=== PATIENT | female | born 1945 | race Caucasian/White ===

== ENCOUNTER 2018-01-25 07:54 | Outpatient (CLI) | payer MEDICARE, BC, SELFPAY ==
[2018-01-25 08:20] LABS: HCT 42.7 % (36.0-46.0); HGB 14.3 g/dL (12.0-15.5); Mean Corp. HGB Concentration 33.5 g/dL (32.0-36.0); Mean Corpuscular Hemoglobin 29.7 pg (27.0-33.0); Mean Corpuscular Volume 88.6 fL (80-95); Mean Platelet Volume 9.3 fL (8.0-11.0); Platelet Count 355 x1000/uL (130-400); RBC 4.82 m/cumm (4.00-5.20); RBC Distribution Width 13.9 % (11.7-14.6); White Blood Cell Count 4.87 k/cumm (4.4-10.8)
[2018-01-25 09:18] LABS: ALT 19 U/L (12-78); AST 18 U/L (15-37); Albumin 3.7 g/dL (3.4-5.0); Alkaline Phosphatase 89 U/L (46-116); Anion Gap 8.3 mmol/L (3-11); BUN 16 mg/dL (7-18); Bilirubin, Total 0.9 mg/dL (0.2-1.0); CO2 25.7 mmol/L (21.0-32.0); CREATININE 0.97 mg/dL (0.55-1.02); Calcium 8.6 mg/dL (8.5-10.1); Chloride 107 mmol/L (98-107); Estimated GFR 56.45 (mL/min/1.73m2); Glucose 120 mg/dL (70-100); Potassium 4.3 mmol/L (3.5-5.1); Sodium 141 mmol/L (136-145); Total Protein 6.9 g/dL (6.4-8.2)
[2018-01-27 07:27] LABS: Vitamin D 25 Total 12.8 ng/ml (30-100)
== END 2018-01-25 08:14 ==
PROVIDERS: PCP Family Medicine; Visit Provider Family Medicine
DX: E55.9 Vitamin D deficiency, unspecified (principal); R73.01 Impaired fasting glucose; K21.9 Gastro-esophageal reflux disease without esophagitis
CPT/HCPCS: 36415; 80053; 82306; 85027

== ENCOUNTER 2018-03-07 12:54 | Outpatient (CLI) | payer MEDICARE, BC, SELFPAY ==
--- NOTE | 2018-03-07 11:14 | DI.RAD_ITS ---
SYMPTOM/DIAGNOSIS: KNEE PAIN RIGHT KNEE: Comparison is made with 04/16/17. Two weight bearing views were performed. There has been no significant change in the right total knee prosthesis given differences in projection.
== END 2018-03-07 13:14 ==
PROVIDERS: PCP Family Medicine; Referring Provider Family Medicine; Visit Provider Student in an Organized Health Care Education/Training Program
DX: M25.561 Pain in right knee (principal); Z96.651 Presence of right artificial knee joint; Z47.1 Aftercare following joint replacement surgery
CPT/HCPCS: 99213; 99214; 73560

== ENCOUNTER 2018-04-04 14:13 | Outpatient (CLI) | payer MEDICARE, BC, SELFPAY ==
[2018-04-04 14:29] LABS: Bilirubin Negative (Negative); Blood Trace-lysed (Negative); Clarity Clear; Glucose Negative (Negative); Ketones Trace mg/dL (Negative); Leukocyte Esterase Small (Negative); Nitrite Negative (Negative); Specific Gravity >= 1.030 (1.005-1.025); Urobilinogen 0.2 EU/dL (Up TO 0.2)
[2018-04-04 14:52] LABS: Bacteria Moderate HPF (Negative); C & S Indicated? Yes; Casts Negative LPF (Negative); Crystals Negative HPF (Negative); Epithelial Cells Few HPF (Negative); Mucus Heavy (Negative); Other Cells Few Renal (Negative); WBC >50 HPF (0-5)
== END 2018-04-04 14:33 ==
PROVIDERS: PCP Family Medicine; Visit Provider Nurse Practitioner Women's Health
DX: R39.9 Unspecified symptoms and signs involving the genitourinary system (principal)
CPT/HCPCS: 87077; 81003; 81015; 87086; 87186

== ENCOUNTER → 2018-04-11 08:49 | Outpatient (BNVA) | payer MEDICARE, BC, SELFPAY | PROVIDERS: PCP Family Medicine; Referring Provider Family Medicine; Visit Provider Student in an Organized Health Care Education/Training Program | DX: Z47.1 Aftercare following joint replacement surgery (principal); Z96.651 Presence of right artificial knee joint; M17.11 Unilateral primary osteoarthritis, right knee | CPT/HCPCS: 99212; 99213 ==

== ENCOUNTER 2018-04-19 08:54 | Outpatient (CLI) | payer MEDICARE, BC, SELFPAY ==
--- NOTE | 2018-04-19 13:03 | DI.MAMMO_ITS ---
SYMPTOM/DIAGNOSIS: SCREENING, Z12.31 MAMMOGRAMS: Mammograms were interpreted according to the usual protocol including computer analysis with CAD system, tomosynthesis and C view imaging. Comparison is made with the prior examinations. No suspicious masses or microcalcifications are seen. There has been no significant change compared to the prior examinations. IMPRESSION: No evidence for malignancy. Yearly mammography is recommended. Category 1, breast density A. MQSA ASSESSMENT OF FINDINGS: Negative. Category 1. Patient will receive a letter notifying them of these results. BI-RAD category A. The breasts are almost entirely fatty.
== END 2018-04-19 09:14 ==
PROVIDERS: PCP Family Medicine; Visit Provider Family Medicine
DX: Z12.31 Encounter for screening mammogram for malignant neoplasm of breast (principal)
CPT/HCPCS: 77063; 77067

== ENCOUNTER 2018-04-21 08:16 | Outpatient (CLI) | payer MEDICARE, BC, SELFPAY ==
[2018-04-21 09:37] LABS: Glucose 109 mg/dL (70-100)
[2018-04-21 10:03] LABS: Vitamin D 25 Total 14.4 ng/ml (30-100)
== END 2018-04-21 08:36 ==
PROVIDERS: PCP Family Medicine; Visit Provider Family Medicine
DX: R73.03 Prediabetes (principal); E22.9 Hyperfunction of pituitary gland, unspecified
CPT/HCPCS: 82306; 82947; 83036

== ENCOUNTER 2018-08-29 11:45 | Outpatient (CLI) | payer MEDICARE, BC, SELFPAY ==
[2018-08-29 12:17] LABS: Abs Immature Grans 0.01 k/cumm (0.0-0.09); Absolute Basophil Count 0.01 k/cumm (0.0-0.2); Absolute Eosinophil Count 0.04 k/cumm (0.0-0.7); Absolute Lymphocyte Count 2.13 k/cumm (1.2-3.4); Absolute Monocyte Count 0.41 k/cumm (0.11-0.7); Absolute Neutrophil Count 3.71 k/cumm (1.2-6.7); Basophils % 0.2; Eosinophils % 0.6; HCT 43.3 % (36.0-46.0); Immature Grans % 0.2; Lymphocytes % 33.8; Mean Corp. HGB Concentration 32.3 g/dL (32.0-36.0); Mean Corpuscular Hemoglobin 28.9 pg (27.0-33.0); Mean Corpuscular Volume 89.5 fL (80-95); Mean Platelet Volume 9.3 fL (8.0-11.0); Monocytes % 6.5; Neutrophils % 58.7; Platelet Count 359 x1000/uL (130-400); RBC 4.84 m/cumm (4.00-5.20); White Blood Cell Count 6.31 k/cumm (4.4-10.8)
[2018-08-29 13:00] LABS: ALT 21 U/L (12-78); AST 16 U/L (15-37); Albumin 3.8 g/dL (3.4-5.0); Alkaline Phosphatase 101 U/L (46-116); Anion Gap 7.4 mmol/L (3-11); BUN 18 mg/dL (7-18); Bilirubin, Total 0.5 mg/dL (0.2-1.0); CO2 29.6 mmol/L (21.0-32.0); CREATININE 0.95 mg/dL (0.55-1.02); Calcium 9.2 mg/dL (8.5-10.1); Chloride 102 mmol/L (98-107); Estimated GFR 57.66 (mL/min/1.73m2); Glucose 97 mg/dL (70-100); Potassium 4.1 mmol/L (3.5-5.1); Sodium 139 mmol/L (136-145); Total Protein 7.2 g/dL (6.4-8.2)
--- NOTE | 2018-08-29 13:00 | DI.RAD_ITS ---
SYMPTOM/DIAGNOSIS: NECK PAIN, PRESSURE BOTH ARMS, CERVICALGIA, M54.2 CERVICAL SPINE: Five views were obtained. There is narrowing of the intervertebral disc spaces at C 4-5 and C 5-6 and to a lesser degree at C 3-4. There are moderate changes of hypertrophic spurring of the vertebral endplates and facet joints in the mid cervical region as well. The neural foramina appear well maintained except for probable narrowing of left neural foramen at C 4-5 level. No erosive or destructive process is seen. CONCLUSION: Degenerative changes as described above.
[2018-08-29 13:15] LABS: ESR 11 MM/HR (0-30)
[2018-08-29 14:09] LABS: Vitamin D 25 Total 17.7 ng/ml (30-100)
== END 2018-08-29 12:05 ==
PROVIDERS: PCP Family Medicine; Visit Provider Family Medicine
DX: R53.1 Weakness (principal); E55.9 Vitamin D deficiency, unspecified; R53.83 Other fatigue; M54.2 Cervicalgia; M47.22 Other spondylosis with radiculopathy, cervical region
CPT/HCPCS: 36415; 80053; 82306; 85652; 72050; 85025

== ENCOUNTER 2018-12-26 07:15 | Outpatient (CLI) | payer MEDICARE, BC, SELFPAY ==
[2018-12-26 08:48] LABS: Vitamin D 25 Total 24.1 ng/ml (30-100)
[2018-12-26 08:52] LABS: ALT 23 U/L (12-78); AST 17 U/L (15-37); Albumin 3.5 g/dL (3.4-5.0); Alkaline Phosphatase 97 U/L (46-116); Anion Gap 11.2 mmol/L (3-11); BUN 21 mg/dL (7-18); Bilirubin, Total 0.8 mg/dL (0.2-1.0); CO2 26.8 mmol/L (21.0-32.0); CREATININE 0.93 mg/dL (0.55-1.02); Calcium 8.8 mg/dL (8.5-10.1); Chloride 104 mmol/L (98-107); Glucose 105 mg/dL (70-100); Magnesium 2.1 mg/dL (1.8-2.4); Potassium 4.6 mmol/L (3.5-5.1); Sodium 142 mmol/L (136-145); Total Protein 6.9 g/dL (6.4-8.2); Vitamin B12 421 pg/mL (193-986)
== END 2018-12-26 07:35 ==
PROVIDERS: PCP Family Medicine; Visit Provider Family Medicine
DX: R73.03 Prediabetes (principal); Z79.899 Other long term (current) drug therapy; E55.9 Vitamin D deficiency, unspecified
CPT/HCPCS: 36415; 80053; 82306; 82607; 83735

== ENCOUNTER 2019-03-02 01:09 | Outpatient (CLI) | payer MEDICARE, BC, SELFPAY ==
[2019-03-02 13:22] LABS: Vitamin D 25 Total 26.2 ng/ml (30-100)
== END 2019-03-02 01:29 ==
PROVIDERS: PCP Family Medicine; Visit Provider Family Medicine
DX: E55.9 Vitamin D deficiency, unspecified (principal)
CPT/HCPCS: 36415; 82306

== ENCOUNTER 2019-06-13 13:26 | Outpatient (CLI) | payer MEDICARE, BC, SELFPAY ==
--- NOTE | 2019-06-13 14:41 | DI.MAMMO_ITS ---
EXAM: MG MAMMO SCREENING CLINICAL HISTORY: screening,Z12.31. TECHNIQUE: Full field digital CC and MLO mammographic images were obtained with 3D tomosynthesis and utilizing computer aided detection (CAD). COMPARISON: . 2009 through 2017 FINDINGS: Breast Density - Category A - Almost entirely fatty Masses/Architectural Distortion: None seen. Microcalcifications: No suspicious pleomorphic-type calcifications are seen. Skin Thickening/Nipple Retraction: None. Axilla: Unremarkable. IMPRESSION: 1. BI-RADS category 1, negative. No significant interval change with no specific features of maligna ncy noted. 2. Unless there is more urgent need, screening mammography is recommended, as per [place] [employer] guidelines. A negative radiographic report should not delay biopsy if a dominant or clinically suspicious mass is present. Up to ten percent of cancers are not identified on mammography. A negative report may reinforce clinical impression. Adenosis and dense breasts may obscure an underlying neoplasm. False positive reports average 6 to 10%. Patient will receive a letter notifying them of these results.
== END 2019-06-13 13:46 ==
PROVIDERS: PCP Family Medicine; Visit Provider Family Medicine
DX: Z12.31 Encounter for screening mammogram for malignant neoplasm of breast (principal)
CPT/HCPCS: 77063; 77067

== ENCOUNTER 2019-06-21 02:35 | Outpatient (CLI) | payer MEDICARE, BC, SELFPAY ==
[2019-06-22 06:50] LABS: Vitamin D 25 Total 28.3 ng/ml (30-100)
== END 2019-06-21 02:55 ==
PROVIDERS: PCP Family Medicine; Visit Provider Family Medicine
DX: E55.9 Vitamin D deficiency, unspecified (principal)
CPT/HCPCS: 36415; 82306

== ENCOUNTER 2019-08-15 18:46 | Inpatient (IN) | payer MEDICARE, BC, SELFPAY ==
[2019-08-15 18:51] VITALS: BP 175/81; PULSE 83; RESP 16; TEMP 36.6; O2SAT 98
[2019-08-15] MEDS: Lactated Ringers 1,000 ML 125 ML IV (19:14)
[2019-08-15 19:16] LABS: Absolute Basophil Count 0.01 k/cumm (0.0-0.2); Absolute Eosinophil Count 0.09 k/cumm (0.0-0.7); Absolute Monocyte Count 0.52 k/cumm (0.11-0.7); Basophils % 0.2; Eosinophils % 1.8; HCT 44.3 % (36.0-46.0); Lymphocytes % 49.8; Mean Corp. HGB Concentration 33.9 g/dL (32.0-36.0); Mean Corpuscular Hemoglobin 29.6 pg (27.0-33.0); Mean Corpuscular Volume 87.4 fL (80-95); Mean Platelet Volume 9.1 fL (8.0-11.0); Monocytes % 10.4; Neutrophils % 37.8; Platelet Count 399 x1000/uL (130-400); RBC 5.07 m/cumm (4.00-5.20); RBC Distribution Width 14.6 % (11.7-14.6); White Blood Cell Count 5.02 k/cumm (4.4-10.8)
[2019-08-15 19:38] LABS: ALT 28 U/L (14-59); AST 19 U/L (15-37); Albumin 3.7 g/dL (3.4-5.0); Alkaline Phosphatase 103 U/L (46-116); Anion Gap 9.4 mmol/L (3-11); BUN 20 mg/dL (7-18); Bilirubin, Total 0.6 mg/dL (0.2-1.0); CO2 26.6 mmol/L (21.0-32.0); CREATININE 1.02 mg/dL (0.55-1.02); Calcium 9.5 mg/dL (8.5-10.1); Chloride 108 mmol/L (98-107); Estimated GFR 52.97 (mL/min/1.73m2); Glucose 127 mg/dL (74-106); Potassium 4.1 mmol/L (3.5-5.1); Sodium 144 mmol/L (136-145); Total Protein 7.5 g/dL (6.4-8.2)
--- NOTE | 2019-08-15 19:40 | W.ED.GENAD ---
Discharge Plan Disposition Patient Disposition: [facility]IENT Condition: Stable Discharge Details Chief Complaint: Abd Prob Clinical Impression: Partial small bowel obstruction Admit Date/Time: 08/15/19 23:21 Admit Provider: Kelly Lewis Attending Provider: Kelly Lewis Primary Care Provider: Nathaly March ED Provider: Prosper Caballero Hospital Course Hospital Course: The patient was admitting for symptom control and IVF. Her pain resolved quickly. On the day of discharge she was tolerating a soft diet with nausea, vomiting or increased pain. She was having loose stool. She was advised to call for any return of symptoms, follow up as needed. Discharge Instructions Instructions: Bowel Obstruction (DC) Forms: Nursing Discharge Form Discharge Data Discharge Date/Time-TO BE ENTERED AT DEPARTURE: 08/16/19 00:30 Medical Decision Making <César Berumen MD - Last Filed: 08/26/19 09:20> 19:50 -- 74yo f with history of prior bowel resection and bowel obstruction in 0 that was treated nonoperatively, here tonight with mid abdominal pain that started postprandially. Tender in her left upper abdomen with no rigidity or rebound tenderness. Consider bowel obstruction. Will obtain abdominal x-ray. If x-ray is inconclusive, plan to proceed to CT the abdomen pelvis to assess for other acute intra-abdominal surgical processes. I will give morphine 4 mg IV for pain. Patient remained n.p.o. and receiving IV fluid maintenance. Labs reviewed and no leukocytosis, lactate is mildly elevated at 2.0. LFTs and lipase normal. <Prosper Caballero MD - Last Filed: 08/16/19 01:50> Received signout from Dr. Berumen. Please see his note regarding details of the initial presentation, exam, plan of care. She is a 74-year-old female with a history of previous partial colectomy as well as previous bowel obstructions. Patient's x-ray was read as unremarkable but she had persistent symptoms of distention and discomfort. She was referred for CT scan which does show mild dilation of the mid to distal small bowel loops consistent with an early or partial mechanical small bowel obstruction. HPI <César Berumen MD - Last Filed: 08/26/19 09:20> General Mode of arrival: ambulatory. Date/Time Provider Initiated Documentation: 08/15/19 18:56. Limitations to Documentation: no limitations. Information obtained by: patient. HPI Narrative: 74-year-old female with history of remote bowel resection and subsequent bowel obstruction that was treated nonoperatively in 2013, here tonight with chief complaint of abdominal pain. Patient notes pain started just prior to arrival postprandially. Pain localized to central abdomen. No radiation. No associated nausea or vomiting. She did have a small bowel movement after onset of pain. Pain feels like prior episode of bowel obstruction in 2013. Pain is described as dull and moderate to severe in intensity. Certain positions seem to improve pain. Related Data Home Medications Medication Instructions Recorded Confirmed sumatriptan succinate 50 mg tablet 50 mg PO ONCE PRN 01/24/18 08/15/19 omeprazole 20 mg capsule,delayed 20 mg PO DAILY PRN cap 08/29/18 08/15/19 release cholecalciferol (vitamin D3) 50 4,000 unit PO DAILY #90 cap 03/27/19 08/15/19 mcg (2,000 unit) capsule Previous Rx's Medication Instructions Recorded cholecalciferol (vitamin D3) 50 4,000 unit PO DAILY #90 cap 03/27/19 mcg (2,000 unit) capsule Allergies Allergy/AdvReac Type Severity Reaction Status Date / Time Metronidazole HCl AdvReac Severe NAUSEA,DIAR Verified 08/15/19 18:53 [From Flagyl] LAKEISHA atorvastatin calcium AdvReac Intermediate MUSCLE, Verified 08/15/19 18:53 [From Lipitor] JOINT PAIN meperidine HCl [From Demerol] AdvReac Intermediate Nausea Verified 08/15/19 18:53 Frzmffc-Tag-Gty Reductase AdvReac Intermediate myalgia Verified 08/15/19 18:53 Inhibitor General Stated Complaint: Abd Prob ANABELA: 3 Review of Systems <César Berumen MD - Last Filed: 08/26/19 09:20> All systems reviewed & are unremarkable except as noted in HPI and below Constitutional Constitutional: Denies fever(s) Gastrointestinal Gastrointestinal: Reports as per HPI, Denies melena, Denies hematochezia, Denies nausea and Denies vomiting PFSH <César Berumen MD - Last Filed: 08/26/19 09:20> Medical History Hyperlipidemia (Chronic 03/28/13) Hypertension (Chronic) Small bowel obstruction (Resolved) Surgical History Back Surgery (~1988) [facility] [place] Bowel Resection (~2002) RE DIVERTICULITIS;DR. Mervat SHAFFER Cholecystectomy (~1969) Extraction of cataract DR. 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 Calzada Family History Mother Essential hypertension CHF (congestive heart failure) Stroke Father CHF (congestive heart failure) Brother Neoplasm multiple mylenoma; acute renal failure Brother No problems noted. 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 [employer] Duration: 15-30 minutes/day Frequency: daily Maribel/Mu-Ism: Zoroastrianism Special maribel needs: No Do you feel safe in your relationship?: Yes Exam <César Berumen MD - Last Filed: 08/26/19 09:20> Const General: cooperative and no acute distress HENMT Mouth: moist mucous membranes Eyes Conjunctivae: normal conjunctivae Sclera: normal sclerae Neck Neck: trachea midline and supple Resp Auscultation: clear to auscultation bilaterally, no rales, no rhonchi and no wheezes Cardio Rate: regular rate and not tachycardic Rhythm: regular rhythm GI Palpation: soft, not firm, no guarding, no masses, not rigid and tender in the LUQ, periumbilically and Rovsing's sign positive (LUQ pain on palpation right abd); with no rebound tenderness Auscultation: normal bowel sounds Neuro General: patient alert, patient awake and tone normal Extrem General: no edema Psych Appearance: grossly normal Mental Status: mental status grossly normal Course <César Berumen MD - Last Filed: 08/26/19 09:20> Vital Signs Vital signs: Vital Signs Temperature 36.6 C 08/15/19 18:51 Pulse 83 08/15/19 18:51 Respiratory Rate 16 03/31/20 18:51 Blood Pressure 175/81 H 08/15/19 18:51 Pulse Oximetry 98 08/15/19 18:51 Temperature 36.6 C 08/15/19 18:51 Temperature Source Temporal Artery Scan 08/15/19 18:51 Pulse 83 08/15/19 18:51 Respiratory Rate 16 08/15/19 18:51 Blood Pressure 175/81 H 08/15/19 18:51 Blood Pressure Position Sitting 08/15/19 18:51 Pulse Oximetry 98 08/15/19 18:51 Oxygen Delivery Method Room Air 08/15/19 18:51 Oxygen Flow Rate 0 08/15/19 18:51 Pain Level 9 08/15/19 18:51 Lab/Test Results Lab/Test Results: Laboratory Tests Range/Units 08/15/19 19:03 WBC (4.4-10.8) k/cumm 5.02 RBC (4.00-5.20) m/cumm 5.07 Hgb (12.0-15.5) g/dL 15.0 Hct (36.0-46.0) % 44.3 MCV (80-95) fL 87.4 MCH (27.0-33.0) pg 29.6 MCHC (32.0-36.0) g/dL 33.9 RDW (11.7-14.6) % 14.6 Plt Count (130-400) x1000/uL 399 MPV (8.0-11.0) fL 9.1 Immature Gran % % 0.0 Neutrophils % 37.8 Lymphocytes % 49.8 Monocytes % 10.4 Eosinophils % 1.8 Basophils % 0.2 Absolute Neutrophils (1.2-6.7) k/cumm 1.90 Absolute Lymphocytes (1.2-3.4) k/cumm 2.50 Absolute Monocytes (0.11-0.7) k/cumm 0.52 Absolute Eosinophils (0.0-0.7) k/cumm 0.09 Absolute Basophils (0.0-0.2) k/cumm 0.01 Sign Out <César Berumen MD - Last Filed: 08/26/19 09:20> Sign Out Data: Sign Out Comment: Follow-up on abdominal x-ray. Reassess patient. Consider additional diagnostic testing if pain persists and x-ray inconclusive. Last updated by César Berumen MD at 08/15/19 19:55
[2019-08-15 19:54] LABS: Lipase 56 U/L (73-393)
--- NOTE | 2019-08-15 20:07 | DI.RAD_ITS ---
EXAM: XR ABD FLAT UPRIGHT PA CHEST CLINICAL HISTORY: abdominal pain periumbilical TECHNIQUE: 2D digital imaging was performed. COMPARISON: CHEST 2 VIEWS PA,LAT from 05/24/2016 FINDINGS: The heart size is mildly enlarged, unchanged. The aorta is slightly tortuous. The lungs appear pramod r with the exception of minimal linear areas scarring or atelectasis. Multiple surgical clips are se en on the left side of the abdomen. There are no abnormal bowel loops of dilated bowel. No free air is seen. No urinary tract calculi are visible. Degenerative changes are seen in the spine. IMPRESSION: No acute abnormality.
--- NOTE | 2019-08-15 20:14 | DI.VRAD_ITS ---
PROCEDURE INFORMATION: Exam: XR Complete Acute Abdomen Series Exam date and time: 08/15/2019 7:58 PM Age: 74 years old Clinical indication: Other: Abdominal pain periumbilical TECHNIQUE: Imaging protocol: XR complete acute abdomen series, including 2 or more views of the abdomen and a single view chest. COMPARISON: CR CHEST 2 VIEWS PA,LAT 05/24/2016 9:05 PM FINDINGS: Lungs: Pulmonary vascular markings upper normal. No consolidation. Pleural space: Normal. No pneumothorax. Heart/Mediastinum: Normal. No cardiomegaly. Gastrointestinal tract: Normal. No bowel dilation. Intraperitoneal space: Surgical clips left abdomen. Bones/joints: Normal. No acute fracture. Soft tissues: Normal. IMPRESSION: No acute abnormality identified. Dictated and Authenticated by: Nick Gilliam MD. Ordering:IRIS Lindsey MD
[2019-08-15 21:25] VITALS: BP 126/53; PULSE 63; RESP 18; O2SAT 96
--- NOTE | 2019-08-15 22:30 | DI.CT_ITS ---
EXAM: CT ABDOMEN PELVIS W CLINICAL HISTORY: pain, bloating, hx SBO. TECHNIQUE: Imaging Protocol: Axial computed tomography images with coronal and sagittal reformatted images were created and reviewed CONTRAST MATERIAL: Intravenous: Omnipaque 350 Contrast volume:100 ml Oral: yes. The patient had difficulty tolerating the oral contrast due to nausea. COMPARISON: ABD PELVIS WITH CONTRAST from 03/04/2014 XR ABD FLAT UPRIGHT PA CHEST from 08/15/2019 FINDINGS: ABDOMEN: Lung Bases: The heart is mildly enlarged. The lungs show increased interstitial changes in bilateral nonspecific areas of increased airspace opacities, non-specific. Liver: Mild fatty infiltration. Stable small cyst in the left lobe.. No suspicious mass. Gallbladder and biliary tract: The gallbladder is not seen, presumed surgically absent. No radiodens e calculus or dilation. Pancreas: Atrophic and fatty replaced. No abnormal calcifications or inflammatory process. Spleen: Normal. Kidneys: Normal size, contour and axis. No radiodense stones or obstructive uropathy. No masses seen. Adrenal glands: No masses seen. Abdominal Aorta: Abdominal portion non-dilated and shows calcification.. PELVIS: Bladder: Symmetric distention, no gross wall thickening. Bowel: There is a sigmoid anastomosis. Diverticulosis is noted throughout the colon. There is no ev idence of diverticulitis. Stomach the stomach is somewhat distended with food and fluid. There is m ild dilatation of loops of small bowel which could indicate an early obstruction.. Peritoneal cavity: No ascites, collection or mesenteric inflammatory response. No free air Bones: Degenerative changes. Reproductive organs: Status post hysterectomy. Lymph nodes: No enlarged nodes are seen. Impression: Findings consistent with a mild partial small bowel obstruction. There is diverticulosis but no evid ence of diverticulitis. Nonspecific opacities are seen at the lung bases. Clinical correlation is r ecommended.. DATA REPOSITORY: All CT scans at this facility are submitted to the National Radiology Data Registry (NRDR) Dose Index Registry (DIR) with the [employer] (ACR). RADIATION OPTIMIZATION: All CT scans at this facility use at least one of these dose optimization te chniques: automated exposure control; mA and/or kV adjustment per patient size (includes targeted exa ms where dose is matched to clinical indication); or iterative reconstruction.
[2019-08-15] MEDS: Omnipaque 350 MG/ML 100 ML BTL IJ (22:32)
[2019-08-15] MEDS: Omnipaque 350 MG/ML 50 ML BTL PO (22:32)
[2019-08-15] MEDS: Normal Saline - Diluent 50 ML VIAL IV (22:33)
[2019-08-15 23:06] VITALS: BP 150/73; PULSE 72; RESP 16; O2SAT 97
--- NOTE | 2019-08-15 23:12 | DI.VRAD_ITS ---
PROCEDURE INFORMATION: Exam: CT Abdomen And Pelvis With Contrast Exam date and time: 08/15/2019 9:02 PM Age: 74 years old Clinical indication: Bloating and other: Pain, bloating, HX sbo; Patient HX: HX bowel recection in 2002. TECHNIQUE: Imaging protocol: Computed tomography of the abdomen and pelvis with intravenous contrast. Contrast material: OMNIPAQUE 350; Contrast volume: 100 ml; Contrast route: IV; Other contrast: Oral, omnipaque 350, 50; COMPARISON: CT ABD PELVIS WITH CONTRAST 03/04/2014 5:22 PM FINDINGS: Lungs: Interstitial prominence and peribronchiolar airspace disease both lower lobes. Liver: Diffuse decrease in hepatic parenchymal density, consistent with fatty infiltration. 1.6 cm cyst left lobe liver. Gallbladder and bile ducts: Normal. No calcified stones. No ductal dilation. Pancreas: Normal. No ductal dilation. Spleen: Normal. No splenomegaly. Adrenals: Normal. No mass. Kidneys and ureters: Normal. No hydronephrosis. Stomach and bowel: Mild dilation of mid to distal small bowel loops, consistent with an early or partial mechanical small bowel obstruction. Previous sigmoid resection. Colonic diverticula present. Appendix: No evidence of appendicitis. Intraperitoneal space: Unremarkable. No free air. No significant fluid collection. Vasculature: Aorta demonstrates mild atherosclerotic calcification. Lymph nodes: Unremarkable. No enlarged lymph nodes. Bladder: Unremarkable as visualized. Reproductive: Unremarkable as visualized. Bones/joints: Unremarkable. No acute fracture. Soft tissues: Unremarkable. IMPRESSION: 1. Mild dilation of mid to distal small bowel loops, consistent with an early or partial mechanical small bowel obstruction. Correlate clinically. 2. Interstitial prominence and peribronchiolar airspace disease both lower lobes. Dictated and Authenticated by: Nick Gilliam MD. Ordering:MAMI Cheng MD
[2019-08-16] MEDS: Pantoprazole 40 MG VIAL IVP (00:11)
[2019-08-16 00:16] VITALS: BP 154/70; PULSE 72; RESP 18; TEMP 36.6; O2SAT 96
[2019-08-16 00:29] VITALS: BP 147/73; PULSE 64; RESP 20; TEMP 36.6; O2SAT 94
[2019-08-16] MEDS: Normal Saline Flush 10 ML SYR IVP ×3 (01:31→06:41)
[2019-08-16] MEDS: Ondansetron 4 MG/2 ML VIAL IVP ×2 (02:57→06:40)
[2019-08-16] MEDS: MORPHine 2 MG/ML SYR IVP ×2 (03:15→06:44)
[2019-08-16 03:56] VITALS: BP 125/72; PULSE 73; RESP 19; TEMP 36.4; O2SAT 95
[2019-08-16 06:43] VITALS: BP 163/82; PULSE 85; RESP 18; TEMP 35.8; O2SAT 98
[2019-08-16 07:25] VITALS: BP 135/79; PULSE 70; RESP 18; TEMP 36.6; O2SAT 91
[2019-08-16] MEDS: Normal Saline 1,000 ML 125 ML IV ×4 (07:48→23:57)
--- NOTE | 2019-08-16 09:53 | DI.RAD_ITS ---
EXAM: XR ABDOMEN FLAT PLATE CLINICAL HISTORY: Bowel obstruction TECHNIQUE: 2D digital imaging was performed. COMPARISON: XR ABD FLAT UPRIGHT PA CHEST from 08/15/2019 CT ABDOMEN PELVIS W from 08/15/2019 FINDINGS: A loop of mildly dilated small bowel in the mid abdomen. The stomach and colon are not abnormally d istended. Anastomotic sutures and surgical clips are again noted. IMPRESSION: Mild central small-bowel dilatation.
--- NOTE | 2019-08-16 10:38 | PDOC.CMIN ---
- If Service Date Differs Date of service: 08/16/19 Time of Service: 10:38 Care Management Initial Assess REASON FOR HOSPITALIZATION:: Small bowel obstruction PAST MEDICAL HISTORY/PAST SURGICAL HISTORY:: Medical History. Hyperlipidemia (Chronic 03/28/13). Hypertension (Chronic). Small bowel obstruction (Resolved). Surgical History. Back Surgery (~1988). [facility] [place]. Bowel Resection (~2002). RE DIVERTICULITIS;DR. Mervat SHAFFER. Cholecystectomy (~1969). Extraction of cataract. DR. LEGER left 12/2014;rt 02/2012. Ligation of fallopian tube (~1985). . Replacement of total knee joint (04/01/17). Right Knee Replacement- Dr. Calzada PREVIOUS FUNCTIONAL STATUS/SOCIAL/FAMILY SUPPORTS:: Sherlyn lives in [facility]. Her son, Zaki, is listed as a support. She has two sons who live nearby and three who live out of the state. She is currently working for [employer], at [employer]. She is very independent at baseline. CURRENT FUNCTIONAL STATUS:: Sherlyn was sitting up in her chair when CM met with her. She reported that she was feeling better than when she arrived. She stated that she has experienced this before, so she knows what to expect. Previously, she did not need surgical intervention to resolve her SBO, and she is hopeful that the current process will be similar. CM will continue to follow. ADVANCE DIRECTIVES:: None on file. Has patient been provided with information about the portal?: Yes Did the patient sign up for the portal?: Yes (previously) CODE STATUS:: Full Code INSURANCE COVERAGE / FINANCIAL ISSUES:: [facility]/ [employer]BS CURRENT HOME/COMMUNITY SERVICES/EQUIPMENT:: Sherlyn does not currently have equipment or services in the community. PRIMARY CARE PHYSICIAN:: Nathaly March POTENTIAL DISCHARGE NEEDS:: Evaluations for further needs, follow up appointments PATIENT/FAMILY EDUCATION NEEDS:: Review discharge instructions regarding activity levels and medications, discussion of self care needs including ask me three ANTICIPATED BARRIERS TO DISCHARGE:: None identified at this time. TRANSPORTATION:: Anticipate she will be driven home via private vehicle by [employer]. PLAN:: Anticipate Sherlyn will return home once medically cleared. She will follow up with her PCP and discharge plan of care. She will be driven home via private vehicle once ready. CM will continue to follow.
[2019-08-16 11:36] LABS: Abs Immature Grans 0.01 k/cumm (0.0-0.09); Absolute Basophil Count 0.01 k/cumm (0.0-0.2); Absolute Lymphocyte Count 1.01 k/cumm (1.2-3.4); Absolute Monocyte Count 0.46 k/cumm (0.11-0.7); Absolute Neutrophil Count 4.82 k/cumm (1.2-6.7); Basophils % 0.2; HCT 40.9 % (36.0-46.0); HGB 13.4 g/dL (12.0-15.5); Immature Grans % 0.2 %; Mean Corp. HGB Concentration 32.8 g/dL (32.0-36.0); Mean Corpuscular Hemoglobin 28.9 pg (27.0-33.0); Mean Corpuscular Volume 88.3 fL (80-95); Mean Platelet Volume 9.2 fL (8.0-11.0); Monocytes % 7.3; Neutrophils % 76.3; Platelet Count 307 x1000/uL (130-400); RBC 4.63 m/cumm (4.00-5.20); RBC Distribution Width 14.5 % (11.7-14.6); White Blood Cell Count 6.31 k/cumm (4.4-10.8)
[2019-08-16 11:39] LABS: Anion Gap 8.3 mmol/L (3-11); BUN 17 mg/dL (7-18); CO2 25.7 mmol/L (21.0-32.0); CREATININE 0.86 mg/dL (0.55-1.02); Calcium 8.8 mg/dL (8.5-10.1); Chloride 110 mmol/L (98-107); Glucose 128 mg/dL (74-106); Sodium 144 mmol/L (136-145)
--- NOTE | 2019-08-16 11:41 | HPE_ITS ---
Date of service: 08/16/19 Time of Service: 09:00 Assessment and Plan Assessment and plan (1) Partial small bowel obstruction: Status: Acute Assessment and plan: A// ABD flat plate showed Mild central small-bowel dilatation. Abdominal exam was unremarkable. Diet: Currently NPO. Will start clear liquid diet once passing gas. Encouraged ambulation within the room with staff. Continue IV fluids for hydration. Denies N/V pt seen and examined. agree w/ above. no signs of peritonitis or infection/ischemia History of Present Illness History of Present Illness Chief Complaint: Small Bowel Obstruction Narrative: 74 y/o female presented to the ER with post-prandial abdominal pain which had started a few hours prior to her coming into the ER. She reports that she ate dinner a small dinner and then noted progressively worsening abdominal pain. She reports she lives alone and was concerned that her symptoms would continue to worsen into the night. She reports her pain is well controlled currently. Her last BM was last evening following her dinner. She denies any fevers, chills or night sweats. She reports she had a SBO in 2012 which resolved with medical management. She denies any nausea or vomiting. She was given jello and gingerale which she reported she tolerated well. Will return to NPO pending ABD flat plate. [facility] Medical History Hyperlipidemia (Chronic 03/28/13) Hypertension (Chronic) Small bowel obstruction (Resolved) Surgical History [place] (~1988[place] [facility] [place] (~2002) RE DIVERTICULITIS;DR. Mervat SHAFFER Cholecystectomy (~1969) Extraction of cataract DR. 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 Calzada Family History Mother Essential hypertension CHF (congestive heart failure) Stroke Father CHF (congestive heart failure) Brother Neoplasm multiple mylenoma; acute renal failure Brother No problems noted. 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: 15-30 minutes/day Frequency: daily Maribel/Anabaptist: Confucianism Special maribel needs: No Do you feel safe in your relationship?: Yes Meds Home Medications and Allergies Home Medications Medication Instructions Recorded Confirmed Type sumatriptan succinate 50 mg tablet 50 mg PO ONCE PRN 01/24/18 08/15/19 History omeprazole 20 mg capsule,delayed 20 mg PO DAILY PRN cap 08/29/18 08/15/19 History release cholecalciferol (vitamin D3) 50 4,000 unit PO DAILY #90 cap 03/27/19 08/15/19 Rx mcg (2,000 unit) capsule Allergies Allergy/AdvReac Type Severity Reaction Status Date / Time Metronidazole HCl AdvReac Severe NAUSEA,DIAR Verified 08/15/19 18:53 [From Flagyl] LAKEISHA atorvastatin calcium AdvReac Intermediate MUSCLE, Verified 08/15/19 18:53 [From Lipitor] JOINT PAIN meperidine HCl [From Demerol] AdvReac Intermediate Nausea Verified 08/15/19 18:53 Uzhrmht-Bal-Oqg Reductase AdvReac Intermediate myalgia Verified 08/15/19 18:53 Inhibitor Exam Const General: cooperative, healthy appearing and comfortable Orientation: alert and oriented x3 Resp Effort & Inspection: normal respiratory effort, no audible wheezes and no cough Auscultation: clear to auscultation bilaterally GI Inspection: normal to inspection and non-distended Palpation: soft, no guarding and nontender Auscultation: normal bowel sounds Results Labs Result diagrams: 08/16/19 11:15 08/16/19 11:15 Labs: Laboratory Results - last 24 hr 08/15/19 08/15/19 08/15/19 19:03 19:03 19:03 WBC 5.02 RBC 5.07 Hgb 15.0 Hct 44.3 MCV 87.4 MCH 29.6 MCHC 33.9 RDW 14.6 Plt Count 399 MPV 9.1 Immature Gran % 0.0 Neutrophils % 37.8 Lymphocytes % 49.8 Monocytes % 10.4 Eosinophils % 1.8 Basophils % 0.2 Absolute Neutrophils 1.90 Absolute Lymphocytes 2.50 Absolute Monocytes 0.52 Absolute Eosinophils 0.09 Absolute Basophils 0.01 Sodium 144 Potassium 4.1 Chloride 108 H Carbon Dioxide 26.6 Anion Gap 9.4 BUN 20 H Creatinine 1.02 Estimated GFR/1.73 m2 52.97 Glucose 127 H Lactate Calcium 9.5 Total Bilirubin 0.6 AST 19 ALT 28 Alkaline Phosphatase 103 Total Protein 7.5 Albumin 3.7 Lipase 56 08/15/19 08/16/19 08/16/19 19:33 11:15 11:15 WBC 6.31 RBC 4.63 Hgb 13.4 Hct 40.9 MCV 88.3 MCH 28.9 MCHC 32.8 RDW 14.5 Plt Count 307 MPV 9.2 Immature Gran % 0.2 Neutrophils % 76.3 Lymphocytes % 16.0 Monocytes % 7.3 Eosinophils % 0.0 Basophils % 0.2 Absolute Neutrophils 4.82 Absolute Lymphocytes 1.01 L Absolute Monocytes 0.46 Absolute Eosinophils 0.00 Absolute Basophils 0.01 Sodium 144 Potassium 4.0 Chloride 110 H Carbon Dioxide 25.7 Anion Gap 8.3 BUN 17 Creatinine 0.86 Estimated GFR/1.73 m2 >= 60.00 Glucose 128 H Lactate 2.0 H Calcium 8.8 Total Bilirubin AST ALT Alkaline Phosphatase Total Protein Albumin Lipase Last Vital Signs Temp 36.6 C 08/16/19 07:25 Pulse 70 08/16/19 07:25 Resp 18 08/16/19 07:25 BP 135/79 08/16/19 07:25 Pulse Ox 91 L 08/16/19 07:25 COVID-19 Screening Traveled to [place] from one of the affected countries or regions?: N Recent travel in the [place] within the last 8 weeks?: No Recent out of the country travel within the last 8 weeks?: No Exposure or possible exposure to illness during travel?: No Had IN PERSON contact w/suspected or confirmed C-19 person: No Have you had the following symptoms in the past few days?: No Symptoms noted since travel?: No Symptoms
--- NOTE | 2019-08-16 11:52 | PHA.ADMREV ---
Pharmacy Clinical Review - Admission Clinical Review (Last Updated 08/15/19 @ 19:47 by César Berumen MD) Partial small bowel obstruction (Acute) Metronidazole HCl [From Flagyl] Adverse Reaction (Severe, Verified 08/15/19 18:53) NAUSEA,DIARRHEA atorvastatin calcium [From Lipitor] Adverse Reaction (Intermediate, Verified 08/15/19 18:53) MUSCLE, JOINT PAIN meperidine HCl [From Demerol] Adverse Reaction (Intermediate, Verified 08/15/19 18:53) Nausea Xlarwvd-Hwe-Jjl Reductase Inhibitor Adverse Reaction (Intermediate, Verified 08/15/19 18:53) myalgia Weight 93 kg - Renal Dosing Renal Dosing: BUN 17 mg/dL (7-18) 08/16/19 11:15 Creatinine 0.86 mg/dL (0.55-1.02) 08/16/19 11:15 Medications needing adjustments: Reviewed (current meds okay) - Anticoagulation Anticoagulation: Hgb 13.4 g/dL (12.0-15.5) 08/16/19 11:15 Hct 40.9 % (36.0-46.0) 08/16/19 11:15 Plt Count 307 x1000/uL (130-400) 08/16/19 11:15 Creatinine 0.86 mg/dL (0.55-1.02) 08/16/19 11:15 DVT Prohphylaxis: N/A Therapeutic Anticoagulation: N/A - Opiate Usage Evaluate Pain Scale/Pains Meds: Reviewed Scheduled Bowel Reg ordered if on Opiates?: No (has obstruction) - Relevant Labs Sodium 144 mmol/L (136-145) 08/16/19 11:15 Potassium 4.0 mmol/L (3.5-5.1) 08/16/19 11:15 Chloride 110 mmol/L (98-107) H 08/16/19 11:15 Electrolytes, C-Reactive P, ESR: Reviewed - Antimicrobial Stewardship Antibiotic appropriateness: N/A Surgical Abx d/c within 24 hr: N/A Culture review/Resistance: N/A - DM Control DM Control: Glucose 128 mg/dL (74-106) H 08/16/19 11:15 Insulin Dosing: N/A - Heart Failure/AL EF%, VY's, B-Blockers, Diuretics: N/A - BP Control BP Control: Blood Pressure 135/79 Blood Pressure 163/82 Blood Pressure 125/72 Blood Pressure 147/73 If elevated: Reviewed - QTc Review If Elevated: N/A - IV to PO Switch IV Medications: N/A - Home Meds Home Med List reviewed: Reviewed Relevent Home Meds Not ordered & why?: cholecalciferol, omeprazole, sumatriptan (pt currently NPO) - Current meds Current Medication Order Review: Reviewed - Comments Comments/Follow Ups: watch for restart of home meds once pt. no longer NPO
--- NOTE | 2019-08-16 14:06 | CHAPLAIN ---
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 She has been hospitalized before for something similar before and said she expects to be discharged later today. She has been in touch with her niece, and also called her two sons who live locally. Because no visitors are allowed in the hospital at this time, she is keeping in touch with family by phone.
[2019-08-16 15:32] VITALS: BP 108/70; PULSE 64; RESP 17; TEMP 36.6; O2SAT 95
--- NOTE | 2019-08-16 16:38 | W.PM.PROGNOT ---
Date of Service Date of service: 08/16/19 Time of Service: 16:38 Assessment and Plan Assessment and plan (1) Partial small bowel obstruction: Status: Acute Assessment and plan: s/p sigmoid resection for SBO. hx of prior SBO trial of clears and encourage walking hopefully advance diet in am/ +BM and than d/c (2) H/O surgical procedure: Status: Chronic Subjective Subjective Interval history since last seen: pt is occ passing gas. no BM yet. pain is signif improved since this am. No bleeding. Pt is doing well. no headaches. No CP or SOB. no productive cough. no dysuria. no leg pain or swelling. she does want to try some liquids. She does have a feel BS. and no pain. the pain was on the lower/left side of her incision. THis is where the adhesions are on the Ct scan. She has had a prior SBO in the past- her sx was in 2002. Her SBO was 2012. She denies any unsual activity or food. Exam GI Other: soft, min pain. + BS. no flatus yet Objective Objective Clinical Data: Abnormal lab results 08/15/19 08/15/19 08/16/19 Range/Units 19:03 19:33 11:15 Absolute Lymphocytes (1.2-3.4) k/cumm Chloride 108 H 110 H (98-107) mmol/L BUN 20 H (7-18) mg/dL Glucose 127 H 128 H (74-106) mg/dL Lactate 2.0 H (0.6-1.4) mmol/L 08/16/19 Range/Units 11:15 Absolute Lymphocytes 1.01 L (1.2-3.4) k/cumm Chloride (98-107) mmol/L BUN (7-18) mg/dL Glucose (74-106) mg/dL Lactate (0.6-1.4) mmol/L Vital Signs Temperature 36.6 C 08/16/19 15:32 Temperature Source Tympanic 08/16/19 15:32 Pulse 64 08/16/19 15:32 Pulse Rhythm Regular 08/16/19 07:50 Respiratory Rate 17 08/16/19 15:32 Respiratory Effort Non-Labored 08/16/19 07:50 Respiratory Depth Normal 08/16/19 07:50 Respiratory Pattern Normal 08/16/19 07:50 Blood Pressure 108/70 08/16/19 15:32 Blood Pressure Position Sitting 08/15/19 18:51 Pulse Oximetry 95 08/16/19 15:32 Oxygen Delivery Method Room Air 08/16/19 15:32 Oxygen Flow Rate 0 08/16/19 15:32 Pain Level 0 08/16/19 15:32 Intake & Output 08/15/19 08/16/19 08/16/19 23:59 11:59 23:59 Intake Total 1000 / 1000 1974 Output Total 1200 / 1500 300 / 1500 Balance 1000 / 1000 -225 / 475 700 / 475 Weight 90.718 kg 93 kg Intake: IV 1000 / 1000 1974 Output: Urine 600 / 900 300 / 900 Emesis 600 / 600 Other: Urine Color Yellow Straw Urine Appearance Clear Clear Urine Odor Normal Normal Emesis Description Undigested Food Bile Mucous Voiding Methods Toilet Toilet Laboratory Results WBC 6.31 k/cumm (4.4-10.8) 08/16/19 11:15 RBC 4.63 m/cumm (4.00-5.20) 08/16/19 11:15 Hgb 13.4 g/dL (12.0-15.5) 08/16/19 11:15 Hct 40.9 % (36.0-46.0) 08/16/19 11:15 MCV 88.3 fL (80-95) 08/16/19 11:15 MCH 28.9 pg (27.0-33.0) 08/16/19 11:15 MCHC 32.8 g/dL (32.0-36.0) 08/16/19 11:15 RDW 14.5 % (11.7-14.6) 08/16/19 11:15 Plt Count 307 x1000/uL (130-400) 08/16/19 11:15 MPV 9.2 fL (8.0-11.0) 08/16/19 11:15 Immature Gran % 0.2 % 08/16/19 11:15 Neutrophils % 76.3 08/16/19 11:15 Lymphocytes % 16.0 08/16/19 11:15 Monocytes % 7.3 08/16/19 11:15 Eosinophils % 0.0 08/16/19 11:15 Basophils % 0.2 08/16/19 11:15 Absolute Neutrophils 4.82 k/cumm (1.2-6.7) 08/16/19 11:15 Absolute Lymphocytes 1.01 k/cumm (1.2-3.4) L 08/16/19 11:15 Absolute Monocytes 0.46 k/cumm (0.11-0.7) 08/16/19 11:15 Absolute Eosinophils 0.00 k/cumm (0.0-0.7) 08/16/19 11:15 Absolute Basophils 0.01 k/cumm (0.0-0.2) 08/16/19 11:15 Sodium 144 mmol/L (136-145) 08/16/19 11:15 Potassium 4.0 mmol/L (3.5-5.1) 08/16/19 11:15 Chloride 110 mmol/L (98-107) H 08/16/19 11:15 Carbon Dioxide 25.7 mmol/L (21.0-32.0) 08/16/19 11:15 Anion Gap 8.3 mmol/L (3-11) 08/16/19 11:15 BUN 17 mg/dL (7-18) 08/16/19 11:15 Creatinine 0.86 mg/dL (0.55-1.02) 08/16/19 11:15 Estimated GFR/1.73 m2 >= 60.00 (mL/min/1.73m2) 08/16/19 11:15 Glucose 128 mg/dL (74-106) H 08/16/19 11:15 Lactate 2.0 mmol/L (0.6-1.4) H 08/15/19 19:33 Calcium 8.8 mg/dL (8.5-10.1) 08/16/19 11:15 Total Bilirubin 0.6 mg/dL (0.2-1.0) 08/15/19 19:03 AST 19 U/L (15-37) 08/15/19 19:03 ALT 28 U/L (14-59) 08/15/19 19:03 Alkaline Phosphatase 103 U/L (46-116) 08/15/19 19:03 Total Protein 7.5 g/dL (6.4-8.2) 08/15/19 19:03 Albumin 3.7 g/dL (3.4-5.0) 08/15/19 19:03 Lipase 56 U/L (73-393) 08/15/19 19:03
[2019-08-17 00:08] VITALS: BP 124/62; PULSE 64; RESP 16; TEMP 36.7; O2SAT 91
[2019-08-17 04:20] VITALS: BP 117/67; PULSE 60; RESP 16; TEMP 36; O2SAT 92
[2019-08-17 07:32] VITALS: BP 148/70; PULSE 67; RESP 18; TEMP 36.8; O2SAT 94
[2019-08-17] MEDS: Normal Saline 1,000 ML 125 ML IV (07:44)
--- NOTE | 2019-08-17 08:30 | PDOC.CMPRO ---
- If Service Date Differs Date of service: 08/17/19 Time of Service: 08:31 Care Management Progress Note S/O: A: Sherlyn is a 74 year old woman admitted on 08/15/19 with a SBO P:Anticipate Sherlyn will return home once medically cleared. She will follow up with her PCP and discharge plan of care. She will be driven home via private vehicle once ready. CM will continue to follow.
--- NOTE | 2019-08-17 09:58 | W.PM.PROGNOT ---
Date of Service Date of service: 08/17/19 Time of Service: 09:58 Assessment and Plan Assessment and plan (1) Partial small bowel obstruction: Status: Acute Assessment and plan: resolved. pt doing well IV infiltrated if doing well at noon- d/c home Subjective Subjective Interval history since last seen: pt had x2 BM last PM. no blood. no n/v. no pain. tolerating cl liq. Pt is doing well. no headaches. No CP or SOB. no productive cough. no dysuria. no leg pain or swelling. She is up walking. Exam Chest Chest: normal inspection of the chest Resp Effort & Inspection: normal respiratory effort and able to speak in complete sentences GI Inspection: normal to inspection and non-distended Palpation: soft Auscultation: normal bowel sounds Other: no hernias good BS Objective Objective Clinical Data: Abnormal lab results 08/16/19 08/16/19 Range/Units 11:15 11:15 Absolute Lymphocytes 1.01 L (1.2-3.4) k/cumm Chloride 110 H (98-107) mmol/L Glucose 128 H (74-106) mg/dL Vital Signs Temperature 36.8 C 08/17/19 07:32 Temperature Source Temporal Artery Scan 08/17/19 07:32 Pulse 67 08/17/19 07:32 Pulse Rhythm Regular 08/17/19 07:30 Respiratory Rate 18 08/17/19 07:32 Respiratory Effort Non-Labored 08/17/19 07:30 Respiratory Depth Normal 08/17/19 07:30 Respiratory Pattern Normal 08/17/19 07:30 Blood Pressure 148/70 H 08/17/19 07:32 Blood Pressure Position Sitting 08/15/19 18:51 Pulse Oximetry 94 L 08/17/19 07:32 Oxygen Delivery Method Room Air 08/17/19 07:32 Oxygen Flow Rate 0 08/17/19 07:32 Pain Level 0 08/17/19 07:32 Intake & Output 08/16/19 08/16/19 08/17/19 11:59 23:59 11:59 Intake Total 975 / 3512.5 2537.5 / 3512.5 1910.417 / 1909.417 Output Total 1200 / 1700 500 / 1700 Balance -225 / 1812.5 2037.5 / 1812.5 1910.417 / 1909.417 Weight 93 kg Intake: IV 975 / 2912.5 1937.5 / 2912.5 1909.417 / 417 Oral 600 / 600 Output: Urine 600 / 1100 500 / 1100 Emesis 600 / 600 Other: Urine Color Yellow Yellow Yellow Urine Appearance Clear Clear Clear Urine Odor Normal Normal Stool Size Moderate Stool Characteristics Liquid Brown Emesis Description Undigested Food Bile Mucous Voiding Methods Toilet Toilet Toilet Laboratory Results WBC 6.31 k/cumm (4.4-10.8) 08/16/19 11:15 RBC 4.63 m/cumm (4.00-5.20) 08/16/19 11:15 Hgb 13.4 g/dL (12.0-15.5) 08/16/19 11:15 Hct 40.9 % (36.0-46.0) 08/16/19 11:15 MCV 88.3 fL (80-95) 08/16/19 11:15 MCH 28.9 pg (27.0-33.0) 08/16/19 11:15 MCHC 32.8 g/dL (32.0-36.0) 08/16/19 11:15 RDW 14.5 % (11.7-14.6) 08/16/19 11:15 Plt Count 307 x1000/uL (130-400) 08/16/19 11:15 MPV 9.2 fL (8.0-11.0) 08/16/19 11:15 Immature Gran % 0.2 % 08/16/19 11:15 Neutrophils % 76.3 08/16/19 11:15 Lymphocytes % 16.0 08/16/19 11:15 Monocytes % 7.3 08/16/19 11:15 Eosinophils % 0.0 08/16/19 11:15 Basophils % 0.2 08/16/19 11:15 Absolute Neutrophils 4.82 k/cumm (1.2-6.7) 08/16/19 11:15 Absolute Lymphocytes 1.01 k/cumm (1.2-3.4) L 08/16/19 11:15 Absolute Monocytes 0.46 k/cumm (0.11-0.7) 08/16/19 11:15 Absolute Eosinophils 0.00 k/cumm (0.0-0.7) 08/16/19 11:15 Absolute Basophils 0.01 k/cumm (0.0-0.2) 08/16/19 11:15 Sodium 144 mmol/L (136-145) 08/16/19 11:15 Potassium 4.0 mmol/L (3.5-5.1) 08/16/19 11:15 Chloride 110 mmol/L (98-107) H 08/16/19 11:15 Carbon Dioxide 25.7 mmol/L (21.0-32.0) 08/16/19 11:15 Anion Gap 8.3 mmol/L (3-11) 08/16/19 11:15 BUN 17 mg/dL (7-18) 08/16/19 11:15 Creatinine 0.86 mg/dL (0.55-1.02) 08/16/19 11:15 Estimated GFR/1.73 m2 >= 60.00 (mL/min/1.73m2) 08/16/19 11:15 Glucose 128 mg/dL (74-106) H 08/16/19 11:15 Lactate 2.0 mmol/L (0.6-1.4) H 08/15/19 19:33 Calcium 8.8 mg/dL (8.5-10.1) 08/16/19 11:15 Total Bilirubin 0.6 mg/dL (0.2-1.0) 08/15/19 19:03 AST 19 U/L (15-37) 08/15/19 19:03 ALT 28 U/L (14-59) 08/15/19 19:03 Alkaline Phosphatase 103 U/L (46-116) 08/15/19 19:03 Total Protein 7.5 g/dL (6.4-8.2) 08/15/19 19:03 Albumin 3.7 g/dL (3.4-5.0) 08/15/19 19:03 Lipase 56 U/L (73-393) 08/15/19 19:03
--- NOTE | 2019-08-17 10:24 | DSE_ITS ---
Date of service: 08/17/19 Time of Service: 10:24 DS: Diagnosis Discharge Diagnosis (1) Partial small bowel obstruction: Status: Acute Discharge Plan Disposition Patient Disposition: HOME Condition: Stable Discharge Details Chief Complaint: Abd Prob Clinical Impression: Partial small bowel obstruction Reason For Visit: SMALL BOWEL OBSTRUCTION Admit Date/Time: 08/15/19 23:21 Admit Provider: Kelly Lewis Attending Provider: Kelly Lewis Primary Care Provider: Nathaly March ED Provider: Prosper Caballero Hospital Course Hospital Course: The patient was admitting for symptom control and IVF. Her pain resolved quickly. On the day of discharge she was tolerating a soft diet with nausea, vomiting or increased pain. She was having loose stool. She was advised to call for any return of symptoms, follow up as needed. Home Meds and New Rx's Prescriptions: Continued sumatriptan succinate [Imitrex] 50 mg tablet 50 mg PO ONCE PRNRF: 0 omeprazole 20 mg capsule,delayed release(DR/EC) 20 mg PO DAILY PRNRF: 0 cholecalciferol (vitamin D3) 2,000 unit capsule 4,000 unit PO DAILY Qty: 90 RF: 4 Hold Instructions: Home Medication placed on hold at Doctor's office Discharge Instructions Activity:: Activity as Tolerated Equipment/Supplies:: No Equipment Needed Diet:: Soft for 2-3 days Discharge Orders Discharge Orders: Discharge Order (Routine); Ordered 08/17/19 Ordered By: Kelly Lewis DS: Summary Status at Discharge Functional status at discharge: independent ambulation Overall status at discharge: patient is back to baseline Mental Status: mental status grossly normal Speech and Movement: speech and movement normal Mood: congruent mood Affect: normal affect Exam Psych Mental Status: mental status grossly normal Speech and Movement: speech and movement normal Mood: congruent mood Affect: normal affect DS: Data Vitals/I&O Vitals and I&O: Vital Signs Temperature 98.2 F 08/17/19 07:32 Temperature Source Temporal Artery Scan 08/17/19 07:32 Pulse 67 08/17/19 07:32 Pulse Rhythm Regular 08/17/19 07:30 Respiratory Rate 18 08/17/19 07:32 Respiratory Effort Non-Labored 08/17/19 07:30 Respiratory Depth Normal 08/17/19 07:30 Respiratory Pattern Normal 08/17/19 07:30 Blood Pressure 148/70 H 08/17/19 07:32 Blood Pressure Position Sitting 08/15/19 18:51 Pulse Oximetry 94 L 08/17/19 07:32 Oxygen Delivery Method Room Air 08/17/19 07:32 Oxygen Flow Rate 0 08/17/19 07:32 Pain Level 0 08/17/19 07:32 Intake & Output 08/16/19 08/16/19 08/17/19 11:59 23:59 11:59 Intake Total 975 / 3512.5 2537.5 / 3512.5 2490.417 / 2490.417 Output Total 1200 / 1700 500 / 1700 Balance -225 / 1812.5 2037.5 / 1812.5 2490.417 / 2490.417 Weight 205 lb 0.478 oz Intake: IV 975 / 2912.5 1937.5 / 2912.5 1910.417 / 1910.417 Oral 600 / 600 580 / 580 Output: Urine 600 / 1100 500 / 1100 Emesis 600 / 600 Other: Urine Color Yellow Yellow Yellow Urine Appearance Clear Clear Clear Urine Odor Normal Normal Stool Size Moderate Stool Characteristics Liquid Brown Emesis Description Undigested Food Bile Mucous Voiding Methods Toilet Toilet Toilet Data Completed and Pending Labs on day of discharge: Labs from last 24 hours 08/16/19 08/16/19 11:15 11:15 WBC 6.31 RBC 4.63 Hgb 13.4 Hct 40.9 MCV 88.3 MCH 28.9 MCHC 32.8 RDW 14.5 Plt Count 307 MPV 9.2 Immature Gran % 0.2 Neutrophils % 76.3 Lymphocytes % 16.0 Monocytes % 7.3 Eosinophils % 0.0 Basophils % 0.2 Absolute Neutrophils 4.82 Absolute Lymphocytes 1.01 L Absolute Monocytes 0.46 Absolute Eosinophils 0.00 Absolute Basophils 0.01 Sodium 144 Potassium 4.0 Chloride 110 H Carbon Dioxide 25.7 Anion Gap 8.3 BUN 17 Creatinine 0.86 Estimated GFR/1.73 m2 >= 60.00 Glucose 128 H Calcium 8.8 PFSH Medical History Hyperlipidemia (Chronic 03/28/13) Hypertension (Chronic) Small bowel obstruction (Resolved) Surgical History Back Surgery (~1988) [facility] [place] Bowel Resection (~2002) RE DIVERTICULITIS;DR. Mervat SHAFFER Cholecystectomy (~1969) Extraction of cataract DR. 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 Calzada Family History Mother Essential hypertension CHF (congestive heart failure) Stroke Father CHF (congestive heart failure) Brother Neoplasm multiple mylenoma; acute renal failure Brother No problems noted. 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
--- NOTE | 2019-08-17 12:26 | PDOC.CMDIS ---
- If Service Date Differs Date of service: 08/17/19 Time of Service: 12:26 LACE Index Scoring Tool - Questions: Length of Stay (in days): 2 Acuity (Admit via E.D.?): Yes E.D. Visits: 1 - Answers: Total Score: 6 Risk of Readmission: Low Risk Care Management Discharge Reason for Hospitalization: Small bowel obstruction Discharge Plan: Sherlyn will be discharged home with no new services. She will transport via private vehicle with family and follow up with her providers and discharge plan of care. Patient/Family Education Needs: Discharge plan, limitations, follow up plan, Ask me Three.
== END 2019-08-17 11:36 | disposition home or self-care (01) | DRG 390 ==
LOC: ER 23:26 → MS 08-16 00:30
PROVIDERS: Physical Therapy Assistant; Student in an Organized Health Care Education/Training Program; Admitting Provider Surgery; Emergency Provider Emergency Medicine; PCP Family Medicine; Visit Provider Surgery
DX: K56.600 Partial intestinal obstruction, unspecified as to cause (principal); E78.5 Hyperlipidemia, unspecified; I10 Essential (primary) hypertension; Z98.890 Other specified postprocedural states
CPT/HCPCS: 80048; 80053; 83690; 96361; 96374; 96376; 99223; 99231; 99232; 99238; 99285; 74018; 74022; 74177; 83605; 85025; 99284; J2270; J2405; J3490; Q9967

== ENCOUNTER 2020-05-24 10:10 | Outpatient (CLI) | payer MEDICARE, BC, SELFPAY ==
--- NOTE | 2020-05-24 10:00 | DI.RAD_ITS ---
EXAM: XR KNEE LT 3V AP,LAT,DEEPAK CLINICAL HISTORY: left knee pain. TECHNIQUE: 2D digital imaging was performed. COMPARISON: CR XR ABDOMEN FLAT PLATE from 08/16/2019 FINDINGS: Moderate degenerative changes are seen in the left knee with joint space narrowing and periarticular spurring present. The findings are most marked at the patellofemoral and medial femoral tibial joint . No acute fracture or dislocation is seen. There is a small suprapatellar joint effusion. The sof t tissues are otherwise unremarkable. IMPRESSION: Moderate degenerative changes of the left knee. DATA REPOSITORY: RADIATION DOSE DELIVERED:
== END 2020-05-24 10:30 ==
PROVIDERS: PCP Family Medicine; Referring Provider Family Medicine; Visit Provider Physician Assistant
DX: M17.12 Unilateral primary osteoarthritis, left knee (principal); M25.562 Pain in left knee; Z96.651 Presence of right artificial knee joint
CPT/HCPCS: 73562; 99214

== ENCOUNTER 2020-05-31 09:13 | Emergency (ER) | payer MEDICARE, BC, SELFPAY ==
[2020-05-31 09:16] VITALS: BP 181/101; PULSE 83; RESP 20; TEMP 36.4; O2SAT 97
[2020-05-31 09:22] VITALS: BP 170/84
--- NOTE | 2020-05-31 09:30 | DI.CT_ITS ---
EXAM: CT LUMBAR SPINE WO CLINICAL HISTORY: Fall, R/O acute fracture. TECHNIQUE: Imaging Protocol: Axial computed tomography images with coronal and sagittal reformatted images were created and reviewed COMPARISON: CT CT ABDOMEN PELVIS W from 08/15/2019 FINDINGS: Bones: There are no fractures of the lumbar vertebrae,, listhesis, nor pars defects. However, there appears to be subtle fracture at the inferior endplate level of T11 and correlation with site of ten derness is recommended. There is no retropulsed fragment nor central canal stenosis at this level. There are no lytic osseous lesions evident.Multilevel chronic degenerative disc disease with most pro minent disc space narrowing at L4-5 and L5-S1 levels as well as L2-3.. Multilevel degenerative rodriguez es in the facet joints noted no acute lumbar spine fractures identified nor sacral fracture evident. Coccyx appears intact. The visualized sacroiliac joints and sacrum appear unremarkable. PARASPINAL SOFT TISSUES: Visualized paraspinal tissues appear unremarkable. IMPRESSION: 1. There is mild fracture of T11 vertebral body inferior aspect of the body. There is no extension o f fractures into the posterior osseous elements. There is no acute compromise of the spinal canal at this level. 2. Chronic multilevel degenerative disc disease in the lumbosacral spinal column. No fractures evide nt the lumbar vertebrae nor in the sacrum. 3. RADIATION DOSE DELIVERED: Total DLP DATA REPOSITORY: All CT scans at this facility are submitted to the National Radiology Data Registry (NRDR) Dose Index Registry (DIR) with the [employer] (ACR). RADIATION OPTIMIZATION: All CT scans at this facility use at least one of these dose optimization te chniques: automated exposure control; mA and/or kV adjustment per patient size (includes targeted exa ms where dose is matched to clinical indication); or iterative reconstruction.
--- NOTE | 2020-05-31 09:32 | ED.GENADUL_ITS ---
Discharge Plan Disposition Patient Disposition: HOME Condition: Stable Discharge Details Clinical Impression: Traumatic compression fracture of eleventh thoracic vertebra Primary Care Provider: Nathaly March ED Provider: Taylor Alex Home Meds and New Rx's Prescriptions: Continued lorazepam 0.5 mg tablet 0.5 mg PO BID PRN (Reason: anxiety) Qty: 25 RF: 0 Shingrix (PF) 50 mcg/0.5 mL suspension for reconstitution 0.5 ml IM ONCE Qty: 1 RF: 1 omeprazole 20 mg capsule,delayed release(DR/EC) 20 mg PO DAILY PRN (Reason: gerd) Qty: 30 RF: 6 sumatriptan succinate [Imitrex] 50 mg tablet 50 mg PO ONCE PRNRF: 0 acetaminophen 500 mg tablet 500 mg PO Q6H PRN (Reason: fever) Qty: 90 RF: 3 celecoxib 200 mg capsule 200 mg PO DAILY Qty: 30 RF: 0 cholecalciferol (vitamin D3) 2,000 unit capsule 4,000 unit PO DAILY Qty: 90 RF: 4 Hold Instructions: Home Medication placed on hold at Doctor's office Discharge Instructions Instructions: Vertebral Compression Fracture (ED) Additional Instructions: Alternate ice and heat. Please take Tylenol or Ibuprofen with food every 4-6 hours as needed for pain and swelling. Return to the ED for any worsening pain, pain radiating down your legs, numbness tingling, loss of bowel or bladder control, or any numbness tingling around your groin or rectal area. Follow up with primary care provider in 3-5 days. Return to ED sooner if any worsening or concerns. Increase oral fluids. Referrals: Nathaly March MD [Primary Care Provider] - Medical Decision Making 74-year-old female presents to the ED after a slip and fall landing on the edge of a step onto her back. This occurred just prior to arrival. Patient states that she slipped on some ice when her feet came out from under her. She denies any neck pain or head injuries. She is complaining of lower lumbar pain and right flank pain. She is alert and oriented x4 upon arrival. She did not take any medications prior to arrival. She does have a past medical history of anxiety, chronic back pain, hypertension, left degenerative joint disease and small bowel obstruction. Patient offered pain medication which she declined at this time. 1045: Patient is now requesting some Tylenol 325 mg p.o. ordered. IMPRESSION: 1. T11 compression fracture. Involves inferior endplate. No compromise of the central spinal canal at this level. 2. Other incidental nontraumatic related findings in the abdomen as described above. 3. Nonspecific increased markings in the lung bases appears unchanged from prior study of July 2019. FINDINGS: Bones: There are no fractures of the lumbar vertebrae,, listhesis, nor pars defects. However, there appears to be subtle fracture at the inferior endplate level of T11 and correlation with site of tenderness is recommended. There is no retropulsed fragment nor central canal stenosis at this level. There are no lytic osseous lesions evident.Multilevel chronic degenerative disc disease with most prominent disc space narrowing at L4-5 and L5-S1 levels as well as L2-3.. Multilevel degenerative changes in the facet joints noted no acute lumbar spine fractures identified nor sacral fracture evident. Coccyx appears intact. The visualized sacroiliac joints and sacrum appear unremarkable. PARASPINAL SOFT TISSUES: Visualized paraspinal tissues appear unremarkable. IMPRESSION: 1. There is mild fracture of T11 vertebral body inferior aspect of the body. There is no extension of fractures into the posterior osseous elements. There is no acute compromise of the spinal canal at this level. 2. Chronic multilevel degenerative disc disease in the lumbosacral spinal column. No fractures evident the lumbar vertebrae nor in the sacrum. Patient's physical exam revisited, no tenderness noted with palpation over T11. Discussed findings with patient who verbalized understanding. Patient is due for knee surgery in approximately 3 weeks with our orthopedics here. Discussed home care including ice and heat taking Tylenol and/or ibuprofen as needed for pain. Discussed red flags and strict return instructions including loss of bowel or bladder control, worsening pain, numbness tingling or saddle anesthesia. Patient verbalized understanding. HPI General Mode of arrival: ambulatory . Date/Time Provider Initiated Documentation: 05/31/20 09:13 . Limitations to Documentation: no limitations . Information obtained by: patient . HPI Narrative: 74-year-old female presents to the ED after a slip and fall landing on the edge of a step onto her back. This occurred just prior to arrival. Patient states that she slipped on some ice when her feet came out from under her. She denies any neck pain or head injuries. She is complaining of lower lumbar pain and right flank pain. She is alert and oriented x4 upon arrival. She did not take any medications prior to arrival. She does have a past medical history of anxiety, chronic back pain, hypertension, left degenerative joint disease and small bowel obstruction. Related Data Home Medications Medication Instructions Recorded Confirmed sumatriptan succinate 50 mg tablet 50 mg PO ONCE PRN 01/24/18 05/31/20 cholecalciferol (vitamin D3) 50 4,000 unit PO DAILY #90 cap 03/27/19 05/31/20 mcg (2,000 unit) capsule lorazepam 0.5 mg tablet 0.5 mg PO BID PRN #25 tab 01/10/20 05/31/20 varicella-zoster glycoE [id number] 0.5 ml IM ONCE #1 each 01/12/20 05/29/20 adj(PF) 50 mcg/0.5 mL IM susp, kit acetaminophen 500 mg tablet 500 mg PO Q6H PRN #90 tab 05/24/20 05/31/20 celecoxib 200 mg capsule 200 mg PO DAILY #30 cap 05/24/20 05/31/20 omeprazole 20 mg capsule,delayed 20 mg PO DAILY PRN #30 cap 05/29/20 05/31/20 release Previous Rx's Medication Instructions Recorded cholecalciferol (vitamin D3) 50 4,000 unit PO DAILY #90 cap 03/27/19 mcg (2,000 unit) capsule lorazepam 0.5 mg tablet 0.5 mg PO BID PRN #25 tab 01/10/20 varicella-zoster glycoE [id number] 0.5 ml IM ONCE #1 each 01/12/20 adj(PF) 50 mcg/0.5 mL IM susp, kit acetaminophen 500 mg tablet 500 mg PO Q6H PRN #90 tab 05/24/20 celecoxib 200 mg capsule 200 mg PO DAILY #30 cap 05/24/20 omeprazole 20 mg capsule,delayed 20 mg PO DAILY PRN #30 cap 05/29/20 release Allergies Allergy/AdvReac Type Severity Reaction Status Date / Time Metronidazole HCl AdvReac Severe NAUSEA,DIAR Verified 05/31/20 09:21 [From Flagyl] LAKEISHA atorvastatin calcium AdvReac Intermediate MUSCLE, Verified 05/31/20 09:21 [From Lipitor] JOINT PAIN meperidine HCl [From Demerol] AdvReac Intermediate Nausea Verified 05/31/20 09:21 Ssjwlmd-Elw-Mds Reductase AdvReac Intermediate myalgia Verified 05/31/20 09:21 Inhibitor General Stated Complaint: Nk/Back Pain ANABELA: 3 Review of Systems All systems reviewed & are unremarkable except as noted in HPI and below ENT Ears, Nose, Mouth, and Throat: Denies neck pain Musculoskeletal Musculoskeletal: Denies abnormal gait, Reports back pain, Denies deformity, Denies muscle weakness, Denies neck pain, Denies numbness and Denies radiating pain into limb Neurologic Neurologic: Denies abnormal gait and Denies numbness PENDING SALE TO [facility] Medical History Anxiety Chronic back pain Diverticular disease A. Sigmoid resection Hypertension Left knee DJD Migraines Pre-diabetes Small bowel obstruction Surgical History Back Surgery (~1988) [facility] [place] Bowel Resection (~2002) RE DIVERTICULITIS;DR. Mervat SHAFFER Cholecystectomy (~1969) Extraction of cataract DR. 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 Calzada Family History Mother , 88 Essential hypertension CHF (congestive heart failure) Stroke Father , 70 CHF (congestive heart failure) Brother , 60 Neoplasm multiple mylenoma; acute renal failure Brother No problems noted. 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;1ST COUSIN-COLON; Grandmother Stroke Son No problems noted. Son No problems noted. Son No problems noted. Son No problems noted. Son No problems noted. Social History Smoking/Tobacco Use Status: Never Smoking risk assessment performed?: Yes Alcohol Intake: current Alcohol Intake frequency: a few times a month Alcohol type: beer, wine and hard liquor Drug use: Never Caregiver/Support person: No Housing: apartment Communication Needs: None Do you need help understanding health information?: Never current occupation: [employer] Pets and animals: No Do you think of yourself as: straight/heterosexual Current gender identity: female What is your relationship status?: Do you belong to any clubs or organized social groups?: yes Panel score (0-1 are the most socially isolated patients): 1 What type of physical activity do you participate in: walking Duration: 30-45 minutes/day Frequency: 3-4 times per week Maribel/Rastafari: Pentecostal Special maribel needs: Yes Seatbelt use: always Drive intox or ride w/intox 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 Appears stated age. Normal body habitus. Head: Normocephalic, no trauma. Eyes: Pupils PERRLA, Red reflex noted, EOM's intact. Eyelids symmetrical without lesions, discharge, or swelling. ENT: Bilateral TM's WNL, External ear normal to inspection, no mastoid TTP, swelling, or erythema, Nasal turbinates WNL, no nasal discharge. Normal dentition, Posterior pharynx WNL, no exudate. Chest: RRR, Normal S1, S2, distal pulses intact. Resp: Lungs clear to auscultation bilaterally, no wheezes, rales, or rhonchi. Musculoskeletal: Normal gait, 5/5 strength to all four extremities. Tenderness to right lumbar paraspinous area. No midline tenderness no crepitus no step- off. He does have an area of erythema, dry abrasion to the lower lumbar. Skin: No suspicious rashes or lesions. Capillary refill less than 2 sec. Neurologic: Cranial nerves II-XII intact. Alert and oriented x 3. DTR's intact. Hematologic/Lymphatic: No ecchymosis, no lymphadenopathy. Course Vital Signs Vital signs: Vital Signs Temperature 36.4 C L 05/31/20 09:16 Pulse 83 05/31/20 09:16 Respiratory Rate 20 05/31/20 09:16 Blood Pressure 181/101 H 05/31/20 09:16 Pulse Oximetry 97 05/31/20 09:16 Temperature 36.4 C L 05/31/20 09:16 Temperature Source Skin 05/31/20 09:16 Pulse 83 05/31/20 09:16 Respiratory Rate 20 05/31/20 09:16 Respiratory Effort Non-Labored 05/31/20 09:22 Blood Pressure 170/84 H 05/31/20 09:22 Blood Pressure Position Sitting 05/31/20 09:16 Pulse Oximetry 97 05/31/20 09:16 Oxygen Delivery Method Room Air 05/31/20 09:16 Oxygen Flow Rate 0 05/31/20 09:16 Pain Level 6 05/31/20 09:16 Comment 05/31/20 09:22
[2020-05-31 09:57] LABS: Bilirubin Negative (Negative); Blood Negative (Negative); Clarity Sl Cloudy (Clear); Glucose Negative (Negative); Ketones Trace mg/dL (Negative); Leukocyte Esterase Negative (Negative); Nitrite Negative (Negative); Specific Gravity >= 1.030 (1.005-1.025); Urobilinogen 0.2 EU/dL (Up TO 0.2); pH 5.5 (5-8)
--- NOTE | 2020-05-31 10:07 | DI.CT_ITS ---
EXAM: CT ABDOMEN PELVIS WO CLINICAL HISTORY: Fall, Right flank pain. TECHNIQUE: Imaging Protocol: Axial computed tomography images with coronal and sagittal reformatted images were created and reviewed CONTRAST MATERIAL: Intravenous: none Oral: None COMPARISON: CT CT ABDOMEN PELVIS W from 08/15/2019 FINDINGS: VISUALIZED LUNG BASES: Increased markings in both lung bases unchanged from 08/15/2019. No pleural e ffusions.. ABDOMEN: There is no ascites. LIVER: There is a single hypodensity in the liver which is in the medial aspect of the left lobe and appears unchanged, probably a benign cyst measuring 1.5 by 1.6 centimetres. No evidence of a patent laceration nor subcapsular hematoma, given the trauma history here. GALLBLADDER/BILIARY: Surgically absent. CBD is not dilated. PANCREAS: No evidence of pancreatic mass nor dilatation of the pancreatic duct. SPLEEN: Spleen size is normal. No evidence of splenic trauma. No perisplenic fluid. ADRENALS: There are no significant adrenal masses. KIDNEYS:No evidence of significant renal trauma. No renal laceration. Small exophytic cyst off the lateral cortex of the left kidney is again noted. No other significant focal renal findings. No kiki culi nor hydronephrosis. This no solid renal masses.. ABDOMINAL AORTA: Abdominal aorta is calcified but not enlarged. No evidence of the significant ab ab dominal aortic trauma. ABDOMINAL WALL/GI: No evidence of significant anterior abdominal wall hernia. No evidence of bowel w all nor mesenteric hematoma. No prominent subcutaneous bruising. PELVIS: LYMPH NODES: There is no intrapelvic nor inguinal adenopathy. GI: No evidence of appendicitis.No evidence of sigmoid diverticulitis. URINARY BLADDER: No calculi nor obvious masses evident REPRODUCTIVE: Uterus is atrophic or surgically absent. No abnormal adnexal masses. OSSEOUS: T11 fracture evident. No compromise of the canal. IMPRESSION: 1. T11 compression fracture. Involves inferior endplate. No compromise of the central spinal canal at this level. 2. Other incidental nontraumatic related findings in the abdomen as described above. 3. Nonspecific increased markings in the lung bases appears unchanged from prior study of July 2019. RADIATION DOSE DELIVERED: Total DLP DATA REPOSITORY: All CT scans at this facility are submitted to the National Radiology Data Registry (NRDR) Dose Index Registry (DIR) with the [employer] (ACR). RADIATION OPTIMIZATION: All CT scans at this facility use at least one of these dose optimization te chniques: automated exposure control; mA and/or kV adjustment per patient size (includes targeted exa ms where dose is matched to clinical indication); or iterative reconstruction.
[2020-05-31] MEDS: Acetaminophen 325 MG TAB PO (10:43)
[2020-05-31 11:08] VITALS: BP 157/62; PULSE 71; RESP 20; TEMP 36.4; O2SAT 98
== END 2020-05-31 11:23 | disposition home or self-care (01) ==
PROVIDERS: Emergency Provider Registered Nurse Emergency; PCP Family Medicine
DX: S22.080A Wedge compression fracture of T11-T12 vertebra, initial encounter for closed fracture (principal); W00.1XXA Fall from stairs and steps due to ice and snow, initial encounter; I10 Essential (primary) hypertension
CPT/HCPCS: 99284; 72131; 74176; 81003

== ENCOUNTER 2020-06-19 14:25 | Outpatient (CLI) | payer MEDICARE, BC, SELFPAY ==
--- NOTE | 2020-06-19 13:00 | DI.RAD_ITS ---
EXAM: XR STANDING ALIGNMENT CLINICAL HISTORY: preoperative planning. TECHNIQUE: 2D digital imaging was performed. COMPARISON: CR XR KNEE LT 3V AP,LAT,DEEPAK from 05/24/2020 FINDINGS: Mild joint space narrowing of the hips is seen bilaterally. The patient has a right total knee repla cement. Degenerative changes are again seen in the left knee, particularly in the lateral femoral ti bial joint. The ankles are well maintained. The right lower extremity measures 80.6 cm. The left l ower extremity measures 79.8 cm. IMPRESSION: DATA REPOSITORY: RADIATION DOSE DELIVERED:
== END 2020-06-19 14:26 | disposition home or self-care (01) ==
LOC: DIORS 14:28
PROVIDERS: PCP Family Medicine; Visit Provider Physician Assistant
DX: M17.12 Unilateral primary osteoarthritis, left knee (principal)
CPT/HCPCS: 77073

== ENCOUNTER 2020-06-20 03:58 | Outpatient (CLI) | payer MEDICARE, BC, SELFPAY ==
[2020-06-20 07:54] LABS: HCT 43.8 % (36.0-46.0); HGB 14.5 g/dL (11.2-15.7); MCH 29.3 pg (27.0-33.0); MCHC 33.1 % (32.0-36.0); MCV 88.5 fL (80-95); MPV 9.1 fL (8.0-11.0); Platelet Count 375 10^3/uL (130-400); RBC 4.95 10^6/uL (3.93-5.22); RDW 13.6 % (11.7-14.6); RDW-SD 44.4 fL; WBC 5.03 10^3/uL (4.4-10.8)
[2020-06-20 08:42] LABS: Anion Gap 10.5 mmol/L (3-11); BUN 23 mg/dL (7-18); CO2 25.5 mmol/L (21.0-32.0); CREATININE 0.9 mg/dL (0.55-1.02); Chloride 105 mmol/L (98-107); Glucose 113 mg/dL (74-106); Potassium 4.3 mmol/L (3.5-5.1); Sodium 141 mmol/L (136-145)
[2020-06-20 09:13] LABS: Vitamin D 25 Total 29.5 ng/ml (30-100)
== END 2020-06-20 03:59 | disposition home or self-care (01) ==
LOC: LBO 03:58
PROVIDERS: PCP Family Medicine; Visit Provider Student in an Organized Health Care Education/Training Program
DX: M25.562 Pain in left knee (principal); R73.9 Hyperglycemia, unspecified; E55.9 Vitamin D deficiency, unspecified; M17.12 Unilateral primary osteoarthritis, left knee; Z01.812 Encounter for preprocedural laboratory examination
CPT/HCPCS: 36415; 80048; 82306; 85027; 83036

== ENCOUNTER 2020-06-21 01:03 | Outpatient (CLI) | payer MEDICARE, BC, SELFPAY ==
[2020-06-22 11:32] LABS: COVID-19 RT-PCR UVMMC Result Negative (Negative)
== END 2020-06-21 01:04 | disposition home or self-care (01) ==
LOC: LBO 01:04
PROVIDERS: PCP Family Medicine; Visit Provider Student in an Organized Health Care Education/Training Program
DX: Z20.822 Contact with and (suspected) exposure to COVID-19 (principal); Z01.818 Encounter for other preprocedural examination
CPT/HCPCS: U0003; U0005

== ENCOUNTER 2020-06-25 06:30 | Inpatient (IN) | payer MEDICARE, BC, SELFPAY ==
[2020-06-25] VITALS (10 sets, daily range): BP systolic 102–163; BP diastolic 56–82; PULSE 56–69; RESP 12–19; TEMP 36–36.5; O2SAT 93–98
--- NOTE | 2020-06-25 07:47 | W.PM.DS.N ---
Documented by User: Jasmyn Miah 06/25/20 07:58 DS: Diagnosis Discharge Diagnosis (1) Left knee DJD: Status: Chronic Discharge Plan Disposition Patient Disposition: HOME W/HOME HEALTH SERVICE Condition: Good Discharge Details Reason For Visit: Left knee DJD Admit Date/Time: 06/25/20 07:45 Admit Provider: Tin Calzada Attending Provider: Tin Calzada [facility] Hospital Course: Patient was admitted to the medical/surgical floor following the procedure. The surgery was tolerated well without any notable medical, surgical, or anesthetic complications. Mobilization began post-operatively. They were voiding spontaneously. Vitals were stable. Physical therapy worked with the patient and was cleared for discharge home. No acute medical issues. Pain was controlled on oral regimen. Home Meds and New Rx's Prescriptions: New acetaminophen 500 mg tablet 500 mg PO Q6H PRN (Reason: pain) Qty: 60 RF: 2 aspirin 81 mg tablet,delayed release (DR/EC) 81 mg PO BID 30 Days Qty: 60 RF: 0 celecoxib [Celebrex] 200 mg capsule 200 mg PO BID Qty: 30 RF: 0 docusate sodium [Colace] 100 mg capsule 100 mg PO BID Qty: 30 RF: 0 pantoprazole 40 mg tablet,delayed release (DR/EC) 40 mg PO DAILY 30 Days Qty: 30 RF: 0 gabapentin 300 mg capsule 300 mg PO QHS Qty: 14 RF: 0 hydromorphone 2 mg tablet 2 mg PO Q4H PRN (Reason: pain) Qty: 12 RF: 0 Continued lorazepam 0.5 mg tablet 0.5 mg PO BID PRN (Reason: anxiety) Qty: 25 RF: 0 Shingrix (PF) 50 mcg/0.5 mL suspension for reconstitution 0.5 ml IM ONCE Qty: 1 RF: 1 omeprazole 20 mg capsule,delayed release(DR/EC) 20 mg PO DAILY PRN (Reason: gerd) Qty: 30 RF: 6 sumatriptan succinate [Imitrex] 50 mg tablet 50 mg PO ONCE PRNRF: 0 lisinopril 2.5 mg tablet 2.5 mg PO DAILY Qty: 90 RF: 0 cholecalciferol (vitamin D3) 2,000 unit capsule 4,000 unit PO DAILY Qty: 90 RF: 4 Hold Instructions: Home Medication placed on hold at Doctor's office Discontinued acetaminophen 500 mg tablet 500 mg PO Q6H PRN (Reason: fever) Qty: 90 RF: 3 celecoxib 200 mg capsule 200 mg PO DAILY Qty: 30 RF: 0 Discharge Instructions Additional Instructions: Total Knee Discharge Instructions Activity: The most important activity is to walk. You should try to take short walks a few times a day. It is important that when resting you work on keeping the knee straight. Avoid putting a pillow behind the knee as this will encourage flexion. Work on range of motion exercises as provided by Physical Therapy. - Start outpatient physical therapy within 2 weeks. - You should wear the MARCOS hose on both legs for 2 weeks. Dressing: You may remove the Ghulam wrap on your leg 2 days after your surgery and put on the MARCOS stocking given to you from the hospital. Keep the surgical dressing (underneath the GHULAM wrap) in place for at least one week. After the first week it may be removed and replaced with light gauze and tape or nothing. The wound and dressing may get wet after 3 days but avoid soaking the dressing or otherwise it will need to be changed. Many people prefer covering the dressing with cling wrap (saran wrap) to minimize it from getting soaked. If it gets wet, just pat dry. If it starts to peel off then it will need to be changed. Medications: - You should take Tylenol and anti-inflammatory Celebrex as your primary pain control medications. If the Celebrex is too expensive or not covered, please call the office for another alternative (Advil/Ibuprofen or Naproxen/Aleve) - You have been prescribed a stronger pain medication Oxycodone for breakthrough pain, take as needed as prescribed. - You have also been prescribed gabapentin to take at night. - You have also been prescribed a stomach acid reduction agent Pantoprozole to help reduce stomach acid and reflux. - You will be taking Aspirin 81mg twice a day for DVT prevention unless instructed otherwise. - If you have constipation you should take Colace (which was prescribed) or Miralax (which is for purchase [id number]). It takes most people 3-4 days to have a bowel movement. Follow-up: 2 weeks If you have any acute concerns or questions, please do not hesitate to contact the office at [phone]. You may contact Dr. Calzada with any questions after hours through the hospital at [phone] or on his cell phone at [phone]. 1. Encounter Date and Reason I certify that SHERLYN OZUNA was seen by Tin Calzada MD on 06/26/20 and that I had a [id number] encounter with this patient that meets the physician face to face encounter requirements. 2. Clinical Findings Supporting Skilled Need and Homebound Status I certify that home health services are medically necessary, include either intermittent penitentiary and/or physical/speech therapy, and that this patient is homebound in that absences from the home require considerable and taxing effort and are infrequent or of short duration, or are attributable to the need to receive medical care. [X] (a) Attached documentation from encounter provides clinical findings supporting skilled need and homebound status (including what assistance patient requires to leave the home). The encounter with the patient was in whole, or in part, for the following medical condition, which is the primary reason for home health care: Left knee DJD Detention: Physical Therapy: Sherlyn is recovering from a total knee replacement on the left side. She has notable restrictions in range of motion and strength with gait abnormalities. PT would be beneficial to return her to an indepedent and normal level of function. Please focus first on ambulatory independence and knee extension followed by more aggressive work of knee flexion. Speech Therapy: Homebound: Sherlyn is unable to leave her home unassisted due to weakness and gait abnormalities from recent knee replacement surgery. 3. Certification and Authentication I certify that I composed the above information based on my clinical judgement relating to this patient's medical condition and, if applicable, clinical findings communicated to me by the NPP or inpatient physician who performed the Home Health Referral. All further orders will be obtained through Dr. Calzada. Stand Alone Forms: Nursing Discharge Form Referrals: Nathaly March MD [Primary Care Provider] - 07/08/20 11:00 am Tin Calzada MD [ [facility] STAFF PHYSICIAN] - 07/08/20 1:45 pm Activity:: Activity as Tolerated Equipment/Supplies:: Walker Diet:: As Tolerated Discharge Orders Discharge Orders: Discharge Order (Routine); Ordered 06/26/20 Ordered By: Tin Calzada DS: Data Vitals/I&O Vitals and I&O: Intake & Output 06/24/20 06/24/20 06/25/20 11:59 23:59 11:59 Weight 88.904 kg [facility] Medical History Anxiety Chronic back pain Diverticular disease A. Sigmoid resection Hypertension Left knee DJD Migraines Pre-diabetes Small bowel obstruction Surgical History Back Surgery (~1988) [facility] Bowel Resection (~2002) RE DIVERTICULITIS;DR. Mervat SHAFFER Cholecystectomy (~1969) Extraction of cataract DR. 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 Calzada Family History Mother , 88 Essential hypertension CHF (congestive heart failure) Stroke Father , 70 CHF (congestive heart failure) Brother , 60 Neoplasm multiple mylenoma; acute renal failure Brother No problems noted. 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;1ST COUSIN-COLON; Grandmother Stroke Son No problems noted. Son No problems noted. Son No problems noted. Son No problems noted. Son No problems noted. 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 [employer] Pets and animals: No Do you think of yourself as: straight/heterosexual Current gender identity: female What is your relationship status?: Do you belong to any clubs or organized social groups?: yes Panel score (0-1 are the most socially isolated patients): 1 What type of physical activity do you participate in: walking Duration: 30-45 minutes/day Frequency: 3-4 times per week Maribel/Adventism: Mu-Ism Special maribel needs: Yes Seatbelt use: always Drive intox or ride w/intox interstate bus driver: No Do you feel safe at home: Yes (Lives alone) Documented by User: Tin Calzada MD 06/26/20 12:33 Date of service: 06/26/20 Time of Service: 10:33 Discharge Plan Disposition Patient Disposition: HOME W/HOME HEALTH SERVICE Condition: Good Discharge Details Reason For Visit: Left knee DJD Admit Date/Time: 06/25/20 07:45 Admit Provider: Tin Calzada Attending Provider: Tin Calzada Primary Care Provider: [facility] Course Hospital Course: Patient was admitted to the medical/surgical floor following the procedure. The surgery was tolerated well without any notable medical, surgical, or anesthetic complications. Mobilization began post-operatively. They were voiding spontaneously. Vitals were stable. Physical therapy worked with the patient and was cleared for discharge home. No acute medical issues. Pain was controlled on oral regimen. Home Meds and New Rx's Prescriptions: New acetaminophen 500 mg tablet 500 mg PO Q6H PRN (Reason: pain) Qty: 60 RF: 2 aspirin 81 mg tablet,delayed release (DR/EC) 81 mg PO BID 30 Days Qty: 60 RF: 0 celecoxib [Celebrex] 200 mg capsule 200 mg PO BID Qty: 30 RF: 0 docusate sodium [Colace] 100 mg capsule 100 mg PO BID Qty: 30 RF: 0 pantoprazole 40 mg tablet,delayed release (DR/EC) 40 mg PO DAILY 30 Days Qty: 30 RF: 0 gabapentin 300 mg capsule 300 mg PO QHS Qty: 14 RF: 0 hydromorphone 2 mg tablet 2 mg PO Q4H PRN (Reason: pain) Qty: 12 RF: 0 Continued lorazepam 0.5 mg tablet 0.5 mg PO BID PRN (Reason: anxiety) Qty: 25 RF: 0 Shingrix (PF) 50 mcg/0.5 mL suspension for reconstitution 0.5 ml IM ONCE Qty: 1 RF: 1 omeprazole 20 mg capsule,delayed release(DR/EC) 20 mg PO DAILY PRN (Reason: gerd) Qty: 30 RF: 6 sumatriptan succinate [Imitrex] 50 mg tablet 50 mg PO ONCE PRNRF: 0 lisinopril 2.5 mg tablet 2.5 mg PO DAILY Qty: 90 RF: 0 cholecalciferol (vitamin D3) 2,000 unit capsule 4,000 unit PO DAILY Qty: 90 RF: 4 Hold Instructions: Home Medication placed on hold at Doctor's office Discontinued acetaminophen 500 mg tablet 500 mg PO Q6H PRN (Reason: fever) Qty: 90 RF: 3 celecoxib 200 mg capsule 200 mg PO DAILY Qty: 30 RF: 0 Discharge Instructions Additional Instructions: Total Knee Discharge Instructions Activity: The most important activity is to walk. You should try to take short walks a few times a day. It is important that when resting you work on keeping the knee straight. Avoid putting a pillow behind the knee as this will encourage flexion. Work on range of motion exercises as provided by Physical Therapy. - Start outpatient physical therapy within 2 weeks. - You should wear the MARCOS hose on both legs for 2 weeks. Dressing: You may remove the Ghulam wrap on your leg 2 days after your surgery and put on the MARCOS stocking given to you from the hospital. Keep the surgical dressing (underneath the GHULAM wrap) in place for at least one week. After the first week it may be removed and replaced with light gauze and tape or nothing. The wound and dressing may get wet after 3 days but avoid soaking the dressing or otherwise it will need to be changed. Many people prefer covering the dressing with cling wrap (saran wrap) to minimize it from getting soaked. If it gets wet, just pat dry. If it starts to peel off then it will need to be changed. Medications: - You should take Tylenol and anti-inflammatory Celebrex as your primary pain control medications. If the Celebrex is too expensive or not covered, please call the office for another alternative (Advil/Ibuprofen or Naproxen/Aleve) - You have been prescribed a stronger pain medication Oxycodone for breakthrough pain, take as needed as prescribed. - You have also been prescribed gabapentin to take at night. - You have also been prescribed a stomach acid reduction agent Pantoprozole to help reduce stomach acid and reflux. - You will be taking Aspirin 81mg twice a day for DVT prevention unless instructed otherwise. - If you have constipation you should take Colace (which was prescribed) or Miralax (which is for purchase [id number]). It takes most people 3-4 days to have a bowel movement. Follow-up: 2 weeks If you have any acute concerns or questions, please do not hesitate to contact the office at [phone]. You may contact Dr. Calzada with any questions after hours through the hospital at [phone] or on his cell phone at [phone]. 1. Encounter Date and Reason I certify that SHERLYN OZUNA was seen by Tin Calzada MD on 06/26/20 and that I had a [id number] encounter with this patient that meets the physician face to face encounter requirements. 2. Clinical Findings Supporting Skilled Need and Homebound Status I certify that home health services are medically necessary, include either intermittent penitentiary and/or physical/speech therapy, and that this patient is homebound in that absences from the home require considerable and taxing effort and are infrequent or of short duration, or are attributable to the need to receive medical care. [X] (a) Attached documentation from encounter provides clinical findings supporting skilled need and homebound status (including what assistance patient requires to leave the home). The encounter with the patient was in whole, or in part, for the following medical condition, which is the primary reason for home health care: Left knee DJD Detention: Physical Therapy: Sherlyn is recovering from a total knee replacement on the left side. She has notable restrictions in range of motion and strength with gait abnormalities. PT would be beneficial to return her to an indepedent and normal level of function. Please focus first on ambulatory independence and knee extension followed by more aggressive work of knee flexion. Speech Therapy: Homebound: Sherlyn is unable to leave her home unassisted due to weakness and gait abnormalities from recent knee replacement surgery. 3. Certification and Authentication I certify that I composed the above information based on my clinical judgement relating to this patient's medical condition and, if applicable, clinical findings communicated to me by the NPP or inpatient physician who performed the Home Health Referral. All further orders will be obtained through Dr. Calzada. Stand Alone Forms: Nursing Discharge Form Referrals: Nathaly March MD [Primary Care Provider] - 07/08/20 11:00 am Tin Calzada MD [[facility] STAFF PHYSICIAN] - 07/08/20 1:45 pm Activity:: Activity as Tolerated Equipment/Supplies:: Walker Diet:: As Tolerated Discharge Orders Discharge Orders: Discharge Order (Routine); Ordered 06/26/20 Ordered By: Tin Calzada DS: Summary Time Spent with Patient providing and/or coordinating discharge services: Less than 30 minutes Status at Discharge Functional status at discharge: uses cane/walker Overall status at discharge: patient is progressing back to baseline Mental Status: mental status grossly normal Speech and Movement: speech and movement normal Mood: congruent mood Affect: normal affect Exam Psych Mental Status: mental status grossly normal Speech and Movement: speech and movement normal Mood: congruent mood Affect: normal affect [facility] Medical History Anxiety Chronic back pain Diverticular disease A. Sigmoid resection Hypertension Left knee DJD Migraines Pre-diabetes Small bowel obstruction Surgical History Back Surgery (~1988) [facility] Bowel Resection (~2002) RE DIVERTICULITIS;DR. Mervat SHAFFER Cholecystectomy (~1969) Extraction of cataract DR. 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 Calzada Family History Mother , 88 Essential hypertension CHF (congestive heart failure) Stroke Father , 70 CHF (congestive heart failure) Brother , 60 Neoplasm multiple mylenoma; acute renal failure Brother No problems noted. 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;1ST COUSIN-COLON; Grandmother Stroke Son No problems noted. Son No problems noted. Son No problems noted. Son No problems noted. Son No problems noted. 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
[2020-06-25] MEDS: Acetaminophen 500 MG TAB 1000 MG PO ×3 (09:56→20:40)
[2020-06-25] MEDS: Gabapentin 300 MG CAP PO ×2 (09:56→21:54)
[2020-06-25] MEDS: Celecoxib 200 MG CAP 400 MG PO (09:56)
[2020-06-25] MEDS: Lactated Ringers 1,000 ML 80 ML IV ×2 (10:25→15:48)
[2020-06-25] MEDS: ceFAZolin 2 GM/50 ML BAG IVPB (11:42)
[2020-06-25] MEDS: Bupivacaine 0.25% Pres-Free 10 ML VIAL (12:56)
[2020-06-25] MEDS: Normal Saline 20 ML VIAL (12:56)
[2020-06-25] MEDS: Ketorolac 30 MG/ML VIAL (12:56)
--- NOTE | 2020-06-25 15:04 | ROE_ITS ---
Date of service: 06/25/20 Time of Service: 13:44 Operative Note Operative Note DATE OF PROCEDURE: 06/25/20 PRE-OP DIAGNOSIS: Left Knee Osteoarthritis POST-OP DIAGNOSIS: same PROCEDURE: Left Total Knee Replacement SURGEON: Tin Calzada DESIGN VERIFICATION ENGINEER: Jasmyn Dooley ANESTHESIA: regional and spinal ESTIMATED BLOOD LOSS: 200 PATHOLOGY: none sent TOURNIQUET TIME: 31 COMPLICATIONS: None Patient was transported to: PACU Patient's condition: stable Implants: 1. Depuy Attune Posterior Stabilized Femoral Component, Size 6 Narrow 2. Depuy Attune Fixed Platform Tibial Component, Size 4 3. Depuy Attune 6x8mm Fixed, Stabilized Poly 4. Depuy Attune Patellar Component, Size 35mm Indications: I have seen Sherlyn in clinic for symptoms of RIGHT knee arthritis, confirmed with radiographic findings. Sherlyn has exhausted nonoperative methods and was having significant limitations in daily function and desired better function and less pain. I discussed the technical details of a knee replacement. I explained the risks of the procedure to include, but not limited to, bleeding, infection, pain, stiffness, fracture, damage to nerves and vessels, damage to muscles and tendons, loosening, need for repeat procedure, blood clot and cardiopulmonary demise. Despite these risks, she elected to proceed. Findings: There was significant signs of arthritis throughout the knee, mostly involving the medial compartment as well as the patellofemoral compartment. Procedure Description: Sherlyn was greeted in the preoperative holding area where the correct side was identified and marked. The consent was reviewed with the patient and signed. The history and physical was updated. All questions were answered. Preoperative mediacations were administered: Acetaminophen 1000mg, Celebrex 400mg, and Gabapentin 300mg. An adductor canal block was then administered by the anesthesia team in the PACU. Sherlyn was taken back to the operating room. A spinal anesthestic was then administered. The patient was placed into the supine position on the operating room table. A nonsterile tourniquet was placed high onto the leg but only used for cementing. Posts were placed for positioning during the procedure. All bony prominences were well padded. Prophylactic antibiotics in the form of Cefazolin were administered. 1g of Tranxemic Acid was given intravenously within 30 minutes of incision. The left leg was then prepped with Chloraprep and draped in a standard fashion with impervious stockinette. A second prep with Chloraprep was performed prior to application of Iodine impregnated skin protection. A timeout to confirm correct identity, side and site, procedure, allergies, anesthesia, and medical concerns was performed. With the knee in some flexion, a midline incision was made overlying the knee. Full thickness skin flaps were raised once the extensor mechanism was encountered. These were raised medially and laterally. Any bleeding was controlled with electrocautery. Once the extensor mechanism was fully exposed, a medial parapatellar arthrotomy was performed in a flexed position. All bleeding from the arthrotomy and the geniculate arteries was coagulated. A medial subperiosteal peel was performed with electrocautery to the midcoronal plane. Due to the significant varus deformity the entire medial tibial plateau was exposed. The fat pad was removed while keeping the patellar tendon protected. The anterior distal femur synovium was removed for later visualization. The ACL and PCL were resected and the anterior horn of the lateral meniscus was transected. The knee was then flexed with the patella everted. Using a step drill, and based on preoperative templating, the femoral canal was entered. This was done with a step drill without any difficulty. The intramedullary distal femoral cut guide was inserted, set to a 5 degree valgus cut and 9mm cut thickness. The distal femoral cut guide was then held in position and pinned. With the soft tissues protected, the distal cut was performed. This was passed over a few times to ensure a planar cut. I then turned attention to the tibia. The extramedullary guide was placed onto the leg. The distal aspect was slid medial to adjust for position of center of ankle and stay in line with shaft of the tibia. Approximately 3-5 degrees of posterior slope was kept in the proximal cutting guide. The center of the guide was aligned with the PCL. The stylus was used to assess cut thickness. The medial side, most involved side, was set for a 4mm cut which corresponded to 8mm laterally. This was then held in position and pinned into place with 2 additional pins and a cross pin for stability. The medial and lateral collateral ligaments were protected and the cut was performed. With this completed, it was assessed and noted to be of appropriate dimensions. The guide was removed. A spacer block was inserted and the knee was brought into extension. The 7mm spacer block provided full extension, without hyperextension and with stability of both the medial and lateral collateral ligaments was assessed. The pins from the femur and the tibia were then removed. The distal femur was then sized. The anterior stylus was placed onto the lateral ridge of the anterior femur. This indicated a size 6 narrow femur. The external rotation of the guide was adjusted to 3 degrees to match the epicondylar axis, perpendicular to [place]?s line. The 4-in-1 cutting guide was the placed. The posterior medial femur cut was evaluated and appeared of good thickness. The spacer block was inserted underneath the cutting guide and stability was confirmed in 90 degrees of flexion. An felisha wing was used to confirm appropriate position of the anterior cut to avoid notching. This cutting guide was ensured to be flush on the cut surface and then pinned into place with headed pins. While protecting the soft tissues, quad tendon, and collateral ligaments, the anterior and posterior cuts were performed with a saw. The central two pins were removed and the posterior and anterior chamfers were cut next. The notch-cutting guide was placed. This was pinned to lateralize the femoral c omponent as much as possible while keeping it flush on the cut surface. This was then pinned into position. A reciprocating saw was used to make the notch cut. A rasp smoothed the cut surfaces. A trial posterior stabilized femoral component was then inserted, impacted down to the cut surfaces, and the lug holes were drilled. A provisional trial tibial component was placed and the knee was brought through range of motion. The polyethylene was trialed until there was good flexion and extension with excellent stability to the medial and lateral collaterals. The patella was tracking without thumbs. The tibial cut surface was fully exposed. The medial and lateral menisci were removed. The tibia was then sized as a 4. The tibia had been previously marked during trialing to correspond to the center of the tibial component to help with rotation. The trial was aligned to this jimy, approximately rotated to the medial 1/3rd of the tibial tubercle. The trial was pinned into place. The tibia was prepared with a reamer and a keel punch. The knee was then brought into extension and the patella was measured as 23mm. Using the patellar clamp and cut guide, this was resected to a flat surface with at least 13mm of thickness remaining. The size 35 patella fit the best. This was oriented and then clamped into position. The lugs were drilled. The trial components were removed. The final components, except for the polyethylene were opened on the back table. The periosteal and capsular tissues, especially posteriorly, around the knee were then systematically injected with a periarticular cocktail consisting of 50cc 0.25% Marcaine, 30mg Ketorolac, 20cc of Exparal and 50cc of injectable saline. The tourniquet was then inflated to 275mmHg. The knee was thoroughly irrigated with a pulse lavage and dried. On the back table, with the implants opened, the cement was mixed. 2 batches of medium viscosity cement were prepared with vacuum assistance. After the cement was ready a small amount was placed on to the back side of the tibial component at the keel. A small amount was placed onto the posterior flange of the femur. Cement was manual pressurized and impregnated into the cut surface of the tibia. The tibial component was then inserted into the cut surface and impacted into position. Excess cement was removed and the component was reimpacted. Again, excess cement was removed and our attention was then turned to the femur. The femoral cut surface was once again dried and cement was manually impacted into the cut surface. The femoral component was lined with the lug holes and impacted. Excess cement was removed. It was ensured to be down against the cut surface. The trial polyethylene was then inserted and the leg was brought out into full extension for the duration of the cement curing process, approximately 18min. Cement was lastly manually impacted into the cut surface of the patella and the patellar button was clamped into position and held. During this process attention was turned to the gutters of the knee and for all interfaces for any excess cement. While the cement was hardening, the knee was irrigated with Irrisept chlorhexadine solution. This was allowed to sit in the knee for 3 minutes. After the cement had finally cured, approximately 18min, the clamp was removed from the patella and the knee was taken through range of motion. A size 8mm polyethylene component provided the best range of motion and stability with less than 2mm gapping with medial and lateral stress and full extension without significant hyperextension. The patella was tracking with a no-thumbs technique. The trial poly was removed and once again the knee was checked for any loose, excess, or errant cement. The poly component was then inserted and impacted into position after cleaning and drying the tibial tray. The capsule was then reapproximated with a No. 1 Vicryl at multiple locations. The capsule was finally closed with a No. 2 Stratafix, barbed suture. The tourniquet was then released and the arthrotomy appeared watertight without significant bleeding. The second dosing of 1g TXA was started. Deep tissues were then reapproximated with 0 Vicryl and 2-0 Vicryl. The skin was closed with a running 3-0 Monocryl in a subcuticular fashion. This was reinforced with skin glue. A Mepilex silver dressing was applied along with a [id number] VY wrap. A CryoCuff was applied. Sherlyn was transferred to the hospital bed without difficulty an suffering no apparent complication. She has a good prognosis. Physical therapy will start today and without restrictions, weight-bearing as tolerated. Aspirin 81mg BID will be used for DVT prophylaxis.
--- NOTE | 2020-06-25 16:05 | IN_ITS ---
Date of service: 06/25/20 Time of Service: 16:05 PT Notes Visit Reasons: Left knee DJD Physical Therapy Inpatient Initial Evaluation Date: 06/25/2020 Referring Doctor: POONAM Sandoval PT Orders: PT CONSULT: Status post Ortho surgery Precautions: Fall. Standard. WBAT on left LE. Patient Profile/Admitting Diagnosis: Sherlyn is a 75-year-old female with primary unilateral osteoarthritis of the left knee and is status post left total knee arthroplasty on postoperative day 0. PMHX: Medical History Anxiety Chronic back pain Diverticular disease A. Sigmoid resection Hypertension Left knee DJD Migraines Pre-diabetes Small bowel obstruction Surgical [place] [facility] [place] (~2002) RE DIVERTICULITIS;DR. Mervat SHAFFER Cholecystectomy (~1969) Extraction of cataract DR. 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 Calzada Social History/Home Situation: Lives alone in an apartment with one-step to enter without rails. Has worked at [employer] for over 39 years now. Independent with all aspects of ADLs without the use of an assistive ambulatory device nor adaptive equipment prior to surgery. Equipment Owned/DME: [facility] Subjective: Agreeable to PT consult. Denies pain in the left knee but reports stiffness in the left complete shoulder area during ambulation activity. Denies headache, chest pain, and dizziness throughout. Hopeful that she can again have home health PT work with her when she goes home tomorrow. Indicates that she wants to go through exercises according to her pace but hopes to go back to work first week of July 2020. Objective: General Observation: Supine in bed. IV in the right UE. VY wraps to left LE. Cryo/Cuff on left LE. Mental Status: Alert and oriented x4 Pain: 1/10 in the left knee ROM: Right Upper Extremity: Shoulder Flexion WFL. Shoulder abduction WFL. Elbow flexion WFL. Wrist flexion WFL. Opening and closing of hand WFL. Left Upper Extremity: Shoulder Flexion WFL. Shoulder abduction WFL. Elbow flexion WFL. Wrist flexion WFL. Opening and closing of hand WFL. Right Lower Extremity: Hip flexion WFL. Hip abduction WFL. Knee flexion WFL. Ankle dorsiflexion WFL. Ankle plantarflexion WFL. Left Lower Extremity: Hip flexion WFL. Hip abduction WFL. Knee flexion 10 degrees to 95 degrees. Knee extension -10 degrees. Ankle dorsiflexion WFL. Ankle plantarflexion WFL. Strength: Right Upper Extremity: Shoulder flexors 4/5. Shoulder abductors 4/5. Elbow flexors 5/5. Elbow extensors 5/5. Physical Damage Appraiser strong. Left Upper Extremity: Shoulder flexors 4/5. Shoulder abductors 4/5. Elbow flexors 5/5. Elbow extensors 5/5. Physical Damage Appraiser strong. Right Lower Extremity: Hip flexors 4/5. Hip abductors 5/5. Knee flexors 5/5. Knee extensors 5/5. Ankle dorsiflexors 5/5. Ankle plantarflexors 5/5. Left Lower Extremity: Hip flexors 4-/5. Hip abductors 4/5. Knee flexors 3-/5. Knee extensors 3-/5. Ankle dorsiflexors 5/5. Ankle plantarflexors 5/5. Sensation: Intact as to pain and pressure on bilateral lower extremities. Bed Mobility/Transfers: Supine to sit standby assist with HOB at 30 degrees Sit to stand contact guard assist Stand to sit contact-guard assist Bed to chair contact-guard assist Chair to bed contact-guard assist Gait: Guided patient through level surface ambulation of 50 feet using front wheeled walker with WBAT on the left LE requiring only contact-guard assist with heel toe step through gait pattern. Kassandra decreased. Reported of stiff left complete shoulder area that subsided with ambulation activity. Balance: Static Sitting: Normal Dynamic Sitting: Normal Static Standing: Fair Dynamic Standing: Fair Special Tests: Mobility Limitations Standardized Measure [facility] AM-PAC 6 clicks Basic Mobility Inpatient Short Form: Raw Score: 18 CMS Score: 47% deficit Informed Consent/Education: Patient instructed in purpose of PT consult and plan of care. Assessment: Sherlyn demonstrates functional mobility decline requiring the use of front wheeled walker for all mobility ADL performance, impairment in balance, and increased risk for falls due to postoperative status and co-morbidities. She will benefit from home health PT services upon discharge from this hospital tomorrow in order to facilitate return to pre-morbid independent level in anticipation of returning to work in 3 weeks. Patient presents with clinical signs and symptoms consistent with current/admitting diagnoses that have resulted to mobility limitations, gait instability, generalized weakness, and impairment of motor control as demonstrated by the following impairment level findings: 1. Decreased strength to left knee major muscle groups 2. Impaired standing balance 3. Limitation of joint range of motion in left knee Impairments are contributing to the following functional limitations: 1. Inability to safely ambulate without assistive device and physical assistance 2. Increase completion time for mobility ADL performance 3. Increased fall risk 4. Inability to negotiate steps alone safely Patient is assessed as a 56703 moderate complexity based on the following: History: 75-year-old female with impairment level findings, functional limitations, and past medical history as indicated above Examination: Demonstrable impairment in strength, balance, and mobility level with underlying impairments and functional limitations as documented above Presentation:Evolving Decision Makin moderate complexity Goals: Goals X 1-2 more treatment sessions 1. Supine-Sit independent 2. Sit-Supine independent 3. Sit-Stand independent 4. Stand-Sit independent 5. Bed-Chair independent 6. Chair-Bed independent 7. Supervision gait on level surface with use of least restrictive device for at least 300 feet without report of pain nor dyspnea 8. Supervision stair negotiation while holding onto bilateral rails for at least 10 steps without report of pain nor dyspnea Plan of Care/Treatment Plan: 1-2 more treatment sessions. Plan of care has been reviewed with the FISH HATCHERY WORKER providing the service under Physical Therapy direction. Initiate Physical Therapy intervention for strengthening, bed mobility, transfers, gait, stairs, balance training, use of assistive device, and HEP instructions. DISCHARGE RECOMMENDATIONS: Home when medically cleared by orthopedic surgeon. Home health PT services in order to ensure a smooth transition to home and facilitate safe return to work. TREATMENT CODE/TIME: 11641 x 25 minutes, 87494 x 17 minutes beginning at 16:05 PM. Thank you for the opportunity to participate in the care of this patient. Rosi Dixon PT, DPT, CLT [facility] [place], [place]
[2020-06-25] MEDS: ceFAZolin 1 GM/50 ML BAG IVPB (16:20)
[2020-06-25] MEDS: Celecoxib 200 MG CAP PO (20:40)
[2020-06-25] MEDS: Aspirin E.C. 81 MG TABEC PO (20:41)
[2020-06-26] MEDS: ceFAZolin 1 GM/50 ML BAG IVPB ×2 (00:22→07:59)
[2020-06-26 03:24] VITALS: BP 112/56; PULSE 58; RESP 17; TEMP 36.4; O2SAT 92
[2020-06-26] MEDS: HYDROmorphone 2 MG/ML VIAL 0.5 MG IVP (05:47)
[2020-06-26] MEDS: Normal Saline Flush 10 ML SYR IV (05:47)
[2020-06-26 07:33] VITALS: BP 113/62; PULSE 63; RESP 18; TEMP 35.6; O2SAT 93
[2020-06-26] MEDS: Cholecalciferol (Vitamin D3) 1,000 UNIT TAB 4000 UNITS PO (07:55)
[2020-06-26] MEDS: Pantoprazole 40 MG TABCR PO (07:56)
[2020-06-26] MEDS: Aspirin E.C. 81 MG TABEC PO (07:56)
[2020-06-26] MEDS: Lisinopril 5 MG TAB 2.5 MG PO (07:57)
[2020-06-26] MEDS: Celecoxib 200 MG CAP PO (07:57)
[2020-06-26] MEDS: Acetaminophen 500 MG TAB 1000 MG PO ×2 (07:58→13:38)
[2020-06-26] MEDS: Normal Saline Flush 10 ML SYR (08:23)
--- NOTE | 2020-06-26 09:50 | PDOC.CMIN ---
- If Service Date Differs Date of service: 06/26/20 Time of Service: 09:50 Care Management Initial Assess REASON FOR HOSPITALIZATION:: Left knee DJD PAST MEDICAL HISTORY/PAST SURGICAL HISTORY:: Medical History . Anxiety. Chronic back pain. Diverticular disease. A. Sigmoid resection. Hypertension. Left knee DJD. Migraines. Pre-diabetes. Small bowel obstruction. Surgical History . [place] Surgery (~1988). [facility] [place]el Resection (~2002). RE DIVERTICULITIS;DR. Mervat SHAFFER. Cholecystectomy (~1969). Extraction of cataract. DR. LEGER left 12/2014;rt 02/2012. Ligation of fallopian tube (~1985). . Replacement of total knee joint (04/01/17). Right Knee Replacement- Dr. Calzada PREVIOUS FUNCTIONAL STATUS/SOCIAL/FAMILY SUPPORTS:: Sherlyn lives alone in an apartment in [place], [place]. She has worked at [employer] for almost 40 years in a variety of positions. 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 She also has 4 other sons, 5 grandchildren and 2 step grandchildren who live remotely.Sherlyn has had knee surgery before so alreadyu has a walker and a shower chair. She is independent at baseline. CURRENT FUNCTIONAL STATUS:: Sherlyn was sitting up in bed when CM met with her. She was pleasant and engaged readily with CM. Payton requested and was provided with pamphlets re: fall prevention and Life Alert systems. She stated that her children have encouraged her to enroll in such a program and she agreees that it may be time to do so. Sherlyn anticipates being discharged later today. ADVANCE DIRECTIVES:: none on file. provided with forms at her request. Has patient been provided with info about the portal/API?: Yes Did the patient sign up for the portal?: No CODE STATUS:: Full Code INSURANCE COVERAGE / FINANCIAL ISSUES:: Medicare. BC BS CURRENT HOME/COMMUNITY SERVICES/EQUIPMENT:: walker and tub chair PRIMARY CARE PHYSICIAN:: Nathaly March POTENTIAL DISCHARGE NEEDS:: Will likely need PT PATIENT/FAMILY EDUCATION NEEDS:: discharge plan, limitations, follow up, Ask Me Three TRANSPORTATION:: via private vehicle with family PLAN:: Sherlyn will be discharged home with new home health PT. [facility] was notified of the new referral by phone this morning. She will follow up with her community providers and plan of care and transport home with family.
[2020-06-26 10:47] VITALS: BP 111/63; PULSE 65; TEMP 36.1; O2SAT 94
[2020-06-26 11:32] VITALS: BP 125/55; PULSE 62; RESP 20; TEMP 36.9; O2SAT 94
--- NOTE | 2020-06-26 12:15 | PT.INTREAT ---
Date of service: 06/26/20 Time of Service: 07:50 PT Notes Visit Reasons: Left knee DJD Inpatient Physical Therapy Treatment Note [facility] Date: 06/26/2020 PRECAUTIONS: WBAT L LE SUBJECTIVE: Sherlyn is pleasant and agreeable to participating in PT. She reports that she slept well last night and isn't in pain at the moment. She would like Home Health upon discharge. Two of her sons live locally and will help if she needs it. OBJECTIVE: PAIN: No c/o pain BED MOBILITY/TRANSFERS Supine-sit: I with HOB flat Sit-stand: I Stand-sit: I Bed-Chair: S Chair-bed: S GAIT Assistive Device: FWW Weight bearing: WBAT L LE Assist: S Distance: 200' THEREX: Patient was instructed in a LE strengthening and stabilization program, performed in a supine position, as per flow sheet. Cryocuff in place over L knee prior to session. STAIRS: Up/down 3x4 using B rails and a step-to pattern, independently, without cueing. ASSESSMENT: Patient tolerated session well without complaint. She was able to tolerate a progression in gait distance with FWW support, requiring supervision only. PLAN: Continue with LE strengthening and gait training for continued progression towards baseline level of function via Home Health PT. TREATMENT CODE/TIME: 25 minutes; 16163, 53717 (07:50)
--- NOTE | 2020-06-26 16:30 | INDS_ITS ---
Date of service: 06/26/20 PT Notes Visit Reasons: Left knee DJD Physical Therapy Inpatient Discharge Summary Date: 06/26/2020 Service: 06/25/2020 and 06/26/2020 This is a clinical summary of care provided on the duration of dates listed above. No charge was made in the completion of this documentation. Referring Doctor: POONAM Sandoval PT Orders: PT CONSULT: Status post Ortho surgery Precautions: Fall. Standard. WBAT on left LE. Patient Profile/Admitting Diagnosis: Sherlyn is a 75-year-old female with primary unilateral osteoarthritis of the left knee and is status post left total knee arthroplasty on postoperative day 0. PMHX: Medical History Anxiety Chronic back pain Diverticular disease A. Sigmoid resection Hypertension Left knee DJD Migraines Pre-diabetes Small bowel obstruction Surgical History Back Surgery (~1988) [facility] Bowel Resection (~2002) RE DIVERTICULITIS;DR. Mervat SHAFFER Cholecystectomy (~1969) Extraction of cataract DR. 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 Calzada Social History/Home Situation: Lives alone in an apartment with one-step to en ter without rails. Has worked at [employer] for over 39 years now. Independent with all aspects of ADLs without the use of an assistive ambulatory device nor adaptive equipment prior to surgery. Equipment Owned/DME: [employer] Subjective: NT. See most recent REAL ESTATE ECONOMIST notes. Objective: General Observation: NT. See most recent REAL ESTATE ECONOMIST notes. Mental Status: NT. See most recent REAL ESTATE ECONOMIST notes. Pain: NT. See most recent REAL ESTATE ECONOMIST notes. ROM: Right Upper Extremity: Shoulder Flexion WFL. Shoulder abduction WFL. Elbow flexion WFL. Wrist flexion WFL. Opening and closing of hand WFL. Left Upper Extremity: Shoulder Flexion WFL. Shoulder abduction WFL. Elbow flexion WFL. Wrist flexion WFL. Opening and closing of hand WFL. Right Lower Extremity: Hip flexion WFL. Hip abduction WFL. Knee flexion WFL. Ankle dorsiflexion WFL. Ankle plantarflexion WFL. Left Lower Extremity: Hip flexion WFL. Hip abduction WFL. Knee flexion 10 degrees to 95 degrees. Knee extension -10 degrees. Ankle dorsiflexion WFL. Ankle plantarflexion WFL. Strength: Right Upper Extremity: Shoulder flexors 4/5. Shoulder abductors 4/5. Elbow flexors 5/5. Elbow extensors 5/5. Veterans Service Officer strong. Left Upper Extremity: Shoulder flexors 4/5. Shoulder abductors 4/5. Elbow flexors 5/5. Elbow extensors 5/5. Veterans Service Officer strong. Right Lower Extremity: Hip flexors 4/5. Hip abductors 5/5. Knee flexors 5/5. Knee extensors 5/5. Ankle dorsiflexors 5/5. Ankle plantarflexors 5/5. Left Lower Extremity: Hip flexors 4-/5. Hip abductors 4/5. Knee flexors 3-/5. Knee extensors 3-/5. Ankle dorsiflexors 5/5. Ankle plantarflexors 5/5. Sensation: Intact as to pain and pressure on bilateral lower extremities. Bed Mobility/Transfers: Supine to sit independent Sit to stand independent Stand to sit independent Bed to chair supervision Chair to bed supervision Gait: Up to 200 feet on level surface ambulation using front wheeled walker with WBAT on the left LE requiring only supervision assist. Stairs: Able to tolerate up-and-down three 4 inch steps while holding onto bilateral rails with step to gait pattern independently without cueing. Balance: Static Sitting: Normal Dynamic Sitting: Normal Static Standing: Fair Dynamic Standing: Fair Assessment: Sherlyn continues to demonstrate functional mobility decline requiring the use of front wheeled walker for all mobility ADL performance, impairment in balance, and increased risk for falls due to postoperative status and co-mo rbidities. She will benefit from home health PT services upon discharge from this hospital tomorrow in order to facilitate return to pre-morbid independent level in anticipation of returning to work in 3 weeks. Patient continues to present with clinical signs and symptoms consistent with current/admitting diagnoses that have resulted to mobility limitations, gait instability, generalized weakness, and impairment of motor control as demonstrated by the following impairment level findings: 1. Decreased strength to left knee major muscle groups 2. Impaired standing balance 3. Limitation of joint range of motion in left knee Impairments are continuing to contribute to the following functional limitations: 1. Inability to safely ambulate without assistive device and physical assistance 2. Increase completion time for mobility ADL performance 3. Increased fall risk 4. Inability to negotiate steps alone safely Goals: Goals X 1-2 more treatment sessions 1. Supine-Sit independent MET 2. Sit-Supine independent MET 3. Sit-Stand independent MET 4. Stand-Sit independent MET 5. Bed-Chair independent NOT MET 6. Chair-Bed independent NOT MET 7. Supervision gait on level surface with use of least restrictive device for at least 300 feet without report of pain nor dyspnea MET 8. Supervision stair negotiation while holding onto bilateral rails for at least 10 steps without report of pain nor dyspnea MET DISCHARGE RECOMMENDATIONS: Home when medically cleared by orthopedic surgeon. Home health PT services in order to ensure a smooth transition to home and facilitate safe return to work. TREATMENT CODE/TIME: [place] Thank you for the opportunity to participate in the care of this patient. Rosi Dixon PT, DPT, CLT [facility] [place], [place]
--- NOTE | 2020-06-26 18:13 | PDOC.CMDIS ---
- If Service Date Differs Date of service: 06/26/20 Time of Service: 18:13 LACE Index Scoring Tool - Questions: Length of Stay (in days): 1 Acuity (Admit via E.D.?): No E.D. Visits: 2 - Answers: Total Score: 3 Risk of Readmission: Low Risk Care Management Discharge Reason for Hospitalization: Left knee DJD Discharge Plan: Sherlyn will be discharged home with new home health PT. [facility] was notified of the new referral by phone this morning. She will follow up with her community providers and plan of care and transport home with family. Patient/Family Education Needs: discharge plan, limitations, follow up, Ask Me Three
--- NOTE | 2020-06-27 14:39 | CHAPLAIN ---
Sherlyn works for [employer] and her office is in [facility] so she is well know to staff here. This is her second knee replacement and she said it feels different than her first. She lives alone in [place] [facility], but she has a son in [place] who can help her, and other children who live away but keep in close touch.
== END 2020-06-26 14:32 | disposition home health service (06) | DRG 470 ==
LOC: PDS 09:20 → MS 15:15 → PDS 06-28 11:43
PROVIDERS: Admitting Provider Student in an Organized Health Care Education/Training Program; PCP Family Medicine; Visit Provider Student in an Organized Health Care Education/Training Program
PROC: 0SRD0J9 Replacement of Left Knee Joint with Synthetic Substitute, Cemented, Open Approach (ICD-10-PCS; CPT 27447; principal; 2020-06-25 11:00)
DX: M17.12 Unilateral primary osteoarthritis, left knee (principal); E78.5 Hyperlipidemia, unspecified; I10 Essential (primary) hypertension; G43.909 Migraine, unspecified, not intractable, without status migrainosus; G47.00 Insomnia, unspecified; F41.9 Anxiety disorder, unspecified
CPT/HCPCS: 27447; 76942; 97110; 97162; 97530; NC; J0690; J1885; J2001; J2250; J2405

== ENCOUNTER 2020-07-08 13:54 | Outpatient (CLI) | payer MEDICARE, BC, SELFPAY ==
--- NOTE | 2020-07-08 14:10 | DI.RAD_ITS ---
EXAM: XR STANDING ALIGNMENT CLINICAL HISTORY: 1ST POST OP L TKA. TECHNIQUE: 2D digital imaging was performed. COMPARISON: CR XR STANDING ALIGNMENT from 06/19/2020 FINDINGS: There is been interval placement of a left knee prosthesis. There are now bilateral knee prostheses. No loosening. Hips are somewhat difficult to assess because of overlying pannus. There appears to be mild narrowing of the left hip joint. No osseous lesions. IMPRESSION: DATA REPOSITORY: RADIATION DOSE DELIVERED:
--- NOTE | 2020-07-08 14:10 | DI.RAD_ITS ---
EXAM: XR KNEE LT 1V CLINICAL HISTORY: 1ST POST OP L TKA. TECHNIQUE: 2D digital imaging was performed. COMPARISON: CR XR KNEE LT 3V AP,LAT,DEEPAK from 05/24/2020 FINDINGS: There is no evidence of fracture nor loosening of the components of the recently placed prosthesis. IMPRESSION: DATA REPOSITORY: RADIATION DOSE DELIVERED:
== END 2020-07-08 13:55 | disposition home or self-care (01) ==
LOC: DIORS 13:54
PROVIDERS: PCP Family Medicine; Referring Provider Family Medicine; Visit Provider Student in an Organized Health Care Education/Training Program
DX: Z96.652 Presence of left artificial knee joint (principal); Z47.1 Aftercare following joint replacement surgery
CPT/HCPCS: 73560; 77073

== ENCOUNTER → 2020-08-09 10:38 | Outpatient (BNVA) | payer MEDICARE, BC, SELFPAY | PROVIDERS: PCP Family Medicine; Referring Provider Family Medicine; Visit Provider Student in an Organized Health Care Education/Training Program | DX: Z47.1 Aftercare following joint replacement surgery (principal); Z96.652 Presence of left artificial knee joint ==

== ENCOUNTER 2021-01-22 21:11 | Outpatient (CLI) | payer MEDICARE, BC, SELFPAY ==
--- NOTE | 2021-01-22 09:15 | DI.MAMMO_ITS ---
Exam(s) MAMMO SCREENING EXAM: MAMMO SCREENING CLINICAL HISTORY: screening, Z12.39. TECHNIQUE: Bilateral full field digital CC and MLO mammographic images were obtained with 3D tomosyn thesis and utilizing computer aided detection (CAD). COMPARISON: Prior mammograms dating back to 2011, the most recent being May 2019. FINDINGS: Benign lymph nodes upper quadrant of the right breast are unchanged from prior studies. There are no new spiculated masses nor malignant appearing microcalcification groups. There is no significant architectural distortion nor skin thickening-retraction. IMPRESSION: No radiographic evidence of malignancy. BI-RADS Category 1 - Negative Breast Density - Category A - Almost entirely fatty Breast density Category C or D implies that the patient has dense breast tissue. Dense breast tissue can make it harder to find cancer on a mammogram. Dense breast tissue is also associated with an incr eased risk of breast cancer. This information about the result of the mammogram report was provided to the patient to raise their awareness. Use this report when you speak with the patient about their risks for breast cancer, which includes their family history. At that time, you may recommend additional screening tests (Ultrasoun d or MRI) as these tests may add significant information. A negative radiographic report should not delay biopsy if a dominant or clinically suspicious mass is present. Up to ten percent of cancers are not identified on mammography. A negative report may reinforce clinical impression. Adenosis and dense breasts may obscure an underlying neoplasm. False positive reports average 6 to 10%. Patient will receive a letter notifying them of these results.
== END 2021-01-22 21:31 ==
PROVIDERS: PCP Family Medicine; Visit Provider Family Medicine
DX: Z12.31 Encounter for screening mammogram for malignant neoplasm of breast (principal)
CPT/HCPCS: 77063; 77067

== ENCOUNTER 2021-02-22 15:40 | Outpatient (REF) | payer MEDICARE, BC, SELFPAY ==
[2021-02-22 21:59] LABS: Bilirubin Negative (Negative); Blood Trace-lysed (Negative); Clarity Clear (Clear); Glucose Negative (Negative); Ketones Negative (Negative); Leukocyte Esterase Trace (Negative); Nitrite Negative (Negative); Urobilinogen 0.2 EU/dL (Up TO 0.2); pH 5.5 (5-8)
[2021-02-22 22:09] LABS: Bacteria Rare HPF (Negative); C & S Indicated? Yes; Casts Negative LPF (Negative); Crystals Negative HPF (Negative); Epithelial Cells Rare HPF (Negative); Mucus Negative (Negative); RBC 0-2 HPF (0-2); WBC 0-2 HPF (0-5)
== END 2021-02-22 15:41 | disposition home or self-care (01) ==
LOC: LBN 15:40
PROVIDERS: PCP Family Medicine; Visit Provider Physician Assistant
DX: N39.0 Urinary tract infection, site not specified (principal)
CPT/HCPCS: 87077; 81003; 81015; 87086; 87186

== ENCOUNTER 2021-06-27 09:58 | Outpatient (CLI) | payer MEDICARE, BC, SELFPAY ==
--- NOTE | 2021-06-27 09:30 | DI.RAD_ITS ---
Exam(s) XR KNEE LT 2V AP,LAT EXAM: XR KNEE LT 2V AP,LAT CLINICAL HISTORY: annual f/u L TKA. TECHNIQUE: 2D digital imaging was performed of the left knee. Two images were obtained. AP and lat eral views were obtained. COMPARISON: CR XR KNEE LT 3V AP,LAT,DEEPAK from 05/24/2020 CR XR KNEE LT 1V from 07/08/2020 FINDINGS: BONES: No acute fracture is present. No bony destructive lesion is seen. JOINTS: There are postsurgical changes again seen of a left total knee replacement. No evidence of h ardware failure is seen. No joint effusion is seen. SOFT TISSUE: Normal. IMPRESSION: Stable postsurgical changes of a left total knee replacement. DATA REPOSITORY: RADIATION DOSE DELIVERED:
== END 2021-06-27 09:59 | disposition home or self-care (01) ==
LOC: DIORS 09:59
PROVIDERS: PCP Family Medicine; Referring Provider Family Medicine; Visit Provider Student in an Organized Health Care Education/Training Program
DX: Z96.652 Presence of left artificial knee joint (principal); Z01.89 Encounter for other specified special examinations
CPT/HCPCS: 99212; 73560

== ENCOUNTER 2021-07-29 01:43 | Outpatient (CLI) | payer MEDICARE, BC, SELFPAY ==
[2021-07-29 17:19] LABS: CREATININE 0.8 mg/dL (0.55-1.02)
== END 2021-07-29 01:44 | disposition home or self-care (01) ==
LOC: LBO 01:44
PROVIDERS: PCP Nurse Practitioner Family; Visit Provider Nurse Practitioner Family
DX: I10 Essential (primary) hypertension (principal)
CPT/HCPCS: 36415; 82565

== ENCOUNTER 2022-06-04 10:11 | Inpatient (IN) | payer MEDICARE, BC, SELFPAY ==
[2022-06-04] VITALS (63 sets, daily range): BP systolic 101–209; BP diastolic 53–149; PULSE 66–107; RESP 14–33; TEMP 36.1; O2SAT 89–99
--- NOTE | 2022-06-04 10:00 | RT.EKG_ITS ---
APPROVED REPORT Exam: Resting ECG Reason for Exam: stroke Patient Location: E HR:65 bpm ECG Measurements Heart Rate 65 AXIS NJ 158 P 40 QRSd 132 QRS -15 QT 430 T 80 QTc 448 Conclusion Sinus rhythm...normal P axis, V-rate 60- 99 Left bundle branch block...QRSd>120, broad/notched R sinus rhythm, LBBB, non ischemic
--- NOTE | 2022-06-04 10:00 | DI.CT_ITS ---
Exam(s) CT BRAIN NECK CTA EXAM: CT BRAIN NECK CTA CLINICAL HISTORY: AMS. TECHNIQUE: Imaging Protocol: Axial CT angiography was performed with multi-slice acquisition and mu lti-planar and/or 3D reconstructions. CONTRAST MATERIAL: Intravenous: Omnipaque 350 Contrast volume:structured data in ml COMPARISON: No exams were available for comparison FINDINGS: CTA Neck W: Aortic arch anatomy: The aortic arch anatomy is conventional and there is no significant stenosis at the origin of the great vessels off of the aortic arch. No intimal flap evident. Anterior circulation: Both common carotid arteries ascend with normal luminal diameters. At the level the carotid bulbs and proximal internal carotid arteries there is minimal plaque without hemodynamically significant stenosis evident. Both internal carotid arteries are nicely patent in the upper neck. Also patent in the skull base-ca rotid canals. Posterior circulation: Vertebral arteries originated conventional fashion off of the subclavian arteries and there is no obv ious stenosis at the origin of the vertebral arteries. Both vertebral arteries exhibit normal equal luminal diameters within the foramen transversarium. Both vertebral arteries contribute to the formation of the basilar artery at the skull base. CTA Brain W: Anterior circulation: Both internal carotid arteries are patent in the skull base-carotid canals as well as within the cave rnous sinuses. The supraclinoid aspects of the ICAs are patent. Both A1 segments are patent as are the anterior cer ebral arteries and there is no evidence of aneurysm at the level of the anterior communicating artery . Both middle cerebral arteries are patent with no evidence of significant stenosis nor intraluminal th rombus. There also no aneurysms of these vessels. Posterior circulation: Basilar artery is midline but exhibits mid level stenosis is approximately percent. No intraluminal thrombus and no dissection evident vessels. Distally basilar artery gives off superior cerebellar ar teries. Above this level the basilar artery terminates as patent bilateral posterior cerebral arteries.. The re is a posterior communicating artery on the right side of the ynulwy-bd-Dzvhdp contributing to the blood flow in the right posterior cerebral artery. There is no evidence of aneurysm at the tip of the basilar artery nor elsewhere in the capylc-lx-Jakd is. CT BRAIN: There is no evidence of intracranial hemorrhage, mass effect, or shift of midline structures. There are no extra-axial fluid collections. Ventricles are not enlarged or shifted. There are no ring enh ancing lesions in the brain and no abnormal meningeal enhancement. There is some mild bilateral periventricular hypodensity consistent with chronic small vessel disease . No obvious territorial infarction. IMPRESSION: 1. Patent carotid arteries in the neck. No hemodynamically significant stenosis. 2. Patent vertebral arteries. However, there is a 50-60 percent mid level stenosis in the basilar ar kisha demonstrated. 3. Otherwise intracranial arteries appear unremarkable. No aneurysms. No ring enhancing lesions in the brain. No abnormal meningeal enhancement. RADIATION DOSE DELIVERED: 2,031.07mGy.cm Total DLP DATA REPOSITORY: All CT scans at this facility are submitted to the National Radiology Data Registry (NRDR) Dose Index Registry (DIR) with the [employer] (ACR). RADIATION OPTIMIZATION: All CT scans at this facility use at least one of these dose optimization te chniques: automated exposure control; mA and/or kV adjustment per patient size (includes targeted exa ms where dose is matched to clinical indication); or iterative reconstruction.
--- NOTE | 2022-06-04 10:15 | DI.RAD_ITS ---
Exam(s) XR CHEST 2V PA LATERAL EXAM: XR CHEST 2V PA LATERAL CLINICAL HISTORY: AMS. TECHNIQUE: 2D digital imaging was performed. COMPARISON: No exams were available for comparison FINDINGS: 2 views: Cardiomegaly. Mediastinum not widened. Lungs are clear. No infiltrates nor pleural effusions. IMPRESSION: No acute pulmonary findings.Mild cardiomegaly. DATA REPOSITORY: RADIATION DOSE DELIVERED:
--- NOTE | 2022-06-04 10:30 | DI.RAD_ITS ---
Exam(s) XR PELVIS AP EXAM: XR PELVIS AP CLINICAL HISTORY: possible trauma. TECHNIQUE: 2D digital imaging was performed. COMPARISON: No exams were available for comparison FINDINGS: Single AP view. No evidence of pelvic nor hip fractures. Mild degenerative changes in the hips noted. No osseous le sions. Contrast is seen in nondilated ureters and unremarkable appearing urinary bladder in this pat ient recently underwent contrast infused scan. IMPRESSION: No pelvic nor hip fractures evident. DATA REPOSITORY: RADIATION DOSE DELIVERED:
--- NOTE | 2022-06-04 10:36 | W.ED.GENAD ---
Discharge Plan Disposition Patient Disposition: Admit to [facility] Condition: Stable Discharge Details Chief Complaint: CVA/TIA Clinical Impression: AMS (altered mental status), Aphasia Primary Care Provider: Richy Junior ED Provider: Yousuf Shin Home Meds and New Rx's Prescriptions: No Action lisinopril 2.5 mg tablet 2.5 mg PO DAILY Qty: 90 3RF Medical Decision Making 76-year-old female history of migraines, hypertension, presents brought in by EMS for altered mental status, found by friend to be altered at home this morning, possible generalized shaking event, blood sugar normal in the field, hypertense, patient awake however with minimal verbal interaction and minimal responsiveness to verbal commands, no external signs of trauma, no respiratory distress, consider seizure with postictal state versus CVA versus tox versus metabolic process versus infectious process versus ACS versus trauma. Screening labs imaging disposition pending reassessment and results. Likely patient will need MRI and admission for further neurologic assessment. 11: 19 CT CTA head neck large unremarkable patient does have some age-related changes as well as some stenosis of the basilar artery, some improvement of responsiveness however still with marked expressive aphasia no dysarthria, NIH stroke scale approximately 6. Discussed case with radiologist who is recommending MRI/MRA of brain. Will likely touch base with [facility] neurology pending results. Given unknown last known normal as well as some clinical improvement patient is not a candidate for tPA. Discussed findings and plan with family 15: 57 patient was comfortably no acute distress. Persistent expressive aphasia. Discussed case extensively with neurologist at [facility]. We able to review images together and past history. No evidence of acute infarct at this time. No vascular lesion that requires any intervention at this time. Consider hypertensive emergency versus atypical migraine versus less likely recurrent partial seizure. Starting patient on antihypertensive, sumatriptan and low-dose hydralazine. Will admit for observation and assessment of mental status. HPI General Date/Time Provider Initiated Documentation: 06/04/22 10:16. HPI Narrative: 76-year-old female found unresponsive by a friend this morning, there was reports of some generalized shaking, patient was altered, found to be moderately hypertensive however normoglycemic in the field. No seizure-like activity during transport however globally confused not following commands and having minimal verbal interaction. Patient was seated in on a couch when EMS arrived no external signs of trauma. Related Data Home Medications Medication Instructions Recorded Confirmed lisinopril 2.5 mg tablet 2.5 mg PO DAILY #90 tabs 01/30/22 01/30/22 Previous Rx's Medication Instructions Recorded lisinopril 2.5 mg tablet 2.5 mg PO DAILY #90 tabs 01/30/22 Allergies Allergy/AdvReac Type Severity Reaction Status Date / Time Metronidazole HCl AdvReac Severe NAUSEA,DIAR Verified 06/04/22 10:31 [From Flagyl] LAKEISHA atorvastatin calcium AdvReac Intermediate MUSCLE, Verified 06/04/22 10:31 [From Lipitor] JOINT PAIN meperidine HCl [From Demerol] AdvReac Intermediate Nausea Verified 06/04/22 10:31 Vdiyykt-TPA-RiZ Reductase AdvReac Intermediate myalgia Verified 06/04/22 10:31 Inhibitor [Rbhudgx-Kcj-Qni Reductase Inhibitor] General ANABELA: 3 Review of Systems Narrative: Review of Systems Constitutional: negative Eyes: negative ENT: negative Cardiovascular: negative Respiratory: negative Gastrointestinal: negative : negative Musculoskeletal: negative Skin: negative Neurologic: Altered mental status Psych: negative PFSH All Active Problems (Updated 06/04/22 @ 16:22 by Yousuf Shin MD) AMS (altered mental status) (Acute) Aphasia (Acute) Hyperpigmented skin lesion (Acute) History of total left knee replacement (Acute 06/25/20) Follow up (Acute) Chronic back pain (Chronic) Migraines (Chronic) Pre-diabetes (Chronic) Anxiety (Chronic) Diverticular disease (Chronic) A. Sigmoid resection Left knee DJD (Chronic) Hypertension (Chronic) Abnormal EKG (Chronic) Medical History Anxiety Chronic back pain Diverticular disease A. Sigmoid resection Hypertension Left knee DJD Migraines Pre-diabetes Small bowel obstruction Surgical History Back Surgery (~1988) [facility] Bowel Resection (~2002) RE DIVERTICULITIS;DR. Mervat SHAFFER Cholecystectomy (~1969) Extraction of cataract DR. LEGER left 12/2014;rt 02/2012 History of total left knee replacement (06/25/20) Ligation of fallopian tube (~1985) Replacement of total knee joint (04/01/17) Right Knee Replacement- Dr. Calzada Family History Mother , 88 Essential hypertension CHF (congestive heart failure) Stroke Father , 70 CHF (congestive heart failure) Brother , 60 Neoplasm multiple mylenoma; acute renal failure Brother No problems noted. 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;1ST COUSIN-COLON; Grandmother Stroke Son No problems noted. Son No problems noted. Son No problems noted. Son No problems noted. Son No problems noted. 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[employer] Pets and animals: No Do you think of yourself as: straight/heterosexual Current gender identity: female What is your relationship status?: Do you belong to any clubs or organized social groups?: yes Panel score (0-1 are the most socially isolated patients): 1 What type of physical activity do you participate in: walking Duration: 30-45 minutes/day Frequency: 3-4 times per week Maribel/Sabianism: Oriental Orthodox Special maribel needs: Yes Seatbelt use: always Drive intox or ride w/intox school bus driver/custodian: No Do you feel safe at home: Yes (Lives alone) Do you feel safe in your relationship?: Yes Exam Narrative Exam Narrative: Physical Examination General: Awake, altered HEENT: normocephalic, atraumatic; PERRL, EOM intact, conjunctiva normal; no nasal discharge; moist mucous membranes, oral and pharyngeal mucosa normal, tolerating secretions Neck: supple, trachea midline; full ROM Chest: normal to inspection Respiratory: normal respiratory effort, speaking in full sentences, clear to auscultation, no wheezing, rales or rhonchi Cardiac: regular rate, regular rhythm, S1S2 intact, no murmurs rubs or gallops GI: abdomen soft, non-tender, non-distended; no palpable mass or hepatosplenomegaly Skin: no lesions, rashes or trauma appreciated Neuro: Opening eyes spontaneously, able to raise both upper extremities however not following commands to squeeze, not following commands to move lower extremities bilaterally speech confused and slow without definitive dysarthria or aphasia Extremities: No signs of trauma Psych: Calm
--- NOTE | 2022-06-04 10:45 | DI.MRI_ITS ---
Exam(s) MR BRAIN WO EXAM: MR BRAIN WO CLINICAL HISTORY: AMS TECHNIQUE: Multiplanar multisequence MRI of the brain was performed. COMPARISON: MR MR ANGIO BRAIN WO from 06/04/2022 FINDINGS: CEREBRAL PARENCHYMA: There is no evidence of intracranial hemorrhage, mass effect, or shift of midline structures. There are no extra-axial fluid collections. Ventricles are not enlarged or shifted. There is no significant focal signal abnormality in the cerebellar hemispheres. Patchy increased sig nal noted both sides of the brooke. No abnormal signal in the midbrain and thalami. There is abundant bilateral patchy white matter periventricular signal abnormality consistent with chronic small vesse l ischemic changes. No evidence of hemorrhage. No restricted diffusion evident on DWI to suggest acute ischemic event. SWI reveals no microhemorrhages. PITUITARY GLAND: No mass nor parasellar abnormality. No obvious abnormality in the cavernous sinuses. FLOW VOIDS: The expected flow void are noted. No evidence of obvious aneurysm nor obvious vascular ma lformation. PARANASAL SINUSES: There is a post inflammatory retention cyst in the floor of the right maxillary si nus. No fluid levels in the paranasal sinuses and mastoid air cells. ORBITS: No obvious findings. IMPRESSION: No significant acute intracranial findings on this noninfused MRI scan of the brain. There is abundant bilateral periventricular white matter signal abnormality consistent with chronic s mall vessel disease. No evidence of restricted diffusion to suggest acute ischemic event. No eviden ce of intracranial hemorrhage. DATA REPOSITORY:
--- NOTE | 2022-06-04 10:45 | DI.MRI_ITS ---
Exam(s) MR ANGIO BRAIN WO EXAM: MR ANGIO BRAIN WO CLINICAL HISTORY: AMS, basillar artery stenosis on CTA TECHNIQUE: Performed on 1.5 alma unit with [id number] sequence. No IV contrast. COMPARISON: No exams were available for comparison Recent MRI reviewed FINDINGS: ANTERIOR CIRCULATION: The internal carotid arteries are patent in the skull base-carotid canals. The re appears to be a significant stenosis within the right carotid siphon with similar but less promine nt finding in left carotid siphon at same level. The superior aspects of the intracavernous internal carotid arteries are patent bilaterally as are the supraclinoid aspects of both these vessels. Both A1 segments are patent as are both anterior cerebral arteries and there is no aneurysm at the level of the anterior communicating artery. Both middle cerebral arteries are patent without significant stenosis nor intraluminal filling defect s. No aneurysms. POSTERIOR CIRCULATION: 1 both vertebral arteries are patent at the skull base and contribute to the f ormation of the basilar artery. Basilar artery exhibits mid level concentric stenosis of approximate ly 60 percent, similar to finding on the CT angio. Above this level the basilar artery exhibits norm al luminal diameter. Distally basilar artery gives off superior cerebellar arteries bilaterally abov e this level terminates as posterior cerebral arteries which appear patent. The right posterior cere bral artery also receives flow from a posterior communicating artery on the right side of the [place]. There is no aneurysm of the tip of the basilar artery nor elsewhere in the [id number]. IMPRESSION: 1. 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 This findi ng corresponds to finding on the CT angiogram performed earlier today. 2. There appear to be stenosis in the lower intracavernous internal carotid arteries bilaterally, mo re so on the right than left. However, these findings are probably artifact given that CT angiography performed today reveals both internal carotid arteries at this level to be patent without significan t stenosis at these levels.. 3. No aneurysms evident. No evidence of obvious vascular malformation. DATA REPOSITORY:
[2022-06-04 11:21] LABS: Abs Immature Grans 0.01 10^3/uL (0.0-0.06); Absolute Basophil Count 0.02 10^3/uL (0.0-0.2); Absolute Eosinophil Count 0.02 10^3/uL (0.0-0.7); Absolute Lymphocyte Count 1.72 10^3/uL (1.2-3.4); Absolute Monocyte Count 0.42 10^3/uL (0.1-0.8); Basophils % 0.4; Eosinophils % 0.4; HCT 43.4 % (36.0-46.0); HGB 14.9 g/dL (11.2-15.7); Immature Grans % 0.2; Lymphocytes % 36.7; MCH 30.3 pg (27.0-33.0); MCHC 34.3 % (32.0-36.0); MCV 88 fL (80-95); MPV 9.2 fL (8.0-11.0); Neutrophils % 53.3; Platelet Count 339 10^3/uL (130-400); RBC 4.91 10^6/uL (3.93-5.22); RDW 13.3 % (11.7-14.6); RDW-SD 43.1 fL; WBC 4.69 10^3/uL (4.4-10.8)
[2022-06-04 11:47] LABS: ALT 17 U/L (14-59); AST 19 U/L (15-37); Albumin 3.9 g/dL (3.4-5.0); Alkaline Phosphatase 78 U/L (46-116); Anion Gap 7.3 mmol/L (3-11); BUN 13 mg/dL (7-18); Bilirubin, Total 0.8 mg/dL (0.2-1.0); CO2 26.7 mmol/L (21.0-32.0); CREATININE 1.2 mg/dL (0.55-1.02); Calcium 9.4 mg/dL (8.5-10.1); Chloride 102 mmol/L (98-107); ETHANOL BLOOD < 3.0 mg/dL (<10); Estimated GFR 46.91 (mL/min/1.73m2); Glucose 127 mg/dL (74-106); Magnesium 1.9 mg/dL (1.8-2.4); Potassium 3.9 mmol/L (3.5-5.1); Sodium 136 mmol/L (136-145); Total Protein 7.2 g/dL (6.4-8.2); Troponin I < 50 ng/L (<or=60)
[2022-06-04 11:56] LABS: Salicylate < 2.8 mg/dL (<2.8)
[2022-06-04 12:05] LABS: Acetaminophen < 2 ug/mL (10-30)
[2022-06-04 13:20] LABS: Bilirubin Negative (Negative); Blood Trace-intact (Negative); Clarity Sl Cloudy (Clear); Glucose Negative (Negative); Ketones Negative (Negative); Leukocyte Esterase Negative (Negative); Nitrite Negative (Negative); Urobilinogen 0.2 EU/dL (Up TO 0.2)
[2022-06-04 13:58] LABS: Bacteria Negative HPF (Negative); C & S Indicated? No; Casts Negative LPF (Negative); Crystals Negative HPF (Negative); Epithelial Cells Rare HPF (Negative); Mucus Trace (Negative); WBC 0-2 HPF (0-5)
[2022-06-04 14:11] LABS: *AMPHETAMINES SCREEN URINE Negative (Negative); *BARBITURATES SCREEN URINE Negative (Negative); *BENZODIAZEPINES SCREEN URINE Negative (Negative); Cannabinoids THC Negative (Negative); Cocaine Screen,Urine Negative (Negative); METHADONE URINE SCREEN Negative (Negative); OPIATES URINE SCREEN Negative (Negative); Tricyclic Antidepressants Negative (Negative)
[2022-06-04] MEDS: LORazepam 2 MG/ML VIAL 0.5 MG IVP (15:11)
[2022-06-04] MEDS: hydrALAZINE 20 MG/ML VIAL 10 MG IVP (15:13)
[2022-06-04] MEDS: levETIRAcetam 1,000 MG in Normal Saline 100 ML 400 MG IVPB ×2 (15:15→21:40)
[2022-06-04] MEDS: SUMAtriptan 6 MG/0.5 ML VIAL SC (15:29)
[2022-06-04 16:50] LABS: Troponin I 72 ng/L (<or=60)
[2022-06-04] MEDS: Haloperidol 5 MG/ML VIAL 2 MG IM/IV (18:37)
--- NOTE | 2022-06-04 18:44 | W.PM.HP.N ---
Date of service: 06/04/22 Time of Service: 18:27 Assessment and Plan Assessment and plan (1) Hypertensive urgency: Status: Acute Assessment and plan: Admit to the intensive care unit for close blood pressure monitoring. Began on IV enalapril. If blood pressure is unable to be controlled with IV enalapril and as needed dosing of labetalol I would proceed to a nicardipine drip. Goal blood pressure control is systolic blood pressure under 180 but greater than 140. Her CT and MRI showed that she has chronic small vessel white matter disease and will likely to be sensitive to major drops in her blood pressure. Once she is able to take p.o. medications we can resume her lisinopril at a higher dose and add carvedilol. Given that she has cardiomegaly on her chest x-ray I would check an echocardiogram to evaluate for LVH and hypertensive heart disease. This is particular important since she has a slight bump in her troponin which I feel is probably due to type II demand ischemia caused by her hypertensive urgency. Critical care time spent interviewing and examining the patient, reviewing studies, discussing case with patient's nurse and consulting physicians was 60 minutes (2) Hypertensive encephalopathy: Status: Acute Assessment and plan: see below (3) PRES (posterior reversible encephalopathy syndrome): Status: Acute Assessment and plan: I reviewed her MRI scan and discussed w/ [facility] neurologist corporate bond trader. She did not find any vasogenic edema on the MRI but indicated that the patient still may be suffering from hypertensive encephalopathy and suggested to repeat the MRI tomorrow if she is no better. She agrees w/ goal to lower her SBP by no more than 15% over the first 24 hours. Given she presented w/ SBP of 180 mm and was upwards of 209, the goal should be for SBP 150 to 170 mm for tonight. (4) AMS (altered mental status): Status: Acute Assessment and plan: As above (5) Seizure: Status: Suspected Assessment and plan: Possible new onset seizure given her clinical history prehospital according to EMS. We will give additional keppra 1000 mg iv now for total of 2000 mg loading then continue Keppra 1000 mg every 12 hours and get an EEG in the morning. Unfortunately do not have a neurology services available tomorrow. (6) Aphasia: Status: Acute Assessment and plan: As above (7) Left bundle branch block: Status: Acute (8) Elevated troponin I level: Status: Acute Assessment and plan: Type II demand ischemia causing mild troponin leak. We will place the patient on aspirin but no need for anticoagulation at this point. Important we obtain good blood pressure control and check an echocardiogram in the morning for any wall motion abnormalities. History of Present Illness History of Present Illness Chief Complaint: Acute mental status change, hypertensive urgency Narrative: 76-year-old female with history of migraine headaches and essential hypertension was on lisinopril 2.5 mg daily was brought in by EMS to the ED at [facility] for acute altered mental status. Patient been found by a friend earlier in the morning around 10 AM allegedly had generalized shaking of her limbs. Blood glucose in the field was normal. Patient's blood pressure was hypertensive in the field although we do not have documentation as to how 100 blood pressure was. When EMS evaluated her she was awake but minimally verbally interactive and minimal responsiveness to verbal commands. There was no visible external signs of trauma and no respiratory distress. On arrival to the ED Dr. Shaye Arellano considered within the differential seizure with postictal state versus CVA versus toxic metabolic encephalopathy versus infectious process. He ordered screening lab work ordered screening CT of her head and CT of the head neck. Per her sons she has no history of seizures. Lab work includes CBC, CMP, urinalysis, urine toxicology screen, blood alcohol level, salicylate and acetaminophen level. Urine tox screen was negative acetaminophen and salicylate level were below levels of detection and blood alcohol level is below the levels of detection. CBC was unremarkable. Chemistry panel was unremarkable except for blood glucose of 127. Troponin I was less than 50. 4-hour troponin came back mildly elevated at 72 and repeat is pending at this time. Imaging included CT of the head neck which showed patent carotid arteries and neck no hemodynamically significant stenosis. Vertebral arteries but a 50 to 60% mid level stenosis in the basilar artery. Intracranial arteries are otherwise unremarkable no aneurysm and no ring-enhancing lesions in the brain. Brain MRI was performed and showed no significant acute intracranial pathology on a nonfused MRI scan of the brain. Patient has abundant bilateral periventricular white matter signal abnormalities consistent with chronic small vessel disease. No evidence of restricted diffusion defect was seen ruling out an acute ischemic event. No cerebral hemorrhage was seen. MRA of the brain was performed and showed again a 50 to 60% focal stenosis in the mid upper aspect the basilar artery. There appeared to be some stenosis in the lower intracavernous internal carotid arteries bilaterally more so on the right than the left however these are probably motion artifact as no stenosis was seen on CT angiography. Because the patient was found down pelvic x-ray was performed no fracture was seen. Chest x-ray showed no acute pulmonary pathology but she has mild cardiomegaly. ECG demonstrates sinus rhythm at a rate of 65 bpm patient has a left bundle branch block patient has some nonspecific ST depressions in 1 and aVL V6. Treatment in the emergency department included control of her blood pressure she was quite hypertensive on arrival. Blood pressure on admission was 180/75 and she philip to as high as 209/87 for which she was treated with hydralazine 10 mg IV push and because of the potential for seizure activity she was given a loading dose of Keppra [address] Shaye Arellano discussed her case with [facility] neurologist on-call and they reviewed the MRI and CT findings together. The neurologist concurred that there was no evidence of acute infarct at this time. Differential diagnosis include hypertensive emergency versus atypical migraine versus recurrent partial seizure. Patient also was given sumatriptan 6 mg subcutaneously for chance that she was suffering from atypical migraine. Per my interview w/ her sons one of her sons spoke w/ her at 5 pm yesterday and she was speaking coherently. Per her ED, Shreya, the patient has had intermittent right arm drift, and right hemineglect then later had left hemineglect and seemed to at times have complete visual loss. She has had word salad w/ nonsensical words but now her speech is more coherent but still non sequitur in their pattern in which she will say something totally unrelated to questions she is asked or even with in her own sentence pattern the words will not have any relationship to each other. She will move volitionally on her own w/ intention and purpose such as getting herself out of the bed to the bedside commode, however she does not reliably follow commands PFSH All Active Problems (Updated 06/04/22 @ 20:25 by Rob Mojica MD) PRES (posterior reversible encephalopathy syndrome) (Acute) Hypertensive encephalopathy (Acute) Elevated troponin I level (Acute) Left bundle branch block (Acute) Hypertensive urgency (Acute) AMS (altered mental status) (Acute) Aphasia (Acute) Hyperpigmented skin lesion (Acute) History of total left knee replacement (Acute 06/25/20) Follow up (Acute) Chronic back pain (Chronic) Migraines (Chronic) Pre-diabetes (Chronic) Anxiety (Chronic) Diverticular disease (Chronic) A. Sigmoid resection Left knee DJD (Chronic) Hypertension (Chronic) Abnormal EKG (Chronic) Medical History Small bowel obstruction Surgical History Back Surgery (~1988) [facility] Bowel Resection (~2002) RE DIVERTICULITIS;DR. Mervat SHAFFER Cholecystectomy (~1969) Extraction of cataract DR. 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 Calzada Family History Mother , 88 Essential hypertension CHF (congestive heart failure) Stroke Father , 70 CHF (congestive heart failure) Brother , 60 Neoplasm multiple mylenoma; acute renal failure Brother No problems noted. 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;1ST COUSIN-COLON; Grandmother Stroke Son No problems noted. Son No problems noted. Son No problems noted. Son No problems noted. Son No problems noted. 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 Pets and animals: No Do you think of yourself as: straight/heterosexual Current gender identity: female What is your relationship status?: Do you belong to any clubs or organized social groups?: yes Panel score (0-1 are the most socially isolated patients): 1 What type of physical activity do you participate in: walking Duration: 30-45 minutes/day Frequency: 3-4 times per week Maribel/Mormonism: Scientology Special maribel needs: Yes Seatbelt use: always Drive intox or ride w/intox restaurant delivery driver: No Do you feel safe at home: Yes (Lives alone) Do you feel safe in your relationship?: Yes Meds Allergies and Home Medications Allergies Allergy/AdvReac Type Severity Reaction Status Date / Time Metronidazole HCl AdvReac Severe NAUSEA,DIAR Verified 06/04/22 10:31 [From Flagyl] LAKEISHA atorvastatin calcium AdvReac Intermediate MUSCLE, Verified 06/04/22 10:31 [From Lipitor] JOINT PAIN meperidine HCl [From Demerol] AdvReac Intermediate Nausea Verified 06/04/22 10:31 Imhmjhn-ZPM-JbA Reductase AdvReac Intermediate myalgia Verified 06/04/22 10:31 Inhibitor [Mtysgkk-Sty-Ujk Reductase Inhibitor] Home Medications Medication Instructions Recorded Confirmed Type lisinopril 2.5 mg tablet 2.5 mg PO DAILY #90 tabs 01/30/22 01/30/22 Rx Exam Narrative Exam Narrative: Elderly female lying on the [facility] in the emergency department who is awake answers to her name but when asked questions she gives nonsensical answers and in non sequitur fashion. HEENT there is no facial asymmetry no dysarthric speech pupils are midpoint equally round and reactive extraocular motions intact Neck is supple no JVD no meningismus normal range of motion normal carotid pulses no bruits no JVD no thyromegaly Lungs are clear to auscultation Heart is regular rate and rhythm without appreciable murmur rub or gallop Abdomen is obese soft and nontender Franklin catheter is in place draining clear yellow urine Legs no peripheral edema she has venous varicosities on her legs she has scars over her knees from previous bilateral knee operations Neuro exam there is no focal motor deficits no facial focal sensory deficits and no obvious cranial nerve deficits. Visual guan seem to be grossly intact to confrontation, speech is nonsensical and that she will put words together that have no direct meaning and at times some of the words she says are not even actual words. Occasionally she will say something that seems to make sense and indicate her intentions. She is not consistent in following commands. Results Labs Result diagrams: 06/04/22 10:12 06/04/22 11:30 Labs: Laboratory Results - last 24 hr 06/04/22 06/04/22 06/04/22 10:12 10:17 10:17 WBC 4.69 RBC 4.91 Hgb 14.9 Hct 43.4 MCV 88 MCH 30.3 MCHC 34.3 RDW 13.3 Plt Count 339 MPV 9.2 Immature Gran % 0.2 Neutrophils % 53.3 Lymphocytes % 36.7 Monocytes % 9.0 Eosinophils % 0.4 Basophils % 0.4 Nucleated RBC % 0.0 Absolute Neutrophils 2.50 Absolute Lymphocytes 1.72 Absolute Monocytes 0.42 Absolute Eosinophils 0.02 Absolute Basophils 0.02 Sodium Potassium Chloride Carbon Dioxide Anion Gap BUN Creatinine Est GFR (CKD-EPI 2020) Glucose Calcium Magnesium Total Bilirubin AST ALT Alkaline Phosphatase Troponin I Total Protein Albumin Urine Color Cancelled Urine Clarity Cancelled Urine pH Cancelled Ur Specific [place] Cancelled Urine Protein Cancelled Urine Ketones Cancelled Urine Blood Cancelled Urine Nitrite Cancelled Urine Bilirubin Cancelled Urine Urobilinogen Cancelled Ur Leukocyte Esterase Cancelled Urine RBC Urine WBC Ur Epithelial Cells Urine Crystals Urine Bacteria Urine Casts Urine Mucus Ur Culture Indicated? Urine Glucose Cancelled Salicylates Urine Opiates Screen Cancelled Urine Methadone Screen Cancelled Acetaminophen Ur Barbiturates Screen Cancelled Ur Tricyclics Screen Cancelled Ur Amphetamines Screen Cancelled U Benzodiazepines Scrn Cancelled Urine Cocaine Screen Cancelled Ur THC Screen Cancelled Ethyl Alcohol 06/04/22 06/04/22 06/04/22 11:30 11:30 11:30 WBC RBC Hgb Hct MCV MCH MCHC RDW Plt Count MPV Immature Gran % Neutrophils % Lymphocytes % Monocytes % Eosinophils % Basophils % Nucleated RBC % Absolute Neutrophils Absolute Lymphocytes Absolute Monocytes Absolute Eosinophils Absolute Basophils Sodium 136 Potassium 3.9 Chloride 102 Carbon Dioxide 26.7 Anion Gap 7.3 BUN 13 Creatinine 1.2 H Est GFR (CKD-EPI 2020) 46.91 Glucose 127 H Calcium 9.4 Magnesium 1.9 Total Bilirubin 0.8 AST 19 ALT 17 Alkaline Phosphatase 78 Troponin I < 50 Total Protein 7.2 Albumin 3.9 Urine Color Urine Clarity Urine pH Ur Specific [place] Urine Protein Urine Ketones Urine Blood Urine Nitrite Urine Bilirubin Urine Urobilinogen Ur Leukocyte Esterase Urine RBC Urine WBC Ur Epithelial Cells Urine Crystals Urine Bacteria Urine Casts Urine Mucus Ur Culture Indicated? Urine Glucose Salicylates < 2.8 Urine Opiates Screen Urine Methadone Screen Acetaminophen < 2 Ur Barbiturates Screen Ur Tricyclics Screen Ur Amphetamines Screen U Benzodiazepines Scrn Urine Cocaine Screen Ur THC Screen Ethyl Alcohol < 3.0 06/04/22 06/04/22 06/04/22 13:05 13:05 16:15 WBC RBC Hgb Hct MCV MCH MCHC RDW Plt Count MPV Immature Gran % Neutrophils % Lymphocytes % Monocytes % Eosinophils % Basophils % Nucleated RBC % Absolute Neutrophils Absolute Lymphocytes Absolute Monocytes Absolute Eosinophils Absolute Basophils Sodium Potassium Chloride Carbon Dioxide Anion Gap BUN Creatinine Est GFR (CKD-EPI 2020) Glucose Calcium Magnesium Total Bilirubin AST ALT Alkaline Phosphatase Troponin I 72 H* Total Protein Albumin Urine Color Yellow Urine Clarity Sl Cloudy Urine pH 7.0 Ur Specific [place] 1.010 Urine Protein Negative Urine Ketones Negative Urine Blood Trace-intact H Urine Nitrite Negative Urine Bilirubin Negative Urine Urobilinogen 0.2 Ur Leukocyte Esterase Negative Urine RBC 3-5 H Urine WBC 0-2 Ur Epithelial Cells Rare Urine Crystals Negative Urine Bacteria Negative Urine Casts Negative Urine Mucus Trace Ur Culture Indicated? No Urine Glucose Negative Salicylates Urine Opiates Screen Negative Urine Methadone Screen Negative Acetaminophen Ur Barbiturates Screen Negative Ur Tricyclics Screen Negative Ur Amphetamines Screen Negative U Benzodiazepines Scrn Negative Urine Cocaine Screen Negative Ur THC Screen Negative Ethyl Alcohol Last Vital Signs Pulse 87 06/04/22 15:46 Resp 19 06/04/22 15:46 BP 171/73 H 06/04/22 15:46 Pulse Ox 94 06/04/22 15:46 Time Spent Time spent with Patient: 55-74 minutes Time was spent: preparing to see the patient(eg.review tests), obtaining and/or reviewing separately otained hiistory, ordering medications,tests, procedures, referring, communicating with other health child care teacher, indepentently interpreting results and care coordination
[2022-06-04 19:02] LABS: Source Nasal/Nares
[2022-06-04 19:32] LABS: COVID-19 PCR Negative (Negative)
[2022-06-04 19:51] LABS: Troponin I 106 ng/L (<or=60)
[2022-06-05] VITALS (37 sets, daily range): BP systolic 95–140; BP diastolic 45–70; PULSE 62–86; RESP 14–30; TEMP 36.4–37; O2SAT 88–97
[2022-06-05 00:17] LABS: Troponin I 118 ng/L (<or=60)
[2022-06-05 05:42] LABS: Abs Immature Grans 0.01 10^3/uL (0.0-0.06); Absolute Basophil Count 0.02 10^3/uL (0.0-0.2); Absolute Eosinophil Count 0.02 10^3/uL (0.0-0.7); Absolute Monocyte Count 0.64 10^3/uL (0.1-0.8); Basophils % 0.3; Eosinophils % 0.3; HCT 38.5 % (36.0-46.0); HGB 12.8 g/dL (11.2-15.7); Immature Grans % 0.2; MCH 29.7 pg (27.0-33.0); MCHC 33.2 % (32.0-36.0); MCV 89 fL (80-95); MPV 9.3 fL (8.0-11.0); Monocytes % 10.9; Neutrophils % 54.3; Platelet Count 321 10^3/uL (130-400); RBC 4.31 10^6/uL (3.93-5.22); RDW 13.4 % (11.7-14.6); RDW-SD 44.4 fL; WBC 5.89 10^3/uL (4.4-10.8)
[2022-06-05 06:01] LABS: ALT 16 U/L (14-59); AST 21 U/L (15-37); Albumin 3.4 g/dL (3.4-5.0); Alkaline Phosphatase 65 U/L (46-116); Anion Gap 6.2 mmol/L (3-11); BUN 14 mg/dL (7-18); Bilirubin, Total 1.1 mg/dL (0.2-1.0); CO2 26.8 mmol/L (21.0-32.0); CREATININE 1.1 mg/dL (0.55-1.02); Calcium 8.9 mg/dL (8.5-10.1); Chloride 107 mmol/L (98-107); Estimated GFR 52.08 (mL/min/1.73m2); Glucose 111 mg/dL (74-106); Potassium 3.7 mmol/L (3.5-5.1); Sodium 140 mmol/L (136-145); Total Protein 6.5 g/dL (6.4-8.2)
[2022-06-05] MEDS: Normal Saline Flush 10 ML SYR IVP (10:23)
--- NOTE | 2022-06-05 10:36 | W.PM.PROGNOT ---
Date of Service Date of service: 06/05/22 Time of Service: 10:36 Assessment and Plan Assessment and plan (1) Hypertensive urgency: Status: Acute Assessment and plan: Patient was admitted last night to the intensive care unit for treatment and monitoring of hypertensive urgency resulting in hypertensive encephalopathy and/or press syndrome. MRI scan of the brain was negative for CVA. 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 Patient's blood pressure was controlled with hydralazine. I had ordered scheduled dose of enalaprilat but with holding parameters and she never received any doses last night. This morning her blood pressure is running 116/52-125/53 and she has not needed any BP meds. She no longer requires ICU monitoring. We will discontinue telemetry. Per my discussion with her neighbor it does not sound that she had a tonic-clonic seizure however her EEG is abnormal with generalized slowing with some more focal left posterior changes. I cannot exclude possibility that she had a seizure yesterday and that she may have an epileptogenic focus although no specific epileptic activity was seen on her EEG. At this point I will keep her on Keppra 1000 mg twice a day. We will consider restarting her lisinopril prior to discharge however the present time I would like to keep her off blood pressure medicines while her blood pressures are on the lower end of normal. She no longer needs ICU care will be moved to medical/surgical floor. I advised her and her sons that she should have a follow-up with Dr. Gaffney as an outpatient. I also recommend that the patient carefully monitor but pressures twice a day. Patient's work-up and care was discussed with both her sons and additional information was obtained from her neighbor Dalila Yu. Professional time spent interviewing and examining patient, discussion of goals of care with hospital team (care management, nursing and consulting professionals) was 50 minutes. (2) Hypertensive encephalopathy: Status: Acute Assessment and plan: see below (3) PRES (posterior reversible encephalopathy syndrome): Status: Acute Assessment and plan: I reviewed her MRI scan and discussed w/ [facility] [place] [place] neurologist marketing communications coordinator last night. She did not find any vasogenic edema on the MRI but indicated that the patient still may be suffering from hypertensive encephalopathy and suggested to repeat the MRI tomorrow if she is no better. She agrees w/ goal to lower her SBP by no more than 15% over the first 24 hours. Given she presented w/ SBP of 180 mm and was upwards of 209, the goal should be for SBP 150 to 170 mm for tonight. (4) AMS (altered mental status): Status: Acute Assessment and plan: Markedly improved (5) Seizure: Status: Suspected Assessment and plan: No definitive epileptogenic activity on her EEG but generalized slowing consistent with metabolic encephalopathy with some more focalized changes in the left posterior for which I cannot exclude possible source for seizures. For now she will be kept on Keppra 1000 g twice a day and upon discharge she will be referred to Dr. Roopa Gaffney for follow-up. (6) Aphasia: Status: Acute Assessment and plan: Resolving although she still has some slight word finding difficulties. (7) Left bundle branch block: Status: Acute (8) Elevated troponin I level: Status: Acute Assessment and plan: Type II demand ischemia causing mild troponin leak. Continue aspirin, check echocardiogram next week (not available today or over the weekend) Subjective Subjective Interval history since last seen: Patient is back to her normal cognition although family notes that she is still having some occasional word finding difficulties. She will start a sentence and then have trouble completing it because she cannot find the right word to express her self. She is alert and oriented to person place time circumstance. She recognizes her family as well as the staff taking care of her. She denies a headache or dyspnea or chest pain. She states that she takes her lisinopril regularly however nursing staff has found that her last refill of her lisinopril was in January for 90 days therefore she would have run out and April. I called her neighbor Dalila Alcalaes at [phone] and spoke with her about the patient after obtaining permission from Sherlyn to talk about her. Her neighbor Dalila confirmed with the ED reported and that the patient had wandered over the neighbors house. Dalila reports seeing Sherlyn looking into her window she went out and brought Ritika into the house found that she was having nonsensical speech was very anxious seem short of breath and was tremulous but did not have tonic-clonic jerking type motion of her limbs. I informed Dalila that Sherlyn is doing much better today but we are going to watch her overnight and I thank Dalila for providing the additional details. Exam Narrative Exam Narrative: Sherlyn is alert oriented person place time circumstance. HEENT is unremarkable speech is clear not dysarthric no facial asymmetry folic cervical motion intact no gross visual field deficits. Normal range of motion and strength in both upper and lower extremities. She has a slight intention tremor in her right hand. Sensory exam grossly intact. Objective Last Vital Signs Temp 37.0 C 06/05/22 08:05 Pulse 64 06/05/22 10:02 Resp 30 H 06/05/22 10:02 BP 116/52 L 06/05/22 10:02 Pulse Ox 95 06/05/22 08:05 Laboratory Results - last 24 hr 06/04/22 06/04/22 06/04/22 10:12 10:17 10:17 WBC 4.69 RBC 4.91 Hgb 14.9 Hct 43.4 MCV 88 MCH 30.3 MCHC 34.3 RDW 13.3 Plt Count 339 MPV 9.2 Immature Gran % 0.2 Neutrophils % 53.3 Lymphocytes % 36.7 Monocytes % 9.0 Eosinophils % 0.4 Basophils % 0.4 Nucleated RBC % 0.0 Absolute Neutrophils 2.50 Absolute Lymphocytes 1.72 Absolute Monocytes 0.42 Absolute Eosinophils 0.02 Absolute Basophils 0.02 Sodium Potassium Chloride Carbon Dioxide Anion Gap BUN Creatinine Est GFR (CKD-EPI 2020) Glucose Calcium Magnesium Total Bilirubin AST ALT Alkaline Phosphatase Troponin I Total Protein Albumin Urine Color Cancelled Urine Clarity Cancelled Urine pH Cancelled Ur Specific [place] Cancelled Urine Protein Cancelled Urine Ketones Cancelled Urine Blood Cancelled Urine Nitrite Cancelled Urine Bilirubin Cancelled Urine Urobilinogen Cancelled Ur Leukocyte Esterase Cancelled Urine RBC Urine WBC Ur Epithelial Cells Urine Crystals Urine Bacteria Urine Casts Urine Mucus Ur Culture Indicated? Urine Glucose Cancelled Salicylates Urine Opiates Screen Cancelled Urine Methadone Screen Cancelled Acetaminophen Ur Barbiturates Screen Cancelled Ur Tricyclics Screen Cancelled Ur Amphetamines Screen Cancelled U Benzodiazepines Scrn Cancelled Urine Cocaine Screen Cancelled Ur THC Screen Cancelled Ethyl Alcohol COVID-19 Source SARS-CoV-2 (PCR) Influenza Type A (PCR) Influenza Type B (PCR) RSV (PCR) 06/04/22 06/04/22 06/04/22 11:30 11:30 11:30 WBC RBC Hgb Hct MCV MCH MCHC RDW Plt Count MPV Immature Gran % Neutrophils % Lymphocytes % Monocytes % Eosinophils % Basophils % Nucleated RBC % Absolute Neutrophils Absolute Lymphocytes Absolute Monocytes Absolute Eosinophils Absolute Basophils Sodium 136 Potassium 3.9 Chloride 102 Carbon Dioxide 26.7 Anion Gap 7.3 BUN 13 Creatinine 1.2 H Est GFR (CKD-EPI 2020) 46.91 Glucose 127 H Calcium 9.4 Magnesium 1.9 Total Bilirubin 0.8 AST 19 ALT 17 Alkaline Phosphatase 78 Troponin I < 50 Total Protein 7.2 Albumin 3.9 Urine Color Urine Clarity Urine pH Ur Specific [place] Urine Protein Urine Ketones Urine Blood Urine Nitrite Urine Bilirubin Urine Urobilinogen Ur Leukocyte Esterase Urine RBC Urine WBC Ur Epithelial Cells Urine Crystals Urine Bacteria Urine Casts Urine Mucus Ur Culture Indicated? Urine Glucose Salicylates < 2.8 Urine Opiates Screen Urine Methadone Screen Acetaminophen < 2 Ur Barbiturates Screen Ur Tricyclics Screen Ur Amphetamines Screen U Benzodiazepines Scrn Urine Cocaine Screen Ur THC Screen Ethyl Alcohol < 3.0 COVID-19 Source SARS-CoV-2 (PCR) Influenza Type A (PCR) Influenza Type B (PCR) RSV (PCR) 06/04/22 06/04/22 06/04/22 13:05 13:05 16:15 WBC RBC Hgb Hct MCV MCH MCHC RDW Plt Count MPV Immature Gran % Neutrophils % Lymphocytes % Monocytes % Eosinophils % Basophils % Nucleated RBC % Absolute Neutrophils Absolute Lymphocytes Absolute Monocytes Absolute Eosinophils Absolute Basophils Sodium Potassium Chloride Carbon Dioxide Anion Gap BUN Creatinine Est GFR (CKD-EPI 2020) Glucose Calcium Magnesium Total Bilirubin AST ALT Alkaline Phosphatase Troponin I 72 H* Total Protein Albumin Urine Color Yellow Urine Clarity Sl Cloudy Urine pH 7.0 Ur Specific [place] 1.010 Urine Protein Negative Urine Ketones Negative Urine Blood Trace-intact H Urine Nitrite Negative Urine Bilirubin Negative Urine Urobilinogen 0.2 Ur Leukocyte Esterase Negative Urine RBC 3-5 H Urine WBC 0-2 Ur Epithelial Cells Rare Urine Crystals Negative Urine Bacteria Negative Urine Casts Negative Urine Mucus Trace Ur Culture Indicated? No Urine Glucose Negative Salicylates Urine Opiates Screen Negative Urine Methadone Screen Negative Acetaminophen Ur Barbiturates Screen Negative Ur Tricyclics Screen Negative Ur Amphetamines Screen Negative U Benzodiazepines Scrn Negative Urine Cocaine Screen Negative Ur THC Screen Negative Ethyl Alcohol COVID-19 Source SARS-CoV-2 (PCR) Influenza Type A (PCR) Influenza Type B (PCR) RSV (PCR) 06/04/22 06/04/22 06/04/22 18:40 18:40 19:15 WBC RBC Hgb Hct MCV MCH MCHC RDW Plt Count MPV Immature Gran % Neutrophils % Lymphocytes % Monocytes % Eosinophils % Basophils % Nucleated RBC % Absolute Neutrophils Absolute Lymphocytes Absolute Monocytes Absolute Eosinophils Absolute Basophils Sodium Potassium Chloride Carbon Dioxide Anion Gap BUN Creatinine Est GFR (CKD-EPI 2020) Glucose Calcium Magnesium Total Bilirubin AST ALT Alkaline Phosphatase Troponin I 106 H* Total Protein Albumin Urine Color Urine Clarity Urine pH Ur Specific [place] Urine Protein Urine Ketones Urine Blood Urine Nitrite Urine Bilirubin Urine Urobilinogen Ur Leukocyte Esterase Urine RBC Urine WBC Ur Epithelial Cells Urine Crystals Urine Bacteria Urine Casts Urine Mucus Ur Culture Indicated? Urine Glucose Salicylates Urine Opiates Screen Urine Methadone Screen Acetaminophen Ur Barbiturates Screen Ur Tricyclics Screen Ur Amphetamines Screen U Benzodiazepines Scrn Urine Cocaine Screen Ur THC Screen Ethyl Alcohol COVID-19 Source Cancelled Nasal/Nares SARS-CoV-2 (PCR) Cancelled Negative Influenza Type A (PCR) Cancelled Influenza Type B (PCR) Cancelled RSV (PCR) Cancelled 06/04/22 06/05/22 06/05/22 23:50 05:13 05:13 WBC 5.89 RBC 4.31 Hgb 12.8 D Hct 38.5 MCV 89 MCH 29.7 MCHC 33.2 RDW 13.4 Plt Count 321 MPV 9.3 Immature Gran % 0.2 Neutrophils % 54.3 Lymphocytes % 34.0 Monocytes % 10.9 Eosinophils % 0.3 Basophils % 0.3 Nucleated RBC % 0.0 Absolute Neutrophils 3.20 Absolute Lymphocytes 2.00 Absolute Monocytes 0.64 Absolute Eosinophils 0.02 Absolute Basophils 0.02 Sodium 140 Potassium 3.7 Chloride 107 Carbon Dioxide 26.8 Anion Gap 6.2 BUN 14 Creatinine 1.1 H Est GFR (CKD-EPI 2020) 52.08 Glucose 111 H Calcium 8.9 Magnesium Total Bilirubin 1.1 H AST 21 ALT 16 Alkaline Phosphatase 65 Troponin I 118 H* Total Protein 6.5 Albumin 3.4 Urine Color Urine Clarity Urine pH Ur Specific [place] Urine Protein Urine Ketones Urine Blood Urine Nitrite Urine Bilirubin Urine Urobilinogen Ur Leukocyte Esterase Urine RBC Urine WBC Ur Epithelial Cells Urine Crystals Urine Bacteria Urine Casts Urine Mucus Ur Culture Indicated? Urine Glucose Salicylates Urine Opiates Screen Urine Methadone Screen Acetaminophen Ur Barbiturates Screen Ur Tricyclics Screen Ur Amphetamines Screen U Benzodiazepines Scrn Urine Cocaine Screen Ur THC Screen Ethyl Alcohol COVID-19 Source SARS-CoV-2 (PCR) Influenza Type A (PCR) Influenza Type B (PCR) RSV (PCR) Reviewed Pertinent PMH: Yes Objective Narrative Objective Narrative: EEG INTERPRETATION: This EEG is abnormal due to: #1. Generalized slowing with slowing of the posterior dominant rhythm. #2. Focal left hemisphere slowing with lack of a posterior driving response focally on the left as well. PRIOR EEG: none CLINICAL CORRELATION: The background and generalized slowing is suggestive of a mild diffuse cerebral encephalopathy of broad differential including toxic-metabolic etiology.? The focal left hemisphere findings above could represent an area of focal cerebral dysfunction, of which the differential is broad including a structural process, a toxic-metabolic etiology, or a post-ictal focal epilepsy, amongst others.? No definitive epileptiform activity was present.? Roopa Gaffney MD Time Spent with Patient Time Spent with Patient: >50 minutes Time was spent: preparing to see the patient(eg.review tests), obtaining and/or reviewing separately otained hiistory, ordering medications,tests, procedures, referring, communicating with other health career education teacher (Electronic messaging via [employer] with Dr. Gaffney), indepentently interpreting results and counseling the patient
--- NOTE | 2022-06-05 10:43 | PDOC.EEG ---
Neurology EEG EEG: [facility] Department of Neurology INPATIENT EEG REPORT Date of Recordin06/05/22 Interpreting Physician: Dr. Roopa Gaffney Reason for study: Ms. Richardson is admitted after being found down with question of convulsive activity. Subsequently somnolent but then in the ER more awake with ?aphasia vs delirium in the setting of very high blood pressures. An MRI brain showed no acute stroke. Current Medications: Current Medications Acetaminophen (Acetaminophen 650 Mg Supp) 650 mg MA Q4H PRN PRN Dimethicone/Zinc Oxide (Danni Protect Cream 142 Gm Tube) 0 gm TP PRN PRN Enalaprilat (Enalaprilat 2.5 Mg/2 Ml Vial) 1.25 mg IVP Q6H WEI Levetiracetam 1,000 mg/ Sodium (Chloride) 110 mls @ 400 mls/hr IVPB Q12H WEI Last Admin: 06/05/22 10:23 Dose: 400 mls/hr IV Miscellaneous Supplies (Iv Access) 1 each IV DIRECTED WEI Labetalol HCl (Labetalol 100 Mg/20 Ml Vial) 20 mg IVP Q30 MIN PRN PRN PRN Reason: hypertension Sodium Chloride (Normal Saline Flush 10 Ml Syr) 0 ml IVP PRN PRN Last Admin: 06/05/22 10:23 Dose: 10 ml METHODS: A 21 channel digitized electroencephalogram was performed in the [facility] Med/Surg Floor or ICU. The 10/20 international system of electrode placement was used and bipolar and referential electrode montages were recorded. In addition to EEG the patient was monitored for EKG and lateral/vertical eye movements. Activation procedures of photic stimulation and hyperventilation were performed if applicable. Video was used during activation procedures and during events where applicable. The duration of the recording was 30 minutes. DESCRIPTION OF EEG: The patient was noted to be awake, drowsy, asleep during the recording. During maximal wakefulness an 8-Hz posterior background rhythm was present which was well-modulated, symmetrical, reactive to eye opening, and of moderate voltage. With eye opening the background activity changed to a low voltage mixture of alpha, beta, and occasional theta range frequencies. Faster frequencies were present in the bilateral anterior head regions. There was a normal anterior-posterior voltage gradient. During drowsiness, there was attenuation of the posterior dominant background rhythm and vertex waves. Stage II sleep was present with symmetrical sleep spindles, K-complexes, and vertex waves. There was subtle polymorphic generalized theta slowing. There was focal left hemisphere, moderate-amplitude, polymorphic delta slowing throughout the recording. Activating Procedures: Photic stimulation was performed which produced a posterior driving response in the right hemisphere only. Hyperventilation was not performed. EKG: EKG revealed normal sinus rhythm. INTERPRETATION: This EEG is abnormal due to: #1. Generalized slowing with slowing of the posterior dominant rhythm. #2. Focal left hemisphere slowing with lack of a posterior driving response focally on the left as well. PRIOR EEG: none CLINICAL CORRELATION: The background and generalized slowing is suggestive of a mild diffuse cerebral encephalopathy of broad differential including toxic-metabolic etiology. The focal left hemisphere findings above could represent an area of focal cerebral dysfunction, of which the differential is broad including a structural process, a toxic-metabolic etiology, or a post-ictal focal epilepsy, amongst others. No definitive epileptiform activity was present. Roopa Gaffney MD
--- NOTE | 2022-06-05 10:50 | CHAPLAIN ---
Sherlyn was resting bed and two of her sons were with her when I visited. She's doing much better this morning and doesn't remember much about being in the ED or ICU last night. She's speaking full sentences and struggled to find only a couple of words. Dr. Mojica let her know that she's being moved out of the ICU, and possibly discharged home later today. I will continue to visit if she's stay for another night. 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
--- NOTE | 2022-06-05 12:25 | INITIAL_ITS ---
- If Service Date Differs Date of service: 06/05/22 Time of Service: 12:25 Care Management Initial Assess REASON FOR HOSPITALIZATION:: Acute mental status change, possible seizure PAST MEDICAL HISTORY/PAST SURGICAL HISTORY:: All Active Problems. PRES (poste rior reversible encephalopathy syndrome) (Acute). Hypertensive encephalopathy (Acute). Elevated troponin I level (Acute). Left bundle branch block (Acute). Hypertensive urgency (Acute). AMS (altered mental status) (Acute). Aphasia (Acute). Hyperpigmented skin lesion (Acute). History of total left knee replacement (Acute 06/25/20). Follow up (Acute). Chronic back pain (Chronic). Migraines (Chronic). Pre-diabetes (Chronic). Anxiety (Chronic). Diverticular disease (Chronic). A. Sigmoid resection. Left knee DJD (Chronic). Hypertension (Chronic). Abnormal EKG (Chronic). Medical History. Small bowel obstruction. Surgical History. Back Surgery (~1988). [facility]. Bowel Resection (~2002). RE DIVERTICULITIS;DR. Mervat SHAFFER. Cholecystectomy (~1969). Extraction of cataract. DR. LEGER left 12/2014;rt 02/2012. Ligation of fallopian tube (~1985). . Replacement of total knee joint (04/01/17). Right Knee Replacement- Dr. Calzada PREVIOUS FUNCTIONAL STATUS/SOCIAL/FAMILY SUPPORTS:: Sherlyn lives alone in an apartment in [place], [place]. She has worked at [employer] for almost 40 years in a variety of positions. She retired about a year ago. Sherlyn has two sons, Zaki and Rob who live locally and are very supportive. She also has 3 other sons, 5 grandchildren and 2 step grandchildren who live remotely.Sherlyn has had knee surgery before so already has a walker and a shower chair. She is independent at baseline. CURRENT FUNCTIONAL STATUS:: Sherlyn was lying in bed when CM met with her. She stated that she is feeling good today. Her son, Rob was in the room visiting. Sherlyn reported that per MD, she would continue to be monitored overnight, and she would likely return home tomorrow. She is comfortable with this plan. CM discussed services at home, and she feels that she would benefit from nursing to help support her medication management. CM called HH to inform them of her potential discharge over the weekend. CM will continue to follow. ADVANCE DIRECTIVES:: Not on file. Has patient been provided with info about the portal/API?: Yes Did the patient sign up for the portal?: Yes (active) CODE STATUS:: Full Code INSURANCE COVERAGE / FINANCIAL ISSUES:: MCR/ BCBS CURRENT HOME/COMMUNITY SERVICES/EQUIPMENT:: No current services. She owns a walker and a tub chair. PRIMARY CARE PHYSICIAN:: Richy Junior POTENTIAL DISCHARGE NEEDS:: Evaluations for further needs, follow up appointments. PATIENT/FAMILY EDUCATION NEEDS:: Review discharge instructions and limitations, discussion of self care needs including ask me three. ANTICIPATED BARRIERS TO DISCHARGE:: None. TRANSPORTATION:: Via private vehicle by family. PLAN:: Anticipate Sherlyn will return home once medically cleared. She may benefit from HH RN for med management, if indicated. Her son will drive her home via private vehicle. She will follow up with her PCP and discharge plan of care. CM will continue to follow.
[2022-06-05] MEDS: levETIRAcetam 500 MG TAB 1000 MG PO ×2 (12:37→21:29)
[2022-06-05 13:01] LABS: Lab Add On Test DONE
[2022-06-05 13:22] LABS: Troponin I 91 ng/L (<or=60)
[2022-06-05] MEDS: LISINOPRIL 2.5 MG TAB PO (16:43)
[2022-06-05] MEDS: Acetaminophen 325 MG TAB 650 MG PO (18:24)
--- NOTE | 2022-06-06 03:37 | NUR.NOTE ---
Nursing Note: Patient appears to be sleeping comfortably in bed. Vital signs are ordered Q4, will recheck next set of vital signs when patient awakens to void or prior to change of shift. Patient is intermittently repositioning herself while sleeping as observed on camera monitoring. Patient has call marin, and glasses on bedside tray table on the left side of her bed. Seizure pads in place, side rails up x 3.
[2022-06-06 05:40] VITALS: BP 105/54; PULSE 66
[2022-06-06 06:00] VITALS: BP 105/54; PULSE 66; RESP 12; TEMP 36.7; O2SAT 96
[2022-06-06] MEDS: LISINOPRIL 2.5 MG TAB PO (09:15)
[2022-06-06] MEDS: levETIRAcetam 500 MG TAB 1000 MG PO (09:15)
[2022-06-06 09:17] VITALS: BP 111/52; PULSE 65
--- NOTE | 2022-06-06 10:18 | DSE_ITS ---
Date of service: 06/06/22 Time of Service: 10:18 DS: Diagnosis Discharge Diagnosis (1) Hypertensive urgency: Status: Acute (2) Hypertensive encephalopathy: Status: Acute (3) PRES (posterior reversible encephalopathy syndrome): Status: Acute (4) AMS (altered mental status): Status: Acute (5) Seizure: Status: Suspected (6) Aphasia: Status: Acute (7) Left bundle branch block: Status: Acute (8) Elevated troponin I level: Status: Acute Discharge Plan Disposition Patient Disposition: Home Condition: Improving Discharge Details Reason For Visit: Acute Mental Status Change, Possible Seizure, Admit Date/Time: 06/04/22 17:29 Admit Provider: Rob Mojica Attending Provider: Rob Mojica Primary Care Provider: Richy Junior Hospital Course Hospital Course: 76-year-old female with history of migraine headaches and essential hypertension was on lisinopril 2.5 mg daily was brought in by EMS to the ED at [facility] for acute altered mental status.? [facility] standing in the neighbors yard. She appeared confused with word salad speech. Blood glucose in the field was normal.? Patient's blood pressure was hypertensive in the field although we do not have documentation of the presure. ? When EMS evaluated her she was awake but minimally verbally interactive and minimal responsiveness to verbal commands.? There was no visible external signs of trauma and no respiratory distress.? On arrival to the ED Dr. Shaye Arellano considered within the differential seizure with postictal state versus CVA versus toxic metabolic encephalopathy versus infectious process.?Per her sons she has no history of seizures. Lab work includes CBC, CMP, urinalysis, urine toxicology screen, blood alcohol level, salicylate and acetaminophen level.? Urine tox screen was negative acetaminophen and salicylate level were below levels of detection and blood alcohol level is below the levels of detection.? CBC was unremarkable.? Chemistry panel was unremarkable except for blood glucose of 127.? Troponin I was less than 50.? 4-hour troponin came back mildly elevated at 72 and repeat is pending at this time. Imaging included CT of the head neck which showed patent carotid arteries and neck no hemodynamically significant stenosis.? Vertebral arteries but a 50 to 60% mid level stenosis in the basilar artery.? Intracranial arteries are otherwise unremarkable no aneurysm and no ring-enhancing lesions in the brain.? Brain MRI was performed and showed no significant acute intracranial pathology on a nonfused MRI scan of the brain.? Patient has abundant bilateral periventricular white matter signal abnormalities consistent with chronic small vessel disease.? No evidence of restricted diffusion defect was seen ruling out an acute ischemic event.? No cerebral hemorrhage was seen.? MRA of the brain was performed and showed again a 50 to 60% focal stenosis in the mid upper aspect the basilar artery.? There appeared to be some stenosis in the lower in tracavernous internal carotid arteries bilaterally more so on the right than the left however these are probably motion artifact as no stenosis was seen on CT angiography.? Because the patient was found down pelvic x-ray was performed no fracture was seen.? Chest x-ray showed no acute pulmonary pathology but she has mild cardiomegaly.? ECG demonstrates sinus rhythm at a rate of 65 bpm patient has a left bundle branch block patient has some nonspecific ST depressions in 1 and aVL V6. Treatment in the emergency department included control of her blood pressure she was quite hypertensive on arrival.? Blood pressure on admission was 180/75 and she philip to as high as 209/87 for which she was treated with hydralazine 10 mg IV push and because of the potential for seizure activity she was given a loading dose of Keppra [address] Shaye Arellano discussed her case with [facility] neurologist on-call and they reviewed the MRI and CT findings together.? The neurologist concurred that there was no evidence of acute infarct at this time.? Differential diagnosis include hypertensive emergency versus atypical migraine versus recurrent partial seizure.? Patient also was given sumatriptan 6 mg subcutaneously for chance that she was suffering from atypical migraine. Per hospitalists' interview w/ her sons one of her sons spoke w/ her at 5 pm yesterday and she was speaking coherently. Per her ED, Shreya, the patient has had intermittent right arm drift, and right hemineglect then later had left hemineglect and seemed to at times have complete visual loss. She has had word salad w/ nonsensical words but now her speech is more coherent but still non sequitur in their pattern in which she will say something totally unrelated to questions? she is asked or even with in her own sentence pattern the words will not have any relationship to each other. She will move volitionally on her own w/ intention and purpose such as getting herself out of the bed to the bedside commode, however she did not reliably follow commands. EEG performed and showed a background of generalized slowing which is suggestive of a mild diffuse cerebral encephalopathy of broad differential including toxic- metabolic etiology.? The focal left hemisphere findings above could represent an area of focal cerebral dysfunction, of which the differential is broad including a structural process, a toxic-metabolic etiology, or a post-ictal focal epilepsy, amongst others.? No definitive epileptiform activity was present.? The neighbors notice of tremors of one or both upper extremities prompted a concern for a possible seizure. However, she has a baseline RUE tremor. There was not tonic-clonic activity witnessed and no post-ictal appearance. Keppra was given initially but will not be continued. Her BP came under good control after an initial dose of IV enalapril. Her home dose of lisinopril 2.5mg was initiated. There was a question of compliance with her lisinopril. Her last 90 day refill was in january yet she still had pills. Her BP normalized and her mental status returned to her baseline. Her troponin peaked at 118 then declined; NSTEMI w/o chest pain or specific EKG changes concernig for ACS. She will continued on lisinopril 2.5mg daily. It was stressed that she should not miss any dosages. PCP follow up in 1-2 weeks. Home Meds and New Rx's Prescriptions: New acetaminophen 325 mg Tablet 650 mg PO Q4H PRN PRNQty: 0 0RF Continued lisinopril 2.5 mg tablet 2.5 mg PO DAILY Qty: 90 3RF Discharge Instructions Referrals: Richy Junior, [employer] [Primary Care Provider] - (Please call your PCP wednesday to make a follow up appointment for within 1-2 weeks.) Activity:: Activity as Tolerated Equipment/Supplies:: No Equipment Needed Diet:: Resume usual home diet Discharge Orders Discharge Orders: Discharge Order (Routine); Ordered 06/06/22 Ordered By: Yousuf Casey Discharge Data Discharge Date/Time-TO BE ENTERED AT DEPARTURE: 06/06/22 11:20 DS: Summary Time Spent with Patient providing and/or coordinating discharge services: Greater than 30 minutes Status at Discharge Functional status at discharge: independent ambulation Overall status at discharge: patient is back to baseline Mental Status: mental status grossly normal Speech and Movement: speech and movement normal Mood: congruent mood Affect: normal affect Exam Narrative Exam Narrative: Sherlyn is sitting in chair; alert oriented person place time circumstance. HEENT is unremarkable speech is clear not dysarthric no facial asymmetry folic cervical motion intact no gross visual field deficits. CV: RRR, no murmur Resp: clear. Nonlabored breahting. Ext. She has a slight intention tremor in her right hand. Psych Mental Status: mental status grossly normal Speech and Movement: speech and movement normal Mood: congruent mood Affect: normal affect DS: Data Vitals/I&O Vitals and I&O: Vital Signs Temperature 36.7 C 06/06/22 06:00 Temperature Source Temporal Artery Scan 06/06/22 06:00 Pulse 66 06/06/22 06:00 Pulse Rhythm Regular 06/05/22 23:30 Pulse 68 06/05/22 14:00 Respiratory Rate 12 06/06/22 06:00 Respiratory Effort Non-Labored 06/05/22 23:30 Respiratory Depth Normal 06/05/22 23:30 Respiratory Pattern Normal 06/05/22 23:30 Blood Pressure 105/54 L 06/06/22 06:00 Blood Pressure Mean 71 06/05/22 21:31 Blood Pressure Position Supine 06/05/22 13:47 Pulse Oximetry 96 06/06/22 06:00 Oxygen Delivery Method Room Air 06/06/22 06:00 Oxygen Flow Rate 0 06/06/22 06:00 Pain Level 0 06/06/22 06:00 Comment 06/06/22 06:00 Intake & Output 06/05/22 06/05/22 06/06/22 11:59 23:59 11:59 Intake Total 360 / 720 360 / 720 240 / 240 Output Total 530 / 730 200 / 730 300 / 300 Balance -170 / -10 160 / -10 -60 / -60 Weight 86.5 kg Intake: IV 110 / 110 Oral 250 / 610 360 / 610 240 / 240 Output: Urine 530 / 730 200 / 730 300 / 300 Other: Urine Color Yellow Dark Sasha Urine Appearance Clear Clear Clear Urine Odor Strong Normal Comment Approximate about, mixed with stool Patient denies need to void. Patient encouraged to increase oral fluid intake. Stool Size Small Small Stool Characteristics Formed Formed Brown Brown Voiding Methods Bedside Commode Bedside Commode Data Completed and Pending Labs on day of discharge: Labs from last 24 hours 06/05/22 06/05/22 05:12 05:12 Troponin I 91 H* Add-On Test Request DONE [facility] All Active Problems PRES (posterior reversible encephalopathy syndrome) (Acute) Hypertensive encephalopathy (Acute) Elevated troponin I level (Acute) Left bundle branch block (Acute) Hypertensive urgency (Acute) AMS (altered mental status) (Acute) Aphasia (Acute) Hyperpigmented skin lesion (Acute) History of total left knee replacement (Acute 06/25/20) Follow up (Acute) Chronic back pain (Chronic) Migraines (Chronic) Pre-diabetes (Chronic) Anxiety (Chronic) Diverticular disease (Chronic) A. Sigmoid resection Left knee DJD (Chronic) Hypertension (Chronic) Abnormal EKG (Chronic) Medical History Small bowel obstruction Surgical History Back Surgery (~1988) [facility] [place] Bowel Resection (~2002) RE DIVERTICULITIS;DR. Mervat SHAFFER Cholecystectomy (~1969) Extraction of cataract DR. 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 Calzada Family History Mother , 88 Essential hypertension CHF (congestive heart failure) Stroke Father , 70 CHF (congestive heart failure) Brother , 60 Neoplasm multiple mylenoma; acute renal failure Brother No problems noted. 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;1ST COUSIN-COLON; Grandmother Stroke Son No problems noted. Son No problems noted. Son No problems noted. Son No problems noted. Son No problems noted. Social History Smoking/Tobacco Use Status: Never Smoking risk assessment performed?: Yes Alcohol Intake: current Alcohol Intake frequency: a few times a month Alcohol type: beer, wine and hard liquor Drug use: Never Substance use type: does not use Caregiver/Support person: No Housing: apartment Communication Needs: None Do you need help understanding health information?: Never current occupation: [employer] Pets and animals: No Do you think of yourself as: straight/heterosexual Current gender identity: female What is your relationship status?: Do you belong to any clubs or organized social groups?: yes Panel score (0-1 are the most socially isolated patients): 1 What type of physical activity do you participate in: walking Duration: 30-45 minutes/day Frequency: 3-4 times per week Maribel/Mu-Ism: Catholic Special maribel needs: Yes Seatbelt use: always Drive intox or ride w/intox tanker driver: No Do you feel safe at home: Yes (Lives alone) Do you feel safe in your relationship?: Yes Time Spent with Patient Time Spent with Patient: <45 minutes Time was spent: preparing to see the patient(eg.review tests), indepentently interpreting results and counseling the patient
[2022-06-06 11:00] VITALS: TEMP 36.6
[2022-06-06 11:18] VITALS: BP 113/70; PULSE 69; O2SAT 99
--- NOTE | 2022-06-06 11:53 | PDOC.CMDIS ---
- If Service Date Differs Date of service: 06/06/22 Time of Service: 11:53 LACE Index Scoring Tool - Questions: Length of Stay (in days): 2 Acuity (Admit via E.D.?): Yes E.D. Visits: 1 - Answers: Total Score: 6 Risk of Readmission: Low Risk Care Management Discharge Reason for Hospitalization: Acute mental status change, possible seizure Discharge Plan: Sherlyn is discharged home with no services. She will follow up with her PCP and plan of care as prescribed. She is transported home by family via private vehicle. Patient/Family Education Needs: Review of discharge instructions, medications, limitations and follow up plan of care; discuss Ask Me Three.
== END 2022-06-06 11:20 | disposition home or self-care (01) | DRG 71 ==
LOC: ER 17:47 → ICU 20:12
PROVIDERS: Registered Nurse Emergency; Admitting Provider Internal Medicine; Emergency Provider Emergency Medicine; PCP Nurse Practitioner Family; Visit Provider Internal Medicine
DX: I67.83 Posterior reversible encephalopathy syndrome (principal); I24.8 Other forms of acute ischemic heart disease; R47.01 Aphasia; I16.0 Hypertensive urgency; I11.9 Hypertensive heart disease without heart failure; R56.9 Unspecified convulsions; G43.909 Migraine, unspecified, not intractable, without status migrainosus; I44.7 Left bundle-branch block, unspecified; G89.29 Other chronic pain; M54.9 Dorsalgia, unspecified; R73.03 Prediabetes; F41.9 Anxiety disorder, unspecified; Z90.49 Acquired absence of other specified parts of digestive tract
CPT/HCPCS: 36415; 36416; 51702; 70496; 70498; 70544; 80053; 80307; 82962; 87635; 87637; 93005; 95819; 96365; 96366; 96372; 96375; 99285; 70551; 71046; 72170; 80320; 80329; 81003; 81015; 83735; 84484; 85025; 93010; 99233; 99239; 99291; J0360; J1630; J1953; J2060

== ENCOUNTER 2022-06-09 13:04 | Emergency (ER) | payer MEDICARE, BC, SELFPAY ==
[2022-06-09] VITALS (21 sets, daily range): BP systolic 165–180; BP diastolic 60–85; PULSE 56–106; RESP 12–28; TEMP 36.2; O2SAT 95–98
--- NOTE | 2022-06-09 13:15 | RT.EKG_ITS ---
APPROVED REPORT Exam: Resting ECG Reason for Exam: Lightheadedness Patient Location: E HR:66 bpm ECG Measurements Heart Rate 66 AXIS MO 161 P 35 QRSd 133 QRS -4 QT 437 T 53 QTc 459 Conclusion Sinus rhythm Left bundle branch block, old
[2022-06-09 13:47] LABS: Abs Immature Grans 0.01 10^3/uL (0.0-0.06); Absolute Basophil Count 0.02 10^3/uL (0.0-0.2); Absolute Eosinophil Count 0.02 10^3/uL (0.0-0.7); Absolute Lymphocyte Count 1.94 10^3/uL (1.2-3.4); Absolute Monocyte Count 0.56 10^3/uL (0.1-0.8); Absolute Neutrophil Count 2.76 10^3/uL (1.2-6.7); Basophils % 0.4; Eosinophils % 0.4; HCT 41.3 % (36.0-46.0); Immature Grans % 0.2; Lymphocytes % 36.5; MCHC 33.9 % (32.0-36.0); MCV 88 fL (80-95); MPV 9.3 fL (8.0-11.0); Monocytes % 10.5; Platelet Count 347 10^3/uL (130-400); RBC 4.67 10^6/uL (3.93-5.22); RDW 12.9 % (11.7-14.6); RDW-SD 41.3 fL; WBC 5.31 10^3/uL (4.4-10.8)
[2022-06-09 14:03] LABS: ALT 23 U/L (14-59); AST 26 U/L (15-37); Albumin 4.1 g/dL (3.4-5.0); Alkaline Phosphatase 77 U/L (46-116); BUN 23 mg/dL (7-18); Bilirubin, Total 0.8 mg/dL (0.2-1.0); CREATININE 0.9 mg/dL (0.55-1.02); Calcium 9.3 mg/dL (8.5-10.1); Chloride 103 mmol/L (98-107); Estimated GFR 65.84 (mL/min/1.73m2); Glucose 118 mg/dL (74-106); Potassium 3.9 mmol/L (3.5-5.1); Sodium 137 mmol/L (136-145); Total Protein 7.5 g/dL (6.4-8.2)
[2022-06-09 14:06] LABS: Magnesium 2.1 mg/dL (1.8-2.4); Troponin I < 50 ng/L (<or=60)
[2022-06-09 14:32] LABS: COVID-19 PCR Negative (Negative); Influenza A PCR Negative (Negative); Influenza B PCR Negative (Negative); RSV PCR Negative (Negative)
[2022-06-09 14:38] LABS: Source Nasopharynx
--- NOTE | 2022-06-09 14:57 | ED.GENADUL_ITS ---
Discharge Plan Disposition Patient Disposition: Home Condition: Stable Discharge Details Clinical Impression: Light-headed feeling Primary Care Provider: Richy Junior ED Provider: Mary Calhoun Home Meds and New Rx's Prescriptions: Continued lisinopril 2.5 mg tablet 2.5 mg PO DAILY Qty: 90 3RF acetaminophen 325 mg Tablet 650 mg PO Q4H PRN PRNQty: 0 0RF No Action amlodipine 5 mg Tablet 5 mg PO DAILY Qty: 30 0RF aspirin 81 mg Tablet,Delayed Release (Dr/Ec) 81 mg PO DAILY Qty: 30 0RF sertraline 50 mg tablet 50 mg PO HS Qty: 1 0RF rosuvastatin 20 mg tablet 20 mg PO QPM Qty: 30 0RF Discharge Instructions Additional Instructions: please follow-up with your doctor tomorrow Talk to your doctor about the sertraline to see if this might be causing some of your symptoms Return earlier should you have new or worsening Referrals: Richy Junior, [employer] [Primary Care Provider] - Discharge Data Discharge Date/Time-TO BE ENTERED AT DEPARTURE: 06/09/22 18:30 Medical Decision Making Patient presenting to the emergency department for feeling lightheaded and havi ng hot and cold chills. Patient was recently admitted to the hospital for altered mental status and hypertension and discharge. She does state yesterday and today she started was started on Zoloft and did take it this morning but it was approximately 4 hours later that she started having the symptoms. Patient does state essential tremor of her right upper extremity that is persistent. Patient is prediabetic, does have history of migraines and anxiety physical exam shows mild tremor to right upper extremity otherwise cranial nerve exam extremity exam cardiac respiratory exam is all unremarkable. We will plan on checking patient's glucose, EKG, and labs. Differential diagnosis to include infectious etiology likelihood viral, anxiety, medication reaction. Doubt acute neurological event but will continue to monitor. See physician interpretation for full interpretation of EKG but patient is in sinus rhythm, rate of 66, left bundle branch block that does not have significant changes from old EKG. Reviewed patient's labs and CBC is unremarkable, CMP does show slightly increased BUN of 23, glucose of 118, negative initial troponin. Patient is negative for COVID flu and RSV. Positron system delayed documentation of signout. Patient signed out pending repeat troponin and reassessment Lab Data Lab results reviewed: Yes I reviewed the patient's lab results. HPI General Mode of arrival: wheelchair . Date/Time Provider Initiated Documentation: 06/09/22 13:08 . Limitations to Documentation: no limitations . Information obtained by: patient, family and RN notes reviewed . History of Present Illness 77 year old F presents to the emergency department with the chief complaint of Lightheadedness, shaky, hot flashes, described as moderate and similar to prior episodes, Quality is described as other, Patient started experiencing this hour(s) (3) and it has been constant. No relieving factors improve symptom(s), No exacerbating factors reported . Patient notes no other symptoms.. Patient did receive the following treatments prior to arrival, none Related Data Home Medications Medication Instructions Recorded Confirmed lisinopril 2.5 mg tablet 2.5 mg PO DAILY #90 tabs 01/30/22 06/15/22 acetaminophen 325 mg tablet 650 mg PO Q4H PRN PRN #0 tabs 06/06/22 06/15/22 amlodipine 5 mg tablet 5 mg PO DAILY #30 tabs 06/17/22 aspirin 81 mg tablet,delayed 81 mg PO DAILY #30 tabs 06/17/22 release rosuvastatin 20 mg tablet 20 mg PO QPM #30 tabs 06/17/22 sertraline 50 mg tablet 50 mg PO HS #1 tab 06/17/22 Previous Rx's Medication Instructions Recorded lisinopril 2.5 mg tablet 2.5 mg PO DAILY #90 tabs 01/30/22 acetaminophen 325 mg tablet 650 mg PO Q4H PRN PRN #0 tabs 06/06/22 amlodipine 5 mg tablet 5 mg PO DAILY #30 tabs 06/17/22 aspirin 81 mg tablet,delayed 81 mg PO DAILY #30 tabs 06/17/22 release rosuvastatin 20 mg tablet 20 mg PO QPM #30 tabs 06/17/22 sertraline 50 mg tablet 50 mg PO HS #1 tab 06/17/22 Allergies Allergy/AdvReac Type Severity Reaction Status Date / Time Metronidazole HCl AdvReac Severe NAUSEA,DIAR Verified 06/15/22 11:15 [From Flagyl] LAKEISHA atorvastatin calcium AdvReac Intermediate MUSCLE, Verified 06/15/22 11:15 [From Lipitor] JOINT PAIN meperidine HCl [From Demerol] AdvReac Intermediate Nausea Verified 06/15/22 11:15 Jnjxwdw-DFN-XlW Reductase AdvReac Intermediate myalgia Verified 06/15/22 11:15 Inhibitor [Udcgipu-Sak-Uws Reductase Inhibitor] General Stated Complaint: Dizzy/Sync ANABELA: 3 Review of Systems Constitutional Constitutional: Reports chills, Reports fever(s) (subjective), Denies headache(s) and Denies weakness ENT Ears, Nose, Mouth, and Throat: Denies headache(s), Denies nasal congestion, Denies neck pain and Denies sore throat Cardiovascular Cardiovascular: Denies chest pain, Denies rapid heart rate, Denies irregular heart rhythm, Reports lightheadedness, Denies palpitations, Denies dyspnea and Denies dyspnea on exertion Respiratory Respiratory: Denies cough, Denies dyspnea and Denies dyspnea on exertion Gastrointestinal Gastrointestinal: Denies nausea and Denies vomiting Musculoskeletal Musculoskeletal: Denies back pain, Denies neck pain, Denies numbness and Denies tingling Neurologic Neurologic: Reports as per HPI, Denies headache(s), Denies numbness, Denies tingling and Denies weakness Endocrine Endocrine: Denies palpitations PFSH All Active Problems (Updated 06/18/22 @ 00:04 by STANLEY IRBY) Basilar artery stenosis (Acute) Migraine headache with aura (Acute) Transient neurologic deficit (Acute) Light-headed feeling (Acute) Left bundle branch block (Chronic) Hyperpigmented skin lesion (Acute) History of total left knee replacement (Acute 06/25/20) Follow up (Acute) Chronic back pain (Chronic) Migraines (Chronic) Pre-diabetes (Chronic) Anxiety (Chronic) Diverticular disease (Chronic) A. Sigmoid resection Left knee DJD (Chronic) Hypertension (Chronic) Abnormal EKG (Chronic) Medical History Small bowel obstruction Surgical [place]1988[place] [facility] [place] (~[place] RE DIVERTICULITIS;DR. Mervat SHAFFER Cholecystectomy (~1969) Extraction of cataract DR. 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 Calzada Family History Mother , 88 Essential hypertension CHF (congestive heart failure) Stroke Father , 70 CHF (congestive heart failure) Brother , 60 Neoplasm multiple mylenoma; acute renal failure Brother No problems noted. 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;1ST COUSIN-COLON; Grandmother Stroke Son No problems noted. Son No problems noted. Son No problems noted. Son No problems noted. Son No problems noted. 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 Pets and animals: No Do you think of yourself as: straight/heterosexual Current gender identity: female What is your relationship status?: Do you belong to any clubs or organized social groups?: yes Panel score (0-1 are the most socially isolated patients): 1 What type of physical activity do you participate in: walking Duration: 30-45 minutes/day Frequency: 3-4 times per week Maribel/Restorationism: Latter-Day Special maribel needs: Yes Seatbelt use: always Drive intox or ride w/intox mechanic driver: No Do you feel safe at home: Yes (Lives alone) Do you feel safe in your relationship?: Yes Exam Const General: cooperative, healthy appearing, no acute distress and well groomed Orientation: alert, awake and oriented x3 HENMT Head: normal to inspection Ears: hearing grossly normal bilaterally and TM's normal bilaterally Mouth: oral mucosae normal and moist mucous membranes Throat: posterior oropharynx normal Eyes Visual Lei: normal visual lei by confrontation Alignment and Position: alignment normal Periorbital: periorbital findings normal Eyelids: eyelids normal Sclera: sclerae normal Pupils: PERRL EOM: EOM intact bilaterally Neck Neck: normal visual inspection, full ROM and no meningeal signs Resp Effort & Inspection: normal respiratory effort and able to speak in complete sentences Auscultation: clear to auscultation bilaterally Cardio Rate: regular rate Rhythm: regular rhythm Heart Sounds: S1 normal and S2 normal Neuro General: patient alert, patient awake, patient oriented x3, tone normal, moves all extremities, CN's II-XI intact bilaterally and not confused Cognition: normal cognition Speech: speech normal Motor: muscle tone normal throughout, strength 5/5 throughout and no pronator drift Sensory Exam: no sensory deficits noted Coordination: Does not sway with eyes open Course Vital Signs Vital signs: Vital Signs Temperature 36.2 C L 06/09/22 13:08 Pulse 106 H 06/09/22 13:08 Respiratory Rate 20 06/09/22 13:08 Blood Pressure 167/78 H 06/09/22 13:08 Pulse Oximetry 98 06/09/22 13:08 Temperature 36.2 C L 06/09/22 13:08 Temperature Source Tympanic 06/09/22 13:08 Pulse 58 L 06/09/22 14:02 Pulse 68 06/09/22 14:50 Respiratory Rate 20 06/09/22 14:50 Respiratory Effort 06/09/22 13:42 Respiratory Depth Normal 06/09/22 13:42 Respiratory Pattern Normal 06/09/22 13:42 Blood Pressure 174/60 H 06/09/22 14:02 Blood Pressure Mean 82 06/09/22 14:02 Blood Pressure Position Supine 06/09/22 13:08 Pulse Oximetry 95 06/09/22 14:50 Oxygen Delivery Method Room Air 06/09/22 13:08 Oxygen Flow Rate 0 06/09/22 13:08 Lab/Test Results Lab/Test Results: Laboratory Tests Range/Units 06/09/22 06/09/22 06/09/22 13:30 13:30 13:30 WBC (4.4-10.8) 10^3/uL 5.31 RBC (3.93-5.22) 10^6/uL 4.67 Hgb (11.2-15.7) g/dL 14.0 Hct (36.0-46.0) % 41.3 MCV (80-95) fL 88 MCH (27.0-33.0) pg 30.0 MCHC (32.0-36.0) % 33.9 RDW (11.7-14.6) % 12.9 Plt Count (130-400) 10^3/uL 347 MPV (8.0-11.0) fL 9.3 Immature Gran % 0.2 Neutrophils % 52.0 Lymphocytes % 36.5 Monocytes % 10.5 Eosinophils % 0.4 Basophils % 0.4 Nucleated RBC % (0.0-0.3) % 0.0 Absolute Neutrophils (1.2-6.7) 10^3/uL 2.76 Absolute Lymphocytes (1.2-3.4) 10^3/uL 1.94 Absolute Monocytes (0.1-0.8) 10^3/uL 0.56 Absolute Eosinophils (0.0-0.7) 10^3/uL 0.02 Absolute Basophils (0.0-0.2) 10^3/uL 0.02 Sodium (136-145) mmol/L 137 Potassium (3.5-5.1) mmol/L 3.9 Chloride (98-107) mmol/L 103 Carbon Dioxide (21.0-32.0) mmol/L 24.0 Anion Gap (3-11) mmol/L 10.0 BUN (7-18) mg/dL 23 H Creatinine (0.55-1.02) mg/dL 0.9 Est GFR (CKD-EPI 2020) (mL/min/1.73m2) 65.84 Glucose (74-106) mg/dL 118 H Calcium (8.5-10.1) mg/dL 9.3 Magnesium (1.8-2.4) mg/dL 2.1 Total Bilirubin (0.2-1.0) mg/dL 0.8 AST (15-37) U/L 26 ALT (14-59) U/L 23 Alkaline Phosphatase (46-116) U/L 77 Troponin I (<or=60) ng/L < 50 Total Protein (6.4-8.2) g/dL 7.5 Albumin (3.4-5.0) g/dL 4.1 COVID-19 Source SARS-CoV-2 (PCR) (Negative) Influenza Type A (PCR) (Negative) Influenza Type B (PCR) (Negative) RSV (PCR) (Negative) Range/Units 06/09/22 13:38 WBC (4.4-10.8) 10^3/uL RBC (3.93-5.22) 10^6/uL Hgb (11.2-15.7) g/dL Hct (36.0-46.0) % MCV (80-95) fL MCH (27.0-33.0) pg MCHC (32.0-36.0) % RDW (11.7-14.6) % Plt Count (130-400) 10^3/uL MPV (8.0-11.0) fL Immature Gran % Neutrophils % Lymphocytes % Monocytes % Eosinophils % Basophils % Nucleated RBC % (0.0-0.3) % Absolute Neutrophils (1.2-6.7) 10^3/uL Absolute Lymphocytes (1.2-3.4) 10^3/uL Absolute Monocytes (0.1-0.8) 10^3/uL Absolute Eosinophils (0.0-0.7) 10^3/uL Absolute Basophils (0.0-0.2) 10^3/uL Sodium (136-145) mmol/L Potassium (3.5-5.1) mmol/L Chloride (98-107) mmol/L Carbon Dioxide (21.0-32.0) mmol/L Anion Gap (3-11) mmol/L BUN (7-18) mg/dL Creatinine (0.55-1.02) mg/dL Est GFR (CKD-EPI 2020) (mL/min/1.73m2) Glucose (74-106) mg/dL Calcium (8.5-10.1) mg/dL Magnesium (1.8-2.4) mg/dL Total Bilirubin (0.2-1.0) mg/dL AST (15-37) U/L ALT (14-59) U/L Alkaline Phosphatase (46-116) U/L Troponin I (<or=60) ng/L Total Protein (6.4-8.2) g/dL Albumin (3.4-5.0) g/dL COVID-19 Source Nasopharynx SARS-CoV-2 (PCR) (Negative) Negative Influenza Type A (PCR) (Negative) Negative Influenza Type B (PCR) (Negative) Negative RSV (PCR) (Negative) Negative
[2022-06-09 15:43] LABS: Bilirubin Negative (Negative); Blood Negative (Negative); Clarity Clear (Clear); Glucose Negative (Negative); Ketones 15 mg/dL (Negative); Leukocyte Esterase Negative (Negative); Nitrite Negative (Negative); Urobilinogen 0.2 EU/dL (Up TO 0.2); pH 5.5 (5-8)
[2022-06-09 17:15] LABS: Troponin I < 50 ng/L (<or=60)
== END 2022-06-09 18:30 | disposition home or self-care (01) ==
PROVIDERS: Nurse Practitioner Family; Emergency Provider Physician Assistant; PCP Nurse Practitioner Family
DX: R42 Dizziness and giddiness (principal); R25.1 Tremor, unspecified; I44.7 Left bundle-branch block, unspecified; I10 Essential (primary) hypertension; R79.89 Other specified abnormal findings of blood chemistry; Z20.822 Contact with and (suspected) exposure to COVID-19
CPT/HCPCS: 36415; 36416; 80053; 82962; 87637; 93005; 99283; 81003; 83735; 84484; 85025; 93010; 99282

== ENCOUNTER 2022-06-15 11:02 | Inpatient (IN) | payer MEDICARE, BC, SELFPAY ==
[2022-06-15] VITALS (43 sets, daily range): BP systolic 107–190; BP diastolic 55–84; PULSE 56–83; RESP 10–27; TEMP 36.2–36.9; O2SAT 94–100
--- NOTE | 2022-06-15 11:00 | DI.CT_ITS ---
Exam(s) CT HEAD - STROKE PROTOCOL EXAM: CT HEAD - STROKE PROTOCOL CLINICAL HISTORY: slurred speech. TECHNIQUE: Imaging Protocol: Axial computed tomography images with coronal and sagittal reformatted images were created and reviewed COMPARISON: CT HEAD WITHOUT STROKE PROTOCOL from 05/24/2016 FINDINGS: Ventricles and Extra axial spaces: Normal in size and morphology for the patient's age. Hemorrhage: None. Cerebral parenchyma: There is no evidence of an acute territorial infarct there are areas of decrease d attenuation in the white matter low most suggestive of small vessel ischemic disease. Midline shift: None. Brainstem/Cerebellum: Normal. Calvarium: Normal. Visualized Paranasal sinuses/Mastoids: There is a mucous retention cyst or polyp in the right maxilla ry sinus. The remaining visualized paranasal sinuses and mastoid air cells are clear. Soft Tissues: Unremarkable. IMPRESSION: 1. No acute intracranial process. 2. Findings were discussed with the emergency department at 11:50 a.m. on 06/15/2022. RADIATION DOSE DELIVERED: 660.45mGy.cm Total DLP DATA REPOSITORY: All CT scans at this facility are submitted to the National Radiology Data Registry (NRDR) Dose Index Registry (DIR) with the [employer] (ACR). RADIATION OPTIMIZATION: All CT scans at this facility use at least one of these dose optimization te chniques: automated exposure control; mA and/or kV adjustment per patient size (includes targeted exa ms where dose is matched to clinical indication); or iterative reconstruction.
--- NOTE | 2022-06-15 11:00 | RT.EKG_ITS ---
APPROVED REPORT Exam: Resting ECG Reason for Exam: chest pain Patient Location: E HR:69 bpm ECG Measurements Heart Rate 69 AXIS UT 155 P 28 QRSd 126 QRS -6 QT 416 T 74 QTc 445 Conclusion Sinus rhythm...normal P axis, V-rate 60- 99 Left bundle branch block...QRSd>120, broad/notched R
[2022-06-15 11:23] LABS: Abs Immature Grans 0.01 10^3/uL (0.0-0.06); Absolute Basophil Count 0.02 10^3/uL (0.0-0.2); Absolute Eosinophil Count 0.02 10^3/uL (0.0-0.7); Absolute Lymphocyte Count 2.83 10^3/uL (1.2-3.4); Absolute Monocyte Count 0.65 10^3/uL (0.1-0.8); Absolute Neutrophil Count 3.03 10^3/uL (1.2-6.7); Basophils % 0.3; Eosinophils % 0.3; HCT 41.3 % (36.0-46.0); HGB 13.8 g/dL (11.2-15.7); Immature Grans % 0.2; Lymphocytes % 43.1; MCH 29.7 pg (27.0-33.0); MCHC 33.4 % (32.0-36.0); MCV 89 fL (80-95); MPV 9.1 fL (8.0-11.0); Monocytes % 9.9; Neutrophils % 46.2; Platelet Count 388 10^3/uL (130-400); RBC 4.64 10^6/uL (3.93-5.22); RDW 13.1 % (11.7-14.6); RDW-SD 42.9 fL; WBC 6.56 10^3/uL (4.4-10.8)
--- NOTE | 2022-06-15 11:34 | ED.GENADUL_ITS ---
Discharge Plan Disposition Patient Disposition: Admit to [facility] Condition: Stable Discharge Details Chief Complaint: CVA/TIA Clinical Impression: Hypertensive emergency Admit Date/Time: 06/15/22 12:13 Admit Provider: Jeannette Gordon Attending Provider: Jeannette Gordon Primary Care Provider: Richy Junior ED Provider: César Berumen Discharge Instructions Activity:: Activity as Tolerated Equipment/Supplies:: No Equipment Needed Diet:: As Tolerated Discharge Orders Discharge Orders: Discharge Order (Routine); Ordered 06/17/22 Ordered By: Nancy Montiel Discharge Data Discharge Date/Time-TO BE ENTERED AT DEPARTURE: 06/15/22 14:16 Medical Decision Making 1135 --77-year-old female with history of hypertension, left bundle branch block, here with expressive aphasia, broken speech that started this morning with associated headache and chest discomfort. Patient has been taking antihypertensive as prescribed. She was recently hospitalized for hypertensive encephalopathy. She had MRI/MRA of the brain as well as CT and CTA of the brain 11 days ago that did not reveal acute ischemic disease. Son is here and notes that speech deficit is intermittent and improving. Screening EKG was reviewed and interpreted by me: Sinus rhythm 69 bpm, left bundle branch block, nondiagnostic. Left bundle branch block is old. Plan to obtain CT of the head to assess for acute process. -- CT head interpreted by radiology: 1. No acute intracranial process. 2. Findings were discussed with the emergency department at 11:50 a.m. on 06/15/2022. MRI of the brain interpreted by radiology: 1. No evidence to suggest an acute infarct or intracranial hemorrhage. 2. Findings consistent with small vessel ischemic disease. 3. Findings were discussed with the emergency department at 1:40 p.m. on 06/15/2022. Patient was hypertensive on arrival and this has improved spontaneously to now 111/70. Suspect hypertensive emergency and encephalopathy versus TIA. Plan to hospitalize for further workup and treatment. I spoke with the hospitalist and discussed ED presentation and course. They will admit the patient. Lab Data Lab results reviewed: Yes I reviewed the patient's lab results. HPI General Mode of arrival: ambulatory . Date/Time Provider Initiated Documentation: 06/15/22 11:10 . Limitations to Documentation: no limitations . Information obtained by: patient and EMS . HPI Narrative: 77-year-old female presents with chief complaint of speech disturbance that started just prior to arrival. Patient notes she started having a headache around 1010 this morning. She did develop chest discomfort and blurred vision. En route to [facility] she started to have difficulty speaking. Patient apparently was recently admitted for similar and thought to have hypertensive encephalopathy. Patient has been taking antihypertensive as prescribed. She denies chest pain at this time. Related Data Home Medications Medication Instructions Recorded Confirmed lisinopril 2.5 mg tablet 2.5 mg PO DAILY #90 tabs 01/30/22 06/22/22 acetaminophen 325 mg tablet 650 mg PO Q4H PRN PRN #0 tabs 06/06/22 06/22/22 amlodipine 5 mg tablet 5 mg PO DAILY #30 tabs 06/17/22 06/22/22 aspirin 81 mg tablet,delayed 81 mg PO DAILY #30 tabs 06/17/22 06/22/22 release rosuvastatin 20 mg tablet 20 mg PO QPM #30 tabs 06/17/22 sertraline 50 mg tablet 50 mg PO HS #1 tab 06/17/22 06/22/22 Previous Rx's Medication Instructions Recorded lisinopril 2.5 mg tablet 2.5 mg PO DAILY #90 tabs 01/30/22 acetaminophen 325 mg tablet 650 mg PO Q4H PRN PRN #0 tabs 06/06/22 amlodipine 5 mg tablet 5 mg PO DAILY #30 tabs 06/17/22 aspirin 81 mg tablet,delayed 81 mg PO DAILY #30 tabs 06/17/22 release rosuvastatin 20 mg tablet 20 mg PO QPM #30 tabs 06/17/22 sertraline 50 mg tablet 50 mg PO HS #1 tab 06/17/22 Allergies Allergy/AdvReac Type Severity Reaction Status Date / Time Metronidazole HCl AdvReac Severe NAUSEA,DIAR Verified 06/22/22 10:35 [From Flagyl] LAKEISHA atorvastatin calcium AdvReac Intermediate MUSCLE, Verified 06/22/22 10:35 [From Lipitor] JOINT PAIN meperidine HCl [From Demerol] AdvReac Intermediate Nausea Verified 06/22/22 10:35 Ywatrbj-VZK-CuN Reductase AdvReac Intermediate myalgia Verified 06/22/22 10:35 Inhibitor [Xyxnrya-Axj-Any Reductase Inhibitor] General Stated Complaint: CVA/TIA ANABELA: 2 Review of Systems All systems reviewed & are unremarkable except as noted in HPI and below Constitutional Constitutional: Denies fever(s) Cardiovascular Cardiovascular: Reports as per HPI and Denies dyspnea Respiratory Respiratory: Denies dyspnea PFSH All Active Problems (Updated 07/04/22 @ 16:53 by César Berumen MD) Encounter for medical assessment (Acute) Hypertensive emergency (Acute) Basilar artery stenosis (Acute) Migraine headache with aura (Acute) Transient neurologic deficit (Acute) Light-headed feeling (Acute) Left bundle branch block (Chronic) Hyperpigmented skin lesion (Acute) History of total left knee replacement (Acute 06/25/20) Follow up (Acute) Chronic back pain (Chronic) Migraines (Chronic) Pre-diabetes (Chronic) Anxiety (Chronic) Diverticular disease (Chronic) A. Sigmoid resection Left knee DJD (Chronic) Hypertension (Chronic) Abnormal EKG (Chronic) Medical History Small bowel obstruction Surgical History Back Surgery (~1988) [facility] [place] (~[place]) RE DIVERTICULITIS;DR. Mervat SHAFFER Cholecystectomy (~1969) Extraction of cataract DR. 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 Calzada Family History Mother , 88 Essential hypertension CHF (congestive heart failure) Stroke Father , 70 CHF (congestive heart failure) Brother , 60 Neoplasm multiple mylenoma; acute renal failure Brother No problems noted. 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;1ST COUSIN-COLON; Grandmother Stroke Son No problems noted. Son No problems noted. Son No problems noted. Son No problems noted. Son No problems noted. 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 Pets and animals: No Do you think of yourself as: straight/heterosexual Current gender identity: female What is your relationship status?: Do you belong to any clubs or organized social groups?: yes Panel score (0-1 are the most socially isolated patients): 1 What type of physical activity do you participate in: walking Duration: 30-45 minutes/day Frequency: 3-4 times per week Maribel/Scientology: Taoism Special maribel needs: Yes Seatbelt use: always Drive intox or ride w/intox transport driver: No Do you feel safe at home: Yes (Lives alone) Do you feel safe in your relationship?: Yes Exam Const General: cooperative HENMT Mouth: moist mucous membranes Eyes Conjunctivae: normal conjunctivae Sclera: normal sclerae EOM: EOM intact bilaterally Neck Neck: trachea midline and supple Resp Auscultation: clear to auscultation bilaterally, no rales, no rhonchi and no wheezes Cardio Rate: regular rate and not tachycardic Rhythm: regular rhythm GI Palpation: soft, not firm, no guarding, no masses, not rigid and nontender Skin General skin exam: no rashes or lesions noted Neuro General: patient alert, patient awake, patient oriented x3 and tone normal Cranial Nerves: CN's II-XI intact bilaterally Cognition: normal cognition Speech: expressive aphasia Motor: strength 5/5 throughout Sensory Exam: no sensory deficits noted Extrem General: no edema Psych Appearance: grossly normal Affect: anxious affect Course Vital Signs Vital signs: Vital Signs Temperature 36.2 C L 06/15/22 11:05 Pulse 76 06/15/22 11:05 Respiratory Rate 18 06/15/22 11:05 Blood Pressure 179/75 H 06/15/22 11:05 Pulse Oximetry 100 06/15/22 11:05 Temperature 36.2 C L 06/15/22 11:05 Pulse 73 06/15/22 11:16 Pulse 78 06/15/22 11:20 Respiratory Rate 24 06/15/22 11:20 Respiratory Effort Non-Labored 06/15/22 11:20 Blood Pressure 183/79 H 06/15/22 11:16 Blood Pressure Mean 104 06/15/22 11:16 Pulse Oximetry 100 06/15/22 11:20 Oxygen Delivery Method Room Air 06/15/22 11:05 Oxygen Flow Rate 0 06/15/22 11:05 Lab/Test Results Lab/Test Results: Laboratory Tests Range/Units 06/15/22 11:10 WBC (4.4-10.8) 10^3/uL 6.56 RBC (3.93-5.22) 10^6/uL 4.64 Hgb (11.2-15.7) g/dL 13.8 Hct (36.0-46.0) % 41.3 MCV (80-95) fL 89 MCH (27.0-33.0) pg 29.7 MCHC (32.0-36.0) % 33.4 RDW (11.7-14.6) % 13.1 Plt Count (130-400) 10^3/uL 388 MPV (8.0-11.0) fL 9.1 Immature Gran % 0.2 Neutrophils % 46.2 Lymphocytes % 43.1 Monocytes % 9.9 Eosinophils % 0.3 Basophils % 0.3 Nucleated RBC % (0.0-0.3) % 0.0 Absolute Neutrophils (1.2-6.7) 10^3/uL 3.03 Absolute Lymphocytes (1.2-3.4) 10^3/uL 2.83 Absolute Monocytes (0.1-0.8) 10^3/uL 0.65 Absolute Eosinophils (0.0-0.7) 10^3/uL 0.02 Absolute Basophils (0.0-0.2) 10^3/uL 0.02
[2022-06-15 11:36] LABS: PTT Activated 24.8 sec (21.0-27.5); Prothrombin Time 10.1 sec (9.3-11.0)
[2022-06-15 11:44] LABS: ALT 17 U/L (14-59); AST 20 U/L (15-37); Albumin 3.9 g/dL (3.4-5.0); Alkaline Phosphatase 84 U/L (46-116); Anion Gap 10.3 mmol/L (3-11); BUN 18 mg/dL (7-18); Bilirubin, Total 0.7 mg/dL (0.2-1.0); CO2 26.7 mmol/L (21.0-32.0); CREATININE 1.1 mg/dL (0.55-1.02); Calcium 9.5 mg/dL (8.5-10.1); Chloride 100 mmol/L (98-107); Estimated GFR 51.75 (mL/min/1.73m2); Glucose 153 mg/dL (74-106); Magnesium 2.1 mg/dL (1.8-2.4); Potassium 3.6 mmol/L (3.5-5.1); Sodium 137 mmol/L (136-145); Total Protein 7.3 g/dL (6.4-8.2); Troponin I < 50 ng/L (<or=60)
--- NOTE | 2022-06-15 11:45 | DI.MRI_ITS ---
Exam(s) MR BRAIN WO EXAM: MR BRAIN WO CLINICAL HISTORY: broken speech, hypertension TECHNIQUE: Multiplanar multisequence MRI of the brain was performed. COMPARISON: MR MR BRAIN WO from 06/04/[address] HEAD - STROKE PROTOCOL from 06/15/2022 FINDINGS: VENTRICLES AND EXTRA AXIAL SPACES: Normal in size and morphology for the patient's age. MIDLINE SHIFT: None. CEREBRAL PARENCHYMA: No focus of restricted diffusion to suggest acute infarct. No space-occupying le christin identified. There again seen multiple areas of hyperintense signal seen in the T2 and FLAIR imag es in the white matter most consistent with small vessel ischemic disease. HEMORRHAGE: None. BRAINSTEM/CEREBELLUM: Normal. CALVARIUM: Normal. VISUALIZED PARANASAL SINUSES/MASTOIDS:There is a mucous retention cyst or polyp in the right maxillar y sinus. The remaining visualized paranasal sinuses are clear. [place]: Normal flow void. P[place]: Unremarkable. OTHER FINDINGS: None. IMPRESSION: 1. No evidence to suggest an acute infarct or intracranial hemorrhage. 2. Findings consistent with small vessel ischemic disease. 3. Findings were discussed with the emergency department at 1:40 p.m. on 06/15/2022. DATA REPOSITORY:
[2022-06-15] MEDS: Aspirin 325 MG TAB PO (12:12)
[2022-06-15 12:28] LABS: Source Nasal/Nares
[2022-06-15 13:00] LABS: COVID-19 PCR Negative (Negative)
--- NOTE | 2022-06-15 13:42 | NUR.NOTE ---
Called Pharmacy to request Lovenox, is not loaded in ED PATRICK Adamson
[2022-06-15] MEDS: Enoxaparin 40 MG/0.4 ML SYR SC (14:13)
[2022-06-15 16:13] LABS: Troponin I < 50 ng/L (<or=60)
--- NOTE | 2022-06-15 17:00 | RT.EKG_ITS ---
APPROVED REPORT Exam: Resting ECG Reason for Exam: ?QT prolongation Patient Location: I HR:72 bpm ECG Measurements Heart Rate 72 AXIS OK 162 P 20 QRSd 115 QRS -7 QT 385 T 134 QTc 422 Conclusion Sinus rhythm...normal P axis, V-rate 50- 99 left bundle branch block...QRSd>110mS, terminal axis(-90,-1) Consider anterior infarct...Q >30mS in V2-V5
--- NOTE | 2022-06-15 17:15 | W.NEUROCONSU ---
Date of service: 06/15/22 Time of Service: 16:40 Assessment and Plan Assessment and plan (1) Transient neurologic deficit: Status: Acute (2) Migraine headache with aura: Status: Acute (3) Hypertension: Status: Chronic Qualifiers: Hypertension type: essential hypertension Qualified Code(s): I10 - Essential (primary) hypertension (4) Basilar artery stenosis: Status: Acute Assessment and plan: #1. Spells with transient neurological deficits, with normal brain MRI x 2. Two events in the last 2 weeks in the setting of hypertension and headache. Etiology most likely due to migraine +/- hypertensive encephalopathy +/- both. We discussed this diagnosis as well as etiology, prognosis, and treatment options. I suspect her symptoms were of shorter duration today as she treated with APAP at home. We discussed what to do in the event of future events. We otherwise discussed starting a calcium channel juvencio for both treatment of hypertension, but also for migraine prevention. Will defer to primary team on which one. Could also consider magnesium supplement 400mg daily for migraine prevention as another option. #2. Basilar artery stenosis. I would recommend starting aspirin 81mg daily. Consider updated lipid panel and statin as well. She should follow-up in neurology clinic in 4-6 weeks. History of Present Illness History of Present Illness Chief Complaint: spells Narrative: Handedness: right. HPI: Ms. Richardson is a 77 year-old woman with hypertension, left bundle branch block and a history of typical and atypical migraine. Her son Rob is at bedside with her today. Ms. Richardson was recently admitted to [facility] 06/04-06/06/22. She was reportedly found by a neighbor minimally responsive. In the ER, she was noted to have varying symptoms including right arm drift, R hemineglect, L hemineglect, seeming blindness, as well as word salad/non-sensical speech/not following commands. Her presenting SBP was 180-210, which was treated with IV enalapril and prn labetolol. Her symptoms resolved by the next day, lasting ~12 hours as her blood pressure came down. She does not recall much of that time, but does recall having a headache. She underwent the work-up as below. Today, she woke up feeling normal. Just before 10am, she had a feeling of heat come on throughout her chest and arms. This resolved after a short time. She called her son who came to the house to be with her. She soon developed her classic migraine aura of heat coming off the pavement followed by headache. About 30min after the first episode, she had another episode of heat throughout her chest and arms. She did take 650mg APAP prior to leaving for her headache. Upon arriving to the ER, she was noted to have garbled speech with word finding problems. This resolved within 10-20minetes. Her headache has also since resolved with no further chest discomfort. In the ER, her SBP 180-190 - now in the 130-140s, coming down on its own without treatment. She notes a history of migraine headaches with aura described as above, but none in many years; nor any headaches other than the 2 above episodes in many years. She has a history of prior atypical migraine in 2012. She was working here at [facility] at that time when she developed visual aura and SHABAZZ followed by writing the same words/phrase over and over on her paperwork and then garbled speech. She consulted with neurology at [facility] at that time - I have not reviewed those records. She is on lisinopril 2.5mg daily at home for HTN. She tracks her BPs at home but is unsure today what they usually are. She is not on any supplements. Work-up: -CTH (): No acute findings. Chronic vascular changes. I reviewed these images personally and this is my personal interpretation. -CTA head/neck (06/04/22): Mid basilar stenosis. I reviewed these images personally and this is my personal interpretation. -MRI brain (06/04/22): No acute findings. Bilateral sinus disease. Moderate chronic vascular changes. I reviewed these images personally and this is my personal interpretation. -MRA head (06/04/22): Mid-basilar stenosis. I reviewed these images personally and this is my personal interpretation. -EEG (06/05/22): generalized slowing with focal left hemisphere slowing as well. -CTH (06/15/22): no acute findings. I reviewed these images personally and this is my personal interpretation. -MRI brain w/o (06/15/22): no acute findings. Moderate chronic vascular changes. Bilateral sinus disease. I reviewed these images personally and this is my personal interpretation. Review of Systems All systems reviewed & are unremarkable except as noted in HPI and below PFSH All Active Problems (Updated 06/15/22 @ 20:51 by Roopa Gaffney MD) Basilar artery stenosis (Acute) Migraine headache with aura (Acute) Transient neurologic deficit (Acute) Discharge planning issues (Acute) DVT prophylaxis (Acute) Light-headed feeling (Acute) Left bundle branch block (Chronic) Hyperpigmented skin lesion (Acute) History of total left knee replacement (Acute 06/25/20) Follow up (Acute) Chronic back pain (Chronic) Migraines (Chronic) Pre-diabetes (Chronic) Anxiety (Chronic) Diverticular disease (Chronic) A. Sigmoid resection Left knee DJD (Chronic) Hypertension (Chronic) Abnormal EKG (Chronic) Medical History Small bowel obstruction Surgical History Back Surgery (~1988) [facility] Bowel Resection (~2002) RE DIVERTICULITIS;DR. Mervat SHAFFER Cholecystectomy (~1969) Extraction of cataract DR. 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 Calzada Family History Mother , 88 Essential hypertension CHF (congestive heart failure) Stroke Father , 70 CHF (congestive heart failure) Brother , 60 Neoplasm multiple mylenoma; acute renal failure Brother No problems noted. 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;1ST COUSIN-COLON; Grandmother Stroke Son No problems noted. Son No problems noted. Son No problems noted. Son No problems noted. Son No problems noted. 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 Pets and animals: No Do you think of yourself as: straight/heterosexual Current gender identity: female What is your relationship status?: Do you belong to any clubs or organized social groups?: yes Panel score (0-1 are the most socially isolated patients): 1 What type of physical activity do you participate in: walking Duration: 30-45 minutes/day Frequency: 3-4 times per week Maribel/Christian: Sabianism Special maribel needs: Yes Seatbelt use: always Drive intox or ride w/intox 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 Do you feel safe at home: Yes (Lives alone) Do you feel safe in your relationship?: Yes Visit Medication and Allergies Active Medications Generic Name Dose Route Start Last Admin Trade Name Freq PRN Reason Stop Dose Admin Acetaminophen 0 mg 06/15/22 12:13 Acetaminophen 325 Mg Tab PO Q4H PRN PRN Al Hydrox/Mg Hydrox/Simethicone 30 ml 06/15/22 12:13 Mylanta Suspension 30 Ml Cup PO Q2H PRN PRN Dimethicone/Zinc Oxide 0 gm 06/15/22 12:07 Danni Protect Cream 142 Gm Tube TP PRN PRN Docusate Sodium 100 mg 06/15/22 12:13 Docusate Sodium 100 Mg Cap PO TID PRN PRN Enoxaparin Sodium 40 mg 06/15/22 14:00 06/15/22 14:13 Enoxaparin 40 Mg/0.4 Ml Syr SC 40 mg Q24H WEI Administration Sodium Chloride 500 mls @ 0 mls/hr 06/15/22 12:13 Saline 500ml Bag IV PRN PRN As Directed IV Miscellaneous Supplies 1 each 06/15/22 12:15 Iv Access IV DIRECTED WEI Magnesium Hydroxide 30 ml 06/15/22 12:13 Milk Of Magnesia 30 Ml Cup PO DAILY PRN PRN Metoprolol Tartrate 2.5 mg 06/15/22 12:13 Metoprolol 5 Mg/5 Ml Vial IVP Q6H PRN PRN Sodium Chloride 0 ml 06/15/22 12:13 Normal Saline Flush 10 Ml Syr IVP PRN PRN Allergies Metronidazole HCl [From Flagyl] Adverse Reaction (Severe, Verified 06/15/22 11:15) NAUSEA,DIARRHEA atorvastatin calcium [From Lipitor] Adverse Reaction (Intermediate, Verified 06/15/22 11:15) MUSCLE, JOINT PAIN meperidine HCl [From Demerol] Adverse Reaction (Intermediate, Verified 06/15/22 11:15) Nausea Bwhspbk-QML-FnJ Reductase Inhibitor [Tnetudg-Zrb-Dlx Reductase Inhibitor] Adverse Reaction (Intermediate, Verified 06/15/22 11:15) myalgia Exam Narrative Exam Narrative: Physical Exam: Gen: Patient of apparent stated age, NAD Head and face: no facial or cranial abnormalities Neck: Supple, no meningismus, no occipital tenderness CV: + S1, S2, RRR, no murmur Resp: CTA B/L Abd: soft, nontender, nondistended Ext: No edema. No clubbing or cyanosis. No bony deformity. Neuro Exam: Language: fluency, naming, repetition, and comprehension intact; Mental Status: AAOx3, current events intact, fund of knowledge intact; Speech: no dysarthria Cranial nerves: Funduscopy: not performed CN II: visual guan intact CN III, IV, : extraocular movements intact, no nystagmus, pupils symmetric and reactive to light CN V: face sensation intact to LT and temp CN VII: no facial asymmetry noted CN VIII: hearing intact bilaterally CN IX, X: palate rises symmetrically CN XI: trapezius/SCM 5/5 bilaterally CN XII: protrudes tongue symmetrically Sensory: intact to LT, temp, vibration, and joint position in all extremities Motor: bulk and tone intact. Fine motor movements intact bilaterally. No pronator drift. Strength 5/5 throughout including the deltoids, biceps, triceps, wrist extensors, hip flexors, knee flexors, knee extensors, ankle flexors, and ankle extensors. Reflexes: 2+/hyporeflexic at the biceps, triceps, brachioradialis, patella, and achilles tendons bilaterally; toes down going bilaterally; Coordination: FTN and HTS intact bilaterally Gait: not tested Results Last Vital Signs Temp 98.4 F 06/15/22 14:35 Pulse 58 L 06/15/22 15:17 Resp 14 06/15/22 15:17 BP 143/62 H 06/15/22 15:17 Pulse Ox 99 06/15/22 15:17 Labs Result diagrams: 06/15/22 11:10 06/15/22 11:10 Labs: Laboratory Results - last 24 hr 06/15/22 06/15/22 06/15/22 11:10 11:10 11:10 WBC 6.56 RBC 4.64 Hgb 13.8 Hct 41.3 MCV 89 MCH 29.7 MCHC 33.4 RDW 13.1 Plt Count 388 MPV 9.1 Immature Gran % 0.2 Neutrophils % 46.2 Lymphocytes % 43.1 Monocytes % 9.9 Eosinophils % 0.3 Basophils % 0.3 Nucleated RBC % 0.0 Absolute Neutrophils 3.03 Absolute Lymphocytes 2.83 Absolute Monocytes 0.65 Absolute Eosinophils 0.02 Absolute Basophils 0.02 PT 10.1 INR 1.0 APTT 24.8 Sodium 137 Potassium 3.6 Chloride 100 Carbon Dioxide 26.7 Anion Gap 10.3 BUN 18 Creatinine 1.1 H Est GFR (CKD-EPI 2020) 51.75 Glucose 153 H Calcium 9.5 Magnesium 2.1 Total Bilirubin 0.7 AST 20 ALT 17 Alkaline Phosphatase 84 Troponin I < 50 Total Protein 7.3 Albumin 3.9 COVID-19 Source SARS-CoV-2 (PCR) 06/15/22 06/15/22 12:24 15:30 WBC RBC Hgb Hct MCV MCH MCHC RDW Plt Count MPV Immature Gran % Neutrophils % Lymphocytes % Monocytes % Eosinophils % Basophils % Nucleated RBC % Absolute Neutrophils Absolute Lymphocytes Absolute Monocytes Absolute Eosinophils Absolute Basophils PT INR APTT Sodium Potassium Chloride Carbon Dioxide Anion Gap BUN Creatinine Est GFR (CKD-EPI 2020) Glucose Calcium Magnesium Total Bilirubin AST ALT Alkaline Phosphatase Troponin I < 50 Total Protein Albumin COVID-19 Source Nasal/Nares SARS-CoV-2 (PCR) Negative
--- NOTE | 2022-06-15 19:24 | W.PM.HP.N ---
Date of service: 06/15/22 Time of Service: 18:00 Assessment and Plan Assessment and plan (1) Hypertensive urgency: Status: Resolved Assessment and plan: Patient arrived on the floor and was normotensive and had no symptoms. She was here 10 days ago for a similar episode. She had neg MRI then. her hypertension then resolved on it's own as well. There was question of her having a seizure when she was here 10 days ago, her EEG was abnormal with generalized slowing with some more focal left posterior changes, with possible epileptogenic focus although no specific epileptic activity was seen on her EEG. She takes Lisinopril 2.5 mg and that will be continued while hospitalized. We will add Amlodipine 5 mg daily per recommendation of Dr Gaffney Blood pressures on arrival to the floor 110/60s, no headache, no speech issues. (2) Expressive aphasia: Status: Resolved Assessment and plan: Broken speech that started this am with a headache and some chest discomfort. She had a similar episode when she was here 10d ago. It is resolved completely and no evidence of it during exam or interview. MRI/MRA and CTs and EEG 10d ago all negative, she was thought to have hypertensive encephalopathy. She has been taking Lisinopril as prescribed 2.[address] repeated today negative for acute process (3) Hypertensive encephalopathy: Status: Resolved Assessment and plan: see above, this has been ruled out after she was seen by Dr Gaffney and dx with atypical migraine (4) AMS (altered mental status): Status: Resolved Assessment and plan: Markedly improved (5) Left bundle branch block: Status: Chronic Assessment and plan: No change in EKG since admission 10d ago Old LLB block. No chest pain No shortness of breath Telemetry (6) Migraines: Status: Chronic Assessment and plan: Seen by neurology and diagnosed with atypical migraine Plan out patient follow up (7) Anxiety: Status: Chronic Assessment and plan: Currently calm, conversant Monitor (8) DVT prophylaxis: Status: Acute Assessment and plan: Enoxaparin 40 mg daily (9) Discharge planning issues: Status: Acute Assessment and plan: Home with no services when stable with follow up w Neurology Discussed with Dr Gordon History of Present Illness History of Present Illness Chief Complaint: Difficulty speaking; headache Narrative: This is a 77-year-old female patient that presented to the [facility] ED with chief complaint of speech disturbance that started just prior to arrival.? Patient notes she started having a headache around 1010 this morning.? She did develop chest discomfort and blurred vision.? En route to [facility] she started to have difficulty speaking.? Patient was recently admitted for similar and thought to have hypertensive encephalopathy.? Patient has been taking antihypertensive as prescribed.? She denied chest pain in the ED. She is being admitted to the medical floor for observation and consult to neurology. Review of Systems All systems reviewed & are unremarkable except as noted in HPI and below PFSH All Active Problems (Updated 06/15/22 @ 19:56 by Kylee García NP) Discharge planning issues (Acute) DVT prophylaxis (Acute) Light-headed feeling (Acute) Left bundle branch block (Chronic) Hyperpigmented skin lesion (Acute) History of total left knee replacement (Acute 06/25/20) Follow up (Acute) Chronic back pain (Chronic) Migraines (Chronic) Pre-diabetes (Chronic) Anxiety (Chronic) Diverticular disease (Chronic) A. Sigmoid resection Left knee DJD (Chronic) Hypertension (Chronic) Abnormal EKG (Chronic) Medical History Small bowel obstruction Surgical History Back Surgery (~1988) [facility] Bowel Resection (~2002) RE DIVERTICULITIS;DR. Mervat SHAFFER Cholecystectomy (~1969) Extraction of cataract DR. 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 Calzada Family History Mother , 88 Essential hypertension CHF (congestive heart failure) Stroke Father , 70 CHF (congestive heart failure) Brother , 60 Neoplasm multiple mylenoma; acute renal failure Brother No problems noted. 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;1ST COUSIN-COLON; Grandmother Stroke Son No problems noted. Son No problems noted. Son No problems noted. Son No problems noted. Son No problems noted. 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 and animals: No Do you think of yourself as: straight/heterosexual Current gender identity: female What is your relationship status?: Do you belong to any clubs or organized social groups?: yes Panel score (0-1 are the most socially isolated patients): 1 What type of physical activity do you participate in: walking Duration: 30-45 minutes/day Frequency: 3-4 times per week Maribel/Jewish: Confucianist Special maribel needs: Yes Seatbelt use: always Drive intox or ride w/intox 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 Do you feel safe at home: Yes (Lives alone) Do you feel safe in your relationship?: Yes Meds Allergies and Home Medications Allergies Allergy/AdvReac Type Severity Reaction Status Date / Time Metronidazole HCl AdvReac Severe NAUSEA,DIAR Verified 06/15/22 11:15 [From Flagyl] LAKEISHA atorvastatin calcium AdvReac Intermediate MUSCLE, Verified 06/15/22 11:15 [From Lipitor] JOINT PAIN meperidine HCl [From Demerol] AdvReac Intermediate Nausea Verified 06/15/22 11:15 Kcrgyuo-USE-QpT Reductase AdvReac Intermediate myalgia Verified 06/15/22 11:15 Inhibitor [Pnxalnx-Wty-Frt Reductase Inhibitor] Home Medications Medication Instructions Recorded Confirmed Type lisinopril 2.5 mg tablet 2.5 mg PO DAILY #90 tabs 01/30/22 06/15/22 Rx acetaminophen 325 mg tablet 650 mg PO Q4H PRN PRN #0 tabs 06/06/22 06/15/22 Rx Exam Const General: cooperative HENMT Mouth: moist mucous membranes Eyes Conjunctivae: normal conjunctivae Sclera: normal sclerae EOM: EOM intact bilaterally Neck Neck: trachea midline and supple Resp Auscultation: clear to auscultation bilaterally, no rales, no rhonchi and no wheezes Cardio Rate: regular rate and not tachycardic Rhythm: regular rhythm GI Palpation: soft, not firm, no guarding, no masses, not rigid and nontender Skin General skin exam: no rashes or lesions noted Neuro General: patient alert, patient awake, patient oriented x3 and tone normal Cranial Nerves: CN's II-XI intact bilaterally Cognition: normal cognition Speech: expressive aphasia Motor: strength 5/5 throughout Sensory Exam: no sensory deficits noted Extrem General: no edema Psych Appearance: grossly normal Affect: anxious affect Results Labs Result diagrams: 06/15/22 11:10 06/15/22 11:10 Labs: Laboratory Results - last 24 hr 06/15/22 06/15/22 06/15/22 11:10 11:10 11:10 WBC 6.56 RBC 4.64 Hgb 13.8 Hct 41.3 MCV 89 MCH 29.7 MCHC 33.4 RDW 13.1 Plt Count 388 MPV 9.1 Immature Gran % 0.2 Neutrophils % 46.2 Lymphocytes % 43.1 Monocytes % 9.9 Eosinophils % 0.3 Basophils % 0.3 Nucleated RBC % 0.0 Absolute Neutrophils 3.03 Absolute Lymphocytes 2.83 Absolute Monocytes 0.65 Absolute Eosinophils 0.02 Absolute Basophils 0.02 PT 10.1 INR 1.0 APTT 24.8 Sodium 137 Potassium 3.6 Chloride 100 Carbon Dioxide 26.7 Anion Gap 10.3 BUN 18 Creatinine 1.1 H Est GFR (CKD-EPI 2020) 51.75 Glucose 153 H Calcium 9.5 Magnesium 2.1 Total Bilirubin 0.7 AST 20 ALT 17 Alkaline Phosphatase 84 Troponin I < 50 Total Protein 7.3 Albumin 3.9 COVID-19 Source SARS-CoV-2 (PCR) 06/15/22 06/15/22 12:24 15:30 WBC RBC Hgb Hct MCV MCH MCHC RDW Plt Count MPV Immature Gran % Neutrophils % Lymphocytes % Monocytes % Eosinophils % Basophils % Nucleated RBC % Absolute Neutrophils Absolute Lymphocytes Absolute Monocytes Absolute Eosinophils Absolute Basophils PT INR APTT Sodium Potassium Chloride Carbon Dioxide Anion Gap BUN Creatinine Est GFR (CKD-EPI 2020) Glucose Calcium Magnesium Total Bilirubin AST ALT Alkaline Phosphatase Troponin I < 50 Total Protein Albumin COVID-19 Source Nasal/Nares SARS-CoV-2 (PCR) Negative Last Vital Signs Temp 36.5 C 06/15/22 18:29 Pulse 69 06/15/22 18:29 Resp 18 06/15/22 18:29 BP 107/60 06/15/22 18:29 Pulse Ox 100 06/15/22 18:29 Time Spent Time spent with Patient: 40-54 minutes Time was spent: preparing to see the patient(eg.review tests), obtaining and/or reviewing separately otained hiistory, ordering medications,tests, procedures, referring, communicating with other health clinical care coordinator, indepentently interpreting results, counseling the patient and care coordination
--- NOTE | 2022-06-15 19:26 | NUR.NOTE ---
Nursing Note:Transferred patient out of ICU at 1715. Patient arrived with home clothes and shoes. Patient transported via wheelchair.
[2022-06-15] MEDS: amLODIPine 5 MG TAB PO (20:17)
[2022-06-16] VITALS (7 sets, daily range): BP systolic 107–119; BP diastolic 56–65; PULSE 59–72; RESP 14–18; TEMP 36.1–37; O2SAT 95–97
[2022-06-16 06:43] LABS: Absolute Basophil Count 0.03 10^3/uL (0.0-0.2); Absolute Eosinophil Count 0.04 10^3/uL (0.0-0.7); Absolute Lymphocyte Count 2.28 10^3/uL (1.2-3.4); Absolute Monocyte Count 0.52 10^3/uL (0.1-0.8); Basophils % 0.7; Eosinophils % 0.9; HCT 39.9 % (36.0-46.0); HGB 12.9 g/dL (11.2-15.7); MCH 29.3 pg (27.0-33.0); MCHC 32.3 % (32.0-36.0); MCV 91 fL (80-95); MPV 9.2 fL (8.0-11.0); Monocytes % 11.6; Neutrophils % 35.8; Platelet Count 338 10^3/uL (130-400); RDW 13.2 % (11.7-14.6); RDW-SD 44.1 fL; WBC 4.47 10^3/uL (4.4-10.8)
[2022-06-16 07:03] LABS: Hemoglobin A1C 5.9 % (<5.7)
[2022-06-16 07:10] LABS: Anion Gap 7.6 mmol/L (3-11); BUN 19 mg/dL (7-18); CO2 27.4 mmol/L (21.0-32.0); Calcium 8.9 mg/dL (8.5-10.1); Calculated LDL 151 mg/dL (<100); Chloride 105 mmol/L (98-107); Cholesterol 217 mg/dL (<200); Estimated GFR 58.02 (mL/min/1.73m2); Glucose 107 mg/dL (74-106); HDL Cholesterol 53 mg/dL (40-60); Magnesium 2.3 mg/dL (1.8-2.4); Potassium 4.1 mmol/L (3.5-5.1); Sodium 140 mmol/L (136-145); TSH (W/Ref FT4) 4.55 uIU/mL (0.36-3.74); Triglyceride 69 mg/dL (<150)
[2022-06-16 07:32] LABS: FREE T4 1.07 ng/dL (0.76-1.46)
[2022-06-16] MEDS: Lisinopril 5 MG TAB 2.5 MG PO (08:16)
[2022-06-16] MEDS: Aspirin E.C. 81 MG TABEC PO (08:17)
[2022-06-16] MEDS: amLODIPine 5 MG TAB PO (08:18)
--- NOTE | 2022-06-16 11:51 | PDOC.CMIN ---
- If Service Date Differs Date of service: 06/16/22 Time of Service: 11:51 Care Management Initial Assess REASON FOR HOSPITALIZATION:: Acute neurological deficit, [id number] PAST MEDICAL HISTORY/PAST SURGICAL HISTORY:: Medical History . Small bowel obstruction. Surgical History . Back Surgery (~1988). [facility] [place]. Bowel Resection (~2002). RE DIVERTICULITIS;DR. Mervat SHAFFER. Cholecystectomy (~1969). Extraction of cataract. DR. LEGER left 12/2014;rt 02/2012. Ligation of fallopian tube (~1985). . Replacement of total knee joint (04/01/17). Right Knee Replacement- Dr. Calzada PREVIOUS FUNCTIONAL STATUS/SOCIAL/FAMILY SUPPORTS:: Sherlyn lives alone in an apartment in [place], [place]. She has worked at [employer] for almost 40 years in a variety of positions. She retired about a year ago. Sherlyn has two sons, Zaki and Rob who live locally and are very supportive. She also has 3 other sons, 5 grandchildren and 2 step grandchildren who live remotely.Sherlyn has had knee surgery before so already has a walker and a shower chair. She is independent at baseline. CURRENT FUNCTIONAL STATUS:: Sherlyn was pleasant in interaction and visited with her two sons today. Per MD, anticipate discharge tomorrow with new home health PT orders and neuro follow up. CM continues to follow. Has patient been provided with info about the portal/API?: Yes Did the patient sign up for the portal?: Yes CODE STATUS:: Full Code INSURANCE COVERAGE / FINANCIAL ISSUES:: [facility]/[employer] CURRENT HOME/COMMUNITY SERVICES/EQUIPMENT:: No current services. She owns a walker and a tub chair. PRIMARY CARE PHYSICIAN:: Richy Junior POTENTIAL DISCHARGE NEEDS:: Neuro follow up 4-6 weeks. PATIENT/FAMILY EDUCATION NEEDS:: Review discharge instructions, discuss Ask Me Three. ANTICIPATED BARRIERS TO DISCHARGE:: None identified at this time. TRANSPORTATION:: Via private vehicle with family. PLAN:: Sherlyn will return home when ready per MD. She will follow up with her PCP and plan of care as prescribed. Per MD, anticipate discharge tomorrow with new home health PT orders and neuro follow up. She will transport via private vehicle with family. CM continues to follow.
--- NOTE | 2022-06-16 13:11 | PHA.REVIEW2 ---
Pharmacy Admission Review - Admission Clinical Review (Last Reviewed 06/15/22 @ 11:37 by César Berumen MD) Basilar artery stenosis (Acute) Migraine headache with aura (Acute) Transient neurologic deficit (Acute) Discharge planning issues (Acute) DVT prophylaxis (Acute) Metronidazole HCl [From Flagyl] Adverse Reaction (Severe, Verified 06/15/22 11:15) NAUSEA,DIARRHEA atorvastatin calcium [From Lipitor] Adverse Reaction (Intermediate, Verified 06/15/22 11:15) MUSCLE, JOINT PAIN meperidine HCl [From Demerol] Adverse Reaction (Intermediate, Verified 06/15/22 11:15) Nausea Sbojknk-IKF-IdI Reductase Inhibitor [Utwpnhn-Tjz-Eze Reductase Inhibitor] Adverse Reaction (Intermediate, Verified 06/15/22 11:15) myalgia Resuscitation Status Full Code Height 5 ft 1 in Weight 85.8 kg - Renal Dosing Renal Dosing: BUN 19 mg/dL (7-18) H 06/16/22 05:50 Creatinine 1.0 mg/dL (0.55-1.02) 06/16/22 05:50 Medications needing adjustments: Reviewed (Crcl ~46.8 mL/min current meds okay) - Anticoagulation Anticoagulation: Hgb 12.9 g/dL (11.2-15.7) 06/16/22 05:50 Hct 39.9 % (36.0-46.0) 06/16/22 05:50 Plt Count 338 10^3/uL (130-400) 06/16/22 05:50 INR 1.0 (0.9-1.1) 06/15/22 11:10 Creatinine 1.0 mg/dL (0.55-1.02) 06/16/22 05:50 DVT Prophylaxis: Reviewed Medications: Enoxaparin Therapeutic Anticoagulation: N/A - Opiate Usage Evaluate Pain Scale/Pains Meds: N/A - Relevant Labs Sodium 140 mmol/L (136-145) 06/16/22 05:50 Potassium 4.1 mmol/L (3.5-5.1) 06/16/22 05:50 Chloride 105 mmol/L (98-107) 06/16/22 05:50 Magnesium 2.3 mg/dL (1.8-2.4) 06/16/22 05:50 Electrolytes, C-Reactive P, ESR: Reviewed - DM Control DM Control: Glucose 107 mg/dL (74-106) H 06/16/22 05:50 Hemoglobin A1c 5.9 % (<5.7) H 06/16/22 05:50 DM Control: Reviewed (Pre-diabetes noted in Pt's medical history, A1c was 5.9 today) Insulin Dosing, Diabetic Medication: n/a - Cardiac Review Cardiac Review: Troponin I < 50 ng/L (<or=60) 06/15/22 15:30 BP, HR, EF%: Reviewed (BP has improved since admission, HR has been low to normal so far this admission) - Qtc Review QTc: Reviewed (QTc 445) - IV to PO Switch IV Medications: Reviewed - Home Meds Home Med List reviewed: Reviewed Relevent Home Meds Not ordered & why?: both home meds are currently ordered - Current meds Current Medication Order Review: Intervened (Discontinued duplicate med orders) - Comments Comments/Follow Ups: Watch VS, labs and for med changes. Pt is open to trying a statin again per the provider, this is ordered to start tonight.
--- NOTE | 2022-06-16 13:55 | CHAPLAIN ---
This is Sherlyn's third visit to [facility] in a couple of weeks. She as admitted two weeks ago after being found not to be speaking clearly and confused. She was admitted and observed for a day or two. Then she came back to the ED a few days after returning home, and then came in yesterday with a strange, upper body and arm sensation and was admitted for observation. Sherlyn worked for [employer] in the [facility] building for more than 40 years so she is familiar with many here. She retired about a year ago. 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 She has two sons who live locally and are very supportive, and three who live at distance. They are all very supportive of their mom. Her two local sons visited this afternoon.
[2022-06-16] MEDS: Enoxaparin 40 MG/0.4 ML SYR SC (14:32)
--- NOTE | 2022-06-16 16:08 | PT.INIE ---
Date of service: 06/16/22 Time of Service: 16:08 PT Notes Visit Reasons: Acute Neurologic Defict, CVA vs Hypertensive Physical Therapy Inpatient Initial Evaluation Date: 06/16/2022 Referring Doctor: Nancy Montiel NP PT Orders: PT CONSULT: Eval/Treat Precautions: Fall. Standard.? Activity as tolerated Patient Profile/Admitting Diagnosis: Sherlyn is a 77-year-old female who presented to the ED on 06/15/2022 due to difficulty with speech, headache, chest discomfort, and blurry vision. Patient was admitted to the MedSurg unit for management and continued monitoring of transient neurologic deficit, expressive aphasia (resolved), migraine headache with aura, hypertensive urgency (resolved), altered mental status (resolved), basilar artery stenosis, and hypertensive urgency. PMHX: All Active Problems?(Updated 06/15/22 @ 19:56 by Kylee García NP) Discharge planning issues (Acute) DVT prophylaxis (Acute) Light-headed feeling (Acute) Left bundle branch block (Chronic) Hyperpigmented skin lesion (Acute) History of total left knee replacement (Acute 06/25/20) Follow up (Acute) Chronic back pain (Chronic) Migraines (Chronic) Pre-diabetes (Chronic) Anxiety (Chronic) Diverticular disease (Chronic) A.? Sigmoid resectionLeft knee DJD (Chronic) Hypertension (Chronic) Abnormal EKG (Chronic) Medical History? Small bowel obstruction Surgical History? [place] [facility] [place] RE DIVERTICULITIS;DR. Mervat SHAFFER Cholecystectomy (~1969) Extraction of cataract DR. 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 Calzada Social History/Home Situation: Lives alone in an apartment with one-step to enter without rails.? Has worked at [employer] for over 39 years now.? Independent with all aspects of ADLs without the use of an assistive ambulatory device nor adaptive equipment prior to surgery. Equipment Owned/DME: [facility] Subjective: Denies blurry vision, burning/sensation of increased heat in chest and both upper extremties, and headache. States that speech is at baseline. Son and patient want HEP that patient can safely do at home and can help maintain strength while improving balance. Objective: General Observation: Seated at edge of bed. Son present during PT evalaution. IV access through R brachium. Mental Status: Alert and oriented x 4 Pain: Denies ROM: Right Upper Extremity: ? Shoulder Flexion WFL. Shoulder abduction WFL. Elbow flexion WFL. Wrist flexion WFL. Opening and closing of hand WFL. Left Upper Extremity:? Shoulder Flexion WFL. Shoulder abduction WFL. Elbow flexion WFL. Wrist flexion WFL. Opening and closing of hand WFL. Right Lower Extremity: Hip flexion WFL. Hip abduction WFL. Knee flexion WFL. Ankle dorsiflexion WFL. Ankle plantarflexion WFL. Left Lower Extremity: Hip flexion WFL. Hip abduction WFL. Knee flexion 10 degrees to 95 degrees.? Knee extension -10 degrees.? Ankle dorsiflexion WFL. Ankle plantarflexion WFL. Strength: Right Upper Extremity: Shoulder flexors 4/5. Shoulder abductors 4/5. Elbow flexors 5/5. Elbow extensors 5/5. [employer] strong. Left Upper Extremity: Shoulder flexors 4/5. Shoulder abductors 4/5. Elbow flexors 5/5. Elbow extensors 5/5. [employer] strong. Right Lower Extremity: Hip flexors 4/5. Hip abductors 5/5. Knee flexors 5/5. Knee extensors 5/5. Ankle dorsiflexors 5/5. Ankle plantarflexors 5/5. Left Lower Extremity: Hip flexors 4/5. Hip abductors 5/5. Knee flexors 5/5. Knee extensors 5/5. Ankle dorsiflexors 5/5. Ankle plantarflexors 5/5. Sensation: Intact as to pain and pressure on bilateral lower extremities. Denies feeling of increased heat in her arms and chest as she did on admission. Bed Mobility/Transfers: Supine to sit independent Sit to stand independent Stand to sit independent Bed to chair independent Chair to bed independent Gait: No assistive device for 300 feet with supervision. No path deviation. Did need to slow down and hold onto wall around corners. Balance: Static Sitting: Normal Dynamic Sitting: Normal Static Standing: Good Dynamic Standing: Fair Special Tests: Mobility Limitations Standardized Measure [facility] 6 clicks Basic Mobility Inpatient Short Form: Raw Score: 24 ? CMS Score: 0% deficit? ? NEURO: Pronator drift: Negative Facial asymmetry: Negative 30-second chair rise: 12x with arms across chest with mild transient SOB 4-stage Balance test: Able to maintain 10 seconds with feet together and semi-tandem. Did not feel safe doing full tandem and one-legged stance. Informed Consent/Education:? Patient instructed in purpose of PT consult and plan of care. Assessment: UE/LE strength symmetric. No headache, blurrinesss of vision, and sensory changes observed nor reported throughout session. Will benefit from HEP to mainatin/improve strength and balance. Will plan to train and send HEP with patient before discharge from PT. Patient presents with clinical signs and symptoms consistent with current/admitting diagnoses that have resulted to mobility limitations, gait instability, generalized weakness, and impairment of motor control as demonstrated by the following impairment level findings: 1.? Impaired standing balance Impairments are contributing to the following functional limitations:12.? Increase completion time for mobility ADL performance 1.? Increased fall risk Patient is assessed as a [id number] moderate complexity based on the following: History: 77-year-old female with impairment level findings, functional limitations, and past medical history as indicated above Examination: Demonstrable impairment in balance and mobility level with underlying impairments and functional limitations as documented above Presentation:Evolving Decision Makin moderate complexity Goals: Goals X 1-2 more treatment sessions 1.? Independent with gait on level surface with use of no device for at least 600 feet without report of pain nor dyspnea 2.? Independent with stair negotiation while holding onto bilateral rails for at least 3 steps without report of pain nor dyspnea Plan of Care/Treatment Plan: 1-2 more treatment sessions. Plan of care has been reviewed with the [employer] T[employer]ER providing the service under Physical Therapy direction. Initiate Physical Therapy intervention for strengthening, bed mobility, transfers, gait, stairs, balance training, use of assistive device, and HEP instructions. DISCHARGE RECOMMENDATIONS: Home when medically cleared by orthopedic surgeon.? May go to outpatient for balance re-education through family assistance or through RCT. TREATMENT CODE/TIME: 43300 x 25 minutes, 48081 x 18 minutes beginning at 16:08 PM. Thank you for the opportunity to participate in the care of this patient. Rosi Dixon PT, DPT, CLT [facility] [place], [place]
--- NOTE | 2022-06-16 17:35 | PGE_ITS ---
Date of Service Date of service: 06/16/22 Time of Service: 17:35 Assessment and Plan Assessment and plan (1) Basilar artery stenosis: Status: Acute Assessment and plan: asa 81 mg added crestor will be trialled, she was not tolerant of lipitor in the past but agreeable (2) Hypertensive urgency: Status: Resolved Assessment and plan: continue Lisinopril 2.5 mg with addition of Amlodipine 5 mg daily per recommendation of Dr Gaffney Blood pressures controlled with no headache, no speech issues. (3) AMS (altered mental status): Status: Resolved Assessment and plan: Markedly improved (4) Left bundle branch block: Status: Chronic Assessment and plan: No change in EKG since admission 10d ago Old LLB block. No chest pain No shortness of breath Telemetry (5) Migraines: Status: Chronic Assessment and plan: Seen by neurology and diagnosed with atypical migraine Plan out patient follow up (6) Anxiety: Status: Chronic Assessment and plan: Currently calm, conversant Monitor (7) DVT prophylaxis: Status: Acute Assessment and plan: Enoxaparin 40 mg daily (8) Discharge planning issues: Status: Acute Assessment and plan: Home with no services when stable with follow up w Neurology discussed with DR Mojica Subjective Subjective Patient reports: no new complaints, feels better, tolerating liquids well, mikala ating a regular diet, voiding w/o difficulty and afebrile; denies shortness of breath Exam Const General: cooperative, healthy appearing, comfortable and no acute distress Nutritional Appearance: average body habitus Orientation: alert, awake and oriented x3 HENRI Head: normal to inspection, normocephalic and atraumatic Mouth: oral mucosae normal Chest Chest: normal inspection of the chest Resp Effort & Inspection: normal respiratory effort Auscultation: clear to auscultation bilaterally Cardio Rate: regular rate Rhythm: regular rhythm GI Inspection: normal to inspection Palpation: soft and nontender Auscultation: normal bowel sounds Skin General skin exam: no rashes or lesions noted Neuro General: patient alert, patient awake, patient oriented x3 and no focal motor deficits Cranial Nerves: CN's II-XI intact bilaterally Cognition: normal cognition Speech: speech normal Gait: normal gait Motor: muscle tone normal throughout and strength 5/5 throughout Extrem General: normal to inspection, full ROM and edema Objective Last Vital Signs Temp 36.8 C 06/16/22 15:34 Pulse 65 06/16/22 15:34 Resp 16 06/16/22 15:34 BP 107/63 06/16/22 15:34 Pulse Ox 97 06/16/22 15:34 Laboratory Results - last 24 hr 06/16/22 06/16/22 06/16/22 05:50 05:50 05:50 WBC 4.47 RBC 4.40 Hgb 12.9 Hct 39.9 MCV 91 MCH 29.3 MCHC 32.3 RDW 13.2 Plt Count 338 MPV 9.2 Immature Gran % 0.0 Neutrophils % 35.8 Lymphocytes % 51.0 Monocytes % 11.6 Eosinophils % 0.9 Basophils % 0.7 Nucleated RBC % 0.0 Absolute Neutrophils 1.60 Absolute Lymphocytes 2.28 Absolute Monocytes 0.52 Absolute Eosinophils 0.04 Absolute Basophils 0.03 Sodium 140 Potassium 4.1 Chloride 105 Carbon Dioxide 27.4 Anion Gap 7.6 BUN 19 H Creatinine 1.0 Est GFR (CKD-EPI 2020) 58.02 Glucose 107 H Hemoglobin A1c 5.9 H Calcium 8.9 Magnesium 2.3 Triglycerides 69 Total Cholesterol 217 H LDL Cholesterol, Calc 151 H HDL Cholesterol 53 TSH 4.55 H Free T4 1.07 Time Spent with Patient Time Spent with Patient: 25-34 minutes Time was spent: preparing to see the patient(eg.review tests), obtaining and/or reviewing separately otained hiistory, referring, communicating with other health hospice care consultant, indepentently interpreting results and care coordination
[2022-06-16] MEDS: Rosuvastatin 10 MG TAB 20 MG PO (20:00)
[2022-06-16] MEDS: Acetaminophen 325 MG TAB 650 MG PO (20:00)
[2022-06-17 00:03] VITALS: PULSE 58
[2022-06-17 03:13] VITALS: BP 117/65; PULSE 61; RESP 17; TEMP 36.7; O2SAT 98
[2022-06-17 07:32] VITALS: PULSE 58
[2022-06-17 07:37] VITALS: BP 113/68; PULSE 58; RESP 19; TEMP 36.3; O2SAT 99
[2022-06-17] MEDS: amLODIPine 5 MG TAB PO (09:09)
[2022-06-17] MEDS: Aspirin E.C. 81 MG TABEC PO (09:09)
[2022-06-17] MEDS: Lisinopril 5 MG TAB 2.5 MG PO (09:09)
[2022-06-17 11:04] VITALS: BP 111/70; PULSE 65; RESP 19; TEMP 36.6; O2SAT 97
--- NOTE | 2022-06-17 12:27 | W.PM.DS.N ---
Date of service: 06/17/22 Time of Service: 12:27 DS: Diagnosis Discharge Diagnosis (1) Basilar artery stenosis: Status: Acute (2) Hypertensive urgency: Status: Resolved (3) AMS (altered mental status): Status: Resolved (4) Left bundle branch block: Status: Chronic (5) Migraines: Status: Chronic (6) Anxiety: Status: Chronic Discharge Plan Disposition Patient Disposition: Home Condition: Stable Discharge Details Reason For Visit: Acute Neurologic Defict, CVA vs Hypertensive Admit Date/Time: 06/15/22 12:13 Admit Provider: Jeannette Gordon Attending Provider: Jeannette Gordon Primary Care Provider: Richy Junior Hospital Course Hospital Course: This is a 77-year-old female patient with past medical history significant for hypertension who presents to the emergency department with initially reports of migraine which she has had in the past but then developed symptoms described as heat through her chest and arms. Also noted to have garbled speech and possibly some confusion. Her work-up in the emergency department included CT imaging followed by a brain MRI. The MRI did demonstrate small vessel ischemic disease but no evidence of acute infarct or intracranial hemorrhage. She was seen by neurology and recommendations for the addition of aspirin for basilar artery stenosis and amlodipine for better blood pressure control and migraine prophylaxis were suggested. She was also started on Crestor. In the past she had been intolerant of atorvastatin complaining of myalgias but stated that was many years ago and she was willing to trial Crestor. She was evaluated by physical therapy and is independent and safe for discharge to home. She has returned to her baseline. Vital signs have been stable and blood pressure controlled in the 1 teens over 60s. She will follow-up outpatient with her primary care provider. Discharge to home by private vehicle with no services Discharge discussed with Dr. Mojica Home Meds and New Rx's Prescriptions: New amlodipine 5 mg Tablet 5 mg PO DAILY Qty: 30 0RF aspirin 81 mg Tablet,Delayed Release (Dr/Ec) 81 mg PO DAILY Qty: 30 0RF sertraline 50 mg tablet 50 mg PO HS Qty: 1 0RF rosuvastatin 20 mg tablet 20 mg PO QPM Qty: 30 0RF Continued lisinopril 2.5 mg tablet 2.5 mg PO DAILY Qty: 90 3RF acetaminophen 325 mg Tablet 650 mg PO Q4H PRN PRNQty: 0 0RF Discharge Instructions Instructions: Migraine Headache (ED), Hypertension (DC) Additional Instructions: resume your sertraline (zoloft) as previously directed. It is listed as an new medication but you have filled this prescription in May 2022. Stand Alone Forms: Nursing Discharge Form Referrals: Richy Junior, [employer] [Primary Care Provider] - (Please keep your appointment you already have set up.) Activity:: Activity as Tolerated Equipment/Supplies:: No Equipment Needed Diet:: As Tolerated Discharge Orders Discharge Orders: Discharge Order (Routine); Ordered 06/17/22 Ordered By: Nancy Montiel Discharge Data Discharge Date/Time-TO BE ENTERED AT DEPARTURE: 06/17/22 14:20 DS: Summary Time Spent with Patient providing and/or coordinating discharge services: Greater than 30 minutes Status at Discharge Functional status at discharge: independent ambulation Overall status at discharge: patient is back to baseline Mental Status: mental status grossly normal Speech and Movement: speech and movement normal Mood: congruent mood Affect: normal affect Exam Const General: cooperative, healthy appearing, comfortable and no acute distress Nutritional Appearance: average body habitus Orientation: alert, awake and oriented x3 HENMT Head: normal to inspection, normocephalic and atraumatic Mouth: oral mucosae normal Chest Chest: normal inspection of the chest Resp Effort & Inspection: normal respiratory effort Auscultation: clear to auscultation bilaterally Cardio Rate: regular rate Rhythm: regular rhythm GI Inspection: normal to inspection Palpation: soft and nontender Auscultation: normal bowel sounds Skin General skin exam: no rashes or lesions noted Neuro General: patient alert, patient awake, patient oriented x3 and no focal motor deficits Cranial Nerves: CN's II-XI intact bilaterally Cognition: normal cognition Speech: speech normal Gait: normal gait Motor: muscle tone normal throughout and strength 5/5 throughout Extrem General: normal to inspection, full ROM and edema Psych Mental Status: mental status grossly normal Speech and Movement: speech and movement normal Mood: congruent mood Affect: normal affect DS: Data Vitals/I&O Vitals and I&O: Vital Signs Temperature 36.6 C 06/17/22 11:04 Temperature Source Tympanic 06/17/22 11:04 Pulse 65 06/17/22 11:04 Pulse Rhythm Regular 06/16/22 20:09 Pulse 69 06/15/22 17:02 Respiratory Rate 19 06/17/22 11:04 Respiratory Effort Non-Labored 06/16/22 20:09 Respiratory Depth Normal 06/16/22 20:09 Respiratory Pattern Normal 06/16/22 20:09 Blood Pressure 111/70 06/17/22 11:04 Blood Pressure Mean 87 06/15/22 17:02 Pulse Oximetry 97 06/17/22 11:04 Oxygen Delivery Method Room Air 06/17/22 11:04 Oxygen Flow Rate 0 06/17/22 11:04 Pain Level 0 06/17/22 11:04 Intake & Output 06/16/22 06/17/22 06/17/22 23:59 11:59 23:59 Intake Total 360 / 360 360 / 360 Balance 360 / 60 360 / 360 Weight 86.9 kg Intake: Oral 360 / 360 360 / 360 Other: Comment pT toliets independently; stated she voided recently Voiding Methods Toilet PFSH All Active Problems (Updated 06/15/22 @ 20:51 by Roopa Gaffney MD) Basilar artery stenosis (Acute) Migraine headache with aura (Acute) Transient neurologic deficit (Acute) Discharge planning issues (Acute) DVT prophylaxis (Acute) Light-headed feeling (Acute) Left bundle branch block (Chronic) Hyperpigmented skin lesion (Acute) History of total left knee replacement (Acute 06/25/20) Follow up (Acute) Chronic back pain (Chronic) Migraines (Chronic) Pre-diabetes (Chronic) Anxiety (Chronic) Diverticular disease (Chronic) A. Sigmoid resection Left knee DJD (Chronic) Hypertension (Chronic) Abnormal EKG (Chronic) Medical History Small bowel obstruction Surgical History Back Surgery (~1988) [facility] [place] Bowel Resection (~2002) RE DIVERTICULITIS;DR. Mervat SHAFFER Cholecystectomy (~1969) Extraction of cataract DR. 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 Calzada Family History Mother , 88 Essential hypertension CHF (congestive heart failure) Stroke Father , 70 CHF (congestive heart failure) Brother , 60 Neoplasm multiple mylenoma; acute renal failure Brother No problems noted. 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;1ST COUSIN-COLON; Grandmother Stroke Son No problems noted. Son No problems noted. Son No problems noted. Son No problems noted. Son No problems noted. Social History Smoking/Tobacco Use Status: Never Smoking risk assessment performed?: Yes Alcohol Intake: current Alcohol Intake frequency: a few times a month Alcohol type: beer, wine and hard liquor Drug use: Never Substance use type: does not use Caregiver/Support person: No Housing: apartment Communication Needs: None Do you need help understanding health information?: Never current occupation: [employer] Pets and animals: No Do you think of yourself as: straight/heterosexual Current gender identity: female What is your relationship status?: Do you belong to any clubs or organized social groups?: yes Panel score (0-1 are the most socially isolated patients): 1 What type of physical activity do you participate in: walking Duration: 30-45 minutes/day Frequency: 3-4 times per week Maribel/Christianity: Quaker Special maribel needs: Yes Seatbelt use: always Drive intox or ride w/intox 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
--- NOTE | 2022-06-17 12:33 | PT.INTREAT ---
Date of service: 06/17/22 Time of Service: 08:30 PT Notes Visit Reasons: Acute Neurologic Defict, CVA vs Hypertensive Inpatient Physical Therapy Treatment Note [facility] Date: 06/17/2022 PRECAUTIONS: Activity as tolerated, Fall SUBJECTIVE: Sherlyn is pleasant and agreeable to participating in PT. She reports that she is feeling better today. OBJECTIVE: PAIN: No c/o pain BED MOBILITY/TRANSFERS Sit-stand: I Stand-sit: I GAIT Assistive Device: No AD Weight bearing: Full Assist: S Distance: 250' Deviation: Gait unremarkable THEREX: Patient was issued and instructed in a global strengthening and light neuro re-ed program, to include: unsupported heel raises, unsupported functional [id number], unsupported mini lunges, unsupported mini squats, and supine bridging. STAIRS: Up/down 3x4 and 2x6 using B rails and a step-over pattern independently. ASSESSMENT: Patient tolerated session well, without complaint. She demonstrates steady gait and pacing without use of assistive device support. PLAN: Patient to discharge to home later today, per provider. Recommend follow up with OP PT for balance retraining. TREATMENT CODE/TIME: 25 minutes; [id number], [id number] (08:30)
--- NOTE | 2022-06-17 13:10 | PDOC.CMDIS ---
- If Service Date Differs Date of service: 06/17/22 Time of Service: 13:10 LACE Index Scoring Tool - Questions: Length of Stay (in days): 2 Acuity (Admit via E.D.?): Yes E.D. Visits: 3 - Answers: Total Score: 8 Risk of Readmission: Low Risk Care Management Discharge Reason for Hospitalization: Acute neurological deficit, [id number] Discharge Plan: Sherlyn will return home when ready per MD. She will follow up with her PCP and plan of care as prescribed. She will discharge with outpatient PT orders and neuro follow up. She will transport via private vehicle with family. Patient/Family Education Needs: Review discharge instructions, discuss Ask Me Three.
[2022-06-17 13:53] VITALS: PULSE 70
[2022-06-17] MEDS: Enoxaparin 40 MG/0.4 ML SYR SC (14:04)
--- NOTE | 2022-06-17 18:20 | INDS_ITS ---
PT Notes Visit Reasons: Acute Neurologic Defict, CVA vs Hypertensive Physical Therapy Inpatient Discharge Summary Date: 06/17/2022 Service: 06/16/2022 through 06/17/2022 This is a clinical summary of care provided for the duration of dates listed above. No charge was made in the completion of this documentation. Referring Doctor: Nancy Montiel,? SECURITY SYSTEM INSTALLER PT Orders: PT CONSULT: Eval/Treat Precautions: Fall. Standard.? Activity as tolerated Patient Profile/Admitting Diagnosis: Sherlyn is a 77-year-old female who presented to the ED on 06/15/2022 due to difficulty with speech, headache, chest discomfort, and blurry vision.? Patient was admitted to the Medr unit for management and continued monitoring of transient neurologic deficit, expressive aphasia (resolved), migraine headache with aura, hypertensive urgency (resolved), altered mental status (resolved), basilar artery stenosis, and hypertensive urgency.? PMHX: All Active Problems?(Updated 06/15/22 @ 19:56 by Kylee García NP) Discharge planning issues (Acute) DVT prophylaxis (Acute) Light-headed feeling (Acute) Left bundle branch block (Chronic) Hyperpigmented skin lesion (Acute) History of total left knee replacement (Acute 06/25/20) Follow up (Acute) Chronic back pain (Chronic) Migraines (Chronic) Pre-diabetes (Chronic) Anxiety (Chronic) Diverticular disease (Chronic) A.? Sigmoid resectionLeft knee DJD (Chronic) Hypertension (Chronic) Abnormal EKG (Chronic) Medical History? Small bowel obstruction Surgical History? [facility] [place] RE DIVERTICULITIS;DR. Mervat SHAFFER Cholecystectomy (~1969) Extraction of cataract DR. 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 Calzada Social History/Home Situation: Lives alone in an apartment with one-step to enter without rails.? Has worked at [employer] for over 39 years now.? Independent with all aspects of ADLs without the use of an assistive ambulatory device nor adaptive equipment prior to surgery. Equipment Owned/DME: [facility] Subjective: Denies blurry vision,? burning/sensation of increased heat in chest and both upper extremties,? and headache. ? States that speech is at baseline.? Son and patient want HEP that patient can safely do at home and can help maintain strength while improving balance. Objective: General Observation: Seated at edge of bed.? Son present during PT evalaution.? IV access through R brachium. Mental Status: Alert and oriented x 4 Pain: Denies ROM: Right Upper Extremity: ? Shoulder Flexion WFL. Shoulder abduction WFL. Elbow flexion WFL. Wrist flexion WFL. Opening and closing of hand WFL. Left Upper Extremity:? Shoulder Flexion WFL. Shoulder abduction WFL. Elbow flexion WFL. Wrist flexion WFL. Opening and closing of hand WFL. Right Lower Extremity: Hip flexion WFL. Hip abduction WFL. Knee flexion WFL. Ankle dorsiflexion WFL. Ankle plantarflexion WFL. Left Lower Extremity: Hip flexion WFL. Hip abduction WFL. Knee flexion 10 degrees to 95 degrees.? Knee extension -10 degrees.? Ankle dorsiflexion WFL. Ankle plantarflexion WFL. Strength: Right Upper Extremity: Shoulder flexors 4/5. Shoulder abductors 4/5. Elbow flexors 5/5. Elbow extensors 5/5. 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 Left Upper Extremity: Shoulder flexors 4/5. Shoulder abductors 4/5. Elbow flexors 5/5. Elbow extensors 5/5. 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 Right Lower Extremity: Hip flexors 4/5. Hip abductors 5/5. Knee flexors 5/5. Knee extensors 5/5. Ankle dorsiflexors 5/5. Ankle plantarflexors 5/5. Left Lower Extremity: Hip flexors 4/5. Hip abductors 5/5. Knee flexors 5/5. Knee extensors 5/5. Ankle dorsiflexors 5/5. Ankle plantarflexors 5/5. Sensation: Intact as to pain and pressure on bilateral lower extremities.? Denies feeling of increased heat in her arms and chest as she did on admission. BED MOBILITY/TRANSFERS? Sit-stand: I? Stand-sit: I? GAIT? Assistive Device: No AD? Weight bearing: Full Assist: S? Distance:? 250'? Deviation: Gait unremarkable? THEREX: Patient was issued and instructed in a global strengthening and light neuro re- ed program, to include: unsupported heel raises, unsupported functional [id number], unsupported mini lunges, unsupported mini squats, and supine bridging.? ? ? STAIRS: Up/down 3x4 and 2x6 using B rails and a step-over pattern independently.? Balance: Static Sitting: Normal Dynamic Sitting: Normal Static Standing: Good Dynamic Standing: Fair Special Tests: Mobility Limitations Standardized Measure [facility]-PAC 6 clicks Basic Mobility Inpatient Short Form: Raw Score: 24 ? CMS Score: 0% deficit? ? NEURO: Pronator drift: Negative Facial asymmetry: Negative 30-second chair rise: 12x? with arms across chest with mild transient SOB 4-stage Balance test: Able to maintain 10 seconds with feet together and semi- tandem.? Did not feel safe doing full tandem and one-legged stance. Assessment: UE/LE strength symmetric.? No headache,? blurrinesss of vision,? and sensory changes observed nor reported throughout session.? Will benefit from HEP to mainatin/improve strength and balance.? Will plan to train and send HEP with patient before discharge from PT. Patient presents with clinical signs and symptoms consistent with current /admitting diagnoses that have resulted to mobility limitations, gait instability, generalized weakness, and impairment of motor control as demonstrated by the following impairment level findings: 1.? Impaired standing balance Impairments are contributing to the following functional limitations:12.? Increase completion time for mobility ADL performance 1.? Increased fall risk Goals: Goals X 1-2 more treatment sessions 1.? Independent with gait on level surface with use of no device for at least 600 feet without report of pain nor dyspnea NOT MET 2.? Independent with stair negotiation while holding onto bilateral rails for at least 3 steps without report of pain nor dyspnea NOT MET DISCHARGE RECOMMENDATIONS: Home when medically cleared by orthopedic surgeon.? May go to outpatient for zaid zaragoza re-education through family assistance or through RCT. TREATMENT CODE/TIME: HI Thank you for the opportunity to participate in the care of this patient. Rosi Dixon PT, DPT, CLT [facility] [place], [place]
== END 2022-06-17 14:20 | disposition home or self-care (01) | DRG 305 ==
LOC: ER 12:33 → ICU 14:43 → MS 17:19
PROVIDERS: Admitting Provider Internal Medicine; Emergency Provider Student in an Organized Health Care Education/Training Program; PCP Nurse Practitioner Family; Visit Provider Internal Medicine
DX: R47.01 Aphasia; I16.0 Hypertensive urgency; I67.4 Hypertensive encephalopathy; G43.109 Migraine with aura, not intractable, without status migrainosus; I10 Essential (primary) hypertension; I65.1 Occlusion and stenosis of basilar artery; I44.7 Left bundle-branch block, unspecified; F41.9 Anxiety disorder, unspecified; M54.9 Dorsalgia, unspecified; G89.29 Other chronic pain; R73.03 Prediabetes; Z96.652 Presence of left artificial knee joint
CPT/HCPCS: 36415; 36416; 80048; 80053; 80061; 82962; 87635; 93005; 97110; 97162; 97530; 99223; 99285; J1650; 70450; 70551; 83036; 83735; 84439; 84443; 84484; 85025; 85610; 85730; 93010; 99222; 99233; 99239

== ENCOUNTER 2022-06-22 10:16 | Emergency (ER) | payer MEDICARE, BC, SELFPAY ==
[2022-06-22 10:29] VITALS: BP 151/79; PULSE 78; RESP 20; TEMP 36.6; O2SAT 98
--- NOTE | 2022-06-22 10:58 | W.ED.GENAD ---
Discharge Plan Disposition Patient Disposition: Home Condition: Good Discharge Details Clinical Impression: Encounter for medical assessment Primary Care Provider: Richy Junior ED Provider: Hugo Pugh Home Meds and New Rx's Prescriptions: Continued lisinopril 2.5 mg tablet 2.5 mg PO DAILY Qty: 90 3RF acetaminophen 325 mg Tablet 650 mg PO Q4H PRN PRNQty: 0 0RF amlodipine 5 mg Tablet 5 mg PO DAILY Qty: 30 0RF aspirin 81 mg Tablet,Delayed Release (Dr/Ec) 81 mg PO DAILY Qty: 30 0RF sertraline 50 mg tablet 50 mg PO HS Qty: 1 0RF rosuvastatin 20 mg tablet 20 mg PO QPM Qty: 30 0RF Discharge Instructions Additional Instructions: Please follow-up closely with the resources that were provided to you in regards to the contacts and phone numbers for potential placement options. If at any point you have concerns or worry, we are here as a resource to use as needed. If you notice any worsening of your symptoms, or any new symptoms such as vomiting, diarrhea, fever, chills, shortness of breath, chest pain, numbness, weakness, or fainting , please return immediately to the emergency department for reevaluation. Please follow up with your primary care provider as soon as possible for reassessment and reevaluation. As always, it was a pleasure participating in your medical care today. Referrals: Richy Junior, [employer] [Primary Care Provider] - Medical Decision Making 77-year-old female with a past medical history of chronic right side tremor, left bundle branch block, high cholesterol, anxiety, complex migraines, presents today for evaluation. Patient was recently seen admitted and subsequently discharged on 06/17/2022. At that time she had some shaking confusion. She had notably thorough work-up, which included negative CT scan, and MRI that demonstrated some small vessel ischemic disease but no evidence of infarct or hemorrhage, and an EEG that was unremarkable and showed no signs of epileptic activity. He is recently retired and lives alone at home. She states that she has been very nervous at home, she gets very worried about her symptoms, and about 4 or 5 days ago which was shortly after discharge she felt slightly confused then. That was on , all of her symptoms resolved following morning and she has been otherwise at baseline/asymptomatic through today on Wednesday. She denies any other complaints at this time. She states that her goals today are to talk with case management to see if she could get any help for home, or if she would be a candidate for rehab facility as she is concerned that she is causing an undue/unnecessary burden on her family currently. She denies any chest pain, headache, neck pain, fever, shortness of breath, numbness, tingling or weakness. Exam demonstrates a well-appearing female, she has a notable mild continuous tremor on her right for her arm. She states that this is baseline and unchanged. She has a very mild left-sided tremor both with intention and rest, and she states that this has been present for the last 1 to 2 months. No other acute findings on exam, no focal neurologic deficits. No fever. Vital signs are notably stable. We will get a urinalysis to evaluate for any underlying infection which I feel is unlikely. I have reached out to case management and they will discuss the patient's options with the patient. Otherwise the patient appears notably medically stable. I had a long discussion with the patient and family at bedside. They are shared decision-making process we have agreed to hold off on any repeat labs or imaging as there is no current clinical indication. 12:36 PM Patient has been seen and assessed by case management. She has been provided resources for additional outpatient assistance if the patient would like to pursue further. Had a long discussion with the patient regarding her current medical standing. Clinically she looks very well. She does not have any shaking on my most recent assessment here. She shows no signs of tremor, fever, tachycardia, hypoxemia, or neurologic deficit otherwise. I do feel that the patient is stable for discharge. I had a long discussion about this with the patient's son who is at bedside as well. Patient feels comfortable with going home and with plan. Family feels comfortable going home with plan. I do suspect that there is a combination of anxiety, compounded by living alone and having recently retired. I did verbalize this to the patient, but also made clear that there is true medical etiologies that she does have that need continued further maintenance management. She understands this. I have extensively reviewed the treatment plan and discharge instructions with the patient and their family. I have addressed all patient concerns at this time. The patient and family was made aware of what symptoms to monitor for that would warrant a return to the emergency department. Discussed the plan with the patient and family, they demonstrate verbal understanding and agreement with our assessment and plan at this time. The documentation in this chart was dictated using [employer] dictation software. Please excuse any dictation errors. HPI General Date/Time Provider Initiated Documentation: 06/22/22 10:29. HPI Narrative: 77-year-old female with a past medical history of chronic right side tremor, left bundle branch block, high cholesterol, anxiety, complex migraines, presents today for evaluation. Patient was recently seen admitted and subsequently discharged on 06/17/2022. At that time she had some shaking confusion. She had notably thorough work-up, which included negative CT scan, and MRI that demonstrated some small vessel ischemic disease but no evidence of infarct or hemorrhage, and an EEG that was unremarkable and showed no signs of epileptic activity. He is recently retired and lives alone at home. She states that she has been very nervous at home, she gets very worried about her symptoms, and about 4 or 5 days ago which was shortly after discharge she felt slightly confused then. That was on , all of her symptoms resolved following morning and she has been otherwise at baseline/asymptomatic through today on Wednesday. She denies any other complaints at this time. She states that her goals today are to talk with case management to see if she could get any help for home, or if she would be a candidate for rehab facility as she is concerned that she is causing an undue/unnecessary burden on her family currently. She denies any chest pain, headache, neck pain, fever, shortness of breath, numbness, tingling or weakness. Related Data Home Medications Medication Instructions Recorded Confirmed lisinopril 2.5 mg tablet 2.5 mg PO DAILY #90 tabs 01/30/22 06/22/22 acetaminophen 325 mg tablet 650 mg PO Q4H PRN PRN #0 tabs 06/06/22 06/22/22 amlodipine 5 mg tablet 5 mg PO DAILY #30 tabs 06/17/22 06/22/22 aspirin 81 mg tablet,delayed 81 mg PO DAILY #30 tabs 06/17/22 06/22/22 release rosuvastatin 20 mg tablet 20 mg PO QPM #30 tabs 06/17/22 sertraline 50 mg tablet 50 mg PO HS #1 tab 06/17/22 06/22/22 Previous Rx's Medication Instructions Recorded lisinopril 2.5 mg tablet 2.5 mg PO DAILY #90 tabs 01/30/22 acetaminophen 325 mg tablet 650 mg PO Q4H PRN PRN #0 tabs 06/06/22 amlodipine 5 mg tablet 5 mg PO DAILY #30 tabs 06/17/22 aspirin 81 mg tablet,delayed 81 mg PO DAILY #30 tabs 06/17/22 release rosuvastatin 20 mg tablet 20 mg PO QPM #30 tabs 06/17/22 sertraline 50 mg tablet 50 mg PO HS #1 tab 06/17/22 Allergies Allergy/AdvReac Type Severity Reaction Status Date / Time Metronidazole HCl AdvReac Severe NAUSEA,DIAR Verified 06/22/22 10:35 [From Flagyl] LAKEISHA atorvastatin calcium AdvReac Intermediate MUSCLE, Verified 06/22/22 10:35 [From Lipitor] JOINT PAIN meperidine HCl [From Demerol] AdvReac Intermediate Nausea Verified 06/22/22 10:35 Bfxemku-SFD-QzR Reductase AdvReac Intermediate myalgia Verified 06/22/22 10:35 Inhibitor [Zebacnw-Idu-Anw Reductase Inhibitor] General Stated Complaint: Dizzy/Sync ANABELA: 3 Review of Systems All systems reviewed & are unremarkable except as noted in HPI and below PFSH All Active Problems (Updated 06/22/22 @ 12:29 by Hugo Pugh DO) Encounter for medical assessment (Acute) Basilar artery stenosis (Acute) Migraine headache with aura (Acute) Transient neurologic deficit (Acute) Light-headed feeling (Acute) Left bundle branch block (Chronic) Hyperpigmented skin lesion (Acute) History of total left knee replacement (Acute 06/25/20) Follow up (Acute) Chronic back pain (Chronic) Migraines (Chronic) Pre-diabetes (Chronic) Anxiety (Chronic) Diverticular disease (Chronic) A. Sigmoid resection Left knee DJD (Chronic) Hypertension (Chronic) Abnormal EKG (Chronic) Medical History Small bowel obstruction Surgical History Back Surgery (~1988) [facility] Bowel Resection (~2002) RE DIVERTICULITIS;DR. K. EDMUND Cholecystectomy (~1969) Extraction of cataract DR. 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 Calzdaa Family History Mother , 88 Essential hypertension CHF (congestive heart failure) Stroke Father , 70 CHF (congestive heart failure) Brother , 60 Neoplasm multiple mylenoma; acute renal failure Brother No problems noted. 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;1ST COUSIN-COLON; Grandmother Stroke Son No problems noted. Son No problems noted. Son No problems noted. Son No problems noted. Son No problems noted. 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 Pets and animals: No Do you think of yourself as: straight/heterosexual Current gender identity: female What is your relationship status?: Do you belong to any clubs or organized social groups?: yes Panel score (0-1 are the most socially isolated patients): 1 What type of physical activity do you participate in: walking Duration: 30-45 minutes/day Frequency: 3-4 times per week Maribel/Restoration: Druze Special maribel needs: Yes Seatbelt use: always Drive intox or ride w/intox trackless trolley driver: No Do you feel safe at home: Yes (Lives alone) Do you feel safe in your relationship?: Yes Exam Narrative Exam Narrative: 1.Const: Well-nourished, Well-developed, appearing stated age 2.Eyes: PERRL, no conjunctival injection, and symmetrical lids. 3.ENT: Atraumatic external nose and ears. Moist MM. Neck: Symmetric, trachea midline, No thyromegaly. 4.CVS: +S1/S2, No murmurs or gallops. Peripheral pulses 2+ and equal in all extremities. Brisk capillary refill in all extremities. 5.RESP: Unlabored respiratory effort. Clear to auscultation bilaterally. No wheezes rales or rhonchi 6.GI: Soft, Nontender/Nondistended, No hepatosplenomegaly. No guarding or rebound. 7.MSK: Normocephalic/Atraumatic, Extremities w/o deformity or ttp No cyanosis or clubbing, Normal movement of all extremities. Mild constant tremor on the right-hand side both with intention and rest, minimal tremor on the left at rest and with intention. 8.Skin: Warm, Dry. No rashes or lesions. 9.Neuro: medical superintendent II-XII grossly intact. Sensation grossly intact, no focal neurologic deficits. All 6 cardinal planes of vision are fully intact. No evidence of rotatory or vertical nystagmus. The patient demonstrated a normal aaraui-cdxx-tjnvca, good dexterity. There was no evidence of dysdiadochokinesia. Patient was able to ambulate without difficulty. There was no wide-based gait. Romberg testing was normal. Pzws-tp-mqok testing was normal. Sensation was intact bilaterally as well as muscle strength bilaterally for all extremities. Patient was able to verbalize butter cup with no slurring, or miss pronunciation. 10.Psych: (AAO) x3. Appropriate mood and affect Course Vital Signs Vital signs: Vital Signs Temperature 36.6 C 06/22/22 10:29 Pulse 78 06/22/22 10:29 Respiratory Rate 20 06/22/22 10:29 Blood Pressure 151/79 H 06/22/22 10:29 Pulse Oximetry 98 06/22/22 10:29 Temperature 36.6 C 06/22/22 10:29 Temperature Source Tympanic 06/22/22 10:29 Pulse 78 06/22/22 10:29 Respiratory Rate 20 06/22/22 10:29 Blood Pressure 151/79 H 06/22/22 10:29 Blood Pressure Position Sitting 06/22/22 10:29 Pulse Oximetry 98 06/22/22 10:29 Oxygen Delivery Method Room Air 06/22/22 10:29 Oxygen Flow Rate 0 06/22/22 10:29 Pain Level 0 06/22/22 10:29
[2022-06-22 11:01] VITALS: RESP 18
[2022-06-22 11:10] LABS: Bilirubin Negative (Negative); Blood Negative (Negative); Clarity Clear (Clear); Glucose Negative (Negative); Ketones Negative (Negative); Leukocyte Esterase Negative (Negative); Nitrite Negative (Negative); Urobilinogen 0.2 EU/dL (Up TO 0.2)
--- NOTE | 2022-06-22 12:18 | NUR.NOTE ---
Della from Case Management met with patient and gave her phone numbers to call to assist with home care and private nursing resources. She instructed the patient to call her insurance to review coverage. Information communicated with charge nurse to give to Dr. Pugh. KHURRAM
[2022-06-22 12:23] VITALS: BP 150/76; PULSE 59; RESP 18; TEMP 36.4; O2SAT 96
--- NOTE | 2022-06-22 13:21 | PDOC.ERCMPRO ---
- If Service Date Differs Date of service: 06/22/22 Time of Service: 11:20 Care Management Progress Note Sherlyn is interested caregivers at home. Currently her son is helping.CM provided brochures to [employer] [facility]. [facility] referral is also placed from the ED. CM notified CCC/July at [facility] who reports that she also spoke with patient and provided resources earlier in the day. 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
== END 2022-06-22 12:34 | disposition home or self-care (01) ==
PROVIDERS: Emergency Provider Student in an Organized Health Care Education/Training Program; PCP Nurse Practitioner Family
DX: G25.2 Other specified forms of tremor (principal); R41.0 Disorientation, unspecified; F41.9 Anxiety disorder, unspecified
CPT/HCPCS: 99282; 81003; 99283

== ENCOUNTER → 2022-07-27 12:17 | Outpatient (BNVA) | payer MEDICARE, BC, SELFPAY | PROVIDERS: PCP Nurse Practitioner Family; Referring Provider Nurse Practitioner Family; Visit Provider Psychiatry & Neurology Neurology | DX: R29.818 Other symptoms and signs involving the nervous system (principal); G43.109 Migraine with aura, not intractable, without status migrainosus; I65.1 Occlusion and stenosis of basilar artery | CPT/HCPCS: 99214 ==

== ENCOUNTER 2022-09-25 14:54 | Outpatient (REF) | payer MEDICARE, BC, SELFPAY ==
[2022-09-25 21:36] LABS: Bacteria Many HPF (Negative); C & S Indicated? C&S Done As Ordered; Casts 0-2 Hyaline LPF (Negative); Crystals Few Calcium Oxalate HPF (Negative); Epithelial Cells Few HPF (Negative); Mucus Moderate (Negative); WBC >50 HPF (0-5)
== END 2022-09-25 14:55 | disposition home or self-care (01) ==
LOC: LBN 14:54
PROVIDERS: PCP Nurse Practitioner Family; Visit Provider Physician Assistant Medical
DX: R30.0 Dysuria (principal)
CPT/HCPCS: 87077; 81015; 87086; 87186

== ENCOUNTER 2022-12-31 15:19 | Outpatient (REF) | payer MEDICARE, BC, SELFPAY ==
[2022-12-31 15:32] LABS: Bacteria Many HPF (Negative); C & S Indicated? C&S Done As Ordered; Casts Negative LPF (Negative); Crystals Negative HPF (Negative); Epithelial Cells Few HPF (Negative); Mucus Negative (Negative); RBC 0-2 HPF (0-2); WBC 20-50 HPF (0-5)
== END 2022-12-31 15:20 | disposition home or self-care (01) ==
LOC: LBN 15:19
PROVIDERS: PCP Nurse Practitioner Family; Visit Provider Physician Assistant Medical
DX: N39.0 Urinary tract infection, site not specified (principal)
CPT/HCPCS: 81015; 87086

== ENCOUNTER 2023-01-18 11:56 | Outpatient (REF) | payer MEDICARE, BC, SELFPAY ==
[2023-01-19 09:26] LABS: Abs Immature Grans 0.01 10^3/uL (0.0-0.06); Absolute Basophil Count 0.03 10^3/uL (0.0-0.2); Absolute Eosinophil Count 0.04 10^3/uL (0.0-0.7); Absolute Lymphocyte Count 2.25 10^3/uL (1.2-3.4); Absolute Monocyte Count 0.55 10^3/uL (0.1-0.8); Absolute Neutrophil Count 3.12 10^3/uL (1.2-6.7); Basophils % 0.5; Eosinophils % 0.7; HCT 41.7 % (36.0-46.0); HGB 13.5 g/dL (11.2-15.7); Immature Grans % 0.2; Lymphocytes % 37.5; MCH 29.5 pg (27.0-33.0); MCHC 32.4 % (32.0-36.0); MCV 91 fL (80-95); Monocytes % 9.2; Neutrophils % 51.9; Platelet Count 336 10^3/uL (130-400); RBC 4.57 10^6/uL (3.93-5.22); RDW 13.4 % (11.7-14.6); RDW-SD 45.4 fL
[2023-01-19 09:34] LABS: ALT 24 U/L (14-59); AST 21 U/L (15-37); Albumin 3.9 g/dL (3.4-5.0); Alkaline Phosphatase 98 U/L (46-116); Anion Gap 7.3 mmol/L (3-11); BUN 18 mg/dL (7-18); Bilirubin, Total 0.6 mg/dL (0.2-1.0); CO2 28.7 mmol/L (21.0-32.0); Chloride 101 mmol/L (98-107); Estimated GFR 58.02 (mL/min/1.73m2); Glucose 84 mg/dL (74-106); Potassium 4.1 mmol/L (3.5-5.1); Sodium 137 mmol/L (136-145); Total Protein 7.1 g/dL (6.4-8.2)
== END 2023-01-18 11:57 | disposition home or self-care (01) ==
LOC: LBN 11:56
PROVIDERS: PCP Nurse Practitioner Family; Visit Provider Nurse Practitioner Family
DX: R35.0 Frequency of micturition (principal)
CPT/HCPCS: 80053; 85025; 87086

== ENCOUNTER 2023-07-26 08:52 | Outpatient (CLI) | payer MEDICARE, BC, SELFPAY ==
[2023-07-26 16:35] LABS: ALT 22 U/L (14-59); AST 17 U/L (15-37); Albumin 3.9 g/dL (3.4-5.0); Alkaline Phosphatase 105 U/L (46-116); Anion Gap 11.1 mmol/L (3-11); BUN 19 mg/dL (7-18); Bilirubin, Total 0.9 mg/dL (0.2-1.0); CO2 25.9 mmol/L (21.0-32.0); CREATININE 1.1 mg/dL (0.55-1.02); Calcium 9.3 mg/dL (8.5-10.1); Calculated LDL 60 mg/dL (<100); Chloride 106 mmol/L (98-107); Cholesterol 141 mg/dL (<200); Estimated GFR 51.43 (mL/min/1.73m2); Glucose 131 mg/dL (74-106); HDL Cholesterol 65 mg/dL (40-60); Potassium 3.9 mmol/L (3.5-5.1); Sodium 143 mmol/L (136-145); Total Protein 7.4 g/dL (6.4-8.2); Triglyceride 82 mg/dL (<150)
== END 2023-07-26 08:53 | disposition home or self-care (01) ==
LOC: LBO 08:52
PROVIDERS: PCP Nurse Practitioner Family; Visit Provider Nurse Practitioner Family
DX: I10 Essential (primary) hypertension (principal); E78.5 Hyperlipidemia, unspecified
CPT/HCPCS: 36415; 80053; 80061

== ENCOUNTER → 2023-11-04 13:03 | Outpatient (CLI) | payer MEDICARE, BC, SELFPAY ==
--- NOTE | 2023-11-04 12:20 | DI.RAD_ITS ---
Exam(s) XR SHOULDER LT COMPLETE 2+V EXAM: XR SHOULDER LT COMPLETE 2+V CLINICAL HISTORY: PAIN LEFT SHOULDER M25.512. TECHNIQUE: 2D digital imaging was performed of the left shoulder. Five images were obtained. AP, G rashey, Y-view and axillary views were obtained. COMPARISON: No exams were available for comparison FINDINGS: BONES: No acute fracture is present. No bony destructive lesion is seen. There is a small spur at the inferior aspect of the acromion. JOINTS: No dislocation present. The acromioclavicular and glenohumeral joints are well maintained. SOFT TISSUE: Soft tissue calcifications are seen adjacent to the greater tuberosity consistent with c alcific tendinitis. IMPRESSION: Calcific tendinitis. No acute fracture or dislocation. DATA REPOSITORY: RADIATION DOSE DELIVERED:
--- OUTSIDE RECORDS SUMMARY | 2023-11-04 13:06 | XMS_ITS | Continuity of Care Document ---
Author Name Unknown Organization [facility] Ambulatory Clinics Address [address] [place] [address] Care Team Providers Care Bank Vault Attendant Name Role Phone RICHY CLOUD Primary Care Physician [phone] Encounter [facility] NBR [id number] Date(s): 04/29/22 - 04/29/22 [facility] Ambulatory Clinics [address] [place], [place] [address] Encounter Diagnosis Chronic diarrhea(Discharge Diagnosis) - 04/29/22 Fecal incontinence(Discharge Diagnosis) - 04/29/22 Fecal urgency(Discharge Diagnosis) - 04/29/22 Colon cancer screening(Discharge Diagnosis) - 04/29/22 Discharge Disposition: Home or Self Care Attending Physician: Lilliana Pulido APRN Allergies, Adverse Reactions, Alerts Substance Reaction Severity Status Demerol Vomit Moderate Active Flagyl Nausea Moderate Active Lipitor Joint pain Moderate Active Assessment and Plan Future Appointments Functional Status 04/29/22 Other exposure to Infectious Disease Non e Medications colestipol 1 g oral tablet 2 g = 2 tab, Oral, BID, with a full glass of water, # 120 tab, 3 Refill(s), Pharmacy: [facility] #[id number], 155, cm, 04/10/22 16:19:00 EST, Height/Length Dosing, 91, kg, 04/10/22 16:19:00 EST, Weight Dosing Start Date: 04/29/22 Stop Date: 08/27/22 Status: Ordered lisinopril 2.5 mg oral tablet 2.5 mg = 1 tab, Oral, Daily, # 90 tab, 0 Refill(s) Start Date: 03/26/22 Status: Ordered Problem List Condition Confirmation Course Effective Dates Status H ealth Status Informant Chronic diarrhea Confirmed Active Family history of colon cancer Confirmed Active GERD - Gastro-esophageal reflux disease Confirmed Active H/O: migraine Confirmed Active S/P cholecystectomy Confirmed Active Hypertension Confirmed Active Fecal incontinence Confirmed Active Disc disorder Confirmed Active Osteopenia Confirmed Active Colon cancer screening Confirmed Active Sigmoid colectomy Confirmed Active Snoring Confirmed Active Fecal urgency Confirmed Active Procedures Procedure Date Related Diagnosis Body Site Status Colonoscopy Biopsy 1 04/15/22 Comp leted Surgery 2 1988 Completed Cataract surgery Complete d Gallbladder operation Com pleted Knee replacement 3 Comple philippe Resection 4 Completed Tubal ligation Completed 1auto-populated from documented surgical case 2back [id number] 4bowel resection Vital Signs Most recent to oldest [Reference Range]: 1 Temperature Temporal Artery [36-38 Deg C ] 35.6 Deg C *LOW* (04/29/22 10:47 AM) Peripheral Pulse Rate [60-100 bpm] 81 bp m (04/29/22 10:47 AM) Respiratory Rate [12-24 br/min] 20 br/mi n (04/29/22 10:47 AM) Blood Pressure [90-140/60-90 mmHg] 124/8 2mmHg (04/29/22 10:47 AM) Weight 89 kg (04/29/22 10:47 AM) Weight Measured (lbs) 196.211 lb (04/29/22 10:47 AM) [place] Body Weight Calculated 47.8 kg (04/29/22 10:47 AM) Height 154.94 cm (04/29/22 10:47 AM) Height/Length Measured (inches) 61 inch (04/29/22 10:47 AM) BSA Measured 1.96 m2 (04/29/22 10:47 AM) Body Mass Index 37.07 kg/m2 (04/29/22 10:47 AM) Social History Social History Type Response Tobacco Never tobacco user T obacco Use:. Sex Physician Outpatient Note * Lilliana Pulido APRN: PERFORM Event Display: Office Clinic Note Physician Authored Date: [id number] MATT OZUNA :1945 Age:76 years Sex:Female Visit Date:04/29/2022 Primary Care Physician: RICHY CLOUD Chief Complaint follow up colonoscopy History of Present Illness Patient is a 76-year-old female who is referred by Richy Castillo APRN??for diarrhea. ??She is an established patient here today for follow-up of colonoscopy.?? She reports??she began having??infrequent episodes of??diarrhea, urgency and incontinence??approximately 10 years ago after having??several episodes of diverticulitis that resulted in a bowel resection.?? She states??she went for years before having another 1 after the first episode??and then had??4- 5??years until the past??3 to 4 months where she has had 2 episodes per month.?? She denies any abdominal pain. ??Denies any nausea, vomiting,??melena or hematochezia. ??Weight and appetite are stable. ??Denies any pyrosis or dyspepsia.??Denies dysphagia or globus sensation. ??She states she starts out feeling constipated and has a hard bowel movement??and then within an hour she has??large amounts of flatus and passage of soft stool where she is unable to leave the house??as she is unsure??that she will not have an accident.?? These episodes are becoming more frequent??and??preventing her from??being active outside her home.??She has tried Metamucil approximately once a week without relief.?? She has not tried this on a regular basis. ?? She had a cholecystectomy in 1970.?? An approximate 10 years ago had a bowel resection as noted above. ?? 2011 she had a colonoscopy??and advised to follow-up in 10 years.?? This was at [facility].?? No report is available. ?? On 04/15/2022 patient had a colonoscopy showing left-sided??diverticulosis and a??rectosigmoid polyp??that was hyperplastic.?? Random colon biopsies showed no signs of??colitis. ?? She reports she has 1 son had colon cancer the age of 50. ??There??are distant relatives??with colon cancer at the age of 50 as well as pancreatic cancer. Review of Systems Pertinent positives and negatives are discussed in HPI. Physical Exam Vitals & Measurements T:??35.6?C ??(Temporal Artery)?? HR:??81??(Peripheral)?? RR:??20?? BP:??124/82?? SpO2:??97%?? HT:??154.94??cm?? WT:??89??kg?? BMI:??37.07?? BSA:??1.96?? General: Well-nourished well-developed??female??in no acute distress. HEENT: Head is normocephalic, trachea midline, and no cervical lymphadenopathy. Respiratory: Respirations are even and unlabored. ??Lungs are clear to auscultation. Cardiovascular: Regular rate and rhythm with S1 and S2. Abdomen: Positive bowel sounds x4 quadrants, no masses, no guarding, no tenderness. ??No hepatosplenomegaly. ??Abdomen is soft. Skin: Warm, dry, and pink. Neurological: Alert and oriented x3, speech is clear and gait is steady. Psychological: Pleasant, calm and cooperative. Assessment/Plan 1.??Chronic diarrhea??K52.9 Reviewed findings of colonoscopy with patient showing left-sided diverticulosis. ??There was 1 polyp that was hyperplastic.?? Random colon biopsies ruled out??colitis.?? 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 ??Will start colestipol??2 g twice daily. ??We discussed the mechanism of action and side effects. ??I will see patient back in 3 weeks toreassess. ??Advised that i if??she develops constipation to decrease dose.?? Also consider using FiberCon if needed to help??from??her stools.?? She will call in the meantime if she has any problems or concerns. Ordered: colestipol 1 g oral tablet, 2 g = 2 tab, Oral, BID, with a full glass of water, # 120 tab, 3 Refill(s), Pharmacy: [id number], 155, cm, 04/10/22 16:19:00 EST, Height/Length Dosing, 91, kg, 04/10/22 16:19:00 EST, Weight Dosing Follow-up Appointment Request [email or web address], *Est. 05/27/22 +/- 4 days, Future Order, chronic diarrhea, In Approximately, [facility] ?? 2.??Fecal incontinence??R15.9 As above. ??If does not improved she has formed stools will consider??anorectal manometry and/or??pelvic floor PT. Ordered: colestipol 1 g oral tablet, 2 g = 2 tab, Oral, BID, with a full glass of water, # 120 tab, 3 Refill(s), Pharmacy: [facility] #[id number], 155, cm, 04/10/22 16:19:00 EST, Height/Length Dosing, 91, kg, 04/10/22 16:19:00 EST, Weight Dosing Follow-up Appointment Request [email or web address], *Est. 05/27/22 +/- 4 days, Future Order, chronic diarrhea, In Approximately, [facility] ?? 3.??Fecal urgency??R15.2 As above. Ordered: colestipol 1 g oral tablet, 2 g = 2 tab, Oral, BID, with a full glass of water, # 120 tab, 3 Refill(s), Pharmacy: [id number], 155, cm, 04/10/22 16:19:00 EST, Height/Length Dosing, 91, kg, 04/10/22 16:19:00 EST, Weight Dosing Follow-up Appointment Request [email or web address], *Est. 05/27/22 +/- 4 days, Future Order, chronic diarrhea, In Approximately, [facility] ?? 4.??Colon cancer screening??Z12.11 She will be due in 5 years in 2026 for colonoscopy for colon??cancer screening, she will be 81 at that time.?? Advised she should??a discussion??at that point in regards to her??health??status and risk factors in regards to repeating colonoscopy. Ordered: colestipol 1 g oral tablet, 2 g = 2 tab, Oral, BID, with a full glass of water, # 120 tab, 3 Refill(s), Pharmacy: [id number], 155, cm, 04/10/22 16:19:00 EST, Height/Length Dosing, 91, kg, 04/10/22 16:19:00 EST, Weight Dosing Follow-up Appointment Request [email or web address], *Est. 05/27/22 +/- 4 days, Future Order, chronic diarrhea, In Approximately, [facility] ?? Voice recognition software utilized which may result in minor renewable energy division manager error. Problem List/Past Medical History Ongoing Chronic diarrhea Colon cancer screening Disc disorder Family history of colon cancer Fecal incontinence Fecal urgency GERD - Gastro-esophageal reflux disease H/O: migraine Hypertension Osteopenia S/P cholecystectomy Sigmoid colectomy Snoring Historical No qualifying data Procedure/Surgical History ???Colonoscopy Biopsy (04/15/2022)???Surgery (1988)???Cataract surgery???Gallbladder operation???Knee replacement???Resection???Tubal ligation Medications colestipol 1 g oral tablet, 2 g= 2 tab, Oral, BID, 3 refills lisinopril 2.5 mg oral tablet, 2.5 mg= 1 tab, Oral, Daily Allergies Demerol??(Vomit) Flagyl??(Nausea) Lipitor??(Joint pain) Social History Alcohol Current, 1-2 times per month Electronic Cigarette/Vaping Electronic Cigarette Use: Never. Substance Use Never Tobacco Never tobacco user Tobacco Use:. Family History Cancer of ovary: Son. Congestive heart failure: Mother and Father. Prostate cancer: Son. Family Member(s): ?? FATHER, at age: Unknown. Cause of : Family Member(s): ?? MOTHER, at age: Unknown. Cause of : Family Member(s): ?? BROTHER, at age: Unknown. Cause of : Electronically Signed on 04/29/22 11:10 AM Lilliana Pulido APRN Patient Care team information Personnel Name: RICHY CLOUD Address: Address: [address] [place] [id number] [place] [address]
--- OUTSIDE RECORDS SUMMARY | 2023-11-04 13:06 | XMS_ITS | Continuity of Care Document ---
Author Name Unknown Organization [facility] Ambulatory Clinics Address [address] [place] [address] Care Team Providers Care Value Analyst Name Role Phone RICHY CLOUD Primary Care Physician [phone] Encounter [facility] NBR [id number] Date(s): 05/15/22 - 05/15/22 [facility] Ambulatory Clinics [address] [place], [place] [address] Encounter Diagnosis Chronic diarrhea(Discharge Diagnosis) - 05/15/22 Discharge Disposition: Home or Self Care Attending Physician: Lilliana Pulido APRN Allergies, Adverse Reactions, Alerts Substance Reaction Severity Status Demerol Vomit Moderate Active Flagyl Nausea Moderate Active Lipitor Joint pain Moderate Active Functional Status 05/15/22 Other exposure to Infectious Disease Non e Medications lisinopril 2.5 mg oral tablet 2.5 mg [...] Completed 1auto-populated from documented surgical case 2back [id number] 4bowel resection Vital Signs Most recent to oldest [Reference Range]: 1 Temperature Temporal Artery [36-38 Deg C ] 36.0 Deg C (05/15/22 10:28 AM) Peripheral Pulse Rate [60-100 bpm] 67 bp m (05/15/22 10:28 AM) Respiratory Rate [12-24 br/min] 20 br/mi n (05/15/22 10:28 AM) Blood Pressure [90-140/60-90 mmHg] 130/8 4mmHg (05/15/22 10:28 AM) Weight 89.2 kg (05/15/22 10:28 AM) Weight Measured (lbs) 196.652 lb (05/15/22 10:28 AM) [place] Body Weight Calculated 50.1 kg (05/15/22 10:28 AM) Height 157.48 cm (05/15/22 10:28 AM) Height/Length Measured (inches) 62 inch (05/15/22 10:28 AM) BSA Measured 1.98 m2 (05/15/22 10: AM) Body Mass Index 35.97 kg/m2 (05/15/22 10:28 AM) Social History Social History Type Response Tobacco Never tobacco user T obacco Use:. Sex Physician Outpatient Note * Lilliana Pulido APRN: PERFORM Event Display: Office Clinic Note Physician Authored Date: [id number] MATT OZUNA :1945 Age:76 years Sex:Female Visit Date:05/15/2022 Primary Care Physician: RICHY CLOUD Chief Complaint Follow-up diarrhea History of Present Illness Patient is a 76-year-old female who is referred by Richy Castillo APRN??for diarrhea. ??She is an established patient here today for follow-up of chronic diarrhea.?? In the past she reported??she began having??infrequent episodes of??diarrhea, urgency and incontinence??approximately 10 years ago after having??several episodes of diverticulitis that resulted in a bowel resection.?? She states??she went for years before having another 1 after the first episode??and then had??4-5??years until thepast??3 to 4 months where she has had 2 episodes per month.?? She denies any abdominal pain. ??Denies any nausea, vomiting,??melena or hematochezia. ??Weight and appetite are stable. ??Denies any pyrosis or dyspepsia. ??Denies dysphagia or globus sensation. ??She states she starts out feeling constipated and has a hard bowel movement??and then within an hour she has??large amounts of flatus and passage of soft stool where she is unable to leave the house??as she is unsure??that she will not have an accident.?? These episodes are becoming more frequent??and??preventing her from??being active outside her home.?? She has tried Metamucil approximately once a week without relief.?? She has not tried this on a regular basis. ?? At last visit she was started on colestipol??2 g twice daily.?? She states she started to take and after 4 days developed??constipation even with 1 tablet??daily.?? She had abdominal??pain. ??She hashad no further issues with constipation??or diarrhea since stopping the medication. ??She has had no episodes of incontinence.?? Denies any melena or hematochezia. ??Feels well. ?? She had a cholecystectomy in 1970.?? An approximate 10 years ago had a bowel resection as noted above. ?? 2012 she had a colonoscopy??and advised to follow-up in 10 years.?? This was at [facility].?? No report is available. ?? On 04/15/2022 patient had a colonoscopy showing left-sided??diverticulosis and a??rectosigmoid polyp??that was hyperplastic.?? Random colon biopsies showed no signs of??colitis. ?? Celiac testing has??been negative. ?? She reports she has 1 son had colon cancer the age of 50. ??There??are distant relatives??with colon cancer at the age of 50 as well as pancreatic cancer. Review of Systems Pertinent positives and negatives are discussed in HPI. Physical Exam Vitals & Measurements T:??36.0?C ??(Temporal Artery)?? HR:??67??(Peripheral)?? RR:??20?? BP:??130/84?? SpO2:??96%?? HT:??157.48??cm?? WT:??89.2??kg?? BMI:??35.97?? BSA:??1.98?? General: Well-nourished well-developed??female??in no acute distress. HEENT: [...] Pleasant, calm and cooperative. Assessment/Plan 1.??Chronic diarrhea??K52.9 States her diarrhea and incontinence have resolved. ??She gave trial of colestipol??1 g daily for 4days and then developed constipation and abdominal pain.?? Advised to continue to avoid??colestipolat this time.?? Recommend continuation of a high-fiber diet.?? We discussed follow-up which she would prefer to follow-up on an as-needed basis. ??She is advised to call if she has any problems or concerns.?? She is due in 5 years for colonoscopy for colon cancer screening. Voice recognition software utilized which may result in minor brick molder hand error. Problem List/Past Medical History Ongoing Chronic diarrhea Colon cancer screening Disc disorder Family history of colon cancer Fecal incontinence Fecal urgency GERD - Gastro-esophageal reflux disease H/O: migraine Hypertension Osteopenia S/P cholecystectomy Sigmoid colectomy Snoring Historical No qualifying data Procedure/Surgical History ???Colonoscopy Biopsy (04/15/2022)???Surgery (1988)???Cataract surgery???Gallbladder operation???Knee replacement???Resection???Tubal ligation Medications lisinopril 2.5 mg oral tablet, 2.5 mg= [...] Unknown. Cause of : Electronically Signed on 05/15/22 10:53 AM Lilliana Pulido APRN Patient Care team information Personnel Name: RICHY CLOUD Address: Address: [address] [place] [phone]
--- OUTSIDE RECORDS SUMMARY | 2023-11-04 13:06 | XMS_ITS | Continuity of Care Document ---
Author Name Unknown Organization [facility] Address [address] [place] [address] Care Team Providers Care Clinical Information Systems Director Name Role Phone ALIE CLOUD Primary Care Physician [phone] Encounter [facility] FIN NBR [id number] Date(s): 04/15/22 - 04/15/22 [facility] [address] [place], [place] [address] Encounter Diagnosis Chronic diarrhea(Discharge Diagnosis) - 04/15/22 Family history of colon cancer(Discharge Diagnosis) - 04/15/22 Discharge Disposition: Home or Self Care Attending Physician: Darrius Jurado MD Admitting Physician: Darrius Jurado MD Allergies, Adverse Reactions, Alerts Substance Reaction Severity Status Demerol Vomit Moderate Active Flagyl Nausea Moderate Active Lipitor Joint pain Moderate Active Assessment and Plan Future Appointments Diagnostic Tests Pending * Celiac Disease Comprehensive 04/15/22 Functional Status 04/15/22 ADLs Independent Other exposure to Infectious Disease Non e Medications lisinopril 2.5 mg oral tablet 2.5 mg = 1 tab, Oral, Daily, # 90 tab, 0 Refill(s) Start Date: 03/26/22 Status: Ordered Problem List Condition Confirmation Course Effective Dates Status H ealt Status Informant Chronic diarrhea Confirmed Active Family history of colon cancer Confirmed Active GERD - Gastro-esophageal reflux disease Confirmed Active H/O: migraine Confirmed Active S/P cholecystectomy Confirmed Active Hypertension Confirmed Active Fecal incontinence Confirmed Active Disc disorder Confirmed Active Osteopenia Confirmed Active Sigmoid colectomy Confirmed Active Snoring Confirmed Active Fecal urgency Confirmed Active Procedures Procedure Date Related Diagnosis Body Site Status Colonoscopy Biopsy 1 04/15/22 Comp leted Surgery 2 1988 Completed Cataract surgery Complete d Gallbladder operation Com pleted Knee replacement 3 Comple philippe Resection 4 Completed Tubal ligation Completed 1auto-populated from documented surgical case 2back [id number] 4bowel resection Vital Signs Most recent to oldest [Reference Range]: 1 2 3 Temperature Temporal Artery [36-38 Deg C] 36.3 Deg C (04/15/22 12:09 PM) 36.9 Deg C (04/15/22 10:11 AM) Temperature Temporal Artery (DegF) [97.3-100 Deg F] 97.34 Deg F (04/15/22 12:09 PM) Peripheral Pulse Rate [60-100 bpm] 60 bpm (04/15/22 12:50 PM) 61 bpm (04/15/22 12:30 PM) 63 bpm (04/15/22 12:09 PM) Respiratory Rate [12-24 br/min] 18 br/min (04/15/22 12:09 PM) 16 br/min (04/15/22 10:11 AM) Blood Pressure [90-140/60-90 mmHg] 134/70mmHg (04/15/22 12:50 PM) 119/60mmHg (04/15/22 12:30 PM) 75/41mmHg *LOW* (04/15/22 12:09 PM) Mean Arterial Pressure, Cuff [65-140 mmHg] 91 mmHg (04/15/22 12:50 PM) 80 mmHg (04/15/22 12:30 PM) 52 mmHg *<LLOW* (04/15/22 12:09 PM) Mean Arterial Pressure Cuff 89 mmHg (04/15/22 12:50 PM) 78 mmHg (04/15/22 12:30 PM) 52 mmHg (04/15/22 12:09 PM) Weight 91.000 kg (04/10/22 4:11 PM) Weight Dosing 91.000 kg (04/10/22 4:11 PM) Height 155.000 cm (04/10/22 4:11 PM) Height/Length Dosing 155.000 cm (04/10/22 4:11 PM) Social History Social History Type Response Tobacco Never tobacco user T obacco Use:. Sex Hospital Discharge Instructions Patient Education 04/15/2022 11:18:21 Colon Polyps Colon Polyps Colon polyps are tissue growths inside the colon, which is part of the large intestine. They are one of the types of polyps that can grow in the body. A polyp may be a round bump or a mushroom-shapedgrowth. You could have one polyp or more than one. Most colon polyps are noncancerous (benign). However, some colon polyps can become cancerous over time. Finding and removing the polyps early can help prevent this. What are the causes? The exact cause of colon polyps is not known. What increases the risk? The following factors may make you more likely to develop this condition: ??? Having a family history of colorectal cancer or colon polyps. ??? Being older than 45 years of age. ??? Being younger than 45 years of age and having a significant family history of colorectal canceror colon polyps or a genetic condition that puts you at higher risk of getting colon polyps. ??? Having inflammatory bowel disease, such as ulcerative colitis or Crohn's disease. ??? Having certain conditions passed from parent to child (hereditary conditions), such as: ??? Familial adenomatous polyposis (FAP). ??? Bertrand syndrome. ??? Turcot syndrome. ??? Peutz???Jeghers syndrome. ??? MUTYH-associated polyposis (MAP). ??? Being overweight. ??? Certain lifestyle factors. These include smoking cigarettes, drinking too much alcohol, not getting enough exercise, and eating a diet that is high in fat and red meat and low in fiber. ??? Having had childhood cancer that was treated with radiation of the abdomen. What are the signs or symptoms? Many times, there are no symptoms. If you have symptoms, they may include: ??? Blood coming from the rectum during a bowel movement. ??? Blood in the stool (feces). The blood may be bright red or very dark in color. ??? Pain in the abdomen. ??? A change in bowel habits, such as constipation or diarrhea. How is this diagnosed? This condition is diagnosed with a colonoscopy. This is a procedure in which a lighted, flexible scope is inserted into the opening between the buttocks (anus) and then passed into the colon to examine the area. Polyps are sometimes found when a colonoscopy is done as part of routine cancer screening tests. How is this treated? This condition is treated by removing any polyps that are found. Most polyps can be removed during a colonoscopy. Those polyps will then be tested for cancer. Additional treatment may be needed depending on the results of testing. Follow these instructions at home: Eating and drinking ??? Eat foods that are high in fiber, such as fruits, vegetables, and whole grains. ??? Eat foods that are high in calcium and vitamin D, such as milk, cheese, yogurt, eggs, liver, fish, and broccoli. ??? Limit foods that are high in fat, such as fried foods and desserts. ??? Limit the amount of red meat, precooked or cured meat, or other processed meat that you eat, such as hot dogs, sausages, martines, or meat loaves. ??? Limit sugary drinks. Lifestyle ??? Maintain a healthy weight, or lose weight if recommended by your health care provider. ??? Exercise every day or as told by your health care provider. ??? Do not use any products that contain nicotine or tobacco, such as cigarettes, e-cigarettes, andchewing tobacco. If you need help quitting, ask your health care provider. ??? Do not drink alcohol if: ??? Your health care provider tells you not to drink. ??? You are , may be , or are planning to become . ??? If you drink alcohol: ??? Limit how much you use to: ??? 0???1 drink a day for women. ??? 0???2 drinks a day for men. ??? Know how much alcohol is in your drink. In the [place] one drink equals one 12 oz bottle of beer (355 mL), one 5 oz glass of wine (148 mL), or one 1?? oz glass of hard liquor (44 mL). General instructions ??? Take jyuq-qoj-lmpplps and prescription medicines only as told by your health care provider. ??? Keep all follow-up visits. This is important. This includes having regularly scheduled colonoscopies. Talk to your health care provider about when you need a colonoscopy. Contact a health care provider if: ??? You have new or worsening bleeding during a bowel movement. ??? You have new or increased blood in your stool. ??? You have a change in bowel habits. ??? You lose weight for no known reason. Summary ??? Colon polyps are tissue growths inside the colon, which is part of the large intestine. They are one type of polyp that can grow in the body. ??? Most colon polyps are noncancerous (benign), but some can become cancerous over time. ??? This condition is diagnosed with a colonoscopy. ??? This condition is treated by removing any polyps that are found. Most polyps can be removed during a colonoscopy. This information is not intended to replace advice given to you by your health care provider. Make sure you discuss any questions you have with your health care provider. Document Revised: 08/21/2020 Document Reviewed: 08/21/2020 In [employer] Patient Education ?? 2021 [employer]. 04/15/2022 11:18:19 Diverticulosis Diverticulosis Diverticulosis is a condition that develops when small pouches (diverticula) form in the wall of the large intestine (colon). The colon is where water is absorbed and stool (feces) is formed. The pouches form when the inside layer of the colon pushes through weak spots in the outer layers of the colon. You may have a few pouches or many of them. The pouches usually do not cause problems unless they become inflamed or infected. When this happens, the condition is called diverticulitis. What are the causes? The cause of this condition is not known. What increases the risk? The following factors may make you more likely to develop this condition: ??? Being older than age 60. Your risk for this condition increases with age. Diverticulosis is rare among people younger than age 30. By age 80, many people have it. ??? Eating a low-fiber diet. ??? Having frequent constipation. ??? Being overweight. ??? Not getting enough exercise. ??? Smoking. ??? Taking zbwg-ymt-hmwfpwp pain medicines, like aspirin and ibuprofen. ??? Having a family history of diverticulosis. What are the signs or symptoms? In most people, there are no symptoms of this condition. If you do have symptoms, they may include: ??? Bloating. ??? Cramps in the abdomen. ??? Constipation or diarrhea. ??? Pain in the lower left side of the abdomen. How is this diagnosed? Because diverticulosis usually has no symptoms, it is most often diagnosed during an exam for othercolon problems. The condition may be diagnosed by: ??? Using a flexible scope to examine the colon (colonoscopy). ??? Taking an X-ray of the colon after dye has been put into the colon (barium enema). ??? Having a CT scan. How is this treated? You may not need treatment for this condition. Your health care provider may recommend treatment toprevent problems. You may need treatment if you have symptoms or if you previously had diverticulitis. Treatment may include: ??? Eating a high-fiber diet. ??? Taking a fiber supplement. ??? Taking a live bacteria supplement (probiotic). ??? Taking medicine to relax your colon. Follow these instructions at home: Medicines ??? Take qsow-est-wfbabcm and prescription medicines only as told by your health care provider. ??? If told by your health care provider, take a fiber supplement or probiotic. Constipation prevention Your condition may cause constipation. To prevent or treat constipation, you may need to: ??? Drink enough fluid to keep your urine pale yellow. ??? Take mnvw-pso-rfioxuu or prescription medicines. ??? Eat foods that are high in fiber, such as beans, whole grains, and fresh fruits and vegetables. ??? Limit foods that are high in fat and processed sugars, such as fried or sweet foods. General instructions ??? Try not to strain when you have a bowel movement. ??? Keep all follow-up visits as told by your health care provider. This is important. Contact a health care provider if you: ??? Have pain in your abdomen. ??? Have bloating. ??? Have cramps. ??? Have not had a bowel movement in 3 days. Get help right away if: ??? Your pain gets worse. ??? Your bloating becomes very bad. ??? You have a fever or chills, and your symptoms suddenly get worse. ??? You vomit. ??? You have bowel movements that are bloody or black. ??? You have bleeding from your rectum. Summary ??? Diverticulosis is a condition that develops when small pouches (diverticula) form in the wall of the large intestine (colon). ??? You may have a few pouches or many of them. ??? This condition is most often diagnosed during an exam for other colon problems. ??? Treatment may include increasing the fiber in your diet, taking supplements, or taking medicines. This information is not intended to replace advice given to you by your health care provider. Make sure you discuss any questions you have with your health care provider. Document Revised: 11/30/2019 Document Reviewed: 11/30/2019 Elsevier Patient Education ?? 2021 [employer]. 04/15/2022 11:18:18 Colonoscopy, Adult, Care After Colonoscopy, Adult, Care After This sheet gives you information about how to care for yourself after your procedure. Your health care provider may also give you more specific instructions. If you have problems or questions, contact your health care provider. What can I expect after the procedure? After the procedure, it is common to have: ??? A small amount of blood in your stool for 24 hours after the procedure. ??? Some gas. ??? Mild cramping or bloating of your abdomen. Follow these instructions at home: Eating and drinking ??? Drink enough fluid to keep your urine pale yellow. ??? Follow instructions from your health care provider about eating or drinking restrictions. ??? Resume your normal diet as instructed by your health care provider. Avoid heavy or fried foods that are hard to digest. Activity ??? Rest as told by your health care provider. ??? Avoid sitting for a long time without moving. Get up to take short walks every 1???2 hours. This is important to improve blood flow and breathing. Ask for help if you feel weak or unsteady. ??? Return to your normal activities as told by your health care provider. Ask your health care provider what activities are safe for you. Managing cramping and bloating ??? Try walking around when you have cramps or feel bloated. ??? Apply heat to your abdomen as told by your health care provider. Use the heat source that your health care provider recommends, such as a moist heat pack or a heating pad. ??? Place a towel between your skin and the heat source. ??? Leave the heat on for 20???30 minutes. ??? Remove the heat if your skin turns bright red. This is especially important if you are unable to feel pain, heat, or cold. You may have a greater risk of getting burned. General instructions ??? If you were given a sedative during the procedure, it can affect you for several hours. Do not drive or operate machinery until your health care provider says that it is safe. ??? For the first 24 hours after the procedure: ??? Do not sign important documents. ??? Do not drink alcohol. ??? Do your regular daily activities at a slower pace than normal. ??? Eat soft foods that are easy to digest. ??? Take djbh-hwd-pzpnsty and prescription medicines only as told by your health care provider. ??? Keep all follow-up visits as told by your health care provider. This is important. Contact a health care provider if: ??? You have blood in your stool 2???3 days after the procedure. Get help right away if you have: ??? More than a small spotting of blood in your stool. ??? Large blood clots in your stool. ??? Swelling of your abdomen. ??? Nausea or vomiting. ??? A fever. ??? Increasing pain in your abdomen that is not relieved with medicine. Summary ??? After the procedure, it is common to have a small amount of blood in your stool. You may also have mild cramping and bloating of your abdomen. ??? If you were given a sedative during the procedure, it can affect you for several hours. Do not drive or operate machinery until your health care provider says that it is safe. ??? Get help right away if you have a lot of blood in your stool, nausea or vomiting, a fever, or increased pain in your abdomen. This information is not intended to replace advice given to you by your health care provider. Make sure you discuss any questions you have with your health care provider. Document Revised: 04/26/2020 Document Reviewed: 11/27/2019 In [employer] Patient Education ?? 2021 [employer] Discharge instructions * Estrella Harris: PERFORM Event Display: Discharge Instructions Authored Date: [id number] MATT OZUNA :1945 Age:76 years Sex:Female Visit Date:04/15/2022 Primary Care Physician: ALIE CLOUD [facility] Discharge Instructions We would like to thank you for allowing us to assist you with your healthcare needs. The following includes patient education materials and information regarding your injury/illness. After you leave the hospital, you may get your health information including your test results, physician notes and discharge information by accessing your Patient Portal. Your Next Steps Discharge Orders Discharge Patient Instructions, Call with any additional questions or concerns Discharge Patient Instructions, Call or come to emergency department for dizziness Discharge Patient Instructions, Call or come to emergency department chest pain, or shortness of breath Discharge Patient Instructions, Call or come to emergency department for fever greater than 100 ??F Discharge Patient Instructions, You should not be responsible for the care of others Discharge Patient Instructions, Do not sign any contracts, make any major decisions, or drive or operate machinery for 24 hours Discharge Patient Instructions, A light first meal may feel better in your stomach Discharge Patient Instructions, It is important that a responsible adult drive you home today Discharge Patient Instructions, Call or come to emergency department if vomiting blood or having black bowel movements, rectal bleeding or passing blood clots Discharge Patient Instructions, Passing gas rectally and belching is normal Discharge Patient Instructions, Cramping and abdominal bloating should subside in 1 hour or so Discharge Patient Instructions, Call or come to emergency department if having unusual pain or severe abdominal pain Discharge Patient Instructions, You may experience some gas cramps and abdominal bloating Discharge Patient Instructions, Avoid alcohol, tranquilizers, sleeping pills, or cold medicines for24 hours Discharge Patient Instructions, You may resume your normal diet and activity in 24 hours Scheduled Future Appointments Wednesday 11:00 AM EST ?? Medications What How Much When Instructions Next Dose Unchanged lisinopril (lisinopril 2.5 mg oral tablet) 1 tab Oral (given by mouth) Every day Your Summary Your Care Team Admitting Physician - Darrius Jurado MD Attending Physician - Darrius Jurado MD Primary Care Physician - ALIE CLOUD Your Diagnosis Chronic diarrhea Family history of colon cancer Problems Ongoing - Any problem that you are currently receiving treatment for. Chronic diarrhea Disc disorder Family history of colon cancer Fecal incontinence Fecal urgency GERD - Gastro-esophageal reflux disease H/O: migraine Hypertension Osteopenia S/P cholecystectomy Sigmoid colectomy Snoring Procedures Performed ???Colonoscopy Biopsy (04/15/2022) Tests Performed/Pending Celiac Disease Comprehensive LC?-- Results Pending -- You will be contacted within 72 hours with your results. Discharge Vitals Temperature??(Temporal Artery) 98.4 ??F (36.9 ??C) Heart Rate??(Peripheral) 88 Respiratory Rate?? 16 Blood Pressure?? 138/69?? Allergies Demerol??(Vomit) Flagyl??(Nausea) Lipitor??(Joint pain) Education Materials Colon Polyps Colon polyps are tissue growths inside the colon, which is part of the large intestine. They are one of the types of polyps that can grow in the body. A polyp may be a round bump or a mushroom-shapedgrowth. You could have one polyp or more than one. Most colon polyps are noncancerous (benign). However, some colon polyps can become cancerous over time. Finding and removing the polyps early can help prevent this. What are the causes? The exact cause of colon polyps is not known. What increases the risk? The following factors may make you more likely to develop this condition: ? Having a family history of colorectal cancer or colon polyps. ? Being older than 45 years of age. ? Being younger than 45 years of age and having a significant family history of colorectal cancer or colon polyps or a genetic condition that puts you at higher risk of getting colon polyps. ? Having inflammatory bowel disease, such as ulcerative colitis or Crohn's disease. ? Having certain conditions passed from parent to child (hereditary conditions), such as: ? Familial adenomatous polyposis (FAP). ? Bertrand syndrome. ? Turcot syndrome. ? Peutz???Jeghers syndrome. ? MUTYH-associated polyposis (MAP). ? Being overweight. ? Certain lifestyle factors. These include smoking cigarettes, drinking too much alcohol, not gettingenough exercise, and eating a diet that is high in fat and red meat and low in fiber. ? Having had childhood cancer that was treated with radiation of the abdomen. What are the signs or symptoms? Many times, there are no symptoms. If you have symptoms, they may include: ? Blood coming from the rectum during a bowel movement. ? Blood in the stool (feces). The blood may be bright red or very dark in color. ? Pain in the abdomen. ? A change in bowel habits, such as constipation or diarrhea. How is this diagnosed? This condition is diagnosed with a colonoscopy. This is a procedure in which a lighted, flexible scope is inserted into the opening between the buttocks (anus) and then passed into the colon to examine the area. Polyps are sometimes found when a colonoscopy is done as part of routine cancer screening tests. How is this treated? This condition is treated by removing any polyps that are found. Most polyps can be removed during a colonoscopy. Those polyps will then be tested for cancer. Additional treatment may be needed depending on the results of testing. Follow these instructions at home: Eating and drinking ? Eat foods that are high in fiber, such as fruits, vegetables, and whole grains. ? Eat foods that are high in calcium and vitamin D, such as milk, cheese, yogurt, eggs, liver, fish, and broccoli. ? Limit foods that are high in fat, such as fried foods and desserts. ? Limit the amount of red meat, precooked or cured meat, or other processed meat that you eat, such as hot dogs, sausages, martines, or meat loaves. ? Limit sugary drinks. Lifestyle ? Maintain a healthy weight, or lose weight if recommended by your health care provider. ? Exercise every day or as told by your health care provider. ? Do not use any products that contain nicotine or tobacco, such as cigarettes, e- cigarettes, and chewing tobacco. If you need help quitting, ask your health care provider. ? Do not drink alcohol if: ? Your health care provider tells you not to drink. ? You are , may be , or are planning to become . ? If you drink alcohol: ? Limit how much you use to: ? 0???1 drink a day for women. ? 0???2 drinks a day for men. ? Know how much alcohol is in your drink. In the [place] one drink equals one 12 oz bottle of beer (355mL), one 5 oz glass of wine (148 mL), or one 1?? oz glass of hard liquor (44 mL). General instructions ? Take nywv-scu-gpiujjm and prescription medicines only as told by your health care provider. ? Keep all follow-up visits. This is important. This includes having regularly scheduled colonoscopies. Talk to your health care provider about when you need a colonoscopy. Contact a health care provider if: ? You have new or worsening bleeding during a bowel movement. ? You have new or increased blood in your stool. ? You have a change in bowel habits. ? You lose weight for no known reason. Summary ? Colon polyps are tissue growths inside the colon, which is part of the large intestine. They are one type of polyp that can grow in the body. ? Most colon polyps are noncancerous (benign), but some can become cancerous over time. ? This condition is diagnosed with a colonoscopy. ? This condition is treated by removing any polyps that are found. Most polyps can be removed during a colonoscopy. This information is not intended to replace advice given to you by your health care provider. Make sure you discuss any questions you have with your health care provider. Document Revised: 08/21/2020 Document Reviewed: 08/21/2020 [employer] Patient Education ?? 2021 [employer] Diverticulosis Diverticulosis is a condition that develops when small pouches (diverticula) form in the wall of the large intestine (colon). The colon is where water is absorbed and stool (feces) is formed. The pouches form when the inside layer of the colon pushes through weak spots in the outer layers of the colon. You may have a few pouches or many of them. The pouches usually do not cause problems unless they become inflamed or infected. When this happens, the condition is called diverticulitis. What are the causes? The cause of this condition is not known. What increases the risk? The following factors may make you more likely to develop this condition: ? Being older than age 60. Your risk for this condition increases with age. Diverticulosis is rare among people younger than age 30. By age 80, many people have it. ? Eating a low-fiber diet. ? Having frequent constipation. ? Being overweight. ? Not getting enough exercise. ? Smoking. ? Taking ferb-brm-tzlenmm pain medicines, like aspirin and ibuprofen. ? Having a family history of diverticulosis. What are the signs or symptoms? In most people, there are no symptoms of this condition. If you do have symptoms, they may include: ? Bloating. ? Cramps in the abdomen. ? Constipation or diarrhea. ? Pain in the lower left side of the abdomen. How is this diagnosed? Because diverticulosis usually has no symptoms, it is most often diagnosed during an exam for othercolon problems. The condition may be diagnosed by: ? Using a flexible scope to examine the colon (colonoscopy). ? Taking an X-ray of the colon after dye has been put into the colon (barium enema). ? Having a CT scan. How is this treated? You may not need treatment for this condition. Your health care provider may recommend treatment toprevent problems. You may need treatment if you have symptoms or if you previously had diverticulitis. Treatment may include: ? Eating a high-fiber diet. ? Taking a fiber supplement. ? Taking a live bacteria supplement (probiotic). ? Taking medicine to relax your colon. Follow these instructions at home: Medicines ? Take mlfh-zij-wbcutlf and prescription medicines only as told by your health care provider. ? If told by your health care provider, take a fiber supplement or probiotic. Constipation prevention Your condition may cause constipation. To prevent or treat constipation, you may need to: ? Drink enough fluid to keep your urine pale yellow. ? Take ogoa-wcu-ukqhuxv or prescription medicines. ? Eat foods that are high in fiber, such as beans, whole grains, and fresh fruits and vegetables. ? Limit foods that are high in fat and processed sugars, such as fried or sweet foods. General instructions ? Try not to strain when you have a bowel movement. ? Keep all follow-up visits as told by your health care provider. This is important. Contact a health care provider if you: ? Have pain in your abdomen. ? Have bloating. ? Have cramps. ? Have not had a bowel movement in 3 days. Get help right away if: ? Your pain gets worse. ? Your bloating becomes very bad. ? You have a fever or chills, and your symptoms suddenly get worse. ? You vomit. ? You have bowel movements that are bloody or black. ? You have bleeding from your rectum. Summary ? Diverticulosis is a condition that develops when small pouches (diverticula) form in the wall of the large intestine (colon). ? You may have a few pouches or many of them. ? This condition is most often diagnosed during an exam for other colon problems. ? Treatment may include increasing the fiber in your diet, taking supplements, or taking medicines. This information is not intended to replace advice given to you by your health care provider. Make sure you discuss any questions you have with your health care provider. Document Revised: 11/30/2019 Document Reviewed: 11/30/2019 In [employer] Patient Education ?? 2021 [employer]. Colonoscopy, Adult, Care After This sheet gives you information about how to care for yourself after your procedure. Your health care provider may also give you more specific instructions. If you have problems or questions, contact your health care provider. What can I expect after the procedure? After the procedure, it is common to have: ? A small amount of blood in your stool for 24 hours after the procedure. ? Some gas. ? Mild cramping or bloating of your abdomen. Follow these instructions at home: Eating and drinking ? Drink enough fluid to keep your urine pale yellow. ? Follow instructions from your health care provider about eating or drinking restrictions. ? Resume your normal diet as instructed by your health care provider. Avoid heavy or fried foods thatare hard to digest. Activity ? Rest as told by your health care provider. ? Avoid sitting for a long time without moving. Get up to take short walks every 1???2 hours. This isimportant to improve blood flow and breathing. Ask for help if you feel weak or unsteady. ? Return to your normal activities as told by your health care provider. Ask your health care provider what activities are safe for you. Managing cramping and bloating ? Try walking around when you have cramps or feel bloated. ? Apply heat to your abdomen as told by your health care provider. Use the heat source that your health care provider recommends, such as a moist heat pack or a heating pad. ? Place a towel between your skin and the heat source. ? Leave the heat on for 20???30 minutes. ? Remove the heat if your skin turns bright red. This is especially important if you are unable to feel pain, heat, or cold. You may have a greater risk of getting burned. General instructions ? If you were given a sedative during the procedure, it can affect you for several hours. Do not drive or operate machinery until your health care provider says that it is safe. ? For the first 24 hours after the procedure: ? Do not sign important documents. ? Do not drink alcohol. ? Do your regular daily activities at a slower pace than normal. ? Eat soft foods that are easy to digest. ? Take gdad-xof-fdpjehb and prescription medicines only as told by your health care provider. ? Keep all follow-up visits as told by your health care provider. This is important. Contact a health care provider if: ? You have blood in your stool 2???3 days after the procedure. Get help right away if you have: ? More than a small spotting of blood in your stool. ? Large blood clots in your stool. ? Swelling of your abdomen. ? Nausea or vomiting. ? A fever. ? Increasing pain in your abdomen that is not relieved with medicine. Summary ? After the procedure, it is common to have a small amount of blood in your stool. You may also have mild cramping and bloating of your abdomen. ? If you were given a sedative during the procedure, it can affect you for several hours. Do not drive or operate machinery until your health care provider says that it is safe. ? Get help right away if you have a lot of blood in your stool, nausea or vomiting, a fever, or increased pain in your abdomen. This information is not intended to replace advice given to you by your health care provider. Make sure you discuss any questions you have with your health care provider. Document Revised: 04/26/2020 Document Reviewed: 11/27/2019 Else[employer] Patient Education ?? 2021 [employer] Patient Name:MATT OZUNA I have received this information and my questions have been answered. 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 The following includes patient education materials and information regarding your injury/illness. After you leave the hospital, you may get your health information including your test results, physician notes and discharge information by accessing your Patient Portal. Your Next Steps Discharge Orders Discharge Patient Instructions, Call with any additional questions or concerns Discharge Patient Instructions, Call or come to emergency department for dizziness Discharge Patient Instructions, Call or come to emergency department chest pain, or shortness of breath Discharge Patient Instructions, Call or come to emergency department for fever greater than 100 ??F Discharge Patient Instructions, You should not be responsible for the care of others Discharge Patient Instructions, Do not sign any contracts, make any major decisions, or drive or operate machinery for 24 hours Discharge Patient Instructions, A light first meal may feel better in your stomach Discharge Patient Instructions, It is important that a responsible adult drive you home today Discharge Patient Instructions, Call or come to emergency department if vomiting blood or having black bowel movements, rectal bleeding or passing blood clots Discharge Patient Instructions, Passing gas rectally and belching is normal Discharge Patient Instructions, Cramping and abdominal bloating should subside in 1 hour or so Discharge Patient Instructions, Call or come to emergency department if having unusual pain or severe abdominal pain Discharge Patient Instructions, You may experience some gas cramps and abdominal bloating Discharge Patient Instructions, Avoid alcohol, tranquilizers, sleeping pills, or cold medicines for24 hours Discharge Patient Instructions, You may resume your normal diet and activity in 24 hours Scheduled Future Appointments Wednesday 11:00 AM EST ?? Medications What How Much When Instructions Next Dose Unchanged lisinopril (lisinopril 2.5 mg oral tablet) 1 tab Oral (given by mouth) Every day Your Summary Your Care Team Admitting Physician - Darrius Jurado MD Attending Physician - Darrius Jurado MD Primary Care Physician - ALIE CLOUD Your Diagnosis Chronic diarrhea Family history of colon cancer Problems Ongoing - Any problem that you are currently receiving treatment for. Chronic diarrhea Disc disorder Family history of colon cancer Fecal incontinence Fecal urgency GERD - Gastro-esophageal reflux disease H/O: migraine Hypertension Osteopenia S/P cholecystectomy Sigmoid colectomy Snoring Procedures Performed ???Colonoscopy Biopsy (04/15/2022) Tests Performed/Pending Celiac Disease Comprehensive ?-- Results Pending -- You will be contacted within 72 hours with your results. Discharge Vitals Temperature??(Temporal Artery) 98.4 ??F (36.9 ??C) Heart Rate??(Peripheral) 88 Respiratory Rate?? 16 Blood Pressure?? 138/69?? Allergies Demerol??(Vomit) Flagyl??(Nausea) Lipitor??(Joint pain) Education Materials Colon Polyps Colon polyps are tissue growths inside the colon, which is part of the large intestine. They are one of the types of polyps that can grow in the body. A polyp may be a round bump or a mushroom-shapedgrowth. You could have one polyp or more than one. Most colon polyps are noncancerous (benign). However, some colon polyps can become cancerous over time. Finding and removing the polyps early can help prevent this. What are the causes? The exact cause of colon polyps is not known. What increases the risk? The following factors may make you more likely to develop this condition: ? Having a family history of colorectal cancer or colon polyps. ? Being older than 45 years of age. ? Being younger than 45 years of age and having a significant family history of colorectal cancer or colon polyps or a genetic condition that puts you at higher risk of getting colon polyps. ? Having inflammatory bowel disease, such as ulcerative colitis or Crohn's disease. ? Having certain conditions passed from parent to child (hereditary conditions), such as: ? Familial adenomatous polyposis (FAP). ? Bertrand syndrome. ? Turcot syndrome. ? Peutz???Jeghers syndrome. ? MUTYH-associated polyposis (MAP). ? Being overweight. ? Certain lifestyle factors. These include smoking cigarettes, drinking too much alcohol, not gettingenough exercise, and eating a diet that is high in fat and red meat and low in fiber. ? Having had childhood cancer that was treated with radiation of the abdomen. What are the signs or symptoms? Many times, there are no symptoms. If you have symptoms, they may include: ? Blood coming from the rectum during a bowel movement. ? Blood in the stool (feces). The blood may be bright red or very dark in color. ? Pain in the abdomen. ? A change in bowel habits, such as constipation or diarrhea. How is this diagnosed? This condition is diagnosed with a colonoscopy. This is a procedure in which a lighted, flexible scope is inserted into the opening between the buttocks (anus) and then passed into the colon to examine the area. Polyps are sometimes found when a colonoscopy is done as part of routine cancer screening tests. How is this treated? This condition is treated by removing any polyps that are found. Most polyps can be removed during a colonoscopy. Those polyps will then be tested for cancer. Additional treatment may be needed depending on the results of testing. Follow these instructions at home: Eating and drinking ? Eat foods that are high in fiber, such as fruits, vegetables, and whole grains. ? Eat foods that are high in calcium and vitamin D, such as milk, cheese, yogurt, eggs, liver, fish, and broccoli. ? Limit foods that are high in fat, such as fried foods and desserts. ? Limit the amount of red meat, precooked or cured meat, or other processed meat that you eat, such as hot dogs, sausages, martines, or meat loaves. ? Limit sugary drinks. Lifestyle ? Maintain a healthy weight, or lose weight if recommended by your health care provider. ? Exercise every day or as told by your health care provider. ? Do not use any products that contain nicotine or tobacco, such as cigarettes, e- cigarettes, and chewing tobacco. If you need help quitting, ask your health care provider. ? Do not drink alcohol if: ? Your health care provider tells you not to drink. ? You are , may be , or are planning to become . ? If you drink alcohol: ? Limit how much you use to: ? 0???1 drink a day for women. ? 0???2 drinks a day for men. ? Know how much alcohol is in your drink. In the [place] one drink equals one 12 oz bottle of beer (355mL), one 5 oz glass of wine (148 mL), or one 1?? oz glass of hard liquor (44 mL). General instructions ? Take wcew-dxl-nhralyl and prescription medicines only as told by your health care provider. ? Keep all follow-up visits. This is important. This includes having regularly scheduled colonoscopies. Talk to your health care provider about when you need a colonoscopy. Contact a health care provider if: ? You have new or worsening bleeding during a bowel movement. ? You have new or increased blood in your stool. ? You have a change in bowel habits. ? You lose weight for no known reason. Summary ? Colon polyps are tissue growths inside the colon, which is part of the large intestine. They are one type of polyp that can grow in the body. ? Most colon polyps are noncancerous (benign), but some can become cancerous over time. ? This condition is diagnosed with a colonoscopy. ? This condition is treated by removing any polyps that are found. Most polyps can be removed during a colonoscopy. This information is not intended to replace advice given to you by your health care provider. Make sure you discuss any questions you have with your health care provider. Document Revised: 08/21/2020 Document Reviewed: 08/21/2020 In [employer] Patient Education ?? 2021 [employer]. Diverticulosis Diverticulosis is a condition that develops when small pouches (diverticula) form in the wall of the large intestine (colon). The colon is where water is absorbed and stool (feces) is formed. The pouches form when the inside layer of the colon pushes through weak spots in the outer layers of the colon. You may have a few pouches or many of them. The pouches usually do not cause problems unless they become inflamed or infected. When this happens, the condition is called diverticulitis. What are the causes? The cause of this condition is not known. What increases the risk? The following factors may make you more likely to develop this condition: ? Being older than age 60. Your risk for this condition increases with age. Diverticulosis is rare among people younger than age 30. By age 80, many people have it. ? Eating a low-fiber diet. ? Having frequent constipation. ? Being overweight. ? Not getting enough exercise. ? Smoking. ? Taking fwbc-adv-edatzbg pain medicines, like aspirin and ibuprofen. ? Having a family history of diverticulosis. What are the signs or symptoms? In most people, there are no symptoms of this condition. If you do have symptoms, they may include: ? Bloating. ? Cramps in the abdomen. ? Constipation or diarrhea. ? Pain in the lower left side of the abdomen. How is this diagnosed? Because diverticulosis usually has no symptoms, it is most often diagnosed during an exam for othercolon problems. The condition may be diagnosed by: ? Using a flexible scope to examine the colon (colonoscopy). ? Taking an X-ray of the colon after dye has been put into the colon (barium enema). ? Having a CT scan. How is this treated? You may not need treatment for this condition. Your health care provider may recommend treatment toprevent problems. You may need treatment if you have symptoms or if you previously had diverticulitis. Treatment may include: ? Eating a high-fiber diet. ? Taking a fiber supplement. ? Taking a live bacteria supplement (probiotic). ? Taking medicine to relax your colon. Follow these instructions at home: Medicines ? Take hcej-mwg-airlgxs and prescription medicines only as told by your health care provider. ? If told by your health care provider, take a fiber supplement or probiotic. Constipation prevention Your condition may cause constipation. To prevent or treat constipation, you may need to: ? Drink enough fluid to keep your urine pale yellow. ? Take gjnm-iva-gbhgyqy or prescription medicines. ? Eat foods that are high in fiber, such as beans, whole grains, and fresh fruits and vegetables. ? Limit foods that are high in fat and processed sugars, such as fried or sweet foods. General instructions ? Try not to strain when you have a bowel movement. ? Keep all follow-up visits as told by your health care provider. This is important. Contact a health care provider if you: ? Have pain in your abdomen. ? Have bloating. ? Have cramps. ? Have not had a bowel movement in 3 days. Get help right away if: ? Your pain gets worse. ? Your bloating becomes very bad. ? You have a fever or chills, and your symptoms suddenly get worse. ? You vomit. ? You have bowel movements that are bloody or black. ? You have bleeding from your rectum. Summary ? Diverticulosis is a condition that develops when small pouches (diverticula) form in the wall of the large intestine (colon). ? You may have a few pouches or many of them. ? This condition is most often diagnosed during an exam for other colon problems. ? Treatment may include increasing the fiber in your diet, taking supplements, or taking medicines. This information is not intended to replace advice given to you by your health care provider. Make sure you discuss any questions you have with your health care provider. Document Revised: 11/30/2019 Document Reviewed: 11/30/2019 In [employer] Patient Education ?? 2021 [employer] Colonoscopy, Adult, Care After This sheet gives you information about how to care for yourself after your procedure. Your health care provider may also give you more specific instructions. If you have problems or questions, contact your health care provider. What can I expect after the procedure? After the procedure, it is common to have: ? A small amount of blood in your stool for 24 hours after the procedure. ? Some gas. ? Mild cramping or bloating of your abdomen. Follow these instructions at home: Eating and drinking ? Drink enough fluid to keep your urine pale yellow. ? Follow instructions from your health care provider about eating or drinking restrictions. ? Resume your normal diet as instructed by your health care provider. Avoid heavy or fried foods thatare hard to digest. Activity ? Rest as told by your health care provider. ? Avoid sitting for a long time without moving. Get up to take short walks every 1???2 hours. This isimportant to improve blood flow and breathing. Ask for help if you feel weak or unsteady. ? Return to your normal activities as told by your health care provider. Ask your health care provider what activities are safe for you. Managing cramping and bloating ? Try walking around when you have cramps or feel bloated. ? Apply heat to your abdomen as told by your health care provider. Use the heat source that your health care provider recommends, such as a moist heat pack or a heating pad. ? Place a towel between your skin and the heat source. ? Leave the heat on for 20???30 minutes. ? Remove the heat if your skin turns bright red. This is especially important if you are unable to feel pain, heat, or cold. You may have a greater risk of getting burned. General instructions ? If you were given a sedative during the procedure, it can affect you for several hours. Do not drive or operate machinery until your health care provider says that it is safe. ? For the first 24 hours after the procedure: ? Do not sign important documents. ? Do not drink alcohol. ? Do your regular daily activities at a slower pace than normal. ? Eat soft foods that are easy to digest. ? Take wudn-dfk-gzrlokd and prescription medicines only as told by your health care provider. ? Keep all follow-up visits as told by your health care provider. This is important. Contact a health care provider if: ? You have blood in your stool 2???3 days after the procedure. Get help right away if you have: ? More than a small spotting of blood in your stool. ? Large blood clots in your stool. ? Swelling of your abdomen. ? Nausea or vomiting. ? A fever. ? Increasing pain in your abdomen that is not relieved with medicine. Summary ? After the procedure, it is common to have a small amount of blood in your stool. You may also have mild cramping and bloating of your abdomen. ? If you were given a sedative during the procedure, it can affect you for several hours. Do not drive or operate machinery until your health care provider says that it is safe. ? Get help right away if you have a lot of blood in your stool, nausea or vomiting, a fever, or increased pain in your abdomen. This information is not intended to replace advice given to you by your health care provider. Make sure you discuss any questions you have with your health care provider. Document Revised: 04/26/2020 Document Reviewed: 11/27/2019 Else[employer] Patient Education ?? 2021 [employer] Patient Name:MATT OZUNA I have received this information and my questions have been answered. Patient/Power Machine Operator Name: Patient/Power Machine Operator Signature: Relationship to Patient: Witness Name/Signature: Date: Electronically Signed on: 04/15/2022 12:36 ESTSigned by:GAG * Event Display: Discharge Instructions History and physical note * Event Display: History and Physical Update * Darrius Jurado MD: PERFORM Event Display: History and Physical Authored Date: [id number] MATT OZUNA :1945 Age:76 years Sex:Female Visit Date:04/15/2022 Primary Care Physician: ALIE CLOUD History of Present Illness 76-year-old male with 10 years of??loose stools??and urgency for defecation.?? She status postcholecystectomy in 1970s??status post sigmoid resection??in 2002 for complicated diverticulitis.?Her son was diagnosed with colon cancer at 49 years old. Physical Exam Vitals & Measurements T:??36.9?C ??(Temporal Artery)?? HR:??88??(Peripheral)?? RR:??16?? BP:??138/69?? SpO2:??98%?? O2 Therapy:??Room air?? Well-developed well-nourished white female no acute distress Lungs: Clear to auscultation bilaterally Heart: Regular rate and rhythm S1-S2 Abdomen: Soft nontender Assessment/Plan 1.??Chronic diarrhea??K52.9 Colonoscopy to exclude??colitis??and screen for neoplasm. 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 Dose: 04/15/22 10:06:00 EST, Routine Sodium Chloride 0.9% 1,000 mL, Total Volume (mL): 1,000, 1,000 mL, Soln-IV, IV, 50 mL/hr, Start Date: 04/15/22 10:06:00 EST, 91 kg, Populate Charting Weight From Order, 1.98, m2 Blood Glucose Monitoring POC RE, 04/15/22 10:06:00 EST, Stop date 04/15/22 10:06:00 EST NPO, 04/15/22 10:06:00 EST, Constant Indicator Obtain consent, 04/15/22 10:06:00 EST, Constant Order Peripheral IV Insertion, 04/15/22 10:06:00 EST Saline Lock Convert From IV, 04/15/22 10:06:00 EST, Stop date 04/15/22 10:06:00 EST Vital Signs, 04/15/22 10:06:00 EST, Stop date 04/15/22 10:06:00 EST, Routine Problem List/Past Medical History Ongoing Chronic diarrhea Disc disorder Family history of colon cancer Fecal incontinence Fecal urgency GERD - Gastro-esophageal reflux disease H/O: migraine Hypertension Osteopenia S/P cholecystectomy S/P small bowel resection Snoring Historical No qualifying data Procedure/Surgical History ???Surgery (1988)???Cataract surgery???Gallbladder operation???Knee replacement???Resection???Tuballigation Medications Inpatient Normal Saline Flush, 10 mL, IV Flush, As Directed, PRN Sodium Chloride 0.9% 1,000 mL, 1000 mL, IV Home lisinopril 2.5 mg oral tablet, 2.5 mg= [...] Unknown. Cause of : Electronically Signed on 04/15/22 11:10 AM Darrius Jurado MD Patient Care team information Personnel Name: ALIE CLOUD Address: Address: [address] [place] [address]
--- OUTSIDE RECORDS SUMMARY | 2023-11-04 13:06 | XMS_ITS | Continuity of Care Document ---
Author Name Unknown Organization [facility] Ambulatory Clinics Address [address] [place] [address] Care Team Providers Care Facilities Maintenance Assistant Name Role Phone RICHY CLOUD Primary Care Physician Encounter [facility] NBR [id number] Date(s): 03/26/22 - 03/26/22 [facility] Ambulatory Clinics [address], [place] [address] Encounter Diagnosis Chronic diarrhea(Discharge Diagnosis) - 03/26/22 Family history of colon cancer(Discharge Diagnosis) - 03/26/22 Fecal incontinence(Discharge Diagnosis) - 03/26/22 S/P cholecystectomy(Discharge Diagnosis) - 03/26/22 S/P small bowel resection(Discharge Diagnosis) - 03/26/22 Fecal urgency(Discharge Diagnosis) - 03/26/22 Discharge Disposition: Home or Self Care Attending Physician: Lilliana Pulido APRN Allergies, Adverse Reactions, Alerts No Known Medication Allergies Assessment and Plan Future Appointments Functional Status 03/26/22 Other exposure to Infectious Disease Non e Medications lisinopril 2.5 mg oral tablet 2.5 mg = 1 tab, Oral, Daily, # 90 tab, 0 Refill(s) Start Date: 03/26/22 Status: Ordered Problem List Condition Confirmation Course Effective Dates Status H ealth Status Informant Chronic diarrhea Confirmed Active Family history of colon cancer Confirmed Active S/P cholecystectomy Confirmed Active S/P small bowel resection Confirmed Active Hypertension Confirmed Active Fecal incontinence Confirmed Active Disc disorder Confirmed Active Osteopenia Confirmed Active Fecal urgency Confirmed Active Procedures Procedure Date Related Diagnosis Body Site Status Surgery 1988 Completed Cataract surgery Complete d Gallbladder operation Com pleted Knee replacement 2 Comple philippe Resection 3 Completed Tubal ligation Completed 1back [id number] 3bowel resection Vital Signs Most recent to oldest [Reference Range]: 1 Temperature Temporal Artery [36-38 Deg C ] 35.6 Deg C *LOW* (03/26/22 9:48 AM) Peripheral Pulse Rate [60-100 bpm] 78 bp m (03/26/22 9:48 AM) Respiratory Rate [12-24 br/min] 20 br/mi n (03/26/22 9:48 AM) Blood Pressure [90-140/60-90 mmHg] 138/8 0mmHg (03/26/22 9:48 AM) Weight 90.1 kg (03/26/22 9:48 AM) Weight Measured (lbs) 198.636 lb (03/26/22 9:48 AM) [place] Body Weight Calculated 47.8 kg (03/26/22 9:48 AM) Height 154.94 cm (03/26/22 9:48 AM) Height/Length Measured (inches) 61 inch (03/26/22 9:48 AM) BSA Measured 1.97 m2 (03/26/22 9:48 AM) Body Mass Index 37.53 kg/m2 (03/26/22 9:48 AM) Social History Social History Type Response Tobacco Never tobacco user T obacco Use:. Sex Physician Outpatient Note * Lilliana Pulido APRN: PERFORM Event Display: Office Clinic Note Physician Authored Date: [id number] MATT OZUNA :1945 Age:76 years Sex:Female Visit Date:03/26/2022 Primary Care Physician: RICHY CLOUD Chief Complaint Diarrhea History of Present Illness Patient is a 76-year-old female who is referred by Richy Castillo APRN??for diarrhea. ??This is aninitial consult.?? She reports??she began having??infrequent episodes of??diarrhea, urgency and inco ntinence??approximately 10 years ago after having??several episodes of diverticulitis that resultedin a bowel resection.?? She states??she went for years before having another 1 after the first episode??and then had??4-5??years until the past??3 to 4 months where she has had 2 episodes per month.?? She denies any abdominal pain. ??Denies any nausea, vomiting,??melena or hematochezia. ??Weight and appetite are stable. ??Denies any pyrosis or dyspepsia. ??Denies dysphagia or globus sensation. ??She states she starts out feeling constipated and has a hard bowel movement??and then within an hourshe has??large amounts of flatus and passage of soft stool where she is unable to leave the house??as she is unsure??that she will not have an accident.?? These episodes are becoming more frequent??and??preventing her from??being active outside her home.?? She has tried Metamucil approximately oncea week without relief. ?? She had a cholecystectomy in 1970.?? An approximate 10 years ago had a bowel resection as noted above. ?? 2011 she had a colonoscopy??and advised to follow-up in 10 years.?? This was at [facility].?? No report is available. ?? She reports she has 1 son had colon cancer the age of 50. ??There??are distant relatives??with colon cancer at the age of 50 as well as pancreatic cancer. Review of Systems General: Denies malaise or fatigue. HEENT: Denies globus sensation or dysphagia. Respiratory: Denies shortness of breath, cough, or wheeze. Cardiovascular: Denies chest pain, palpitations, lightheadedness, dizziness, syncope or peripheral edema. ?? Abdomen:??Complains of diarrhea, increased frequency, and urgency. ??Denies any abdominal pain, nausea, vomiting,??constipation, melena or hematochezia.?? Weight and appetite are stable. ??Denies pyrosis or dyspepsia.?? Complains of fecal incontinence Skin: Denies rashes or lesions. Neurological: Denies any problems with gait or balance. Physical Exam Vitals & Measurements T:??35.6?C ??(Temporal Artery)?? HR:??78??(Peripheral)?? RR:??20?? BP:??138/80?? SpO2:??98%?? HT:??154.94??cm?? WT:??90.1??kg?? BMI:??37.53?? BSA:??1.97?? General: Well-nourished well-developed??Female??in no acute distress. HEENT: Head is normocephalic, [...] Pleasant, calm and cooperative. Assessment/Plan 1.??Chronic diarrhea??K52.9 Ordered: Follow-up Appointment Request LT_ND, *Est. 04/09/22 +/- 2 days, Future Order, after Colonoscopy, In Approximately, [facility] Gastroenterology Surgical Procedure Booking Request LT, 03/26/22 10:13:00 EST, chronic diarrhea, Chronic diarrhea Family history of colon cancer Fecal incontinence S/P cholecystectomy S/P small bowel resection, Outpatient, Colonoscopy, Primary Procedure, 30, MAC, 38, [place], [id number], 0... ?? 2.??Family history of colon cancer??Z80.0 Colonoscopy to assess for colitis??or neoplasm scheduled.?? She has a family history of friend having colon cancer at age of 50.?? There may be a component of bile acid malabsorption as she is statuspostcholecystectomy though did not develop diarrhea to after bowel resection for diverticulitis.?? May benefit from trial of colestipol. ??Will await colonoscopy results??and discuss??following.?? She will try FiberCon 1 tablet daily??last week. ??She will stop 2 weeks before. Ordered: Follow-up Appointment Request LT_ND, *Est. 04/09/22 +/- 2 days, Future Order, after Colonoscopy, In Approximately, [facility] Gastroenterology Surgical Procedure Booking Request LT, 03/26/22 10:13:00 EST, chronic diarrhea, Chronic diarrhea Family history of colon cancer Fecal incontinence S/P cholecystectomy S/P small bowel resection, Outpatient, Colonoscopy, Primary Procedure, 30, MAC, 38, [place], [id number], 0... ?? 3.??Fecal incontinence??R15.9 As above. Ordered: Follow-up Appointment Request LT_ND, *Est. 04/09/22 +/- 2 days, Future Order, after Colonoscopy, In Approximately, [facility] Gastroenterology Surgical Procedure Booking Request LTTL, 03/26/22 10:13:00 EST, chronic diarrhea, Chronic diarrhea Family history of colon cancer Fecal incontinence S/P cholecystectomy S/P small bowel resection, Outpatient, Colonoscopy, Primary Procedure, 30, MAC, 38, [place], [id number], 0... ?? 4.??S/P cholecystectomy??Z90.49,?? As above. S/P small bowel resection??Z90.49 As above. Ordered: Follow-up Appointment Request LTTL_[facility], *Est. 04/09/22 +/- 2 days, Future Order, after Colonoscopy, In [facility], [facility] Gastroenterology Surgical Procedure Booking Request LTTL, 03/26/22 10:13:00 EST, chronic diarrhea, Chronic diarrhea Family history of colon cancer Fecal incontinence S/P cholecystectomy S/P small bowel resection, Outpatient, Colonoscopy, Primary Procedure, 30, MAC, 38, [place], [id number], 0... ?? 6.??Fecal urgency??R15.2 As above. Ordered: Follow-up Appointment Request [id number]_ND, *Est. 04/09/22 +/- 2 days, Future Order, after Colonoscopy, In [facility] ?? Follow up 2 weeks after colonoscopy. Problem List/Past Medical History Ongoing Chronic diarrhea Disc disorder Family history of colon cancer Fecal incontinence Fecal urgency Hypertension Osteopenia S/P cholecystectomy S/P small bowel resection Historical No qualifying data Procedure/Surgical History ???Surgery (1988)???Cataract surgery???Gallbladder operation???Knee replacement???Resection???Tuballigation Medications lisinopril 2.5 mg oral tablet, 2.5 mg= 1 tab, Oral, Daily Allergies No Known Medication Allergies Social History Alcohol Current Electronic Cigarette/Vaping Electronic Cigarette Use: Never. Tobacco Never tobacco user Tobacco Use:. Family History Cancer of ovary: Son. Congestive heart failure: Mother and Father. Prostate cancer: Son. Family Member(s): ?? FATHER, at age: Unknown. Cause of : Family Member(s): ?? MOTHER, at age: Unknown. Cause of : Family Member(s): ?? BROTHER, at age: Unknown. Cause of : Electronically Signed on 03/26/22 10:18 AM Lilliana Pulido APRN Patient Care team information Care Team Personnel Name: RICHY CLOUD Position: No Access Member Role: Primary Care Physician Address: Address: [address] [place] [id number] [place]
== END ==
PROVIDERS: PCP Nurse Practitioner Family; Visit Provider Physician Assistant Medical
DX: M25.512 Pain in left shoulder (principal)
CPT/HCPCS: 73030

== ENCOUNTER → 2023-11-17 08:42 | Outpatient (BNVA) | payer MEDICARE, BC, SELFPAY | PROVIDERS: PCP Nurse Practitioner Family; Referring Provider Physician Assistant Medical; Visit Provider Student in an Organized Health Care Education/Training Program | DX: M75.52 Bursitis of left shoulder (principal) | CPT/HCPCS: 99213 ==

== ENCOUNTER 2024-03-06 01:48 | Outpatient (CLI) | payer MEDICARE, BC, SELFPAY ==
--- NOTE | 2024-03-06 07:00 | DI.DEXA_ITS ---
Exam(s) XR DEXA BONE DENSITY W/WO NITIN EXAM: XR DEXA BONE DENSITY W/WO NITIN CLINICAL HISTORY: Screening,MENOPAUSAL DISORDER,N95.9 TECHNIQUE: COMPARISON: DX DEXA BONE DENSITY WITH NITIN from 12/27/2012 FINDINGS: Lateral Spine Image: Unremarkable. No compression deformities identified. Left hip: Total T-Score: -1.1. This compares to -0.7 on the prior examination. Total Z-Score: 0.9 T- and Z-scores: Findings are consistent with osteopenia. No evidence of osteoporosis. Lumbar Spine: Total T-Score: -0.3. This compares to 0.0 on the prior examination. Total Z-Score: 2.3 T- and Z-scores: Within normal limits. Left forearm: Note is made of osteoporosis in the mid forearm with a T-score of -2.5. IMPRESSION: No evidence of osteoporosis in the lumbar spine or left hip. Osteoporosis is seen in the mid left fo rearm.
== END 2024-03-06 02:08 ==
LOC: DI 01:48
PROVIDERS: PCP Nurse Practitioner Family; Visit Provider Nurse Practitioner Family
DX: N95.9 Unspecified menopausal and perimenopausal disorder (principal); Z13.820 Encounter for screening for osteoporosis
CPT/HCPCS: 77080

== ENCOUNTER 2024-03-07 01:59 | Outpatient (CLI) | payer MEDICARE, BC, SELFPAY ==
[2024-03-07 11:50] LABS: Hemoglobin A1C 5.8 % (<5.7)
[2024-03-07 11:51] LABS: BUN 22 mg/dL (7-18); Calcium 9.2 mg/dL (8.5-10.1); Calculated LDL 197 mg/dL (<100); Chloride 107 mmol/L (98-107); Cholesterol 279 mg/dL (<200); Estimated GFR 57.66 (mL/min/1.73m2); Glucose 105 mg/dL (74-106); HDL Cholesterol 64 mg/dL (40-60); Potassium 3.9 mmol/L (3.5-5.1); Sodium 143 mmol/L (136-145); Triglyceride 90 mg/dL (<150)
== END 2024-03-07 02:00 ==
LOC: LBO 01:59
PROVIDERS: PCP Nurse Practitioner Family; Visit Provider Nurse Practitioner Family
DX: Z13.6 Encounter for screening for cardiovascular disorders (principal); Z13.1 Encounter for screening for diabetes mellitus; R73.03 Prediabetes
CPT/HCPCS: 36415; 80048; 80061; 83036

== ENCOUNTER 2024-04-28 13:50 | Emergency (ER) | payer MEDICARE, BC, SELFPAY ==
[2024-04-28] VITALS (12 sets, daily range): BP systolic 148–156; BP diastolic 56–69; PULSE 62–83; RESP 11–20; O2SAT 93–99
--- NOTE | 2024-04-28 13:45 | RT.EKG_ITS ---
APPROVED REPORT Exam: Resting ECG Reason for Exam: BP issues Patient Location: E HR:79 bpm ECG Measurements Heart Rate 79 AXIS AZ 158 P 30 QRSd 119 QRS -12 QT 390 T 109 QTc 449 Conclusion Sinus rhythm, rate 79 IVCD T wave inversion I, aVL, unchanged from priors No interval abnormalities No STEMI
--- NOTE | 2024-04-28 14:15 | ED.GENADUL_ITS ---
Discharge Plan Disposition Patient Disposition: Home Condition: Stable Discharge Details Clinical Impression: Shakiness, Hypertension, Anxiety, Hyperlipidemia, Grief Primary Care Provider: Richy Junior ED Provider: Roopa Wilkinson Home Meds and New Rx's Prescriptions: No Action aspirin 81 mg tablet,delayed release (DR/EC) 81 mg PO .QOD amlodipine 5 mg tablet 5 mg PO DAILY Qty: 90 3RF sertraline 50 mg tablet 50 mg PO HS Qty: 90 3RF lisinopril 2.5 mg tablet 2.5 mg PO DAILY Qty: 90 3RF calcium carbonate-vitamin D3 [Caltrate with Vitamin D3] 600 mg-20 mcg (800 unit) tablet 1 tab PO DAILY Qty: 90 3RF acetaminophen 325 mg Tablet 650 mg PO Q4H PRN PRNQty: 0 0RF Discharge Instructions Instructions: Dealing With , Adult, Meditation Additional Instructions: You were seen in the emergency department today for evaluation of shakiness. In our department you have a full physical examination performed, had laboratory studies that were reassuring and an EKG that did not show any abnormalities of your heart rhythm. We had a long discussion regarding your feelings in the setting of your recent family loss. Grief and anxiety can take many forms, and there are many tools to help you deal with it. In addition to continuing to take your medications as prescribed by your provider, I do recommend that you try some of the mindfulness techniques that we discussed, such as circular breathing, reaching out to talk to a friend or family member, or distraction techniques. If this occurs again, you can always return to the emergency department to be r eevaluated. Additionally, you need to call your primary care provider when their office opens on Wednesday to schedule an appointment for reevaluation. Thank you for allowing us to be part of your care. Discharge Data Discharge Date/Time-TO BE ENTERED AT DEPARTURE: 04/28/24 15:43 HPI General Mode of arrival: ambulatory . Date/Time Provider Initiated Documentation: 04/28/24 13:56 . Limitations to Documentation: no limitations . Information obtained by: patient and old records reviewed . HPI Narrative: HPI: This is a 78-year-old female patient with a past medical history significant for hypertension, anxiety, and diverticular disease, who is presenting for evaluation of shakiness and elevated blood pressure. The patient reports that she was in her normal state of health until this afternoon, when she began to feel lightheaded and floaty. She also noted that her blood pressure was higher than is typical for her. The patient reports that she had an episode similar to this several years ago, and after a several day admission during which time she had a full CVA workup, was diagnosed with anxiety and was started on SSRI. The patient reports that the symptoms feel fairly similar, and she endorses that her eldest son in January of this year, and with the holiday season she wonders if she was thinking about this. She did not have any other inciting events, the symptoms began while at rest and sitting. She reports that lying down in the hospital bed she feels resolution of the symptoms, no longer feels shaky or lightheaded. She never had any fevers or chills, chest pain, shortness of breath, abdominal pain, nausea/vomiting or diarrhea. She denies dysuria, has been eating and drinking normally and has not sustained any trauma. She endorses that she has support systems in the area including her 2 other children, who live locally. Exam: Gen: awake and alert, in no apparent distress. Appears well nourished. HEENT: PERRL, EOMs full and without nystagmus. External ears and nose normal, mucous membranes moist. Neck: Supple, full range of motion, no observable masses Lungs: No increased work of breathing, lung sounds clear and equal bilaterally without wheezes, rhonchi, or rales. CV: Heart with regular rate and rhythm, no murmurs auscultated. Strong and symmetrical radial pulses. Abdomen: Soft, nondistended, non-tended to palpation. No rigidity, rebound tenderness, or guarding. MSK: No joint swelling, no redness. Full ROM without limitation, no external traumatic findings. Skin: No rashes or lesions to visualized skin. Normal color, warm, and dry. Neuro: Cranial nerves II-XII intact and symmetrical bilaterally. 5/5 strength in all muscle groups x4 extremities. No sensory deficits. Ambulates with steady gait. The patient has a baseline intention tremor, right greater than left, which she states has been present for several years. Psych: Appropriate for situation. MDM: This is a 78-year-old female patient presenting for evaluation of shakiness and lightheadedness. My differential includes but is not limited to cardiac abnormalities including arrhythmia, ACS, and I certainly considered metabolic and electrolyte derangements, orthostasis, vasovagal syndrome. I considered hyper and hypothyroidism, kidney injury, liver disease. The patient does not utilize any controlled or illicit substances which would increase her risk for toxic exposure, intoxication, or withdrawal syndromes. The patient has no focal neurodeficit to increase my concern for stroke, press, RCVS, or hypertensive emergency. Finally, I did consider typical grief response in the setting of her recent family loss, anxiety and depression. I am reassured by the patient's hemodynamic stability, and we will obtain an EKG, and laboratory studies to include CBC, CMP, magnesium, troponin, and TSH. Therapeutic conversation was provided and the patient endorses significant benefit in getting to express her concerns and feelings. ED Course: I reviewed the patient's EKG, which shows a normal sinus rhythm without evidence of ischemia. I independently interpreted the laboratory studies, which show no significant leukocytosis, anemia, or thrombocytopenia. The chemistry panel is without evidence of electrolyte abnormality, kidney dysfunction, or liver injury. Troponin negative, TSH on the high end of normal with a normal T4. On reassessment, the patient reports that she has had resolution of her symptoms. We did spend some time discussing mindfulness techniques and I recommended that she follow-up with her primary care provider in the next few days to discuss this visit and any symptoms that change, worsen, or persist. The patient was also able to verbalize some support systems, and understands th at she can return to the emergency department for reevaluation anytime. At this time, the patient has had a full medical evaluation and is safe for discharge to home. They are hemodynamically stable, ambulatory, and tolerating PO. They are understanding of the follow-up plan and return precautions. They left our facility without incident. Roopa Wilkinson MD Related Data Home Medications ?Medication ?Instructions ?Recorded ?Confirmed acetaminophen 325 mg tablet 650 mg (2 x 325 mg) PO Q4H PRN PRN 06/06/22 04/28/24 #0 tabs aspirin 81 mg tablet,delayed 81 mg PO .QOD 01/29/23 04/28/24 release amlodipine 5 mg tablet 5 mg PO DAILY #90 tabs 06/02/23 04/28/24 sertraline 50 mg tablet 50 mg PO HS #90 tabs 06/02/23 04/28/24 lisinopril 2.5 mg tablet 2.5 mg PO DAILY #90 tabs 02/24/24 04/28/24 calcium 600 mg (as 1 tab PO DAILY #90 tabs 03/22/24 04/28/24 carbonate)-vitamin D3 20 mcg (800 unit) tablet (Caltrate with Vitamin D3) Previous Rx's ?Medication ?Instructions ?Recorded acetaminophen 325 mg tablet 650 mg (2 x 325 mg) PO Q4H PRN PRN 06/06/22 #0 tabs amlodipine 5 mg tablet 5 mg PO DAILY #90 tabs 06/02/23 sertraline 50 mg tablet 50 mg PO HS #90 tabs 06/02/23 lisinopril 2.5 mg tablet 2.5 mg PO DAILY #90 tabs 02/24/24 calcium 600 mg (as 1 tab PO DAILY #90 tabs 03/22/24 carbonate)-vitamin D3 20 mcg (800 unit) tablet (Caltrate with Vitamin D3) Allergies Allergy/AdvReac Type Severity Reaction Status Date / Time Metronidazole HCl (From AdvReac Severe NAUSEA,DIAR Verified 04/28/24 14:02 Flagyl) LAKEISHA atorvastatin calcium (From AdvReac Intermediate MUSCLE, Verified 04/28/24 14:02 Lipitor) JOINT PAIN meperidine HCl (From Demerol) AdvReac Intermediate Nausea Verified 04/28/24 14:02 [id number]-LiK Reductase AdvReac Intermediate myalgia Verified 04/28/24 14:02 Inhibitor (Irziiic-Rti-Uog Reductase Inhibitor) General Stated Complaint: GenMedical ANABELA: 3 Course Vital Signs Vital signs: Vital Signs Pulse 83 04/28/24 13:54 Respiratory Rate 18 04/28/24 13:54 Blood Pressure 156/56 H 04/28/24 13:54 Pulse Oximetry 97 04/28/24 13:54 Pulse 83 04/28/24 13:54 Respiratory Rate 18 04/28/24 13:54 Blood Pressure 156/56 H 04/28/24 13:54 Blood Pressure Position Supine 04/28/24 13:54 Pulse Oximetry 97 04/28/24 13:54 Oxygen Delivery Method Room Air 04/28/24 13:54 Oxygen Flow Rate 0 04/28/24 13:54 Medical Decision Making Quality:SDOH Health Related Social Needs: No Data to Display PFSH All Active Problems (Updated 04/28/24 @ 15:26 by Roopa Wilkinson MD) Grief (Chronic) Shakiness (Acute) Bursitis of left shoulder (Acute) Hyperlipidemia (Acute) Hypertensive emergency (Acute) Basilar artery stenosis (Acute) Migraine headache with aura (Acute) Transient neurologic deficit (Acute) Left bundle branch block (Chronic) Hyperpigmented skin lesion (Acute) History of total left knee replacement (Acute 06/25/20) Follow up (Acute) Chronic back pain (Chronic) Migraines (Chronic) Pre-diabetes (Chronic) Anxiety (Chronic) Diverticular disease (Chronic) A. Sigmoid resection Left knee DJD (Chronic) Hypertension (Chronic) Abnormal EKG (Chronic) Medical History Small bowel obstruction Surgical History Ligation of fallopian tube (~1985) Replacement of total knee joint (04/01/17) Right Knee Replacement- Dr. Calzada Cholecystectomy (~1969) Extraction of cataract DR. LEGER left 12/2014;rt 02/2012 Bowel Resection (~2002) RE DIVERTICULITIS;DR. Mervat SHAFFER Back Surgery (~1988) [facility] Family History (Updated 03/02/24 @ 16:54 by Kenisha Quezada) Mother , 88 Essential hypertension CHF (congestive heart failure) Stroke Father , 70 CHF (congestive heart failure) Brother , 60 Neoplasm multiple mylenoma; acute renal failure Brother No problems noted. 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;1ST COUSIN-COLON; Grandmother Stroke Son Cancer Heart disease Son No problems noted. Son No problems noted. Son No problems noted. Son No problems noted. 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 Pets and animals: No Do you think of yourself as: straight/heterosexual Current gender identity: female What is your relationship status?: Do you belong to any clubs or organized social groups?: yes Panel score (0-1 are the most socially isolated patients): 1 What type of physical activity do you participate in: walking Duration: 30-45 minutes/day Frequency: 3-4 times per week Maribel/Zoroastrian: Mandaen Special maribel needs: Yes Seatbelt use: always Helmet use: No Drive intox or ride w/intox haul driver: No Do you feel safe at home: Yes (Lives alone) Do you feel safe in your relationship?: Yes
[2024-04-28 14:38] LABS: Abs Immature Grans 0.01 10^3/uL (0.0-0.06); Absolute Basophil Count 0.02 10^3/uL (0.0-0.2); Absolute Eosinophil Count 0.02 10^3/uL (0.0-0.7); Absolute Monocyte Count 0.32 10^3/uL (0.1-0.8); Absolute Neutrophil Count 2.04 10^3/uL (1.2-6.7); Basophils % 0.5 %; Eosinophils % 0.5 %; HCT 41.2 % (36.0-46.0); HGB 13.8 g/dL (11.2-15.7); Immature Grans % 0.2 %; Lymphocytes % 45.4 %; MCH 29.8 pg (27.0-33.0); MCHC 33.5 % (32.0-36.0); MCV 89 fL (80-95); MPV 9.4 fL (8.0-11.0); Monocytes % 7.3 %; Neutrophils % 46.1 %; Platelet Count 309 10^3/uL (130-400); RBC 4.63 10^6/uL (3.93-5.22); RDW 13.3 % (11.7-14.6); RDW-SD 43.8 fL; WBC 4.41 10^3/uL (4.4-10.8)
[2024-04-28 15:04] LABS: ALT 18 U/L (14-59); AST 15 U/L (15-37); Albumin 3.8 g/dL (3.4-5.0); Alkaline Phosphatase 111 U/L (46-116); Anion Gap 9.3 mmol/L (3-11); BUN 25 mg/dL (7-18); Bilirubin, Total 0.56 mg/dL (0.2-1.0); CO2 25.7 mmol/L (21.0-32.0); CREATININE 1.2 mg/dL (0.55-1.02); Chloride 107 mmol/L (98-107); Estimated GFR 46.33 (mL/min/1.73m2); Glucose 147 mg/dL (74-106); Potassium 3.6 mmol/L (3.5-5.1); Sodium 142 mmol/L (136-145); TSH (W/Ref FT4) 4.63 uIU/mL (0.36-3.74); Total Protein 7.1 g/dL (6.4-8.2); Troponin I 5 ng/L (<or=51)
[2024-04-28 15:29] LABS: FREE T4 0.78 ng/dL (0.76-1.46)
== END 2024-04-28 15:43 | disposition home or self-care (01) ==
PROVIDERS: Emergency Provider Emergency Medicine; PCP Nurse Practitioner Family
DX: F41.9 Anxiety disorder, unspecified; E78.5 Hyperlipidemia, unspecified; F43.81 Prolonged grief disorder; I10 Essential (primary) hypertension
CPT/HCPCS: 80053; 93005; 99284; 83735; 84439; 84443; 84484; 85025; 93010

== ENCOUNTER 2024-05-28 08:59 | Emergency (ER) | payer MEDICARE, BC, SELFPAY ==
[2024-05-28 09:04] VITALS: BP 156/74; PULSE 83; RESP 15; TEMP 35.7; O2SAT 96
[2024-05-28 09:06] VITALS: BP 156/74; PULSE 83; RESP 15; TEMP 35.7; O2SAT 96
--- NOTE | 2024-05-28 09:15 | ED.GENADUL_ITS ---
Discharge Plan Disposition Patient Disposition: Home Condition: Good Discharge Details Clinical Impression: Acute UTI Primary Care Provider: Richy Junior ED Provider: Shreya Chavarria Home Meds and New Rx's Prescriptions: New cephalexin 500 mg tablet 500 mg PO BID 5 Days Qty: 10 0RF Continued aspirin 81 mg tablet,delayed release (DR/EC) 81 mg PO .QOD amlodipine 5 mg tablet 5 mg PO DAILY Qty: 90 3RF sertraline 50 mg tablet 50 mg PO HS Qty: 90 3RF lisinopril 2.5 mg tablet 2.5 mg PO DAILY Qty: 90 3RF calcium carbonate-vitamin D3 [Caltrate with Vitamin D3] 600 mg-20 mcg (800 unit) tablet 1 tab PO DAILY Qty: 90 3RF acetaminophen 325 mg Tablet 650 mg PO Q4H PRN PRNQty: 0 0RF Discharge Instructions Instructions: Urinary Tract Infection, Adult ED Additional Instructions: As we discussed, your urine has gone up for culture. I have prescribed you antibiotics that should cover for urinary tract infection. Please encourage hydration. Please take probiotic while taking these antibiotics. This can help prevent worsening diarrhea. Please follow-up with your primary care in 2 weeks for reevaluation. If you develop fever/chills, back pain, other new/worsening symptoms please seek care urgently once again. Referrals: Richy Junior, SEARCH ENGINEER [Primary Care Provider] - Discharge Data Discharge Date/Time-TO BE ENTERED AT DEPARTURE: 05/28/24 10:24 HPI General Date/Time Provider Initiated Documentation: 05/28/24 09:06 . Limitations to Documentation: no limitations . Information obtained by: patient, RN notes reviewed and old records reviewed . History of Present Illness 78 year old F presents to the emergency department with the chief complaint of UTI, frequency, urgency, described as moderate and similar to prior episodes, Quality is described as burning, and is localized to the pelvis and genitals. Patient started experiencing this day(s) and it has been constant. No relieving factors improve symptom(s), No exacerbating factors reported . Patient notes no other symptoms.. Patient did receive the following treatments prior to arrival, none Related Data Home Medications ?Medication ?Instructions ?Recorded ?Confirmed acetaminophen 325 mg tablet 650 mg (2 x 325 mg) PO Q4H PRN PRN 06/06/22 05/28/24 #0 tabs aspirin 81 mg tablet,delayed 81 mg PO .QOD 01/29/23 05/28/24 release amlodipine 5 mg tablet 5 mg PO DAILY #90 tabs 06/02/23 05/28/24 sertraline 50 mg tablet 50 mg PO HS #90 tabs 06/02/23 05/28/24 lisinopril 2.5 mg tablet 2.5 mg PO DAILY #90 tabs 02/24/24 05/28/24 calcium 600 mg (as 1 tab PO DAILY #90 tabs 03/22/24 05/28/24 carbonate)-vitamin D3 20 mcg (800 unit) tablet (Caltrate with Vitamin D3) cephalexin 500 mg tablet 500 mg PO BID 5 days #10 tabs 05/28/24 Previous Rx's ?Medication ?Instructions ?Recorded acetaminophen 325 mg tablet 650 mg (2 x 325 mg) PO Q4H PRN PRN 06/06/22 #0 tabs amlodipine 5 mg tablet 5 mg PO DAILY #90 tabs 06/02/23 sertraline 50 mg tablet 50 mg PO HS #90 tabs 06/02/23 lisinopril 2.5 mg tablet 2.5 mg PO DAILY #90 tabs 02/24/24 calcium 600 mg (as 1 tab PO DAILY #90 tabs 03/22/24 carbonate)-vitamin D3 20 mcg (800 unit) tablet (Caltrate with Vitamin D3) cephalexin 500 mg tablet 500 mg PO BID 5 days #10 tabs 05/28/24 Allergies Allergy/AdvReac Type Severity Reaction Status Date / Time Metronidazole HCl (From AdvReac Severe NAUSEA,DIAR Verified 05/28/24 09:08 Flagyl) LAKEISHA atorvastatin calcium (From AdvReac Intermediate MUSCLE, Verified 05/28/24 09:08 Lipitor) JOINT PAIN meperidine HCl (From Demerol) AdvReac Intermediate Nausea Verified 05/28/24 09:08 Tvithoh-HYL-WzV Reductase AdvReac Intermediate myalgia Verified 05/28/24 09:08 Inhibitor (Kjqmesg-Eha-Yuq Reductase Inhibitor) General Stated Complaint: Urinary ANABELA: 4 Review of Systems Constitutional Constitutional: Reports as per HPI, Denies chills, Denies fever(s) and Denies poor appetite Cardiovascular Cardiovascular: Denies chest pain Respiratory Respiratory: Denies cough Gastrointestinal Gastrointestinal: Denies abdominal pain, Denies change in bowel habits, Denies nausea and Denies vomiting Genitourinary Genitourinary: Reports as per HPI Musculoskeletal Musculoskeletal: Reports as per HPI and Denies back pain Integumentary/Breasts Skin/Breast: Reports as per HPI and Denies rash Exam Const General: cooperative, healthy appearing, comfortable, no acute distress, well developed and well groomed Nutritional Appearance: average body habitus and well nourished Orientation: alert and awake Resp Effort & Inspection: normal respiratory effort and no respiratory distress Auscultation: clear to auscultation bilaterally Cardio Rate: regular rate Rhythm: regular rhythm GI Inspection: normal to inspection Palpation: soft, no hepatosplenomegaly, not firm, no guarding, not rigid and nontender Back/Spine/Pelvis Back: no CVA tenderness Skin General skin exam: no rashes or lesions noted Trauma: no lacerations or abrasions Neuro General: patient alert and patient awake Cognition: normal cognition Speech: speech normal Gait: normal gait Course Vital Signs Vital signs: Vital Signs Temperature 35.7 C L 05/28/24 09:04 Pulse 83 05/28/24 09:04 Respiratory Rate 15 05/28/24 09:04 Blood Pressure 156/74 H 05/28/24 09:04 Pulse Oximetry 96 05/28/24 09:04 Temperature 35.7 C L 05/28/24 09:06 Temperature Source Temporal Artery Scan 05/28/24 09:06 Pulse 83 05/28/24 09:06 Respiratory Rate 15 05/28/24 09:06 Blood Pressure 156/74 H 05/28/24 09:06 Blood Pressure Position Sitting 05/28/24 09:06 Pulse Oximetry 96 05/28/24 09:06 Oxygen Delivery Method Room Air 05/28/24 09:06 Oxygen Flow Rate 0 05/28/24 09:06 Pain Level 0 05/28/24 09:07 Medical Decision Making Patient is a pleasant 78-year-old female past medical history significant for bowel obstruction, hypertension, anxiety, diverticular disease, presenting with chief complaint of probable UTI. She reports that in the postmenopausal years, she has had a handful of UTIs. Believes last was about 2 years ago. States that yesterday she began having symptoms of increased frequency and urgency. She denies having any significant dysuria but states that typically she has not in the past. She denies any fevers or chills. Denies any flank pain, abdominal pain. She did initially describe some itching to nursing staff but said like this is more her description of the frequency needed to urinate. She denies any irritation of the skin, rash. Reviewed the patient's previous micro reports, and 2022 patient was found have a UTI of E. coli that was pansensitive. On exam, patient appears nontoxic. Hemodynamically stable. She did not appear to be in any acute distress, afebrile. She has no CVA tenderness abdominal pain at this point. Initial urinalysis was contaminated. Repeat will be obtained. Patient does report that she has chronic explosive diarrhea that can be very intermittent a nd surprised her. She had an episode like this when she was first obtaining a urinalysis and she believes that this is why it was so heavily contaminated but is willing to get another clean-catch. Hoping that this will help with the culture. However, as this does seem to be exactly same symptoms she is having a past with her urinary tract infections, I do feel comfortable prescribing her antibiotics for presumed UTI. I do not see any evidence of sepsis, bacteremia or other more significant infections, no pain to suggest pyelonephritis. I encourage close follow-up with primary care. Return precautions were discussed. All questions and concerns were addressed and patient is in agreement this plan. This documentation was generated using [employer] dictation system, please disregard any oddities of phrase or misspellings. Quality:SDOH Health Related Social Needs: No Data to Display PFSH All Active Problems (Updated 05/28/24 @ 10:06 by POONAM Prince) Acute UTI (Acute) Grief (Chronic) Shakiness (Acute) Bursitis of left shoulder (Acute) Hyperlipidemia (Acute) Hypertensive emergency (Acute) Basilar artery stenosis (Acute) Migraine headache with aura (Acute) Transient neurologic deficit (Acute) Left bundle branch block (Chronic) Hyperpigmented skin lesion (Acute) History of total left knee replacement (Acute 06/25/20) Follow up (Acute) Chronic back pain (Chronic) Migraines (Chronic) Pre-diabetes (Chronic) Anxiety (Chronic) Diverticular disease (Chronic) A. Sigmoid resection Left knee DJD (Chronic) Hypertension (Chronic) Abnormal EKG (Chronic) Medical History Small bowel obstruction Surgical History Ligation of fallopian tube (~1985) Replacement of total knee joint (04/01/17) Right Knee Replacement- Dr. Calzada Cholecystectomy (~1969) Extraction of cataract DR. LEGER left 12/2014;rt 02/2012 Bowel Resection (~2002) RE DIVERTICULITIS;DR. Mervat SHAFFER [place] Surgery [place]1988[place] [facility] [place] History (Updated 03/02/24 @ 16:54 by Kenisha Quezada) Mother , 88 Essential hypertension CHF (congestive heart failure) Stroke Father , 70 CHF (congestive heart failure) Brother , 60 Neoplasm multiple mylenoma; acute renal failure Brother No problems noted. 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;1ST COUSIN-COLON; Grandmother Stroke Son Cancer Heart disease Son No problems noted. Son No problems noted. Son No problems noted. Son No problems noted. 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 Pets and animals: No Do you think of yourself as: straight/heterosexual Current gender identity: female What is your relationship status?: Do you belong to any clubs or organized social groups?: yes Panel score (0-1 are the most socially isolated patients): 1 What type of physical activity do you participate in: walking Duration: 30-45 minutes/day Frequency: 3-4 times per week Maribel/Episcopal: Rastafari Special maribel needs: Yes Seatbelt use: always Helmet use: No Drive intox or ride w/intox electric train driver: No Do you feel safe at home: Yes (Lives alone) Do you feel safe in your relationship?: Yes
[2024-05-28 09:25] LABS: Bilirubin Small (Negative); Blood Moderate (Negative); Clarity Cloudy (Clear); Glucose Negative (Negative); Ketones Trace mg/dL (Negative); Leukocyte Esterase Small (Negative); Nitrite Negative (Negative); Specific Gravity >= 1.030 (1.005-1.025); Urobilinogen 0.2 mg/dL (Up to 0.2); pH 5.5 (5-8)
[2024-05-28 09:32] LABS: Bacteria Few HPF (Negative); C & S Indicated? No/Sq. Contamination; Casts Negative LPF (Negative); Crystals Negative HPF (Negative); Epithelial Cells Many HPF (Negative); Mucus Moderate (Negative); RBC 20-50 HPF (0-2)
[2024-05-28 10:13] VITALS: BP 164/73; PULSE 76; O2SAT 98
== END 2024-05-28 10:24 | disposition home or self-care (01) ==
PROVIDERS: Emergency Provider Physician Assistant; PCP Nurse Practitioner Family
DX: R35.0 Frequency of micturition (principal); N39.0 Urinary tract infection, site not specified; I10 Essential (primary) hypertension
CPT/HCPCS: 99283; 81003; 81015

== ENCOUNTER 2024-06-09 15:53 | Outpatient (REF) | payer MEDICARE, BC, SELFPAY | END 2024-06-09 15:54 | disposition home or self-care (01) | LOC: LBN 15:53 | PROVIDERS: PCP Nurse Practitioner Family; Visit Provider Physician Assistant Medical | DX: R30.0 Dysuria (principal) | CPT/HCPCS: 87086 ==

== ENCOUNTER 2024-12-21 11:26 | Outpatient (CLI) | payer MEDICARE, BC, SELFPAY ==
--- NOTE | 2024-12-21 10:45 | DI.RAD_ITS ---
Exam(s) XR KNEE LT 3V AP,LAT,DEEPAK EXAM: XR KNEE LT 3V AP,LAT,DEEPAK CLINICAL HISTORY: L KNEE PAIN. TECHNIQUE: 2D digital imaging was performed. Three images were obtained. AP, lateral and merchant's views were obtained. COMPARISON: CR XR KNEE LT 2V AP,LAT from 06/27/2021 FINDINGS: BONES: There are stable post operative changes of a left total knee arthroplasty present. No fracture or dislocation. JOINTS: The orthopedic hardware is in good position. No evidence of hardware loosening. SOFT TISSUE: Normal. IMPRESSION: Stable left total knee arthroplasty. DATA REPOSITORY: RADIATION DOSE DELIVERED:
== END 2024-12-21 11:27 | disposition home or self-care (01) ==
LOC: DIORS 11:26
PROVIDERS: PCP Nurse Practitioner Family; Visit Provider Student in an Organized Health Care Education/Training Program
DX: M76.32 Iliotibial band syndrome, left leg (principal); Z96.652 Presence of left artificial knee joint
CPT/HCPCS: 99213; 73562

== ENCOUNTER 2025-01-19 05:34 | Outpatient (CLI) | payer MEDICARE, BC, SELFPAY ==
--- NOTE | 2025-01-19 11:01 | DI.RAD_ITS ---
Exam(s) XR HIP LT COMPLETE AP PELVIS EXAM: XR HIP LT COMPLETE AP PELVIS CLINICAL HISTORY: LEFT LEG PAIN, replacement total knee joint, iliotibial band syndrome. TECHNIQUE: 2D digital imaging was performed. Two views. COMPARISON: CR XR PELVIS AP from 06/04/2022 FINDINGS: BONES: No acute fracture is present. No bony destructive lesion is seen. JOINTS: No dislocation present. There is moderate to severe narrowing of the left superior hip joint space. There is also moderate to severe narrowing of the right hip joint space. There is spurring of both acetabula. There is mild spurring at the margins of the femoral heads. There is subchondral cysts in both acetabula. The pubic symphysis unremarkable. There are mild degenerative changes of the sacroiliac joints. There are severe degenerative changes at the L 4 5 disc with prominent endplate osteophytes. SOFT TISSUE: Normal. 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 DATA REPOSITORY: RADIATION DOSE DELIVERED:
== END 2025-01-19 05:54 ==
LOC: DI 05:34
PROVIDERS: PCP Nurse Practitioner Family; Visit Provider Student in an Organized Health Care Education/Training Program
DX: M76.32 Iliotibial band syndrome, left leg (principal); M16.0 Bilateral primary osteoarthritis of hip
CPT/HCPCS: 73502

== ENCOUNTER → 2025-03-01 10:22 | Outpatient (BNVA) | payer MEDICARE, BC, SELFPAY | PROVIDERS: PCP Nurse Practitioner Family; Referring Provider Nurse Practitioner Family; Visit Provider Student in an Organized Health Care Education/Training Program | DX: M16.0 Bilateral primary osteoarthritis of hip (principal) | CPT/HCPCS: 99214 ==

== ENCOUNTER → 2025-04-19 10:58 | Outpatient (BNVA) | payer MEDICARE, BC, SELFPAY | PROVIDERS: PCP Nurse Practitioner Family; Referring Provider Nurse Practitioner Family; Visit Provider Student in an Organized Health Care Education/Training Program | DX: M16.0 Bilateral primary osteoarthritis of hip (principal) | CPT/HCPCS: 99213; 20611; J1010 ==